=== PATIENT | male | born 1965 | race Caucasian/White ===

== ENCOUNTER → 2017-09-13 16:17 | Outpatient (CLI) | payer OTHER, SELFPAY ==
--- NOTE | 2017-09-13 16:17 | DT_ITS ---
This patient was seen during an EMR downtime September 11, 2017 - September 18, 2017. This patient may have a combination of paper and electronic documentation or all paper documentation. All documentation is viewable within the e-chart portion of [employer] for each patient visit.
[2017-09-22 16:10] LABS: QNTFERON TB Ag Minus Nil Value 0.01 IU/mL (.); QNTFERON TB Ag Value 0.08 IU/mL (.); QNTFERON TB Mitogen Value > 10.00 IU/mL (.); QNTFERON TB Nil Value 0.07 IU/mL (.)
[2017-09-22 18:27] LABS: QNTIFERON TB Gold Negative (Negative)
== END ==
PROVIDERS: Family Provider Internal Medicine; PCP Internal Medicine
DX: L40.0 Psoriasis vulgaris (principal); Z79.899 Other long term (current) drug therapy
CPT/HCPCS: 86480

== ENCOUNTER 2018-03-30 13:15 | Observation (INO) | payer OTHER, SELFPAY ==
[2018-03-30] VITALS (15 sets, daily range): BP systolic 117–145; BP diastolic 78–109; PULSE 86–108; RESP 15–25; TEMP 36.6–36.8; O2SAT 89–98; BMI 34.5; BMI 34.6; BMI 33.5
--- NOTE | 2018-03-30 13:38 | CT_ITS ---
STUDY: CTA CHEST REASON FOR EXAM: Male, 52 years old. 2 day history of shortness of breath. Elevated d-dimer. RADIATION DOSAGE (If Supplied By Facility): CTDIvol = ( 17.17 ) mGy, DLP = ( 648.10 ) mGycm TECHNIQUE: The examination was performed with the intravenous administration of 100 ml of Isovue 370 contrast material. Post-processing of the angiographic images was performed, with multiplanar reformation and 3D reconstruction. Individualized dose optimization techniques were used for this CT. COMPARISON: None. FINDINGS: There is evidence of diffuse bilateral intraluminal filling defects involving the branches of the right and left pulmonary arteries. This is more prominent on the right side where there is proximal extension of the thrombus into the distal portion of the right pulmonary artery. Normal thoracic aorta and visualized great vessels. There is no demonstrated aortic dissection. There are calcifications of the coronary arteries. There are visualized mediastinal lymph nodes, which are within normal size limits, and with normal morphology. Normal hilar regions. Normal visualized trachea and bronchi. The lungs are well expanded. Is evidence of increased linear markings with [place] in both lower lobes with subpleural blebs. Similar appearance is also seen in the anterior aspects of the upper lobes suggestive of chronic interstitial scarring. Normal pleura. Normal chest wall structures. There are degenerative changes of thoracic spine. 1.4 cm rounded hypodensity in the left adrenal gland suggestive of a small adrenal adenoma. CT/CTA Chest W/WO Contrast IMPRESSION: Diffuse bilateral pulmonary emboli worse on the right side. N.B. : The above information has been verbally conveyed by Flynn Mittal MD to Darlene Samuel MD, on 03/30/2018 15:18:35 (ET). Electronically Signed: Flynn Mittal MD at 15:19 EST Tel [phone], Service support ,
--- NOTE | 2018-03-30 13:38 | EKG12_ITS ---
Test Reason : SOB Blood Pressure : / mmHG Vent. Rate : 099 BPM Atrial Rate : 099 BPM P-R Int : 140 ms QRS Dur : 084 ms QT Int : 362 ms P-R-T Axes : 033 -23 -14 degrees QTc Int : 464 ms Normal sinus rhythm Minimal voltage criteria for LVH, may be normal variant Borderline ECG Confirmed by ZOHREH VALLE ([id number]), social media editor SANDI GRAF ([id number]) on 04/02/2018 1:06:44 PM Referred By: KEELY Confirmed By:ZOHREH VALLE
--- NOTE | 2018-03-30 13:40 | ED.DCSUM_ITS ---
- ER Visit Summary Date of Service: 03/30/18 Chief Complaint: Shortness of breath History of Present Illness: The patient is a 52 M presenting with shortness of breath. Patient states this started several days ago but worsened over the past 2 days. He was seen by his primary care physician yesterday. He had outpatient blood work which showed an elevated d-dimer. Today he was advised to come to the ED. He states he has chest pain which is worse with deep breathing. He denies leg pain or leg swelling. He has a remote history of DVT that was not treated with anticoagulants. He is not on home O2. Physical Examination: Heart rate 106, pulse ox 89% on room air. Patient is a febrile. Alert no acute distress. HEENT exam is unremarkable. Neck is supple. Lungs are clear and equal bilaterally. Heart is regular and tachycardic Abdomen is soft nontender nondistended. Extremities are unremarkable. Skin is warm and dry. No focal neurologic deficit. Remainder of exam is unremarkable. Emergency Department Course and Treatment: EKG is sinus rate of 99 with no acute ischemic changes. CBC, chemistries unremarkable other than glucose 136. Troponin is 0.487. BNP 203.7. CTA chest shows diffuse bilateral pulmonary emboli worse on the right side. He was started on a heparin drip. The hospitalist prefers to treat him with Xarelto. Patient will be admitted. Disposition: Admission Impression: Bilateral pulmonary embolism This note was generated with [employer] dictation software. It may contain incorrect words, spelling, and punctuation that were not noted in review of the chart jeet or to signing ED Disposition - Plan for ED Patient: Chief Complaint: Shortness of Breath Referrals: Shirley Hayward MD [Primary Care Provider] -
[2018-03-30 13:56] LABS: Absolute Lymphocyte Count 2.65 X10^3/ul (0.83-4.51); Absolute Neutrophil Count 6.2 X10^3/uL (2.0-7.7); Basophil# 0.02 X10^3/uL; Basophil% 0.2 % (0-1); Eosinophil# 0.03 X10^3/uL; Eosinophils% 0.3 % (0-5); Hematocrit 44.4 % (40-54); Hemoglobin 15.5 g/dl (13.0-16.5); Lymphocyte # 2.65 X10^3/ul (4.0); Lymphocyte % 27.4 % (19-41); Mean Corp Hgb Conc 34.9 g/gl (32-36); Mean Corpuscular Hgb 31.8 pg (27.0-32.0); Mean Platelet Vol. 10.1 fl (6.2-12.0); Monocyte# 0.76 X10^3/uL; Monocyte% 7.9 % (0-10); Neutrophil % 64.1 % (47-70); POSITIVE COUNT NO; POSITIVE DIFFERENTIAL NO; POSITIVE MORPHOLOGY NO; Platelet Count 150 K/mm3 (150-450); RBC Distribution Width CV 12.2 % (11.6-14.6); RBC Distribution Width SD 40.4 fl (35.1-43.9); Red Blood Count 4.88 M/mm3 (4.6-6.2); White Blood Count 9.7 K/mm3 (4.4-11.0)
[2018-03-30 14:16] LABS: Anion Gap 10 (5-15); BUN 13 mg/dL (7-18); BUN/Creat Ratio 11.8 RATIO (10-20); Calcium,Total 8.7 mg/dL (8.5-10.1); Chloride 107 mmol/L (98-107); EST Glomerular Filtration Rate 75 mL/min (>60); Est Glom Filt Rate - Afr Amer 90 mL/min (>60); Estimated Creatinine Clearance 86.22 ml/min; Glucose 136 mg/dL (74-106); Potassium 3.7 mmol/L (3.5-5.1); Sodium Level 139 mmol/L (136-145)
[2018-03-30 14:25] LABS: BNP,B-Type NATRIURETIC PEPTIDE 203.7 pg/mL (0-100)
--- NOTE | 2018-03-30 15:22 | NURSING ---
DR DUOBN IN ER
--- NOTE | 2018-03-30 16:05 | NURSING ---
PCU OBS PE [facility]
[2018-03-30] MEDS: Rivaroxaban 15 MG Tablet PO (16:08)
--- NOTE | 2018-03-30 16:47 | PCM.HP.STD ---
Problem List (1) Shortness of breath Status: Acute (2) Elevated d-dimer Status: Acute History of Present Illness Date of Admission: 03/30/18 Chief Complaint: Elevated d-dimer, shortness of breath The patient is a 52 year old M who was seen in the emergency room at [facility] after being sent in by his PCP due to an elevated d-dimer. This was obtained by his PCP due to complaints of shortness of breath times 48 hours. Patient also complained of palpitations over the last 2 days. Patient did not complain of any cough, sputum production, or any actual chest pain. Patient stated that his shortness of breath was worse on exertion. Patient states he had a past history of superficial thrombophlebitis approximately 18 years ago, this was treated with aspirin. He has no history of VTE in his family members. Workup in the emergency room included a CT of the chest which showed bilateral pulmonary emboli, lab was obtained on the patient-his CBC was unremarkable, glucose was slightly elevated at 136, troponin was slightly elevated at 4.87, beta natruretic peptide was elevated at 203. Patient's oxygen saturation on room air at rest was 89%. EKG obtained on the patient showed a normal sinus rhythm without evidence of ischemic changes or LV strain. Patient will be placed in observation status on PCU, he will be monitored, he was given Xarelto in the emergency room, oxygen will be titrated off if possible. Patient will have an echocardiogram performed tomorrow, I do not feel the patient needs repeat troponins-I do not think he has had a cardiac event. Past Medical History Past Medical History (Chronic Problems): Chronic Problems Restless leg syndrome (Chronic) Obstructive sleep apnea (Chronic) Depression (Chronic) Psoriasis (Chronic) Allergies No Known Allergies Allergy (Verified 03/30/18 13:20) Home Medications: Ambulatory Orders Medication Instructions Recorded traZODone [Desyrel] 200 mg PO QHS 05/23/16 Ustekinumab [Stelara] 90 mg SQ .COMPLEX 08/10/16 Fluoxetine HCl 20 mg PO DAILY 03/30/18 Gabapentin [Neurontin] 100 mg PO DAILY 03/30/18 Vitamin E 200 unit PO DAILY 03/30/18 Surgical History: appendectomy, - - Shoulder surgery, vein stripping of the left leg Psychiatric History: Depression Lives: Spouse/ Significant Other Smoking Status: Former smoker Tobacco Use: Cigarettes Alcohol: None Drugs: None - *Family History Maternal History Items: - - Alzheimer's dementia Paternal History Items: No pertinent history Review of Systems Constitutional: Denies: Anorexia, Chills, Fever, Night Sweats, Malaise, Weakness, Weight Change, Fatigue Eyes: Denies: Blurred vision, Cataracts, Conjunctivae Inflammation, Double vision, Drainage HEENT: Denies: Difficulty Swallowing, Dysphasia, Ear Pain, Eye Pain, Hearing Changes, Nasal bleeding, Nasal Congestion, Post Nasal Drip Cardiovascular: Reports: Palpitations. Denies: Chest Pain, Claudication, Chest Pressure, Chest Tightness, Edema, Heaviness, Orthopnea, Paroxysmal Noc. Dyspnea, Syncope Respiratory: Reports: Shortness of Breath, Shortness of breath at rest, Shortness of breath upon exertion. Denies: Cough, Hemoptysis Gastrointestinal: Denies: Abdominal Pain, Constipation, Diarrhea, Hematemesis, Hematochezia, Nausea, Melena, Vomiting Genitourinary: Denies: Dysuria, Frequency, Hematuria, Hesitancy, Nocturia, Retention, Urgency Musculoskeletal: Denies: Joint Pain, Joint stiffness, Joint swelling Skin: Denies: Dryness, Pruritis, Rash Neurological: Denies: Blurred vision, Double vision, Change in Speech, Slurred speech, Difficulty swallowing, Focal weakness, Headaches, Incoordination, Numbness, Tingling Psychiatric: Denies: Anxiety, Depression, Homicidal Ideations, Suicidal Ideations Endocrine: Denies: Change in Body Habitus, Heat/ Cold Intolerance, Polydipsia, Polyuria Hematologic/ Lymphatic: Reports: Hx of blood clot - History of superficial phlebitis of the calf in remote past. Denies: Adenopathy, Anemia, Easy Bruising, Easy Bleeding, Petechiae, Purpura VTE Information - Inpt Only VTE Present on Admission: Yes VTE Mechan Device Prophylaxis: None VTE Pharm Prophylaxis ordered?: No Reason prophylaxis not ordered:: Treatment Not Indicated - will have full anticoagulation Patient Problems: Active and Suspected Problems Shortness of breath (Acute) Elevated d-dimer (Acute) - Physical Exam General: Alert, Oriented x3, Cooperative, No apparent distress, Well developed, Well nourished HEENT: Atraumatic, PERRLA, EOMI, Normocephalic Oral: Moist Mucosa Neck: Supple, No JVD, Negative Carotid Bruits, No Nuchal Rigidity, Trachea Midline, Thyroid Normal Size and Texture Lungs: Clear to auscultation, Normal air movement, No rhonchi, No wheeze, No rales Cardiovascular: Regular rate, Regular Rhythm, Normal S1, Normal S2, No murmurs, No Ectopic Activity, PMI Normal, No rub noted, No Gallop Abdomen: Bowel Sounds Present, Soft, Non Tender, Non-Distended, No hernias noted Extremities: No clubbing, No cyanosis, No edema, Capillary Refill Less than 3 Seconds Skin: No rashes, No breakdown Musculoskeletal: No Tenderness to Palpation of Joints or Extremities Neurological: Cranial nerves II-XII grossly intact, Neuro grossly intact, Sensory exam intact to light touch and pain, Coordination normal Psych/Mental Status: Normal Affect, Appropriate, Alert and oriented to time, place, person, mood and affect Vital Signs Temp Pulse Resp BP Pulse Ox 98.3 F 94 18 144/109 H 96 03/30/18 13:16 03/30/18 16:08 03/30/18 16:08 03/30/18 16:08 03/30/18 16:08 Oxygen Flow Rate (L/min) 2 Oxygen Delivery Method Nasal Cannula Weight: 115.6 kg Body Mass Index (BMI) 34.5 Laboratory Tests Past 24 Hrs 03/30/18 03/30/18 03/30/18 13:30 13:30 13:30 WBC 9.7 RBC 4.88 Hgb 15.5 Hct 44.4 MCV 91.0 MCH 31.8 MCHC 34.9 RDW 12.2 RDW Differential 40.4 Plt Count 150 MPV 10.1 Immature Gran % (Auto) 0.100 Neut % (Auto) 64.1 Lymph % (Auto) 27.4 [place] % (Auto) 7.9 Eos % (Auto) 0.3 Baso % (Auto) 0.2 Absolute Neuts (auto) 6.2 Absolute Lymphs (auto) 2.65 Total Counted Not Reportable Sodium 139 Potassium 3.7 Chloride 107 Carbon Dioxide 22.0 Anion Gap 10 BUN 13 Creatinine 1.10 Estim Creat Clear Calc 86.22 Est GFR (MDRD) Af Amer 90 Est GFR (MDRD) Non-Af 75 BUN/Creatinine Ratio 11.8 Glucose 136 H Calcium 8.7 Troponin I 0.487 H B-Natriuretic Peptide 203.7 H Assessment/Plan All Active Problems Shortness of breath (Acute) Elevated d-dimer (Acute) #1 diffuse bilateral pulmonary emboli more predominant on the right side-patient will be placed in observation status on PCU, he will be maintained on Xarelto, he will be monitored, he will receive an echocardiogram tomorrow, I will order a PSA on the patient as part of a cancer screen, he has had a colonoscopy in the last 1-2 years which she states was negative. I do not feel that troponins need to be cycled. #2 psoriasis #3 obstructive sleep apnea-noncompliant with using CPAP-according to the , he was not able to use CPAP and refused to wear it #4 restless legs #5 depression Code Visit OBSV E&M: 61305 Initial observation care L3
[2018-03-30 17:10] LABS: International Normalized Ratio 1.1; Prothrombin Time (Protime)PT. 13.7 SECONDS (11.7-14.9)
[2018-03-30 17:17] LABS: PSA,Total - Annual Screen 0.34 ng/mL (0.00-4.00)
--- NOTE | 2018-03-30 18:27 | NURSING ---
Reviewed and agreed on all charting with Geronimo Pacheco RN
[2018-03-30] MEDS: traZODone 100 MG Tablet 200 MG PO (21:10)
[2018-03-31] VITALS (15 sets, daily range): BP systolic 104–136; BP diastolic 72–95; PULSE 75–90; RESP 15–18; TEMP 36.1–36.8; O2SAT 86–98
--- NOTE | 2018-03-31 05:55 | ECHOCS_ITS ---
Reason For Study: EMBOLI Procedure This was a 2D Doppler, Color Flow transthoracic echocardiogram. Contrast injection was performed. Exam performed portable in patient room. Left Ventricle Normal size and thickness. The estimated ejection fraction is 55 %. Stage 1 diastolic dysfunction. Mid-anteroseptal : Mildly hypokinetic. Right Ventricle Moderately dilated right ventricle. Normal systolic function. Atria Normal left atrium. Normal right atrium. Normal atrial septum. Mitral Valve The mitral valve is structurally normal. No prolapse or stenosis seen. Tricuspid Valve Normal tricuspid valve. Trivial tricuspid valve insufficiency. Right ventricular systolic pressure estimated to be 38 mmHg. Mild pulmonary hypertension. Aortic Valve Normal aortic valve. Trisinus/trileaflet aortic valve. Pulmonic Valve The pulmonic valve is not well visualized. Great Vessels Normal aortic root. Normal arch. Normal inferior vena cava. Inferior vena cava collapse with sniff. Pericardium/Pleural No pericardial effusion. Medication Diluted definity 3ml given slow IV push to enhance endocardial definition. MMode/2D Measurements & Calculations LVIDd: 4.9 cm IVSd: 1.1 cm Ao root diam: 3.7 cm LVIDs: 3.8 cm LVPWd: 1.1 cm RVDd: 4.4 cm FS: 22.6 % LAV(MOD-bp): 44.1 ml LVAd ap4: 32.6 cm2 SV(MOD-sp4): 48.1 ml LAV(MOD-bp) Indexed: 18.9 ml/m2 EDV(MOD-sp4): 104.3 ml LAV(MOD-sp2): 49.3 ml EDV(sp4-el): 108.4 ml LAV(MOD-sp4): 39.2 ml LVAs ap4: 22.2 cm2 ESV(MOD-sp4): 56.2 ml ESV(sp4-el): 58.7 ml EF(MOD-sp4): 46.1 % EF(sp4-el): 45.8 % SV(sp4-el): 49.6 ml LA A4 area: 15.7 cm2 LA dimension(2D): 3.7 cm RA A4 area: 15.2 cm2 Time Measurements MV dec time: 0.35 sec Doppler Measurements & Calculations MV E max jan: 34.2 cm/sec Lat Peak E' Jan: 7.0 cm/sec Med Peak E' Jan: 7.2 cm/sec MV A max jan: 43.5 cm/sec E/E' lat: 4.9 E/E' med: 4.8 MV E/A: 0.79 Ao V2 max: 90.9 cm/sec LV V1 max: 74.5 cm/sec PA V2 max: 98.0 cm/sec Ao max P.3 mmHg LV V1 max P.2 mmHg TR max jan: 286.4 cm/sec TR max P.8 mmHg Interpretation Summary The estimated ejection fraction is 55 %. Stage 1 diastolic dysfunction. Mid-anteroseptal : Mildly hypokinetic Moderately dilated right ventricle. Trivial tricuspid valve insufficiency. Right ventricular systolic pressure estimated to be 38 mmHg. Mild pulmonary hypertension. The study was technically difficult. There is no comparison study available. Contrast injection was performed. Ordering Physician: Teofilo Crane Referring Physician: GENIE COTO Performed By: Radha Machado, MARK, RVT
[2018-03-31] MEDS: Rivaroxaban 15 MG Tablet PO ×2 (06:09→17:28)
[2018-03-31] MEDS: FLUoxetine 20 MG Capsule PO (09:26)
[2018-03-31] MEDS: Gabapentin 100 MG Capsule PO (09:26)
--- NOTE | 2018-03-31 12:21 | DCINST_ITS ---
- Discharge Diagnoses Current Active Problems: Current Active and Chronic Problems Shortness of breath (Acute) Elevated d-dimer (Acute) Restless leg syndrome (Chronic) Obstructive sleep apnea (Chronic) Depression (Chronic) Psoriasis (Chronic) You will use the following diet at home:: No restrictions Discharge Activity: Return to Normal Activity Call your doctor if you observe: Shortness of breath, Dizziness, Fainting spells, Chest pain Allergies/Adverse Reactions: Allergies No Known Allergies Allergy (Verified 03/30/18 13:20) Medications to take at Discharge traZODone [Desyrel] 200 mg PO QHS 05/23/16 Ustekinumab [Stelara] 90 mg SQ .COMPLEX 08/10/16 Fluoxetine HCl 20 mg PO DAILY 03/30/18 Gabapentin [Neurontin] 100 mg PO DAILY 03/30/18 Vitamin E 200 unit PO DAILY 03/30/18 Rivaroxaban [Xarelto] 15 mg PO Q12H 21 Days #42 tablet 03/31/18 The following prescriptions were given: Rivaroxaban [Xarelto] 15 mg PO Q12H 21 Days #42 tablet Primary Care Physician: Shirley Hayward MD [Primary Care Provider] - Please follow up with your Primary Care Physician in: 1 Week Test Results: Test results from this visit will be discussed in further detail at your follow- up appointment, if applicable. Proposed Discharge Date: 03/31/18
--- NOTE | 2018-03-31 12:22 | PCM.DC.SUM ---
<Amie Lamb - Last Filed: 04/01/18 12:40> Discharge Date and Diagnosis Date of Admission: 03/30/18 Date of Discharge: 03/31/18 - Primary Discharge Diagnosis Active and Suspected Problems 1. Acute hypoxia secondary to acute diffuse bilateral pulmonary emboli 2. Psoriasis 3. Obstructive sleep apnea 4. Restless leg syndrome 5. Depression - Secondary Discharge Diagnosis Chronic Problems Restless leg syndrome (Chronic) Obstructive sleep apnea (Chronic) Depression (Chronic) Psoriasis (Chronic) Hospital Course and Treatment Imaging Results: Diagnostic Data Chest CTA 03/30/18 13:38 IMPRESSION: Diffuse bilateral pulmonary emboli worse on the right side. N.B. : The above information has been verbally conveyed by Flynn Mittal MD to Darlene Samuel MD, on 03/30/2018 15:18:35 (ET). Electronically Signed: Flynn Mittal MD at 15:19 EST Tel [phone], Service support , Operations: None Procedures: 2-D Echocardiogram Summary of Care Provided: The patient is a 52 year old M admitted 03/30/2018 due to shortness of breath, elevated d-dimer. 1. Acute hypoxia secondary to acute diffuse bilateral pulmonary emboli-patient reports a remote history of superficial thrombophlebitis 18 years ago which was treated with aspirin. He denies history of blood clots in his family. 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 He is not a smoker. EKG on admission sinus rhythm without evidence of ischemia or LV strain. CT with diffuse bilateral pulmonary emboli, more predominant on the right side. Initiated on Xarelto. Patient will continue Xarelto 15 mg twice daily for 21 days followed by Xarelto 20 mg daily which will be further ordered by primary care physician. Patient reports he has had a colonoscopy in the last 1-2 years which was reported to be normal. PSA normal. Patient will follow up with primary care physician in 1 week. Troponin completed in ER which was elevated. Suspect demand ischemia as result of acute hypoxia and bilateral pulmonary emboli. EKG without acute changes as noted prior. Enzymes were not cycled. Patient's oxygen 88% on room air, he will require supplemental oxygen at discharge. He is ambulatory in the home. Continue supplement oxygen to maintain O2 at or above 90%. Echocardiogram pending and will be reviewed prior to discharge. 2. Psoriasis 3. Obstructive sleep apnea 4. Restless leg syndrome 5. Depression General: Alert, Oriented x3, Cooperative, No apparent distress HEENT: Atraumatic, PERRLA, EOMI, Normocephalic Oral: Moist Mucosa Neck: Supple, No JVD, Negative Carotid Bruits, No Nuchal Rigidity, Trachea Midline Lungs: Clear to auscultation, Normal air movement Cardiovascular: Regular rate, Regular Rhythm, Normal S1, Normal S2, No murmurs Abdomen: Bowel Sounds Present, Soft, Non Tender, Non-Distended, No hernias noted Extremities: No clubbing, No cyanosis, No edema, Capillary Refill Less than 3 Seconds Skin: No rashes, No breakdown Musculoskeletal: No Tenderness to Palpation of Joints or Extremities Neurological: Cranial nerves II-XII grossly intact, Neuro grossly intact Psych/Mental Status: Normal Affect, Appropriate Patient seen and examined prior to discharge. Physical assessment as noted above. Patient is stable for discharge with follow up recommendations as noted above. This patient was seen by EDMUND Lester under the supervision of Dr. Branham. - Physical Exam Vital Signs Temp Pulse Resp BP Pulse Ox 98.2 F 78 18 104/72 98 03/31/18 09:24 03/31/18 10:42 03/31/18 09:24 03/31/18 09:24 03/31/18 09:24 Oxygen Flow Rate (L/min) 2 Oxygen Delivery Method Nasal Cannula Weight: 247 lb 2.211 oz Body Mass Index (BMI) 33.5 Intake and Output for Last 24 Hours 03/29/18 03/30/18 03/31/18 23:59 23:59 23:59 Intake Total 120 / 120 450 / 450 Balance 120 / 120 450 / 450 Laboratory Tests Past 24 Hrs 03/30/18 03/30/18 03/30/18 13:30 13:30 13:30 WBC 9.7 RBC 4.88 Hgb 15.5 Hct 44.4 MCV 91.0 MCH 31.8 MCHC 34.9 RDW 12.2 RDW Differential 40.4 Plt Count 150 MPV 10.1 Immature Gran % (Auto) 0.100 Neut % (Auto) 64.1 Lymph % (Auto) 27.4 [facility] % (Auto) 7.9 Eos % (Auto) 0.3 Baso % (Auto) 0.2 Absolute Neuts (auto) 6.2 Absolute Lymphs (auto) 2.65 Total Counted Not Reportable PT INR Sodium 139 Potassium 3.7 Chloride 107 Carbon Dioxide 22.0 Anion Gap 10 BUN 13 Creatinine 1.10 Estim Creat Clear Calc 86.22 Est GFR (MDRD) Af Amer 90 Est GFR (MDRD) Non-Af 75 BUN/Creatinine Ratio 11.8 Glucose 136 H Calcium 8.7 Troponin I 0.487 H B-Natriuretic Peptide 203.7 H PSA Screen 03/30/18 03/30/18 13:30 13:30 WBC RBC Hgb Hct MCV MCH MCHC RDW RDW Differential Plt Count MPV Immature Gran % (Auto) Neut % (Auto) Lymph % (Auto) [facility] % (Auto) Eos % (Auto) Baso % (Auto) Absolute Neuts (auto) Absolute Lymphs (auto) Total Counted PT 13.7 INR 1.1 Sodium Potassium Chloride Carbon Dioxide Anion Gap BUN Creatinine Estim Creat Clear Calc Est GFR (MDRD) Af Amer Est GFR (MDRD) Non-Af BUN/Creatinine Ratio Glucose Calcium Troponin I B-Natriuretic Peptide PSA Screen 0.34 Discharge Diet: No Restrictions Discharge Activity: Return to Normal Activity Call your doctor if you observe: Shortness of breath, Dizziness, Fainting spells, Chest pain Home Medications: Medications to take at Discharge traZODone [Desyrel] 200 mg PO QHS 05/23/16 Ustekinumab [Stelara] 90 mg SQ .COMPLEX 08/10/16 Fluoxetine HCl 20 mg PO DAILY 03/30/18 Gabapentin [Neurontin] 100 mg PO DAILY 03/30/18 Vitamin E 200 unit PO DAILY 03/30/18 Rivaroxaban [Xarelto] 15 mg PO Q12H 21 Days #42 tablet 03/31/18 Following Prescrptions Were Given to Patient: Rivaroxaban [Xarelto] 15 mg PO Q12H 21 Days #42 tablet Primary Care Physician: Shirley Hayward MD [Primary Care Provider] - Please follow up with your Primary Care Physician in: 1 Week Disposition: Home Minutes spent on discharge:: 35 Patient Condition:: Stable Medical Necessity - Tobacco Use Smoking Status: Former smoker Tobacco Use: Cigarettes Meaningful Use Info Meaningful Use Diagnoses (Choose all that apply): VTE - VTE Anticoag overlap given w/in hospital stay or rx'd at dc?: Yes Pt receive overlap for 5 days?: Yes <Jv Branham - Last Filed: 04/01/18 17:19> Discharge Date and Diagnosis Date of Discharge: 04/01/18 - Secondary Discharge Diagnosis Chronic Problems Restless leg syndrome (Chronic) Obstructive sleep apnea (Chronic) Depression (Chronic) Psoriasis (Chronic) Hospital Course and Treatment Summary of Care Provided: This patient was seen in conjunction with Amie TAFOYA. I have independently interviewed and examined the patient and reviewed pertinent history, examination findings, laboratory and plan of management. I have reviewed the note and agree with the documented findings with the few additional points. In brief, patient is admitted for acute hypoxic respiratory failure secondary to acute bilateral diffuse pulmonary emboli, worse on the right side. BNP 203, troponin 0 0.487. 2D echo shows moderately dilated right ventricle with RVSP 38 mmHg history of mild pulmonary hypertension. EF 55% with stage I diastolic dysfunction. Cardiac enzymes and echo finding of moderate RV dilatation is suggestive of acute cor pulmonale secondary to acute diffuse bilateral PE. The clinical diagnosis, labs finding, echo report discussed with the patient and his . Patient was advised to continue Xarelto for about 6 months. Follow with PCP in 1-2 weeks. Patient will also need repeat echo in 3 months to see resolution of right ventricular dilatation suggestive of acute cor pulmonale. Advised follow-up pulmonary clinic in 2-4 weeks. Discharge on oxygen 2 L/min Patient requires home oxygen with portability and is ambulatory in home in the community. Discharge medication reconciliation done. Discharge follow-up instructions completed. Discharge process discussed with the patient. Total time spent, exact 35 minutes on discharge meds reconciliation, examination, review of imaging and blood test and discussion with the patient on follow-up instructions. I have discussed my assessment with Amie TAFOYA and orders have been reviewed. [] Subjective: Seen and examined. Patient is still short of breath on walking and requires 2 L of oxygen. Hemodynamically stable. - Physical Exam General: Alert, Oriented x3, Cooperative HEENT: Atraumatic, PERRLA, EOMI, Normocephalic Neck: Supple, No JVD, Negative Carotid Bruits Lungs: Clear to auscultation, Normal air movement, No rhonchi, No wheeze, No rales Cardiovascular: Regular rate, Regular Rhythm, Normal S1, Normal S2, No murmurs Abdomen: Bowel Sounds Present, Soft, Non Tender, Non-Distended Extremities: No edema, Capillary Refill Less than 3 Seconds Skin: No rashes, No breakdown Musculoskeletal: No Tenderness to Palpation of Joints or Extremities Neurological: Cranial nerves II-XII grossly intact Psych/Mental Status: Normal Affect, Appropriate Vital Signs Temp Pulse Resp BP Pulse Ox 97.4 F L 95 16 109/77 97 04/01/18 14:17 04/01/18 14:17 04/01/18 14:17 04/01/18 14:17 04/01/18 14:17 Oxygen Flow Rate (L/min) [ 3 AMBULATION with Oxygen] Oxygen Flow Rate (L/min) 2 Oxygen Delivery Method Nasal Cannula Weight: 247 lb 2.211 oz Body Mass Index (BMI) 33.5 Intake and Output for Last 24 Hours 03/30/18 03/31/18 04/01/18 23:59 23:59 23:59 Intake Total 120 / 120 2009 480 / 480 Balance 120 / 120 2009 480 / 480 Code Visit Inpatient E&M: 17480 Disch Hosp
--- NOTE | 2018-03-31 12:29 | DS.PCM_ITS ---
Addendum entered and electronically signed by EDMUND Lester 04/01/18 12:40: Code Visit Additional follow up: Recommend repeat echo in 3 months by PCP. Referral to pulmonary medicine by PCP if repeat echo remains abnormal. Addendum entered and electronically signed by EDMUND Lester 04/01/18 10:49: Code Visit Discharge held due to intermittent shortness of breath yesterday afternoon. Patient reports shortness of breath is improved. Echocardiogram showed an EF of 55%, stage I diastolic dysfunction, moderately dilated right ventricle, RVSP estimated to be 38 mmHg. Patient stable for discharge home with home oxygen and Xarelto. Follow-up with primary care physician in 1 week. Discharge summary below unchanged. Discharge date 04/01/2018. General: Alert, Oriented x3, Cooperative, No apparent distress HEENT: Atraumatic, PERRLA, EOMI, Normocephalic Oral: Moist Mucosa Neck: Supple, No JVD, Negative Carotid Bruits, No Nuchal Rigidity, Trachea Midline Lungs: Clear to auscultation, Normal air movement Cardiovascular: Regular rate, Regular Rhythm, Normal S1, Normal S2, No murmurs Abdomen: Bowel Sounds Present, Soft, Non Tender, Non-Distended, No hernias noted Extremities: No clubbing, No cyanosis, No edema, Capillary Refill Less than 3 Seconds Skin: No rashes, No breakdown Musculoskeletal: No Tenderness to Palpation of Joints or Extremities Neurological: Cranial nerves II-XII grossly intact, Neuro grossly intact Psych/Mental Status: Normal Affect, Appropriate Patient seen and examined prior to discharge. Physical assessment as noted above. This patient was seen by EDMUND Lester under the supervision of Dr. Branham. Original Note: <Amie Lamb - Last Filed: 04/01/18 12:40> Discharge Date and Diagnosis Date of Admission: 03/30/18 Date of Discharge: 03/31/18 - Primary Discharge Diagnosis Active and Suspected Problems 1. Acute hypoxia secondary to acute diffuse bilateral pulmonary emboli 2. Psoriasis 3. Obstructive sleep apnea 4. Restless leg syndrome 5. Depression - Secondary Discharge Diagnosis Chronic Problems Restless leg syndrome (Chronic) Obstructive sleep apnea (Chronic) Depression (Chronic) Psoriasis (Chronic) Hospital Course and Treatment Imaging Results: Diagnostic Data Chest CTA 03/30/18 13:38 IMPRESSION: Diffuse bilateral pulmonary emboli worse on the right side. N.B. : The above information has been verbally conveyed by Flynn Mittal MD to Darlene Samuel MD, on 03/30/2018 15:18:35 (ET). Electronically Signed: Flynn Mittal MD at 15:19 EST Tel [phone], Service support , Operations: None Procedures: 2-D Echocardiogram Summary of Care Provided: The patient is a 52 year old M admitted 03/30/2018 due to shortness of breath, elevated d-dimer. 1. Acute hypoxia secondary to acute diffuse bilateral pulmonary emboli-patient reports a remote history of superficial thrombophlebitis 18 years ago which was treated with aspirin. He denies history of blood clots in his family. 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 EKG on admission sinus rhythm without evidence of ischemia or LV strain. CT with diff use bilateral pulmonary emboli, more predominant on the right side. Initiated on Xarelto. Patient will continue Xarelto 15 mg twice daily for 21 days followed by Xarelto 20 mg daily which will be further ordered by primary care physician. Patient reports he has had a colonoscopy in the last 1-2 years which was reported to be normal. PSA normal. Patient will follow up with primary care physician in 1 week. Troponin completed in ER which was elevated. Suspect demand ischemia as result of acute hypoxia and bilateral pulmonary emboli. EKG without acute changes as noted prior. Enzymes were not cycled. Patient's oxygen 88% on room air, he will require supplemental oxygen at discharge. He is ambulatory in the home. Continue supplement oxygen to maintain O2 at or above 90%. Echocardiogram pending and will be reviewed prior to discharge. 2. Psoriasis 3. Obstructive sleep apnea 4. Restless leg syndrome 5. Depression General: Alert, Oriented x3, Cooperative, No apparent distress HEENT: Atraumatic, PERRLA, EOMI, Normocephalic Oral: Moist Mucosa Neck: Supple, No JVD, Negative Carotid Bruits, No Nuchal Rigidity, Trachea Midline Lungs: Clear to auscultation, Normal air movement Cardiovascular: Regular rate, Regular Rhythm, Normal S1, Normal S2, No murmurs Abdomen: Bowel Sounds Present, Soft, Non Tender, Non-Distended, No hernias noted Extremities: No clubbing, No cyanosis, No edema, Capillary Refill Less than 3 Seconds Skin: No rashes, No breakdown Musculoskeletal: No Tenderness to Palpation of Joints or Extremities Neurological: Cranial nerves II-XII grossly intact, Neuro grossly intact Psych/Mental Status: Normal Affect, Appropriate Patient seen and examined prior to discharge. Physical assessment as noted above. Patient is stable for discharge with follow up recommendations as noted above. This patient was seen by EDMUND Lester under the supervision of Dr. Branham. - Physical Exam Vital Signs Temp Pulse Resp BP Pulse Ox 98.2 F 78 18 104/72 98 03/31/18 09:24 03/31/18 10:42 03/31/18 09:24 03/31/18 09:24 03/31/18 09:24 Oxygen Flow Rate (L/min) 2 Oxygen Delivery Method Nasal Cannula Weight: 247 lb 2.211 oz Body Mass Index (BMI) 33.5 Intake and Output for Last 24 Hours 03/29/18 03/30/18 03/31/18 23:59 23:59 23:59 Intake Total 120 / 120 450 / 450 Balance 120 / 120 450 / 450 Laboratory Tests Past 24 Hrs 03/30/18 03/30/18 03/30/18 13:30 13:30 13:30 WBC 9.7 RBC 4.88 Hgb 15.5 Hct 44.4 MCV 91.0 MCH 31.8 MCHC 34.9 RDW 12.2 RDW Differential 40.4 Plt Count 150 MPV 10.1 Immature Gran % (Auto) 0.100 Neut % (Auto) 64.1 Lymph % (Auto) 27.4 [facility] % (Auto) 7.9 Eos % (Auto) 0.3 Baso % (Auto) 0.2 Absolute Neuts (auto) 6.2 Absolute Lymphs (auto) 2.65 Total Counted Not Reportable PT INR Sodium 139 Potassium 3.7 Chloride 107 Carbon Dioxide 22.0 Anion Gap 10 BUN 13 Creatinine 1.10 Estim Creat Clear Calc 86.22 Est GFR (MDRD) Af Amer 90 Est GFR (MDRD) Non-Af 75 BUN/Creatinine Ratio 11.8 Glucose 136 H Calcium 8.7 Troponin I 0.487 H B-Natriuretic Peptide 203.7 H PSA Screen 03/30/18 03/30/18 13:30 13:30 WBC RBC Hgb Hct MCV MCH MCHC RDW RDW Differential Plt Count MPV Immature Gran % (Auto) Neut % (Auto) Lymph % (Auto) [place] % (Auto) Eos % (Auto) Baso % (Auto) Absolute Neuts (auto) Absolute Lymphs (auto) Total Counted PT 13.7 INR 1.1 Sodium Potassium Chloride Carbon Dioxide Anion Gap BUN Creatinine Estim Creat Clear Calc Est GFR (MDRD) Af Amer Est GFR (MDRD) Non-Af BUN/Creatinine Ratio Glucose Calcium Troponin I B-Natriuretic Peptide PSA Screen 0.34 Discharge Diet: No Restrictions Discharge Activity: Return to Normal Activity Call your doctor if you observe: Shortness of breath, Dizziness, Fainting spells, Chest pain Home Medications: Medications to take at Discharge traZODone [Desyrel] 200 mg PO QHS 05/23/16 Ustekinumab [Stelara] 90 mg SQ .COMPLEX 08/10/16 Fluoxetine HCl 20 mg PO DAILY 03/30/18 Gabapentin [Neurontin] 100 mg PO DAILY 03/30/18 Vitamin E 200 unit PO DAILY 03/30/18 Rivaroxaban [Xarelto] 15 mg PO Q12H 21 Days #42 tablet 03/31/18 Following Prescrptions Were Given to Patient: Rivaroxaban [Xarelto] 15 mg PO Q12H 21 Days #42 tablet Primary Care Physician: Shirley Hayward MD [Primary Care Provider] - Please follow up with your Primary Care Physician in: 1 Week Disposition: Home Minutes spent on discharge:: 35 Patient Condition:: Stable Medical Necessity - Tobacco Use Smoking Status: Former smoker Tobacco Use: Cigarettes Meaningful Use Info Meaningful Use Diagnoses (Choose all that apply): VTE - VTE Anticoag overlap given w/in hospital stay or rx'd at dc?: Yes Pt receive overlap for 5 days?: Yes <Jv Branham - Last Filed: 04/01/18 17:19> Discharge Date and Diagnosis Date of Discharge: 04/01/18 - Secondary Discharge Diagnosis Chronic Problems Restless leg syndrome (Chronic) Obstructive sleep apnea (Chronic) Depression (Chronic) Psoriasis (Chronic) Hospital Course and Treatment Summary of Care Provided: This patient was seen in conjunction with Amie TAFOYA. I have independently interviewed and examined the patient and reviewed pertinent history, examination findings, laboratory and plan of management. I have reviewed the note and agree with the documented findings with the few additional points. In brief, patient is admitted for acute hypoxic respiratory failure secondary to acute bilateral diffuse pulmonary emboli, worse on the right side. BNP 203, troponin 0 0.487. 2D echo shows moderately dilated right ventricle with RVSP 38 mmHg history of mild pulmonary hypertension. EF 55% with stage I diastolic dysfunction. Cardiac enzymes and echo finding of moderate RV dilatation is suggestive of acute cor pulmonale secondary to acute diffuse bilateral PE. The clinical diagnosis, labs finding, echo report discussed with the patient and his . Patient was advised to continue Xarelto for about 6 months. Follow with PCP in 1-2 weeks. Patient will also need repeat echo in 3 months to see resolution of right ventricular dilatation suggestive of acute cor pulmonale. Advised follow-up pulmonary clinic in 2-4 weeks. Discharge on oxygen 2 L/min Patient requires home oxygen with portability and is ambulatory in home in the community. Discharge medication reconciliation done. Discharge follow-up instructions completed. Discharge process discussed with the patient. Total time spent, exact 35 minutes on discharge meds reconciliation, examination, review of imaging and blood test and discussion with the patient on follow-up instructions. I have discussed my assessment with LOCKSTITCH BINDERAmie and orders have been reviewed. [] Subjective: Seen and examined. Patient is still short of breath on walking and requires 2 L of oxygen. Hemodynamically stable. - Physical Exam General: Alert, Oriented x3, Cooperative HEENT: Atraumatic, PERRLA, EOMI, Normocephalic Neck: Supple, No JVD, Negative Carotid Bruits Lungs: Clear to auscultation, Normal air movement, No rhonchi, No wheeze, No rales Cardiovascular: Regular rate, Regular Rhythm, Normal S1, Normal S2, No murmurs Abdomen: Bowel Sounds Present, Soft, Non Tender, Non-Distended Extremities: No edema, Capillary Refill Less than 3 Seconds Skin: No rashes, No breakdown Musculoskeletal: No Tenderness to Palpation of Joints or Extremities Neurological: Cranial nerves II-XII grossly intact Psych/Mental Status: Normal Affect, Appropriate Vital Signs Temp Pulse Resp BP Pulse Ox 97.4 F L 95 16 109/77 97 04/01/18 14:17 04/01/18 14:17 04/01/18 14:17 04/01/18 14:17 04/01/18 14:17 Oxygen Flow Rate (L/min) [ 3 AMBULATION with Oxygen] Oxygen Flow Rate (L/min) 2 Oxygen Delivery Method Nasal Cannula Weight: 247 lb 2.211 oz Body Mass Index (BMI) 33.5 Intake and Output for Last 24 Hours 03/30/18 03/31/18 04/01/18 23:59 23:59 23:59 Intake Total 120 / 120 2009 480 / 480 Balance 120 / 120 2009 480 / 480 Code Visit Inpatient E&M: 16064 Disch Hosp
--- NOTE | 2018-03-31 14:46 | PCM.PROGNOTE ---
<Amie Lamb - Last Filed: 03/31/18 14:49> Subjective: Patient seen and examined. Plan on discharge home however patient with intermittent shortness of breath. We will continue to monitor overnight. Requiring supplemental oxygen, patient was set up with home oxygen for discharge. No other complaints. - Physical Exam General: Alert, Oriented x3, Cooperative HEENT: Atraumatic, PERRLA, EOMI, Normocephalic Neck: Supple, No JVD, Negative Carotid Bruits Lungs: Clear to auscultation, Diminished Cardiovascular: Regular rate, Regular Rhythm, Normal S1, Normal S2, No murmurs Abdomen: Bowel Sounds Present, Soft, Non Tender, Non-Distended Extremities: No clubbing, No cyanosis, No edema, Capillary Refill Less than 3 Seconds Skin: No rashes, No breakdown Musculoskeletal: No Tenderness to Palpation of Joints or Extremities Neurological: Cranial nerves II-XII grossly intact, Neuro grossly intact Psych/Mental Status: Normal Affect, Appropriate Vital Signs Temp Pulse Resp BP Pulse Ox 98.2 F 78 18 104/72 88 03/31/18 09:24 03/31/18 10:42 03/31/18 09:24 03/31/18 09:24 03/31/18 13:08 Oxygen Flow Rate (L/min) [ 3 AMBULATION with Oxygen] Oxygen Flow Rate (L/min) 2 Oxygen Delivery Method Nasal Cannula Weight: 247 lb 2.211 oz Body Mass Index (BMI) 33.5 Intake and Output for Last 24 Hours 03/29/18 03/30/18 03/31/18 23:59 23:59 23:59 Intake Total 120 / 120 930 / 930 Balance 120 / 120 930 / 930 Laboratory Tests Past 24 Hrs 03/30/18 03/30/18 13:30 13:30 PT 13.7 INR 1.1 PSA Screen 0.34 Medical Necessity - Tobacco Use Smoking Status: Former smoker Tobacco Use: Cigarettes Assessment/Plan All Active Problems Shortness of breath (Acute) Elevated d-dimer (Acute) 1. Acute hypoxia secondary to acute diffuse bilateral pulmonary emboli-patient reports a remote history of superficial thrombophlebitis 18 years ago which was treated with aspirin. He denies history of blood clots in his family. 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 He is not a smoker. EKG on admission sinus rhythm without evidence of ischemia or LV strain. CT with diffuse bilateral pulmonary emboli, more predominant on the right side. Initiated on Xarelto. Patient will continue Xarelto 15 mg twice daily for 21 days followed by Xarelto 20 mg daily which will be further ordered by primary care physician. Patient reports he has had a colonoscopy in the last 1-2 years which was reported to be normal. PSA normal. Troponin completed in ER which was elevated. Suspect demand ischemia as result of acute hypoxia and bilateral pulmonary emboli. EKG without acute changes as noted prior. Enzymes were not cycled. Patient's oxygen 88% on room air, he will require supplemental oxygen at discharge. Continue supplement oxygen to maintain O2 at or above 90%. Echocardiogram showed an EF of 55%, stage I diastolic dysfunction, moderately dilated right ventricle, RVSP estimated to be 38 mmHg, mild pulmonary hypertension. 2. Psoriasis 3. Obstructive sleep apnea 4. Restless leg syndrome 5. Depression DVT prophylaxis-Xarelto This patient was seen by EDMUND Lester under the supervision of Dr. Branham. <Jv Branham - Last Filed: 03/31/18 17:33> Subjective: Patient gets short of breath on exertion although at rest he feels good. Has history of vein stripping and superficial vein thrombosis but denies previous DVT or PE. On 2 L of oxygen. Positive troponin and BNP shows right ventricular strain. 2D echo shows moderate RV dilatation - Physical Exam General: Alert, Oriented x3, Cooperative HEENT: Atraumatic, PERRLA, EOMI, Normocephalic Neck: Supple, No JVD, Negative Carotid Bruits Lungs: Clear to auscultation, No rhonchi, No wheeze, No rales, Diminished, Short of Breath, Tachypneic Cardiovascular: Regular rate, Regular Rhythm, Normal S1, Normal S2, No murmurs Abdomen: Bowel Sounds Present, Soft, Non Tender, Non-Distended Extremities: No edema, Capillary Refill Less than 3 Seconds Skin: No rashes, No breakdown Musculoskeletal: No Tenderness to Palpation of Joints or Extremities Neurological: Cranial nerves II-XII grossly intact Psych/Mental Status: Normal Affect, Appropriate Vital Signs Temp Pulse Resp BP Pulse Ox 97.7 F L 75 16 136/95 H 95 03/31/18 15:23 03/31/18 15:23 03/31/18 15:23 03/31/18 15:23 03/31/18 15:23 Oxygen Flow Rate (L/min) [ 3 AMBULATION with Oxygen] Oxygen Flow Rate (L/min) 2 Oxygen Delivery Method Nasal Cannula Weight: 247 lb 2.211 oz Body Mass Index (BMI) 33.5 Intake and Output for Last 24 Hours 03/29/18 03/30/18 03/31/18 23:59 23:59 23:59 Intake Total 120 / 120 930 / 930 Balance 120 / 120 930 / 930 Assessment/Plan This patient was seen in conjunction with Amie TAFOYA. I have independently interviewed and examined the patient and reviewed pertinent history, examination findings, laboratory and plan of management. I have reviewed the note and agree with the documented findings with the few additional points. In brief, patient is admitted for acute hypoxic respiratory failure secondary to acute bilateral diffuse pulmonary emboli, worse on the right side. BNP 203, troponin 0 0.487. 2D echo shows moderately dilated right ventricle with RVSP 38 mmHg history of mild pulmonary hypertension. EF 55% with stage I diastolic dysfunction. Cardiac enzymes and echo finding of moderate RV dilatation is suggestive of acute cor pulmonale secondary to acute diffuse bilateral PE. The clinical diagnosis, labs finding, echo report discussed with the patient and his . On Xarelto. Try to wean off oxygen I have discussed my assessment with Amie TAFOYA and orders have been reviewed. Clinical Impression(s) from Imaging Studies Chest CTA 03/30/18 13:38 IMPRESSION: Diffuse bilateral pulmonary emboli worse on the right side. Code Visit Inpatient E&M: 32850 Subs Hosp L3
--- NOTE | 2018-03-31 15:04 | CM.UR ---
Met face to face with patient and his . Introduced myself and explained my role. Agreed to assessment. Going home on Xarelto. Dr. Crane already gave free month supply coupon for Xarelto. I gave [employer] the coupon for $10 monthly copay for them. She did o2 home qualification as well after I met with patient. Patient would dip to 88% RA at rest and when walking dropped to 86%. Oxygen set up w/[employer]. Patient also interested in Advance directives. If remains here til Monday will alert SW To assist with them. Plan is to discharge home. Mile Brown RN, CCM.
[2018-03-31] MEDS: traZODone 100 MG Tablet 200 MG PO (21:31)
[2018-04-01] VITALS (8 sets, daily range): BP systolic 109–122; BP diastolic 73–77; PULSE 73–96; RESP 16; TEMP 36.3–37; O2SAT 94–97
[2018-04-01] MEDS: Rivaroxaban 15 MG Tablet PO ×2 (06:30→15:07)
[2018-04-01] MEDS: Gabapentin 100 MG Capsule PO (08:27)
[2018-04-01] MEDS: FLUoxetine 20 MG Capsule PO (08:27)
== END 2018-04-01 10:44 | disposition home or self-care (01) ==
LOC: ED 14:24 → PCU 16:17
PROVIDERS: Admitting Provider Internal Medicine; Emergency Provider Emergency Medicine; Family Provider Internal Medicine; PCP Internal Medicine; Visit Provider Internal Medicine
DX: I26.99 Other pulmonary embolism without acute cor pulmonale (principal); G25.81 Restless legs syndrome; G47.33 Obstructive sleep apnea (adult) (pediatric); F32.9 Major depressive disorder, single episode, unspecified; L40.9 Psoriasis, unspecified; Z86.718 Personal history of other venous thrombosis and embolism; Z87.891 Personal history of nicotine dependence; Z79.899 Other long term (current) drug therapy; Z91.19 Patient's noncompliance with other medical treatment and regimen; J96.01 Acute respiratory failure with hypoxia; I27.20 Pulmonary hypertension, unspecified; I07.1 Rheumatic tricuspid insufficiency
CPT/HCPCS: 71275; 80048; 83880; 84153; 84484; 85025; 85610; 93005; 93306; 99218; 99285; J7030; Q9957; Q9967; C8929; G0103; G0378

== ENCOUNTER 2018-06-20 19:48 | Observation (INO) | payer OTHER, SELFPAY ==
[2018-03-30 16:56] VITALS: BMI 33.5
[2018-06-20 19:49] VITALS: BP 116/69; PULSE 98; RESP 16; TEMP 36.6; O2SAT 96; BMI 35.6
--- NOTE | 2018-06-20 19:52 | EKG12_ITS ---
Test Reason : CP Blood Pressure : / mmHG Vent. Rate : 089 BPM Atrial Rate : 089 BPM P-R Int : 144 ms QRS Dur : 090 ms QT Int : 374 ms P-R-T Axes : 027 -11 025 degrees QTc Int : 455 ms Normal sinus rhythm Minimal voltage criteria for LVH, may be normal variant Borderline ECG Confirmed by STEPHEN DC, LORRAINE ([id number]), legal editor SANDI GRAF ([id number]) on 06/22/2018 8:22:34 AM Referred By: Shelly Rosa Confirmed By:LORRAINE MITCHELL MD
[2018-06-20 20:16] LABS: Absolute Lymphocyte Count 2.65 X10^3/ul (0.83-4.51); Absolute Neutrophil Count 3.4 X10^3/uL (2.0-7.7); Basophil# 0.03 X10^3/uL; Basophil% 0.5 % (0-1); Eosinophil# 0.07 X10^3/uL; Eosinophils% 1.1 % (0-5); Hematocrit 44.7 % (40-54); Lymphocyte # 2.65 X10^3/ul (4.0); Lymphocyte % 40.5 % (19-41); Mean Corp Hgb Conc 33.6 g/gl (32-36); Mean Corpuscular Hgb 31.1 pg (27.0-32.0); Mean Corpuscular Volume 92.7 fL (80-94); Mean Platelet Vol. 10.3 fl (6.2-12.0); Monocyte# 0.34 X10^3/uL; Monocyte% 5.2 % (0-10); Neutrophil # 3.44 X10^3/uL (2.7-7.7); Neutrophil % 52.5 % (47-70); Platelet Count 184 K/mm3 (150-450); RBC Distribution Width CV 12.6 % (11.6-14.6); RBC Distribution Width SD 42.3 fl (35.1-43.9); Red Blood Count 4.82 M/mm3 (4.6-6.2); White Blood Count 6.5 K/mm3 (4.4-11.0)
[2018-06-20 20:18] LABS: POSITIVE COUNT NO; POSITIVE DIFFERENTIAL NO; POSITIVE MORPHOLOGY NO
--- NOTE | 2018-06-20 20:32 | RAD_ITS ---
STUDY: X-RAY CHEST REASON FOR EXAM: Male, 52 years old. Chest pain TECHNIQUE: Single frontal view COMPARISON: None. FINDINGS: The lungs are not fully expanded. There is no demonstrated pleural abnormality. Cardiomegaly. Normal mediastinum and toña. Normal visualized pulmonary arteries. Normal visualized aortic arch and descending thoracic aorta. Mild degenerative changes of the visualized thoracic spine. Normal visualized ribs, clavicles, and shoulders. There is no demonstrated abnormality of the visualized soft tissue structures of the upper abdomen. RAD/Chest 1 View (Portable) IMPRESSION: Cardiomegaly. Electronically Signed: Ramirez Espinoza DO at 21:07 EDT Tel [phone], Service support ,
[2018-06-20 20:36] LABS: Anion Gap 8 (5-15); BUN 13 mg/dL (7-18); BUN/Creat Ratio 11.2 RATIO (10-20); Chloride 105 mmol/L (98-107); Creatinine, Serum 1.16 mg/dL (0.70-1.30); EST Glomerular Filtration Rate 70 mL/min (>60); Est Glom Filt Rate - Afr Amer 85 mL/min (>60); Estimated Creatinine Clearance 81.76 ml/min; Glucose 168 mg/dL (74-106); Potassium 3.4 mmol/L (3.5-5.1); Sodium Level 140 mmol/L (136-145)
[2018-06-20 20:41] VITALS: O2SAT 94
--- NOTE | 2018-06-20 21:10 | CT_ITS ---
STUDY: CTA CHEST REASON FOR EXAM: Male, 52 years old. Shortness of breath, chest pain RADIATION DOSAGE (If Supplied By Facility): CTDIvol = ( 11.48 ) mGy, DLP = ( 537.77 ) mGycm TECHNIQUE: The examination was performed with the intravenous administration of Isovue 370 100ML IV. Post-processing of the angiographic images was performed, with multiplanar reformation and 3D reconstruction. Individualized dose optimization techniques were used for this CT. COMPARISON: March 30, 2018 FINDINGS: Normal enhancement of the main pulmonary artery and right and left pulmonary arteries. Normal enhancement of the bilateral peripheral pulmonary arteries. There is no demonstrated pulmonary embolism. Normal thoracic aorta and visualized great vessels. There is no demonstrated aortic dissection. Normal heart and pericardium. Normal mediastinum. Normal hilar regions. Normal visualized trachea and bronchi. The lungs are well expanded. Bilateral pulmonary interstitial prominence. Normal pleura. Normal chest wall structures. Degenerative vertebral changes. Small atrophic right kidney. Fatty liver. 1.4 cm left adrenal nodule. CT/CTA Chest W/WO Contrast IMPRESSION: Interstitial prominence. No demonstrated pulmonary embolism or arterial dissection. Electronically Signed: Ramirez Espinoza DO at 23:05 EDT Tel [phone], Service support ,
[2018-06-20 21:12] VITALS: BP 130/76; PULSE 90; RESP 20; O2SAT 92
--- NOTE | 2018-06-20 21:12 | ED.DCSUM_ITS ---
- ER Visit Summary Date of Service: 06/20/18 Chief Complaint: Chest pain, shortness of breath History of Present Illness: The patient is a 52 M presenting with chest pain, shortness of breath. He states this has been ongoing for the past several days. Pain has been intermittent. It is worsened with exertion. He feels that he may have a blood clot in his lungs. He has a history of this PE. He is on Xarelto. He denies other complaints. Physical Examination: Vitals are stable. Patient is afebrile. Alert no acute distress. HEENT exam is unremarkable. Neck is supple. Lungs are clear and equal bilaterally. Heart is regular rate and rhythm. Abdomen is soft nontender nondistended. Extremities are unremarkable. Skin is warm and dry. No focal neurologic deficit. Remainder of exam is unremarkable. Emergency Department Course and Treatment: EKG normal sinus rhythm rate of 89. Chest x-ray shows cardiomegaly. CBC, chemistries unremarkable other than potassium 3.4, glucose 168. Troponin negative. CTA chest shows no demonstrated PE or dissection. Patient was given aspirin. Due to his exertional chest pain, I feel he should be admitted for further testing. Discussed with the hospitalist for observation. Disposition: Observation Impression: Chest pain This note was generated with [employer] dictation software. It may contain incorrect words, spelling, and punctuation that were not noted in review of the chart prior to signing ED Disposition - Plan for ED Patient: Referrals: Shirley Hayward MD [Primary Care Provider] -
[2018-06-20 22:26] VITALS: BP 127/90; RESP 18; O2SAT 92
--- NOTE | 2018-06-20 23:19 | PCM.HP.STD ---
Problem List (1) Chest pain Status: Acute Qualifiers: Chest pain type: unspecified Qualified Code(s): R07.9 - Chest pain, unspecified (2) Pulmonary embolism Status: Chronic Qualifiers: Pulmonary embolism type: unspecified Chronicity: chronic (3) Anxiety and depression Status: Chronic (4) Obesity (BMI 30-39.9) Status: Chronic (5) Restless leg syndrome Status: Chronic (6) Psoriasis Status: Chronic History of Present Illness Date of Admission: 06/20/18 Chief Complaint: Chest pain The patient is a 52 y/o M w/ PMHx: Obesity, Former Tobacco use, EtOH Abuse (4 whiskey drinks q HS), Psoriasis, History of PE (03/2018) on xarelto regimen, RLS who presents to the [facility] ED on 06/20/18 with history of ongoing, exertional, midsternal chest pressure described as a 5 out of 10 with associated dyspnea, occurring only with activity, ongoing since discharge this past March with history of pulmonary embolism at that time. Patient states that there is been no specific change in the quality or quantity of his symptoms. He denies any associated nausea, emesis or diaphoresis with these events. Workup in the ED included T 98, heart rate 98, BP 116/69, respiratory rate 16, 96% on room air, CBC unremarkable, BMP with potassium 3.4, glucose 168, troponin less than 0.015, EKG with no acute evidence of ischemia, chest x-ray with cardiomegaly, CTPA with interstitial prominence with no demonstrated pulmonary embolism or arterial dissection. 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 Upon evaluation of the patient in the ED he was chest pain-free at rest. Past Medical History Past Medical History (Chronic Problems): Chronic Problems Pulmonary embolism (Chronic) Anxiety and depression (Chronic) Obesity (BMI 30-39.9) (Chronic) Restless leg syndrome (Chronic) Obstructive sleep apnea (Chronic) Depression (Chronic) Psoriasis (Chronic) Allergies No Known Allergies Allergy (Verified 06/20/18 19:48) Home Medications: Ambulatory Orders Medication Instructions Recorded traZODone [Desyrel] 200 mg PO QHS 05/23/16 Ustekinumab [Stelara] 90 mg SQ .COMPLEX 08/10/16 Fluoxetine HCl 20 mg PO DAILY 03/30/18 Gabapentin [Neurontin] 100 mg PO DAILY 03/30/18 Vitamin E 200 unit PO DAILY 03/30/18 Rivaroxaban [Xarelto] 20 mg PO DAILY 06/20/18 Surgical History: appendectomy, - - Right total surgery, deviated septum repair, appendectomy, vein stripping. Psychiatric History: Depression Lives: Spouse/ Significant Other Smoking Status: Former smoker - Patient quit cigarette tobacco usage in August 2017 and prior to this had smoked 1 pack/day cigarette tobacco usage. Tobacco Use: Non-smoker Alcohol: Heavy - Patient notes approximately 4 whiskey alcoholic beverages nightly. Drugs: None - *Family History Maternal History Items: - - Patient notes a maternal family history of Alzheimer's dementia Paternal History Items: - - Patient notes a paternal family history of heart disease and diabetes. Review of Systems Constitutional: Reports: Malaise, Weakness, Fatigue. Denies: Chills, Fever, Weight Change HEENT: Denies: Head Aches, Sinus Congestion, Sinus Drainage Cardiovascular: Reports: Chest Pain, Chest Pressure. Denies: Edema, Heaviness, Light Headedness, Orthopnea, Palpitations, Syncope Respiratory: Reports: Shortness of Breath, Shortness of breath upon exertion. Denies: Cough, Shortness of breath at rest, Sputum production Gastrointestinal: Denies: Abdominal Pain, Nausea, Vomiting Genitourinary: Denies: Dysuria Musculoskeletal: Denies: Joint Pain, Joint Tenderness Skin: Denies: Rash, Wounds Neurological: Denies: Numbness, Tingling, Focal weakness Psychiatric: Reports: Anxiety, Depression. Denies: Homicidal Ideations, Suicidal Ideations Hematologic/ Lymphatic: Reports: Easy Bruising, Easy Bleeding VTE Information - Inpt Only VTE Present on Admission: No VTE Mechan Device Prophylaxis: None VTE Pharm Prophylaxis ordered?: Yes Patient Problems: Active and Suspected Problems Chest pain (Acute) Subjective: Seated upright in the ED, no current chest discomfort at this time or pressure. Objective: Physical Examination: General: awake, alert, oriented x 3 and cooperative, seated upright in the ED bed in no apparent distress denies any chest pressure at this time. Skin: normal color, turgor, no icterus, cyanosis. HEENT: AT/NC, EOMI, PERRLA, bilateral mild scleral injection, mildly dry MM, no carotid bruits or JVD noted. Lungs: CTA bilaterally, moderate effort, mild decrease BL bases, no rales, ronchi or wheezing. Heart: regular rate and rhythm; no gallop, rub audible. Abdomen: soft, obese, NTTP, ND, normal BS, no HSM. Extremities: no cyanosis, clubbing, or edema. Neurological: patient awake, alert, oriented x 3; cognitive function intact; pupils equally reactive to light and accomodation; cranial nerves II-XII grossly normal, moving all 4 extremities, no focal deficits, strength preserved. Psychiatric: affect appears normal, no acute evidence of depressive or anxiety feelings. - Physical Exam Vital Signs Temp Pulse Resp BP Pulse Ox 98 F 90 18 127/90 H 92 06/20/18 19:49 06/20/18 21:12 06/20/18 22:26 06/20/18 22:26 06/20/18 22:26 Oxygen Delivery Method Room Air Weight: 262 lb 9.129 oz Body Mass Index (BMI) 35.6 Laboratory Tests Past 24 Hrs 06/20/18 06/20/18 20:07 20:07 WBC 6.5 RBC 4.82 Hgb 15.0 Hct 44.7 MCV 92.7 MCH 31.1 MCHC 33.6 RDW 12.6 RDW Differential 42.3 Plt Count 184 MPV 10.3 Immature Gran % (Auto) 0.200 Neut % (Auto) 52.5 Lymph % (Auto) 40.5 Dundy % (Auto) 5.2 Eos % (Auto) 1.1 Baso % (Auto) 0.5 Absolute Neuts (auto) 3.4 Absolute Lymphs (auto) 2.65 Total Counted Not Reportable Sodium 140 Potassium 3.4 L Chloride 105 Carbon Dioxide 27.0 Anion Gap 8 BUN 13 Creatinine 1.16 Estim Creat Clear Calc 81.76 Est GFR (MDRD) Af Amer 85 Est GFR (MDRD) Non-Af 70 BUN/Creatinine Ratio 11.2 Glucose 168 H Calcium 9.0 Troponin I < 0.015 Assessment/Plan All Active Problems Chest pain (Acute) Shortness of breath (Acute) Elevated d-dimer (Acute) The patient is a 52 y/o M w/ PMHx: Obesity, Former Tobacco use, EtOH Abuse, Psoriasis, History of PE (03/2018) on xarelto regimen, RLS who presents to the [facility] ED on 06/20/18 with history of ongoing, exertional, midsternal chest pressure described as a 5 out of 10 with associated dyspnea, occurring only with activity, ongoing since discharge this past March with history of pulmonary embolism at that time. (1) Chest Pain, exertional: Workup in the ED included T 98, heart rate 98, BP 116/69, respiratory rate 16, 96% on room air, CBC unremarkable, BMP with potassium 3.4, glucose 168, troponin less than 0.015, EKG with no acute evidence of ischemia, chest x-ray with cardiomegaly, CTPA with interstitial prominence with no demonstrated pulmonary embolism or arterial dissection. 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 Will admit to PCU, place on a monitored bed to assure no acute myocardial infarction with serial cardiac enzymes and EKGs. Given patient inability to perform exercise will proceed with a.m. nuclear stress testing. ASA, NG, morphine. Mag pending. FLP in AM. (2) History of Pulmonary Embolism: She with pulmonary embolism in March 2018, discharged following initiation on Xarelto, oxygen supplementation transiently, echocardiogram at that time with EF 55%, stage I diastolic dysfunction, moderately dilated RV, RVSP 38 mmHg, no clear provoking factor with history of lower extremity superficial thrombophlebitis approximately 18 years prior treated with aspirin therapy at that time. (3) EtOH Abuse: Patient notes routine consumption of 4 whiskey drinks per day. Will maintain on CIWA protocol although patient states that he has gone days without drinking alcohol with no market side effects or withdrawal symptoms, MVI, thiamine and folic acid. Encourage patient decreased consumption to maximum 2 drinks daily. Mag and phos pending. (4) Psoriasis: Patient maintained outpatient on Stelara. (5) RLS: Continue home gabapentin regimen (6) Obesity: Weight loss and lifestyle changes encouraged. (7) History of tobacco use: Encouraged continued tobacco cessation. (8) Anxiety and depression: Continue home Prozac, trazodone regimen. (9) MELODY: Patient noncompliant with CPAP. (10) DVT prophylaxis: Continue patient home Xarelto regimen. Code Visit OBSV E&M: 75327 Initial observation care L3
[2018-06-20 23:32] VITALS: BP 135/83; PULSE 73; RESP 22; O2SAT 95
[2018-06-20 23:33] VITALS: BP 135/83; PULSE 84; RESP 16; TEMP 36.8; O2SAT 96
[2018-06-20] MEDS: Aspirin 325 MG Tablet PO (23:53)
[2018-06-21] VITALS (7 sets, daily range): BP systolic 125–136; BP diastolic 78–87; PULSE 70–78; RESP 16–18; TEMP 36.4–36.9; O2SAT 96–97; BMI 33.9
--- NOTE | 2018-06-21 00:41 | EKG12_ITS ---
Test Reason : CP ADMIT Blood Pressure : / mmHG Vent. Rate : 075 BPM Atrial Rate : 075 BPM P-R Int : 150 ms QRS Dur : 090 ms QT Int : 398 ms P-R-T Axes : 021 -17 014 degrees QTc Int : 444 ms Normal sinus rhythm Minimal voltage criteria for LVH, may be normal variant Borderline ECG When compared with ECG of 20-JUN-2018 19:54, MANUAL COMPARISON REQUIRED, DATA IS UNCONFIRMED Confirmed by ZOHREH VALLE ([id number]), news assignment editor ALEXANDRA DUNN ([id number]) on 06/25/2018 5:14:20 PM Referred By: Shelly Rosa Confirmed By:ZOHREH VALLE
[2018-06-21 00:59] LABS: Magnesium 2.1 mg/dL (1.6-2.6); Phosphorus 3.8 mg/dL (2.5-4.9)
[2018-06-21] MEDS: 0.9% Normal Saline 1,000 ML 100 ML IV (01:49)
[2018-06-21 04:41] LABS: Hematocrit 40.8 % (40-54); Hemoglobin 13.9 g/dl (13.0-16.5); International Normalized Ratio 1.1; Mean Corp Hgb Conc 34.1 g/gl (32-36); Mean Corpuscular Hgb 31.8 pg (27.0-32.0); Mean Corpuscular Volume 93.4 fL (80-94); Mean Platelet Vol. 10.9 fl (6.2-12.0); Partial Thromboplast Time 29.7 Seconds (24.1-36.2); Platelet Count 169 K/mm3 (150-450); Prothrombin Time (Protime)PT. 14.2 SECONDS (11.7-14.9); RBC Distribution Width CV 12.2 % (11.6-14.6); RBC Distribution Width SD 40.9 fl (35.1-43.9); Red Blood Count 4.37 M/mm3 (4.6-6.2); White Blood Count 5.9 K/mm3 (4.4-11.0)
[2018-06-21 04:55] LABS: Scan Indicated on CBC? Y/N NO
[2018-06-21 05:08] LABS: AST(SGOT) 90 U/L (15-37); Alanine Aminotransfer ALT/SGPT 143 U/L (16-61); Albumin, Serum 3.2 g/dL (3.2-5.0); Alkaline Phosphatase 73 U/L (45-117); Anion Gap 9 (5-15); BUN 14 mg/dL (7-18); BUN/Creat Ratio 13.2 RATIO (10-20); Calcium,Total 8.4 mg/dL (8.5-10.1); Chloride 108 mmol/L (98-107); Cholesterol 155 mg/dL (200); Creatinine, Serum 1.06 mg/dL (0.70-1.30); EST Glomerular Filtration Rate 78 mL/min (>60); Est Glom Filt Rate - Afr Amer 94 mL/min (>60); Estimated Creatinine Clearance 92.13 ml/min; Globulin 3.2 g/dL (2.2-4.2); Glucose 108 mg/dL (74-106); High Density Lipoprotein 32 mg/dL; Protein, Total 6.4 g/dL (6.4-8.2); Sodium Level 141 mmol/L (136-145); Triglycerides 184 mg/dL; Very Low Density Lipoprotein 37 mg/dL (5-40)
[2018-06-21] MEDS: Aspirin E.C. 81 MG Tablet PO (05:45)
[2018-06-21] MEDS: Folic Acid 1 MG Tablet PO (05:45)
[2018-06-21] MEDS: Thiamine Hydrochloride 100 MG Tablet PO (05:45)
--- NOTE | 2018-06-21 09:04 | STRESSREP ---
Stress Test Report Exercise myocardial perfusion stress test. 52-year-old man with a history of chest pain. Medications aspirin, Xarelto, Multivite. Resting EKG demonstrates normal sinus rhythm with a rate of 63 bpm normal intervals are noted resting blood pressure 140/92 mmHg. The patient exercised according to regular Jose Luis protocol for total duration of 5 minutes and 30 seconds the maximum heart rate attained was 148 bpm which was 88% of maximum predicted heart rate the maximum workload was 7 metabolic equivalents. The patient remained in sinus rhythm throughout the recording at rest and during peak exercise there were no EKG changes noted suggest ischemia upsloping EKG changes only were noted. The resting blood pressure 140/92 with a peak blood pressure 182/82 mmHg rate pressure product was 25,100. Myocardial perfusion protocol. 11.6 mCi of technetium 99m sestamibi was injected at rest. Patient exercised according to regular Jose Luis protocol for 5-1/2 minutes. At peak exercise 33 5.5 mCi of technetium 99m sestamibi was injected stress images were obtained stress and rest images were reconstructed and compared in the short axis vertical and horizontal long axis. Gated images were also obtained next Perfusion SPECT analysis: Review of the stress images demonstrate normal uptake of tracer noted in all areas of myocardium the resting images similarly demonstrate normal uptake of tracer noted in all areas of myocardium. No areas of reversibility are noted suggest ischemia BX Gated SPECT analysis: The gated ejection fraction is noted to be 64%. Conclusion: Normal exercise myocardial perfusion stress test at a moderate workload. Preserved ejection fraction.
[2018-06-21] MEDS: Multivitamins,Ther W-Minerals Tablet 1 TABLET PO (10:04)
[2018-06-21] MEDS: Rivaroxaban 20 MG Tablet PO (10:04)
[2018-06-21] MEDS: FLUoxetine 20 MG Capsule PO (10:04)
--- NOTE | 2018-06-21 10:23 | DCINST_ITS ---
- Discharge Diagnoses Current Active Problems: Current Active and Chronic Problems Chest pain (Acute) Pulmonary embolism (Chronic) Anxiety and depression (Chronic) Obesity (BMI 30-39.9) (Chronic) You will use the following diet at home:: No restrictions Your food should be the consistency of: Regular Your liquids should be the consistency of: Regular/Thin Discharge Activity: Return to Normal Activity Weight Bearing Status: Full weight bearing Allergies/Adverse Reactions: Allergies No Known Allergies Allergy (Verified 06/20/18 19:48) Medications to take at Discharge traZODone [Desyrel] 200 mg PO QHS 05/23/16 Ustekinumab [Stelara] 90 mg SQ .COMPLEX 08/10/16 Fluoxetine HCl 20 mg PO DAILY 03/30/18 Gabapentin [Neurontin] 100 mg PO DAILY 03/30/18 Vitamin E 200 unit PO DAILY 03/30/18 Rivaroxaban [Xarelto] 20 mg PO DAILY 06/20/18 Primary Care Physician: Shirley Hayward MD [Primary Care Provider] - Please follow up with your Primary Care Physician in: in 7-10 days Test Results: Test results from this visit will be discussed in further detail at your follow- up appointment, if applicable.
--- NOTE | 2018-06-21 10:50 | PHA.DC.MR ---
Pharmacy Service has performed discharge medication reconciliation for this patient. No new medication prescribed on discharge. MedRec list from previous home medications. The patient's discharge medication list was reviewed for discrepancies and discrepancies were resolved. Home Medications traZODone [Desyrel] 200 mg PO QHS 05/23/16 Ustekinumab [Stelara] 90 mg SQ .COMPLEX 08/10/16 Fluoxetine HCl 20 mg PO DAILY 03/30/18 Gabapentin [Neurontin] 100 mg PO DAILY 03/30/18 Vitamin E 200 unit PO DAILY 03/30/18 Rivaroxaban [Xarelto] 20 mg PO DAILY 06/20/18
--- NOTE | 2018-06-24 17:17 | PCM.DC.SUM ---
Discharge Date and Diagnosis Date of Admission: 06/20/18 Date of Discharge: 06/21/18 - Primary Discharge Diagnosis #1 noncardiac chest pain - Secondary Discharge Diagnosis Chronic Problems Pulmonary embolism (Chronic) Anxiety and depression (Chronic) Obesity (BMI 30-39.9) (Chronic) Restless leg syndrome (Chronic) Obstructive sleep apnea (Chronic) Depression (Chronic) Psoriasis (Chronic) Hospital Course and Treatment Operations: None Procedures: Nuclear stress test Summary of Care Provided: The patient is a 53 year old M who was seen in the emergency room at [facility] with chief complaint of shortness of breath and some chest discomfort. Workup included an EKG which showed a normal sinus rhythm and no evidence of ischemic changes, chest x-ray shows cardiomegaly but no acute pulmonary process. Potassium was slightly low at 3.4, troponin was unremarkable. CT of the chest showed no PE or dissection. Patient was placed in observation status on PCU, cardiac enzymes were cycled and these remained normal. Patient underwent a nuclear stress test on 06/21/18 which showed no evidence of reversible ischemic changes. On 06/21/18, patient was seen and examined and felt to be in stable condition for discharge home: On examination he appeared in good health and spirits. Vital signs as documented. Skin warm and dry and without overt rashes. Neck without JVD. Lungs clear. Heart exam notable for regular rhythm, normal sounds and absence of murmurs, rubs or gallops. Abdomen unremarkable and without evidence of organomegaly, masses, or abdominal aortic enlargement. Extremities nonedematous. Neuro: Cranial nerves II through XII are grossly intact, no focal motor deficits were noted, sensation to light touch and pinprick intact. Psych: Patient is alert and oriented x3, he does not appear anxious or depressed - Physical Exam Vital Signs Temp Pulse Resp BP Pulse Ox 98.4 F 75 16 136/82 H 97 06/21/18 11:00 06/21/18 11:00 06/21/18 11:00 06/21/18 11:00 06/21/18 11:00 Oxygen Delivery Method Room Air Weight: 116.6 kg Body Mass Index (BMI) 33.9 Discharge Activity: Return to Normal Activity Weight Bearing Status: Full weight bearing Home Medications: Medications to take at Discharge traZODone [Desyrel] 200 mg PO QHS 02/13/17 Ustekinumab [Stelara] 90 mg SQ .COMPLEX 08/10/16 Fluoxetine HCl 20 mg PO DAILY 03/30/18 Gabapentin [Neurontin] 100 mg PO DAILY 03/30/18 Vitamin E 200 unit PO DAILY 03/30/18 Rivaroxaban [Xarelto] 20 mg PO DAILY 06/20/18 Primary Care Physician: Shirley Hayward MD [Primary Care Provider] - Please follow up with your Primary Care Physician in: in 7-10 days Disposition: Home Minutes spent on discharge:: 25 Patient Condition:: Stable Medical Necessity - Tobacco Use Smoking Status: Former smoker Tobacco Use: Non-smoker Meaningful Use Info Meaningful Use Diagnoses (Choose all that apply): None applicable Code Visit OBSV E&M: 05283 Observation care discharge
== END 2018-06-21 10:22 | disposition home or self-care (01) ==
LOC: ED 20:53 → PCU 23:40
PROVIDERS: Admitting Provider Family Medicine; Emergency Provider Emergency Medicine; Family Provider Internal Medicine; PCP Internal Medicine; Referring Provider Family Medicine; Visit Provider Internal Medicine
DX: R07.89 Other chest pain (principal); R06.02 Shortness of breath; Z86.711 Personal history of pulmonary embolism; Z79.01 Long term (current) use of anticoagulants; Z79.899 Other long term (current) drug therapy; G47.33 Obstructive sleep apnea (adult) (pediatric); E66.9 Obesity, unspecified; Z68.33 Body mass index [BMI] 33.0-33.9, adult; Z71.3 Dietary counseling and surveillance; G25.81 Restless legs syndrome; L40.9 Psoriasis, unspecified; F41.9 Anxiety disorder, unspecified; F32.9 Major depressive disorder, single episode, unspecified; Z87.891 Personal history of nicotine dependence; Z91.19 Patient's noncompliance with other medical treatment and regimen
CPT/HCPCS: 36415; 71045; 71275; 78452; 80048; 80053; 80061; 83735; 84100; 84484; 85025; 85027; 85610; 85730; 93005; 93017; 96360; 96361; 99218; 99283; A9500; J7030; Q9967; A4216; G0378; J2785

== ENCOUNTER → 2019-01-17 | Outpatient (CLI) | payer OTHER, SELFPAY ==
[2018-06-21 00:16] VITALS: BMI 33.9
[2019-01-17 17:39] LABS: Absolute Lymphocyte Count 3.29 X10^3/uL (0.83-4.51); Absolute Neutrophil Count 3.4 X10^3/uL (2.0-7.7); Basophil# 0.04 X10^3/uL; Basophil% 0.5 % (0-1); Eosinophil# 0.08 X10^3/uL; Eosinophils% 1.1 % (0-5); Hematocrit 42.4 % (40-54); Hemoglobin 14.5 g/dL (13.0-16.5); Lymphocyte # 3.29 X10^3/ul (4.0); Lymphocyte % 44.2 % (19-41); Mean Corp Hgb Conc 34.2 g/dL (32-36); Mean Corpuscular Hgb 31.2 pg (27.0-32.0); Mean Corpuscular Volume 91.2 fL (80-94); Mean Platelet Vol. 10.9 fl (6.2-12.0); Monocyte# 0.59 X10^3/uL; Monocyte% 7.9 % (0-10); NRBC Flagged by Analyzer 0 % (0-5); Neutrophil # 3.44 X10^3/uL (2.7-7.7); Neutrophil % 46.2 % (47-70); Platelet Count 179 K/mm3 (150-450); RBC Distribution Width CV 11.7 % (11.6-14.6); RBC Distribution Width SD 38.5 fl (35.1-43.9); Red Blood Count 4.65 M/mm3 (4.6-6.2); White Blood Count 7.5 K/mm3 (4.4-11.0)
[2019-01-17 18:07] LABS: Anion Gap 9 (5-15); BUN 15 mg/dL (7-18); BUN/Creat Ratio 14.7 RATIO (10-20); Calcium,Total 8.9 mg/dL (8.5-10.1); Chloride 106 mmol/L (98-107); Creatinine, Serum 1.02 mg/dL (0.70-1.30); EST Glomerular Filtration Rate 81 mL/min (>60); Est Glom Filt Rate - Afr Amer 98 mL/min (>60); Glucose 70 mg/dL (74-106); Potassium 3.7 mmol/L (3.5-5.1); Sodium Level 143 mmol/L (136-145)
== END | disposition home or self-care (01) ==
LOC: MTLAB 16:35
PROVIDERS: Family Provider Internal Medicine; PCP Internal Medicine; Referring Provider Dermatology; Visit Provider Dermatology
DX: L40.0 Psoriasis vulgaris (principal); Z79.899 Other long term (current) drug therapy
CPT/HCPCS: 36415; 80048; 85025

== ENCOUNTER → 2020-03-31 11:20 | Outpatient (CLI) | payer OTHER, SELFPAY ==
[2018-06-21 00:16] VITALS: BMI 33.9
[2020-03-31 15:31] LABS: Absolute Lymphocyte Count 2.65 X10^3/uL (0.83-4.51); Absolute Neutrophil Count 4.1 X10^3/uL (2.0-7.7); Basophil# 0.04 X10^3/uL; Basophil% 0.5 % (0-1); Eosinophil# 0.08 X10^3/uL; Eosinophils% 1.1 % (0-5); Hematocrit 45.4 % (40-54); Hemoglobin 15.5 g/dL (13.0-16.5); Lymphocyte # 2.65 X10^3/ul (4.0); Mean Corp Hgb Conc 34.1 g/dL (32-36); Mean Corpuscular Hgb 31.6 pg (27.0-32.0); Mean Corpuscular Volume 92.5 fL (80-94); Mean Platelet Vol. 11.1 fl (6.2-12.0); Monocyte% 6.8 % (0-10); NRBC Flagged by Analyzer 0 % (0-5); Neutrophil # 4.09 X10^3/uL (2.7-7.7); Neutrophil % 55.5 % (47-70); Platelet Count 180 K/mm3 (150-450); RBC Distribution Width CV 11.9 % (11.6-14.6); RBC Distribution Width SD 40.5 fl (35.1-43.9); Red Blood Count 4.91 M/mm3 (4.6-6.2); White Blood Count 7.4 K/mm3 (4.4-11.0)
[2020-03-31 15:43] LABS: Anion Gap 7 (5-15); BUN 12 mg/dL (7-18); BUN/Creat Ratio 11.2 RATIO (10-20); Calcium,Total 9.2 mg/dL (8.5-10.1); Chloride 103 mmol/L (98-107); Creatinine, Serum 1.07 mg/dL (0.70-1.30); EST Glomerular Filtration Rate 76 mL/min (>60); Est Glom Filt Rate - Afr Amer 92 mL/min (>60); Glucose 92 mg/dL (74-106); Potassium 4.1 mmol/L (3.5-5.1); Sodium Level 136 mmol/L (136-145)
[2020-04-02 14:09] LABS: QNTFERON TB Mitogen Value > 10.00 IU/mL (.); QNTFERON TB Nil Value 0.03 IU/mL (.); QNTFERON TB1+ Ag Value 0.03 IU/mL (.); QNTFERON TB2+ Ag Value 0.03 IU/mL (.)
[2020-04-02 14:56] LABS: QNTIFERON TB Positive Criteria Negative (Negative)
== END ==
PROVIDERS: PCP Internal Medicine; Referring Provider Dermatology; Visit Provider Dermatology
DX: L40.0 Psoriasis vulgaris (principal); Z79.899 Other long term (current) drug therapy
CPT/HCPCS: 36415; 80048; 85025; 86480

== ENCOUNTER → 2021-03-24 15:15 | Outpatient (CLI) | payer OTHER, SELFPAY ==
[2021-03-24 17:55] LABS: Absolute Lymphocyte Count 2.67 X10^3/uL (0.83-4.51); Basophil# 0.04 X10^3/uL; Basophil% 0.5 % (0-1); Eosinophil# 0.07 X10^3/uL; Eosinophils% 0.9 % (0-5); Hematocrit 43.4 % (40-54); Hemoglobin 15.1 g/dL (13.0-16.5); Lymphocyte # 2.67 X10^3/ul (0.83-4.51); Lymphocyte % 36.2 % (19-41); Mean Corp Hgb Conc 34.8 g/dL (32-36); Mean Corpuscular Hgb 31.7 pg (27.0-32.0); Mean Platelet Vol. 11.4 fl (6.2-12.0); Monocyte# 0.63 X10^3/uL; Monocyte% 8.5 % (0-10); NRBC Flagged by Analyzer 0 % (0-5); Neutrophil # 3.96 X10^3/uL (2.7-7.7); Neutrophil % 53.8 % (47-70); Platelet Count 174 K/mm3 (150-450); RBC Distribution Width CV 11.5 % (11.6-14.6); RBC Distribution Width SD 38.6 fl (35.1-43.9); Red Blood Count 4.77 M/mm3 (4.6-6.2); White Blood Count 7.4 K/mm3 (4.4-11.0)
[2021-03-24 18:13] LABS: Anion Gap 8 (5-15); BUN 15 mg/dL (7-18); BUN/Creat Ratio 13.9 RATIO (10-20); Chloride 105 mmol/L (98-107); Creatinine, Serum 1.08 mg/dL (0.70-1.30); EST Glomerular Filtration Rate 75 mL/min (>60); Est Glom Filt Rate - Afr Amer 91 mL/min (>60); Glucose 83 mg/dL (74-106); Potassium 3.8 mmol/L (3.5-5.1); Sodium Level 138 mmol/L (136-145)
[2021-03-27 03:07] LABS: QNTFERON TB Mitogen Value > 10.00 IU/mL (.); QNTFERON TB Nil Value 0.02 IU/mL (.); QNTFERON TB1+ Ag Value 0.01 IU/mL (.); QNTFERON TB2+ Ag Value 0.01 IU/mL (.)
[2021-03-27 07:45] LABS: QNTIFERON TB Positive Criteria Negative (Negative)
== END ==
PROVIDERS: PCP Internal Medicine; Referring Provider Dermatology Pediatric Dermatology; Visit Provider Dermatology Pediatric Dermatology
DX: L40.0 Psoriasis vulgaris (principal); Z79.899 Other long term (current) drug therapy
CPT/HCPCS: 36415; 80048; 85025; 86480

== ENCOUNTER 2025-03-31 07:02 | Day surgery (SDC) | payer OTHER, SELFPAY ==
--- NOTE | 2025-03-28 15:35 | PAT.ANESEVAL ---
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 When Was Last Pacemaker Check QUESTION #4 FULL TEXT: You/Your Family Experience fever (hyperthermia) with Anesthesia Last Oral Intake Last Oral intake: Last Oral Intake NPO since Meds taken in AM with sips of water? 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 machine operator Female No 03/28/25 08:09 HX of Motion Sickness No 03/28/25 08:09 HX of N/V After Surgery No 03/28/25 08:09 Non-Smoker Yes 03/28/25 08:09 Duration of Surgery greater No 03/28/25 08:09 than 60 minutes Number of Risk Factors 1 03/28/25 08:09 PONV Score Low Risk 03/28/25 08:09 Height & Weight Height & Weight: Anesthesia: Height & Weight Height 6 in 03/24/21 15:15 Respiratory Assessment Respiratory Assessment - dry ice machine operator: Respiratory Tract Infection Hx - dry ice machine operator Hx Respiratory Tract Infection No 03/28/25 08:09 STOP Sleep Apnea STOP Sleep Apnea - dry ice machine operator: STOP Sleep Apnea - dry ice machine operator Hx Hypertension Yes 03/28/25 08:09 Hx Sleep Apnea Yes: NONE SINCE WT LOSS OF 03/28/25 08:09 60LBS CPAP No 03/28/25 08:09 BIPAP No 03/28/25 08:09 Do you snore loudly (louder than talking or can be heard Do you often feel tired/ fatigued/ sleepy during daytime? Has anyone observed you stop breathing during sleep? STOP Results Positive 03/28/25 08:09 QUESTION #5 FULL TEXT : Do you snore loudly (louder than talking or can be heard through closed doors)? 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 Specify any problems Hx of Preganancy in last 3 N/A 03/28/25 08:09 Months Nurse Filling Out Transfusion MGRIFELIPE 03/28/25 08:09 & Questions: Date: 03/28/25 03/28/25 08:09 Time: 08:12 03/28/25 08:09 Patient unable to answer at this time (ie. confused, unrespo /Reproduction History /Reproductive History - dry ice machine operator: /Reproductive Hx- dry ice machine operator Hx Now No 03/28/25 08:09 Gestational Age (in weeks): EDC: Hx Hx Para Hx Section SAB No 03/28/25 08:09 Does the father of the baby or his family experience fever w Father of the baby Malignant Hypertension history comment [facility] Medical History (Updated 03/28/25 @ 08:32 by Paola Guzman) Wears hearing aid Wears glasses Cancer Anxiety Bladder disease History of sleep apnea Former smoker Shortness of breath on exertion History of echocardiogram History of stress test History of pulmonary embolism Diarrhea Coronary artery calcification Arthritis Pulmonary nodules Dysphagia Home Medications ?Medication ?Instructions ?Recorded ?Last Taken ?Type trazodone 100 mg tablet 200 mg PO QHS sleep 05/23/16 06/20/18 21:00 History albuterol sulfate 90 mcg/actuation 2 puff inhalation Q6H PRN 01/10/25 Unknown History aerosol inhaler (Ventolin HFA) bronchospasm duloxetine 60 mg capsule,delayed 60 mg PO QDAY 01/10/25 Unknown History release pramipexole 1.5 mg tablet 1.5 mg PO QHS RLS 01/10/25 Unknown History propranolol 10 mg tablet 10 mg PO BID BP 01/10/25 Unknown History buspirone 10 mg tablet 10 mg PO BID 03/03/25 Unknown History trospium 20 mg tablet 20 mg PO BID OAB 03/03/25 Unknown History aspirin 81 mg chewable tablet 1 tab PO DAILY 03/28/25 Unknown History vitamin E 670 mg (1,000 unit) 1,340 mg PO DAILY 03/28/25 Unknown History capsule Allergy/AdvReac Type Severity Reaction Status Date / Time lisinopril AdvReac Mild Other Verified 03/28/25 08:03 Family History (Updated 03/03/25 @ 15:48 by Michaelle Leonard) Mother Alzheimers disease Father Diabetes Hypertension Cancer thyroid Surgical History (Updated 03/28/25 @ 08:23 by Paola Guzman) History of vein stripping History of colonoscopy History of right shoulder surgery History of appendectomy Social History Smoking Status: Former smoker Audit: Pertinent Findings Pertinent Findings EKG Perinent findings: January 02, 2023. Sinus bradycardia at 48 bpm. Minimal LVH. Stress test pertinent findings: 01/23/2023. EF of 61%. Patient achieved 8.1 METS. Negative for ischemia at 97% of MPHR. Echo (EF%) pertinent findings: September 13, 2021. EF of 55%. No aortic stenosis noted. No significant valvular abnormalities. Recommendation Anesthesia Recommendation Anesthesia recommendation: OPTIMIZED for anesthesia
[2025-03-31] VITALS (8 sets, daily range): BP systolic 88–124; BP diastolic 68–88; PULSE 60–74; RESP 16; TEMP 36.1–36.6; O2SAT 95–100; BMI 28.4
--- OUTSIDE RECORDS SUMMARY | 2025-03-31 07:07 | XMS RPT_ITS | CCD ---
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.OCTAVIA, Mayuri Unavailable Sangita Green PA-C Unavailable GANTA, GENIE Primary Care Unavailable MOOMAW, IGLESIA Referring Unavailable GANTA, GENIE Primary Care Unavailable GANTA, GENIE Referring Unavailable GANTA, GENIE Primary Care Unavailable HARPSTER, FIFI Attending Unavailable HARPSTER, FIFI Referring Unavailable GANTA, GENIE Primary Care Unavailable HARPSTER, FIFI Referring Unavailable GANTA, GENIE Primary Care Unavailable GANTA, GENIE Attending Unavailable GANTA, GENIE Referring Unavailable GANTA, GENIE Primary Care Unavailable GANTA, GENIE Primary Care Unavailable SHEREE MAGALLON Attending Unavailable GANTA, GENIE Primary Care Unavailable GANTA, GENIE Referring Unavailable GANTA, GENIE Primary Care Unavailable GANTA, GENIE Primary Care Unavailable GANTA, GENIE Attending Unavailable Allergies Allergy Classification Reported Allergen(s) Allergy Type Date of Onset Reaction(s) Facility (20 sources) Lisinopril; Translations: [LISINOPRIL] Drug Allergy 08-20-2018 Cough [facility] Medications Current Medications Medication Drug Class(es) Dates Sig (Normalized) Sig (Original) [id number] 200 actuat albuterol 0.09 mg/actuat metered dose inhaler (7 sources) beta2-Adrenergic Agonist Start: 12-11-2024 take 2 puff(s) by inhalation every four hours as needed for wheezing albuterol HFA (PROVENTIL HFA) 90 mcg/actuation inhaler Inhale 2 puffs as instructed every 4 hours as needed for wheezing/shortnes s of breath. 18 g 2 12/11/2024 Active Start: 08-30-2024 End: 12-05-2024 take 2 puff(s) by inhalation every four hours as needed for wheezing albuterol HFA (PROVENTIL HFA) 90 mcg/actuation inhaler Inhale 2 puffs as instructed every 4 hours as needed for wheezing/shortness of breath. 18 g 08/30/2024 12/05/2024 Discontinued aspirin 81 mg delayed release oral tablet (20 sources) Platelet Aggregation Inhibitor, Nonsteroidal Anti-inflammatory Drug Start: 03-30-2023 take 1 tablet by mouth once daily aspirin, enteric coated (ECOTRIN LOW STRENGTH) 81 mg EC tablet Take 1 tablet by mouth once daily. 03/30/2023 Active Comment on above: Take 1 tablet by mouth once daily. atorvastatin 10 mg oral tablet (20 sources) HMG-CoA Reductase Inhibitor Start: 06-12-2023 End: 03-24-2024 take 1 tablet by mouth once daily at bedtime for hyperlipidemia atorvastatin (LIPITOR) 10 mg tablet Take 1 tablet by mouth daily at bedtime. For cholesterol. 30 tablet 5 03/25/2024 Active Start: 01-04-2023 End: 06-09-2023 take 1 tablet by mouth once daily at bedtime for hyperlipidemia atorvastatin (LIPITOR) 10 mg tablet Take 1 tablet by mouth daily at bedtime. For cholesterol. 30 tablet 5 01/04/2023 06/09/2023 Discontinued Start: 01-13-2022 End: 07-20-2022 take 1 tablet by mouth once daily at bedtime for hyperlipidemia atorvastatin (LIPITOR) 10 mg tablet TAKE 1 TABLET BY MOUTH DAILY AT BEDTIME. FOR CHOLESTEROL 30 tablet 5 07/20/2022 Active Start: 07-14-2021 take 1 tablet by ruddy th once daily at bedtime for hyperlipidemia atorvastatin (LIPITOR) 10 mg tablet Take 1 tablet by mouth daily at bedtime. For cholesterol. 30 tablet 5 07/14/2021 Active Comment on above: Take 1 tablet by ruddy th daily at bedtime. For cholesterol. TAKE 1 TABLET BY RUDDY TH DAILY AT BEDTIME. FOR CHOLESTEROL busPIRone hydrochloride 10 mg oral tablet (20 sources) Start: End: take 1 tablet by mouth three times daily busPIRone (BUSPAR) 10 mg tablet TAKE 1 TABLET BY MOUTH THREE TIMES A DAY 270 tablet 1 11/27/2023 05/25/2024 Active Start: 08-23-2023 End: 11-02-2023 take 1 tablet by mouth three times daily busPIRone (BUSPAR) 5 mg tablet TAKE 1 TABLET BY MOUTH THREE TIMES A DAY 270 tablet 1 09/20/2023 11/02/2023 Discontinued Start: 11-16-2022 End: 02-06-2023 take 1 tablet by mouth twice daily busPIRone (BUSPAR) 5 mg tablet TAKE 1 TABLET BY MOUTH TWICE A DAY 60 tablet 1 12/13/2022 02/06/2023 Discontinued Comment on above: Take 1 tablet by ruddy twice daily. TAKE 1 TABLET BY RUDDY TH TWICE A DAY DULoxetine 60 mg delayed release oral capsule (20 sources) Serotonin and Norepinephrine Reuptake Inhibitor Start: 01-11-20 End: 01-31-20 take 1 capsule by mouth once daily for anxiety and depression DULoxetine (CYMBALTA) 60 mg capsule Indications: Need for influenza vaccination , Anxiety and depression Take 1 capsule by mouth once daily. 30 capsule 01/31/2024 Active Start: 12-19-2022 take 1 capsule by mo [facility] once daily for anxiety and depression DULoxetine (CYMBALTA) 60 mg capsule Indications: Need for influenza vaccination , Anxiety and depression Take 1 capsule by mouth once daily. 30 capsule 11 12/19/2022 Active Comment on above: Take 1 capsule by mo uth once daily. take 1 capsule by mo uth every day multivit with minerals/lutein (MULTIVITAMIN 50 PLUS ORAL) (20 sources) multivit with minerals/lutein (MULTIVITAMIN 50 PLUS ORAL) Take by mouth once daily. Active multivit with mi nerals/lutein (MULTIVITAMIN 50 PLUS ORAL) Take by mouth. Active multivit with mi nerals/lutein (MULTIVITAMIN 50 PLUS ORAL) Take by mouth. 0 Active Comment on above: Take by mouth. perflutren lipid microspheres 1.3 mL in NaCl (PF) 0.9% 10 mL injection (DEFINITY) (20 sources) Start: 2 End: 3 perflutren lipid microspheres 1.3 mL in NaCl (PF) 0.9% 10 mL injection (DEFINITY) 24 hr pramipexole dihydrochloride 1.5 mg extended release oral tablet (20 sources) Nonergot Dopamine Agonist Start: 4 End: 5 take 1 tablet by mouth once daily at dinner Pramipexole 1.5 mg Tb24 Take 1 tablet by mouth daily with dinner. 90 tablet 1 08/09/2024 Active Start: 08-23-2023 End: 11-02-2023 take 1 tablet by mouth once daily at bedtime pramipexole (MIRAPEX) 0.5 mg tablet Take 1 tablet by mouth daily at bedtime. 90 tablet 1 08/23/2023 11/02/2023 Discontinued Start: 05-24-2023 End: 08-23-2023 take 1 tablet by mouth once daily at bedtime pramipexole (MIRAPEX) 0.25 mg tablet TAKE 1 TABLET BY MOUTH EVERYDAY AT BEDTIME 90 tablet 1 06/19/2023 08/23/2023 Discontinued Start: 04-12-2023 End: 05-24-2023 take 1 tablet by mouth once daily at bedtime pramipexole (MIRAPEX) 0.125 mg tablet Take 1 tablet by mouth daily at bedtime. 30 tablet 1 04/12/2023 05/24/2023 Discontinued Comment on above: Take 1 tablet by ruddy th daily at bedtime. TAKE 1 TABLET BY RUDDY TH EVERYDAY AT BEDTIME propranolol hydrochloride 10 mg oral tablet (20 sources) beta-Adrenergic Nellie Start: 3 End: 5 take 1 tablet by mouth twice daily propranolol (INDERAL) 10 mg tablet Take 1 tablet by mouth two times a day. 180 tablet 3 08/30/2024 Active Start: 05-03-2022 take 1 capsule by mo ut once daily propranolol ER (INDERAL LA) 80 mg 24 hr capsule Take 1 capsule by mouth once daily. 30 capsule 2 05/03/2022 Active Comment on above: Take 1 capsule by mo uth once daily. Take 1 tablet by ruddy twice daily. Take 1 tablet by ruddy two times a day. 125 ml sodium chloride 9 mg/ml prefilled syringe (20 sources) Start: 2 End: 3 sodium chloride 0.9 % (flush) 10 mL (BD POSIFLUSH) traZODone hydrochloride 100 mg oral tablet (20 sources) Serotonin Reuptake Inhibitor Start: 3 End: 5 take 2 tablets by mouth once daily at bedtime traZODone (DESYREL) 100 mg tablet Take 2 tablets by mouth daily at bedtime. 180 tablet 3 08/30/2024 Active Start: 09-04-2020 End: 09-05-2022 traZODone (DESYREL) 100 mg t ablet CURRENTLY TAKING 2 TABLETS AT BEDTIME DAILY BUT MAY INCREASE UP TO 3 TABLETS AT BEDTIME FOR INSOMNIA 180 tablet 3 05/03/2021 09/05/2022 Discontinued Comment on above: CURRENTLY TAKING 2 T ABLETS AT BEDTIME DAILY BUT MAY INCREASE UP TO 3 TABLETS AT BEDTIME FOR INSOMNIA Take 2 tablets by [facility] daily at bedtime. trospium chloride 20 mg oral tablet (20 sources) Cholinergic Muscarinic Antagonist Start: 4 End: 5 take 1 tablet by mouth twice daily trospium (SANCTURA) 20 mg tablet Indications: OAB (overactive bladder) Take 1 tablet by mouth two times a day. 180 tablet 3 08/30/2024 Active 0.5 ml ustekinumab 90 mg/ml prefilled syringe (20 sources) Interleukin-12 Antagonist, Interleukin-23 Antagonist Start: 4 ustekinumab (STELARA) 45 mg/0.5 mL sub-Q syringe Inject subcutaneously. Every 3 months. (Dr. Sanchez) 0 05/06/2013 Active Comment on above: Inject subcutaneousl y. Every 3 months. (Dr. Sanchez) vitamin e 450 mg oral capsule (20 sources) vitamin E mixed 1,000 unit cap Take 2,000 Units by mouth. Active Comment on above: Take 2,000 Units by mouth. Completed/Discontinued Medications Medication Drug Class(es) Dates Sig (Normalized) Sig (Original) >Compression Knee Highs 30-40 mm (17 sources) Start: 04-12-2018 End: 04-27-2022 >Compression Knee Highs 30-40 mm Indications: Acute pulmonary embolism with acute cor pulmonale, unspecified pulmonary embolism type (HCC) KNEE HIGH COMPRESSION STOCKINGS, 30-40 MM 1 Each 1 04/12/2018 04/27/2022 Discontinued Start: 04-12-2018 >Compression K nee Highs 30-40 mm Indications: Acute pulmonary embolism with acute cor pulmonale, unspecified pulmonary embolism type (HCC) KNEE HIGH COMPRESSION STOCKINGS, 30-40 MM 1 Each 1 04/12/2018 Active Comment on above: KNEE HIGH COMPRESSIO N STOCKINGS, 30-40 MM Blood Pressure Monitor (BLOOD PRESSURE KIT) (17 sources) Start: 07-23-2019 End: 04-27-2022 Blood Pressure Monitor (BLOOD PRESSURE KIT) Indications: Hypertension, unspecified type 1 Each as directed. 1 Each 07/23/2019 04/27/2022 Discontinued Start: 07-23-2019 End: 04-27-2022 Blood Pressure Monitor (BLOO D PRESSURE KIT) Indications: Hypertension, unspecified type 1 Each as directed. 1 Each 0 07/23/2019 04/27/2022 Discontinued Start: 07-23-2019 Blood Pressure Monitor (BLOOD PRESSURE KIT) Indications: Hypertension, unspecified type 1 Each as directed. 1 Each 0 07/23/2019 Active Comment on above: 1 Each as directed. COMPOUNDED PRESCRIPTION (17 sources) Start: 08-21-2018 End: 04-27-2022 COMPOUNDED PRESCRIPTION Dc oxygen. 1 Each 2 08/21/2018 04/27/2022 Discontinued Start: 08-21-2018 COMPOUNDED PRE SCRIPTION Dc oxygen. 1 Each 2 08/21/2018 Active Comment on above: Dc oxygen. CPAP (17 sources) Start: 09-05-2018 End: 04-28-2022 CPAP Autobipap EPAP min 9, P S 4-8, IPAP max 20 cm H2O, Heat Humidity, suitable mask, [employer] supplies, opt [place], G47.33. 1 Device 09/05/2018 04/28/2022 Discontinued Start: 09-05-2018 End: 04-28-2022 CPAP Autobipap EPAP min 9, P S 4-8, IPAP max 20 cm H2O, Heat Humidity, suitable mask, [employer] supplies, opt [place], G47.33. 1 Device 0 09/05/2018 04/28/2022 Discontinued Start: 09-05-2018 CPAP Autobipap EPAP min 9, PS 4-8, IPAP max 20 cm H2O, Heat Humidity, suitable mask, [employer] supplies, opt [place], G47.33. 1 Device 0 09/05/2018 Active Comment on above: Autobipap EPAP min 9 , PS 4-8, IPAP max 20 cm H2O, Heat Humidity, suitable mask, [employer] supplies, opt [place]inst[place], G47.33. escitalopram 20 mg oral tablet (12 sources) Serotonin Reuptake Inhibitor Start: 3 End: take 1 tablet by mouth once daily escitalopram oxalate (LEXAPRO) 20 mg tablet Indications: Depression, unspecified depression type Take 1 tablet by mouth once daily. 30 tablet 5 11/14/2022 12/19/2022 Discontinued Start: 08-10-2022 End: 10-13-2022 take 1 tablet by mouth once daily escitalopram oxalate (LEXAPRO) 10 mg tablet Take 1 tablet by mouth once daily. 30 tablet 3 08/10/2022 10/13/2022 Discontinued (Dosage adjustment) Comment on above: Take 1 tablet by ruddy th once daily. eszopiclone 2 mg oral tablet (20 sources) Start: 06-05-2024 End: 09-03-2024 take 1 tablet by mouth at bedtime as needed eszopiclone (LUNESTA) 2 mg Indications: Insomnia, unspecified type Take 1 tablet by mouth at bedtime as needed (insomnia) for up to 90 days. 14 tablet 1 06/05/2024 09/03/2024 Start: 12-06-2023 End: 03-05-2024 take 1 tablet by mouth at bedtime as needed eszopiclone (LUNESTA) 2 mg Indications: Insomnia, unspecified type Take 1 tablet by mouth at bedtime as needed (insomnia) for up to 90 days. 14 tablet 1 12/06/2023 03/05/2024 Active Start: 07-03-2023 End: 08-02-2023 take 1 tablet by mouth every 30 days at bedtime as needed eszopiclone (LUNESTA) 2 mg Indications: Insomnia, unspecified type Take 1 tablet by mouth at bedtime as needed (insomnia) for up to 30 days. 7 tablet 0 07/03/2023 08/02/2023 Active Start: 12-30-2022 End: 01-29-2023 take 1 tablet by mouth every 30 days at bedtime as needed eszopiclone (LUNESTA) 2 mg Indications: Insomnia, unspecified type Take 1 tablet by mouth at bedtime as needed (insomnia) for up to 30 days. 7 tablet 0 12/30/2022 01/29/2023 Start: 10-14-2022 End: 01-12-2023 take 1 tablet by mouth at bedtime as needed eszopiclone (LUNESTA) 2 mg Indications: Insomnia, unspecified type TAKE 1 TABLET BY MOUTH AT BEDTIME NEEDED (INSOMNIA) FOR UP TO 90 DAYS. 7 tablet 0 10/14/2022 12/29/2022 Discontinued Start: 02-14-2022 End: 05-15-2022 take 1 tablet by mouth at bedtime as needed eszopiclone (LUNESTA) 2 mg Indications: Insomnia, unspecified type Take 1 tablet by mouth at bedtime as needed (insomnia) for up to 90 days. 20 tablet 1 02/14/2022 05/15/2022 Active Start: 07-13-2021 End: 10-11-2021 take 1 tablet by mouth at bedtime as needed eszopiclone (LUNESTA) 2 mg Indications: Insomnia, unspecified type Take 1 tablet by mouth at bedtime as needed (insomnia) for up to 90 days. 20 tablet 1 07/13/2021 10/11/2021 Active Comment on above: Take 1 tablet by ruddy th at bedtime as needed (insomnia) for up to 90 days. Take 1 tablet by ruddy th at bedtime as needed (insomnia) for up to 30 days. flunisolide 0.025 mg/actuat metered dose nasal spray (20 sources) Corticosteroid Start: 08-16-19 20 End: 11-17-19 23 flunisolide (NASALIDE, NASAREL) 25 mcg (0.025 %) spry Use 2 Sprays in the nose twice daily. 1 Bottle 5 08/16/2019 11/16/2022 Discontinued Comment on above: Use 2 Sprays in the nose twice daily. FLUoxetine 10 mg oral capsule (20 sources) Serotonin Reuptake Inhibitor Start: 01-16-20 End: 03-02-20 take 1 capsule by mouth once daily FLUoxetine (PROZAC) 10 mg capsule Take 1 capsule by mouth once daily. 30 capsule 5 01/15/2021 08/30/2021 Discontinued Comment on above: Take 1 capsule by mo uth once daily. TAKE 1 CAPSULE BY MO UTH ONCE DAILY gabapentin 100 mg oral capsule (20 sources) Anti-epileptic Agent Start: 02-07-20 End: 08-05-19 take 1 capsule by mouth once daily at bedtime gabapentin (NEURONTIN) 300 mg capsule Indications: RLS (restless legs syndrome) Take 1 capsule by mouth daily at bedtime for 180 days. 30 capsule 1 02/06/2023 04/12/2023 Discontinued Start: 03-30-2018 End: 12-16-2024 gabapentin (NEURONTIN) 100 m g capsule Take 100 mg by mouth as needed. 03/30/2018 12/16/2024 Discontinued Comment on above: Take 1 capsule by mo uth daily at bedtime for 180 days. losartan potassium 50 mg oral tablet (19 sources) Angiotensin 2 Receptor Nellie Start: End: 3 take 1 tablet by mouth once daily losartan (COZAAR) 50 mg tablet TAKE 1 TABLET BY MOUTH EVERY DAY 30 tablet 5 01/13/2022 05/03/2022 Discontinued Start: 01-08-2021 End: 07-14-2021 take 1 tablet by mouth once daily losartan (COZAAR) 50 mg tablet Take 1 tablet by mouth once daily. 30 tablet 5 01/08/2021 07/14/2021 Discontinued Comment on above: TAKE 1 TABLET BY RUDDY TH EVERY DAY Take 1 tablet by ruddy th once daily. 24 hr mirabegron 25 mg extended release oral tablet (20 sources) beta3-Adrenergic Agonist Start: 11-21-2022 End: 12-09-2023 take 1 tablet by mouth once daily mirabegron (MYRBETRIQ) 25 mg Tb24 Take 1 tablet by mouth once daily. 30 tablet 5 06/12/2023 11/02/2023 Discontinued Start: 05-02-2022 End: 10-29-2022 take 1 tablet by mouth once daily mirabegron (MYRBETRIQ) 25 mg Tb24 Take 1 tablet by mouth once daily. 30 tablet 5 05/02/2022 10/29/2022 Active Comment on above: Take 1 tablet by ruddy once daily. polyethylene glycol 3350 [id number] mg / potassium chloride 2980 mg / sodium bicarbonate 6720 mg / sodium chloride 5840 mg / sodium sulfate 42278 mg powder for oral solution (1 source) Osmotic Laxative Start: 3 End: 3 peg 3350-electrolytes (COLYTE) 240-22.72-6.72 -5.84 gram solution Indications: Special screening for malignant neoplasms, colon Take 4,000 mL by mouth one time only for 1 dose. 4000 mL 0 11/16/2022 11/16/2022 Comment on above: Take 4,000 mL by ruddy one time only for 1 dose. predniSONE 10 mg oral tablet (1 source) Start: 2 End: 2 predniSONE (DELTASONE) 10 mg tablet Take 4 tabs daily x 3 days, then 3 tabs x 3 days, 2 tabs x 3 days, then 1 tab x3 days with food. 30 tablet 06/14/2021 06/26/2021 rivaroxaban 20 mg oral tablet (20 sources) Factor Xa Inhibitor Start: 9 End: 5 take 1 tablet by mouth once daily rivaroxaban (XARELTO) 20 mg tablet Take 20 mg by mouth once daily. 06/20/2018 08/30/2024 Discontinued Start: 03-31-2018 End: 08-30-2024 take 1 tablet by mouth once daily rivaroxaban (XARELTO) 15 mg tablet Take 15 mg by mouth once daily. 03/31/2018 08/30/2024 Discontinued 24 hr tolterodine tartrate 4 mg extended release oral capsule (20 sources) Cholinergic Muscarinic Antagonist Start: 05-25-2021 End: 11-16-2022 take 1 capsule by mouth once daily tolterodine ER (DETROL LA) 4 mg 24 hr capsule Take 1 capsule by mouth once daily. 30 capsule 5 05/25/2021 09/28/2021 Discontinued Comment on above: Take 1 capsule by mo [facility] once daily. Problems Active Problems Problem Classification Problem Date Documented Da te Episodic/Chronic Anxiety disorders (7 sources) Mixed anxiety and depressive disorder; Translations: [Anxiety disorder, unspecified] 11-16-2022 Chronic Congestive heart failure; nonhypertensive (1 source) Left heart failure; Translations: [Left ventricular failure, unspecified] Chronic Coronary atherosclerosis and other heart disease (20 sources) Coronary arteriosclerosis; Translations: [Atherosclerotic heart disease of [place] coronary artery without angina pectoris] Onset: 3 01-02-2023 Chronic Diabetes mellitus without complication (1 source) Prediabetes; Translations: [Prediabetes] 08-23-2023 Episodic Disorders of lipid metabolism (20 sources) Mixed hyperlipidemia; Translations: [Mixed hyperlipidemia] Onset: 3 Chronic Essential hypertension (20 sources) Essential hypertension; Translations: [Essential (primary) hypertension] Onset: 3 11-16-2022 Chronic Gastrointestinal hemorrhage (2 sources) Rectal hemorrhage; Translations: [Hemorrhage of anus and rectum] 12-01-2022 Episodic Genitourinary symptoms and ill-defined conditions (1 source) Urge incontinence of urine; Translations: [Urge incontinence] 01-02-2023 Chronic Hyperplasia of prostate (20 sources) Benign prostatic hyperplasia; Translations: [Benign prostatic hyperplasia without lower urinary tract symptoms] Onset: 5 08-26-2014 Chronic Immunizations and screening for infectious disease (19 sources) Patient encounter status; Translations: [Encounter for screening for human immunodeficiency virus [HIV]] Episodic Malaise and fatigue (1 source) Fatigue; Translations: [Other fatigue] 05-24-2023 Episodic Miscellaneous mental health disorders (2 sources) Primary insomnia; Translations: [Primary insomnia] Onset: 1 08-30-2024 Chronic Mood disorders (20 sources) Depressive disorder; Translations: [Depression] Onset: 5 Resolved: 3 04-02-2015 Chronic Nonspecific chest pain (2 sources) Chest discomfort; Translations: [Other chest pain] Onset: 3 01-02-2023 Episodic Other diseases of bladder and urethra (3 sources) Overactive bladder; Translations: [Overactive bladder] 10-18-2023 Chronic Other diseases of bladder and urethra (1 source) Overactive bladder; Translations: [OAB (overactive bladder)] Onset: 5 Chronic Other gastrointestinal disorders (2 sources) Dysphagia; Translations: [Dysphagia, unspecified] 12-19-2024 Episodic Other hereditary and degenerative nervous system conditions (20 sources) Restless legs; Translations: [Restless legs syndrome] Onset: 8 10-25-2017 Chronic Other hereditary and degenerative nervous system conditions (1 source) Mild cognitive impairment, so stated; Translations: [Mild cognitive impairment, so stated] Chronic Other inflammatory condition of skin (20 sources) Psoriasis; Translations: [Psoriasis, unspecified] Onset: 0 04-05-2021 Chronic Other inflammatory condition of skin (1 source) Psoriasis vulgaris; Translations: [Psoriasis vulgaris] Onset: 5 Chronic Other liver diseases (20 sources) Steatosis of liver; Translations: [Fatty (change of) liver, not elsewhere classified] Onset: 0 01-17-2020 Chronic Other lower respiratory disease (20 sources) Fibrosis of lung; Translations: [Pulmonary fibrosis, unspecified] Onset: 4 Chronic Other lower respiratory disease (5 sources) Interstitial lung disease; Translations: [Interstitial pulmonary disease, unspecified] Chronic Other lower respiratory disease (1 source) Interstitial pulmonary disease, unspecified; Translations: [ILD (interstitial lung disease) (HCC)] Onset: 5 Chronic Other lower respiratory disease (1 source) Dyspnea; Translations: [Shortness of breath] Episodic Other lower respiratory disease (1 source) Dyspnea on exertion; Translations: [Other forms of dyspnea] 01-02-2023 Episodic Other lower respiratory disease (1 source) Other forms of dyspnea; Translations: [Dyspnea on exertion] Onset: 3 Episodic Other male genital disorders (20 sources) Male erectile dysfunction, unspecified; Translations: [Impotence of organic origin] Onset: 5 05-14-2014 Chronic Other nervous system disorders (2 sources) Tremor; Translations: [Tremor, unspecified] Episodic Other non-traumatic joint disorders (1 source) Hip pain; Translations: [Pain in left hip] 06-14-2021 Episodic Other non-traumatic joint disorders (2 sources) Pain of left wrist; Translations: [Pain in left wrist] 02-19-2024 Episodic Other nutritional; endocrine; and metabolic disorders (1 source) Obesity; Translations: [Obesity, unspecified] Chronic Other screening for suspected conditions (not mental disorders or infectious disease) (2 sources) Abnormal results of pulmonary function studies; Translations: [Encounter for screening for malignant neoplasm of respiratory organs] Onset: 3 Episodic Other upper respiratory disease (20 sources) Chronic rhinitis; Translations: [Chronic rhinitis] Onset: 5 07-03-2014 Chronic Other upper respiratory infections (20 sources) Sinusitis; Translations: [Chronic sinusitis, unspecified] Onset: 2 06-08-2011 Chronic Pulmonary heart disease (20 sources) Saddle embolus of pulmonary artery; Translations: [Saddle embolus of pulmonary artery without acute cor pulmonale] Onset: 9 07-05-2018 Chronic Residual codes; unclassified (20 sources) Obstructive sleep apnea syndrome; Translations: [Obstructive sleep apnea (adult) (pediatric)] Onset: 2 04-05-2021 Chronic Residual codes; unclassified (2 sources) Obstructive sleep apnea (adult) (pediatric); Translations: [MELODY (obstructive sleep apnea)] Onset: 1 Chronic Residual codes; unclassified (1 source) Current drinker; Translations: [Other specified health status] Episodic Screening and history of mental health and substance abuse codes (14 sources) Ex-tobacco user; Translations: [Personal history of nicotine dependence] Onset: 5 11-22-2022 Episodic Spondylosis; intervertebral disc disorders; other back problems (1 source) Acute low back pain; Translations: [Acute bilateral low back pain, unspecified whether sciatica present] 06-14-2021 Episodic Past or Other Problems Problem Classification Problem Date Documented Da te Episodic/Chronic Appendicitis and other appendiceal conditions (20 sources) Acute appendicitis; Translations: [Unspecified acute appendicitis] Onset: 09-10-2008 Resolved: 01-01-2009 01-01-2009 Episodic Diseases of mouth; excluding dental (3 sources) Lesion of tongue; Translations: [Other diseases of tongue] Onset: 08-30-2024 05-14-2024 Episodic Genitourinary symptoms and ill-defined conditions (20 sources) Lower urinary tract symptoms; Translations: [Unspecified symptoms and signs involving the genitourinary system] Onset: 05-14-2014 05-14-2014 Episodic Nutritional deficiencies (20 sources) Thiamine deficiency; Translations: [Thiamine deficiency, unspecified] Onset: 10-25-2017 Resolved: 01-23-2018 Episodic Other aftercare (1 source) Other mcfp (current) drug therapy; Translations: [Medication management] Onset: 06-29-2024 Episodic Other and unspecified benign neoplasm (20 sources) Benign neoplasm of rectum and anal canal; Translations: [Benign neoplasm of rectum] Onset: 01-20-2012 01-20-2012 Episodic Other and unspecified benign neoplasm (20 sources) Benign neoplasm of colon; Translations: [Benign neoplasm of colon, unspecified] Onset: 01-20-2012 01-20-2012 Episodic Other connective tissue disease (20 sources) Unspecified rotator cuff tear or rupture of unspecified shoulder, not specified as traumatic; Translations: [Rotator cuff (capsule) sprain] Onset: 09-21-2010 09-21-2010 Episodic Other diseases of bladder and urethra (20 sources) Urethral stricture; Translations: [Unspecified urethral stricture, male, unspecified site] Onset: 05-14-2014 09-26-2016 Episodic Other gastrointestinal disorders (20 sources) Diarrhea; Translations: [Diarrhea, unspecified] Onset: 01-20-2012 Resolved: 10-13-2022 01-20-2012 Episodic Other lower respiratory disease (2 sources) Other nonspecific abnormal finding of lung field; Translations: [Abnormal CT lung screening] Onset: 03-30-2023 Episodic Other lower respiratory disease (20 sources) Multiple nodules of lung; Translations: [Other nonspecific abnormal finding of lung field] Onset: 02-05-2024 02-05-2024 Episodic Other non-traumatic joint disorders (1 source) Pain in left wrist; Translations: [Left wrist pain] Onset: 02-19-2024 Episodic Residual codes; unclassified (20 sources) Insomnia; Translations: [Insomnia, unspecified] Onset: 08-30-2010 08-30-2010 Episodic Substance-related disorders (20 sources) Tobacco user; Translations: [Nicotine dependence, unspecified, uncomplicated] Resolved: 05-01-2018 04-05-2021 Chronic Unclassified (2 sources) Patient encounter status 12-16-2024 Viral infection (20 sources) Verruca vulgaris; Translations: [Viral wart, unspecified] Onset: 08-27-2007 08-27-2007 Episodic Results Test Name Value Interpretation Reference Range Facility Lipid 1996 panelon 5 Cholesterol [Mass/Vol] 113 mg/dL Normal <200 [facility] Comment on above: Order Comment: Speci men Type: BLOOD SPECIMENOrdering Facility: [facility] Address: [address] [place] [address] Result Comment: <200 mg/dL, Desirable 200-239 mg/dL, Borderline high >239 mg/dL, High Performed By: #### 2 4331-1 ####[facility]CLIA [id number] [place] [address] [place] Cholesterol in HDL [Mass/Vol] 43 mg/dL Normal >39 [facility] Comment on above: Order Comment: Speci men Type: BLOOD SPECIMENOrdering Facility: [facility] Address: [address] [place] [address] Result Comment: 40-5 9 mg/dL, Acceptable >59 mg/dL, High: Negative risk factor for coronary heart disease <40 mg/dL, Low: Positive risk factor for coronary heart disease Performed By: #### 2 4331-1 ####[facility] [id number] [address] [place] Cholesterol in LDL [Mass/Vol] 58 mg/dL Normal <100 [facility] Comment on above: Order Comment: Speci men Type: BLOOD SPECIMENOrdering Facility: [facility] Address: [address] [place] [address] Result Comment: <100 mg/dL, Optimal 100-129 mg/dL, Near optimal/above optimal 130-159 mg/dL, Borderline high 160-189 mg/dL, High >189 mg/dL, Very high Secondary prevention optimal LDL Cholesterol levels are recommended to be <70 mg/dL LDL cholesterol is calculated using the Lewis-NIH equation. Performed By: #### 2 4331-1 ####[facility] [id number] [place] [address] [place] Cholesterol in LDL/Cholesterol in HDL [Mass ratio] 1.35 {ratio} Normal <2.54 [facility] Comment on above: Order Comment: Speedy crystal Type: BLOOD SPECIMENOrdering Facility: [facility] Address: [address] [place] [address] Result Comment: Eva cohen: 1. National Cholesterol Education Program ATP III Guideline At-A-Glance Quick Desk Reference: National Heart, Lung, and Blood [place]. National Institutes of Health. 2001: NIH Publication No. 01-3305. 2. An International Atherosclerosis Society position paper: global recommendations for the management of dyslipidemia: executive summary, Atherosclerosis. 2014: 232(2):410-413. Performed By: #### 2 4331-1 ####[facility] [id number] [place] [address] [place] Cholesterol in VLDL [Mass/Vol] 7 mg/dL Normal <30 [facility] Comment on above: Order Comment: Speedy crystal Type: BLOOD SPECIMENOrdering Facility: [facility] Address: [address] [place] [address] Performed By: #### 2 4331-1 ####[facility] [id number] [place] [address] [place] Cholesterol non HDL [Mass/Vol] 70 mg/dL Normal <130 [facility] Comment on above: Order Comment: Speedy crystal Type: BLOOD SPECIMENOrdering Facility: [facility] Address: [address] [place] [address] Result Comment: <130 mg/dL, Optimal 130-159 mg/dL, Near optimal/above optimal 160-189 mg/dL, Borderline high 190-219 mg/dL, High >219 mg/dL, Very high Secondary prevention optimal non HDL Cholesterol levels are recommended to be <100 mg/dL Performed By: #### 2 4331-1 ####[facility] [id number] [place] [address] [place] Cholesterol.total/Ch olesterol in HDL [Mass ratio] 2.63 {ratio} Normal <5.10 [facility] Comment on above: Order Comment: Speedy crystal Type: BLOOD SPECIMENOrdering Facility: [facility] Address: [address] [place] [address] Performed By: #### 2 4331-1 ####[facility] [id number] [address] [place] FASTING TIME 13 hrs Normal [facility] Comment on above: Order Comment: Speci men Type: BLOOD SPECIMENOrdering Facility: [facility] Address: [address] [place] [address] Performed By: #### 2 4331-1 ####[facility] [id number] [address] [place] Triglyceride [Mass/Vol] 51 mg/dL Normal <150 [facility] Comment on above: Order Comment: Speci men Type: BLOOD SPECIMENOrdering Facility: [facility] Address: [address] [place] [address] Result Comment: <150 mg/dL, Normal 150-199 mg/dL, Borderline high 200-499 mg/dL, High >499 mg/dL, Very high Performed By: #### 2 4331-1 ####[facility] [id number] [address] [place] CNPDee [facility]-20[facility] ([id number]) 1965 M Date Time Provider Department 01/17/25 GENIE COTO INTJANINE During your visit today, we recorded the following information about you: Tiesha Miller 01/17/2025 11:04 AM Signed Tiny is a patient of Genie Coto MD today to request medication, not on current list is sent to [facility]. Patient is out of medication, please send today: Disp Refills Start End busPIRone (BUSPAR) 10 mg tablet 270 tablet 1 11/27/2023 05/25/2024 Sig: TAKE 1 TABLET BY MOUTH THREE TIMES A DAY Sent to pharmacy as: busPIRone (BUSPAR) 10 mg tablet Class: Normal Route: ORAL Order: [id number] E-Prescribing Status: Receipt confirmed by pharmacy (11/27/2023 12:47 PM EDT) Patient has been identified by name and birthdate. Duration of symptoms: N/A Person calling: self Call patient at: on cell Was an appointment scheduled: No Closing statement: Results or non-symptom based questions: Thank you for calling [facility], your call will be returned within the next business day. Tiesha Goldman Pss Genie Coto MD 01/17/2025 1:07 PM Signed Refilled medication Regards, Genie Coto MD Allergies As of Date: 01/17/2025 Noted Allergy Reaction LISINOPRIL 08/20/2018 3 - Cough Date Reviewed: 12/16/2024 Reviewed by: Saray Huang LPN - Fully Assessed Reason for Visit: Refill Request [94] Order(s):busPIRone (BUSPAR) 5 mg tabletTake 1 tablet by mouth three times a day.Disp: 270 tabletRfl: 1 Prescriptions as of 01/17/2025 - busPIRone (BUSPAR) 5 mg tablet Take 1 tablet by mouth three times a day. - albuterol HFA (PROVENTIL HFA) 90 mcg/actuation inhaler Inhale 2 puffs as instructed every 4 hours as needed for wheezing/shortness of breath. - propranolol (INDERAL) 10 mg tablet Take 1 tablet by mouth two times a day. - traZODone (DESYREL) 100 mg tablet Take 2 tablets by mouth daily at bedtime. - trospium (SANCTURA) 20 mg tablet Take 1 tablet by mouth two times a day. - Pramipexole 1.5 mg Tb24 Take 1 tablet by mouth daily with dinner. - atorvastatin (LIPITOR) 10 mg tablet Take 1 tablet by mouth daily at bedtime. For cholesterol. - DULoxetine (CYMBALTA) 60 mg capsule Take 1 capsule by mouth once daily. - aspirin, enteric coated (ECOTRIN LOW STRENGTH) 81 mg EC tablet Take 1 tablet by mouth once daily. - multivit with minerals/lutein (MULTIVITAMIN 50 PLUS ORAL) Take by mouth once daily. - vitamin E mixed 1,000 unit cap Take 2,000 Units by mouth. - ustekinumab (STELARA) 45 mg/0.5 mL sub-Q syringe Inject subcutaneously. Every 3 months. (Dr. Sanchez) Problem List As Of Date 01/17/2025 Noted Resolved Tobacco use disorder [F17.200] 05/01/2018 VIRAL WARTS NOS [B07.9] 08/27/2007 Acute Appendicitis without Mention of Peritonit*09/10/2008 01/01/2009 Psoriasis [L40.9] 04/14/2009 Insomnia [G47.00] 08/30/2010 Rotator cuff tear [M75.100] 09/21/2010 MELODY (obstructive sleep apnea) [G47.33] 06/08/2011 Sinusitis [J32.9] 06/08/2011 Diarrhea [R19.7] 01/20/2012 10/13/2022 Benign neoplasm of rectum and anal canal [D12.8*01/20/2012 Benign neoplasm of colon [D12.6] 01/20/2012 Impotence [N52.9] 05/14/2014 Urethral stricture [N35.919] 05/14/2014 Lower urinary tract symptoms (LUTS) [R39.9] 05/14/2014 Chronic rhinitis [J31.0] 07/03/2014 BPH (benign prostatic hyperplasia) [N40.0] 08/26/2014 Depression [F32.A] 04/02/2015 Depression, major, single episode, mild (HCC) [*01/13/2016 10/13/2022 RLS (restless legs syndrome), provisional [G25.*10/25/2017 Iron deficiency concern [E61.1] 10/25/2017 01/23/2018 Acute saddle pulmonary embolism without acute c*07/05/2018 Fatty liver [K76.0] 01/17/2020 Coronary artery calcification seen on CT scan [*03/30/2023 Primary hypertension [I10] 03/30/2023 Mixed hyperlipidemia [E78.2] 03/30/2023 Pulmonary fibrosis (HCC) [J84.10] 02/05/2024 Multiple lung nodules [R91.8] 02/05/2024 Prescriptions ordered this encounter Disp Refills Start End BUSPIRONE 5 MG TABLET 270 * 1 01/17/2025 Route: PO Sig: Take 1 tablet by mouth three times a day. Encounter Status:Closed by SENAIT MIN on 01/17/25 [facility] ROY[facility] ([id number]) 1965 M Date Time Provider Department 12/19/24 GENIE COTO INTMWS During your visit today, we recorded the following information about you: Ellie Coreas RN 12/19/2024 3:05 PM Signed Spouse (Bell) calls to request a referral be sent to Dr. August. Patient called to schedule an appointment for swallowing difficulties and was told he needed a referral. Recommendation was from Fifi Paul to follow up with PCP or Gastroenterology and patient would like to see gastro. Pended. Please fax to [phone]. HONEY Mortensen Melinda, APRN.OCTAVIA 12/19/2024 4:04 PM Signed Okay, Consult ordered. Fifi Paul APRN.Saray Urbano LPN 12/20/2024 8:16 AM Signed Faxed to Dr. August's office. aSray Huang LPN Allergies As of Date: 12/19/2024 Noted Allergy Reaction LISINOPRIL 08/20/2018 3 - Cough Date Reviewed: 12/16/2024 Reviewed by: Saray Huang LPN - Fully Assessed Reason for Visit: Consult [502] Primary Visit Diagnosis:Dysphagia, unspecified type [R13.10] Order(s):CONSULT TO GASTROENTEROLOGY [9010] Order #: [id number]: 1 FUTURE Prescriptions as of 12/20/2024 - albuterol HFA (PROVENTIL HFA) 90 mcg/actuation inhaler Inhale 2 puffs as instructed every 4 hours as needed for wheezing/shortness of breath. - propranolol (INDERAL) 10 mg tablet Take 1 tablet by mouth two times a day. - traZODone (DESYREL) 100 mg tablet Take 2 tablets by mouth daily at bedtime. - trospium (SANCTURA) 20 mg tablet Take 1 tablet by mouth two times a day. - Pramipexole 1.5 mg Tb24 Take 1 tablet by mouth daily with dinner. - atorvastatin (LIPITOR) 10 mg tablet Take 1 tablet by mouth daily at bedtime. For cholesterol. - DULoxetine (CYMBALTA) 60 mg capsule Take 1 capsule by mouth once daily. - aspirin, enteric coated (ECOTRIN LOW STRENGTH) 81 mg EC tablet Take 1 tablet by mouth once daily. - multivit with minerals/lutein (MULTIVITAMIN 50 PLUS ORAL) Take by mouth once daily. - vitamin E mixed 1,000 unit cap Take 2,000 Units by mouth. - ustekinumab (STELARA) 45 mg/0.5 mL sub-Q syringe Inject subcutaneously. Every 3 months. (Dr. Sanchez) Problem List As Of Date 12/19/2024 Noted Resolved Tobacco use disorder [F17.200] 05/01/2018 VIRAL WARTS NOS [B07.9] 08/27/2007 Acute Appendicitis without Mention of Peritonit*09/10/2008 01/01/2009 Psoriasis [L40.9] 04/14/2009 Insomnia [G47.00] 08/30/2010 Rotator cuff tear [M75.100] 09/21/2010 MELODY (obstructive sleep apnea) [G47.33] 06/08/2011 Sinusitis [J32.9] 06/08/2011 Diarrhea [R19.7] 01/20/2012 10/13/2022 Benign neoplasm of rectum and anal canal [D12.8*01/20/2012 Benign neoplasm of colon [D12.6] 01/20/2012 Impotence [N52.9] 05/14/2014 Urethral stricture [N35.919] 05/14/2014 Lower urinary tract symptoms (LUTS) [R39.9] 05/14/2014 Chronic rhinitis [J31.0] 07/03/2014 BPH (benign prostatic hyperplasia) [N40.0] 08/26/2014 Depression [F32.A] 04/02/2015 Depression, major, single episode, mild (HCC) [*01/13/2016 10/13/2022 RLS (restless legs syndrome), provisional [G25.*10/25/2017 Iron deficiency concern [E61.1] 10/25/2017 01/23/2018 Acute saddle pulmonary embolism without acute c*07/05/2018 Fatty liver [K76.0] 01/17/2020 Coronary artery calcification seen on CT scan [*03/30/2023 Primary hypertension [I10] 03/30/2023 Mixed hyperlipidemia [E78.2] 03/30/2023 Pulmonary fibrosis (HCC) [J84.10] 02/05/2024 Multiple lung nodules [R91.8] 02/05/2024 Encounter Status:Closed by FIFI PAUL on 12/19/24 [facility] CNOVon 12-16-2024 CNOV Office Visit (PULMWS ) ROYAL GARCIA ([id number]) 1965 M Date Time Provider Department 12/16/24 9:00 AM FIFI PAUL PULMWS During your visit today, we recorded the following information about you: Blood pressure Weight 140/82 98 kg Fifi Paul APRN.[employer]ITION [employer]GANISER 12/16/2024 10:24 AM Signed [facility] Lung Cancer Screening Annual Visit Current or Ex-smoker? [Current] Exam Type: annual LDCT Number of Pack Years: 66 Current smoker (=0) or Number of Years since Quit: 7 The patient's smoking history is similar to prior year lung cancer screening visit. Chief Complaint: Established patient in lung cancer screening program here for annual follow-up and preliminary evaluation of today's LDCT exam for lung nodule surveillance/managemen t. Impression / Recommendations Assessment: Royal Garcia is at an increased risk for developing lung cancer based on their past tobacco use and continues to qualify for annual low dose CT screening. Plan: Indeterminate pulmonary nodules: Previously identified lung nodules appear stable and no new nodules of concern were noted during preliminary review of today's exam. Anticipated result: LUNG RADS Category 2 - Low dose CT Scan to be repeated in one year. Plan subject to change pending final radiology report and recommendations. Nature of the lung nodule(s) and the recommendations for further evaluation discussed in detail with patient. Royal Garcia expressed understanding and is in agreement with plan. 2. Encounter for screening for malignant neoplasm of respiratory organs I have determined that the patient is eligible for continued low dose CT screening based on age, absence of signs or symptoms of lung cancer, smoking history and total pack years. The patient was counseled on the importance of adherence to annual LDCT lung cancer screening, impact of comorbidities and ability or willingness to undergo diagnosis and treatment. The patient understands and would like to continue with annual lung screening: Yes. 3. Personal history of nicotine dependence reports that he quit smoking about 7 years ago. His smoking use included cigarettes. He started smoking about 40 years ago. He has a 66.4 pack-year smoking history. He has never used smokeless tobacco. The patient was counseled on the importance of maintaining cigarette smoking abstinence - The patient is committed to remaining abstinent from tobacco. Fifi Paul APRN.[facility] History of Present Illness: Tiny Garcia is a 59-year-old male with a history of smoking, presenting for an annual lung cancer screening follow-up. Accompanied by his . Tiny has a 16-cltc-diwb smoking history and quit smoking in 2018. He follows with Dr. Magallon for interstitial lung disease and pulmonary fibrosis. Recent CT scan was compared to previous imaging and showed no significant changes. Tiny reports dyspnea, which he feels has worsened over time. He also experiences chronic nasal congestion and uses a Vicks inhaler and albuterol spray for relief. He is unsure if he has allergies. He reports frequent mucus production, which is green in color, but denies wheezing, fevers, or unexplained weight loss. Tiny also reports episodes of dysphagia, particularly with food, but denies heartburn. He has undergone barium swallow tests in the past, which were unremarkable, and has not had an upper endoscopy. Last 12 Encounter Wt Readings: Date: Wt: 12/16/2024 98 kg (216 lb) 08/30/2024 96.4 kg (212 lb 9.6 oz) 08/19/2024 96.6 kg (213 lb) 05/14/2024 98.7 kg (217 lb 9.6 oz) 02/19/2024 98 kg (216 lb 0.8 oz) 02/07/2024 97.1 kg (214 lb) 02/07/2024 97.1 kg (214 lb) 02/05/2024 98.1 kg (216 lb 3.2 oz) 12/06/2023 97.3 kg (214 lb 9.6 oz) 11/02/2023 99.1 kg (218 lb 6.4 oz) 10/18/2023 99.3 kg (219 lb) 08/23/2023 96.6 kg (213 lb) Modified Medical Research [place] Dyspnea Scale (MMRC) I get short of breath when hurrying on level ground or walking up a slight hill 1 Social History Social History Tobacco Use Smoking status: Former Packs/day: 0.00 Years: 2.0 packs/day for 33.2 years (66.4 ttl pk-yrs) Types: Cigarettes Start date: 1984 Quit date: 08/29/2017 Years since quittin.3 Smokeless tobacco: Never Past Medical History: PAST MEDICAL HISTORY Diagnosis Date Arthritis Benign neoplasm of colon Benign neoplasm of rectum and anal canal Coronary artery calcification seen on CT scan 03/30/2023 Depression 04/02/2015 Diarrhea Insomnia Obstructive sleep apnea DME [employer] Other psoriasis Primary hypertension 03/30/2023 Pulmonary embolism (HCC) Family Hx: FAMILY HISTORY Problem Relation Age of Onset Alzheimer's Disease Mother Diabetes Father (more content not included)... Normal [facility] CT Chest for screening WO co ntraston 12-16-2024 IMPRESSION: LungRADS category: 1 LungRADS modifier: None LungRADS 0 reason: n/a Recommendations: Continue annual screening with LDCT in 12 months. ========= Reference: [employer]. Lung CT Screening Reporting and Data System (Lung-RADS). Available at: http://www.acr.org/Tenzin lity-Safety/Resources/ LungRADS Foot Press Operator: DONALD Transcribe Date/Time: Dec 16 2024 11:15A Dictated by : LAMBERT QUINTANA MD This examination was interpreted and the report reviewed and electronically signed by: LAMBERT QUINTANA MD on Dec 16 2024 11:31AM [facility] DIVISION OF RADIOLOGY * * *Final Report* * * DATE OF EXAM: Dec 16 2024 9:05AM [facility] 0562 - CT LUNG SCREEN [facility] / PROCEDURE REASON: multiple diagnoses * * * * Physician Interpretation * * * * EXAMINATION: CHEST CT WITHOUT CONTRAST (LOW-DOSE CT LUNG CANCER SCREENING PROTOCOL) CLINICAL HISTORY: Lung cancer LDCT screening ? absence of signs or symptoms of lung cancer. Personal history of nicotine dependence. Subsequent (annual) Technique: Spiral CT acquisition of the chest from the thoracic inlet to the upper abdomen without contrast. MQ: CTLCS_6 Patient characteristics: * Uevf-ux-Owmcu: 1965; Age at exam: 59 years * Gender: Male * Lung Disease: Asymptomatic (no signs or symptoms of lung disease) * Number of Pack Years: 66 * Current smoker (=0) or Number of Years since Quit: 7 * Ordering provider and NPI: FIFI PAUL [id number] * Interpreting radiologist and NPI: Eric [id number] Exam acquisition parameters: * Exam Date: 12/16/2024 9:05 AM * Site: [facility] * * CT System Exchange Administrator: CanoP * CT System Model: Sensation * Tube Current-Time (mA-sec): 30 * Peak Voltage (kV): 120V * Scan Time (sec): 11.67 * Scan Volume (z-length, cm): -31.20 * Pitch: 0.75 * Slice Thickness (mm): 1.5 * CT Dose-Length Product: 101 mGy*cm * CT Dose Index: 2.35mGy * CT Dose Reduction Method: Automated exposure control(AEC) and iterative recon COMPARISON: Prior lung screen dated 12/15/2023 RESULT: Are nodules present? No Other findings: 1.3 cm low-density left adrenal nodule probably an adenoma, unchanged. Mild coronary calcifications. Degenerative changes of the thoracic spine. Minimal left endotracheal opacity probably retained mucus secretions (58). Otherwise, patent central airways with diffuse bronchial thickening, mild upper lobe emphysema, lower lobe predominant fibrotic interstitial lung disease. Incidental coronary calcium as automatically processed and calculated using AI: Total Coronary Calcium Score = [100+] Agatston Units Percentile Rank (age and gender matched relative to reference population): [75th-100th] percentile* [* [email or web address]-nhlbi [email or web address]/calcium/input.asp x] DIVISION OF RADIOLOGY Provider, [facility] - 12/16/2024 * * *Final Report* * * DATE OF EXAM: Dec 16 2024 9:05AM [facility] 0562 - CT LUNG SCREEN WO IVCON / PROCEDURE REASON: multiple diagnoses * * * * Physician Interpretation * * * * EXAMINATION: CHEST CT WITHOUT CONTRAST (LOW-DOSE CT LUNG CANCER SCREENING PROTOCOL) CLINICAL HISTORY: Lung cancer LDCT screening ? absence of signs or symptoms of lung cancer. Personal history of nicotine dependence. Subsequent (annual) Technique: Spiral CT acquisition of the chest from the thoracic inlet to the upper abdomen without contrast. MQ: CTLCS_6 Patient characteristics: * Lqpy-sl-Tiisg: 1965; Age at exam: 59 years * Gender: Male * Lung Disease: Asymptomatic (no signs or symptoms of lung disease) * Number of Pack Years: 66 * Current smoker (=0) or Number of Years since Quit: 7 * Ordering provider and NPI: FIFI PAUL [id number] * Interpreting radiologist and NPI: Eric [id number] Exam acquisition parameters: * Exam Date: 12/16/2024 9:05 AM * Site: [facility] * * CT System Exchange Administrator: Siemens * CT System Model: Sensation * Tube Current-Time (mA-sec): 30 * Peak Voltage (kV): 120V * Scan Time (sec): 11.67 * Scan Volume (z-length, cm): -31.20 * Pitch: 0.75 * Slice Thickness (mm): 1.5 * CT Dose-Length Product: 101 mGy*cm * CT Dose Index: 2.35mGy * CT Dose Reduction Method: Automated exposure control(AEC) and iterative recon COMPARISON: Prior lung screen dated 12/15/2023 RESULT: Are nodules present? No Other findings: 1.3 cm low-density left adrenal nodule probably an adenoma, unchanged. Mild coronary calcifications. Degenerative changes of the thoracic spine. Minimal left endotracheal opacity probably retained mucus secretions (58). Otherwise, patent central airways with diffuse bronchial thickening, mild upper lobe emphysema, lower lobe predominant fibrotic interstitial lung disease. Incidental coronary calcium as automatically processed and calculated using AI: Total Coronary Calcium Score = [100+] Agatston Units Percentile Rank (age and gender matched relative to reference population): [75th-100th] percentile* [* https://www.brower-nhlbi .org/calcium/input.asp x] IMPRESSION IMPRESSION: LungRADS category: 1 LungRADS modifier: None LungRADS 0 reason: n/a Recommendations: Continue annual screening with LDCT in 12 months. ========= Reference: [employer]. Lung CT Screening Reporting and Data System (Lung-RADS). Available at: http://www.acr.org/Tenzin lity-Safety/Resources/ LungRADS Foot Press Operator: DONALD Transcribe Date/Time: Dec 16 2024 11:15A Dictated by : LAMBERT QUINTANA MD This examination was interpreted and the report reviewed and electronically signed by: LAMBERT QUINTANA MD on Dec 16 2024 11:31AM EST [facility] Radiology Study observation (narrative) [facility] CT Chest for screening WO co ntrastOrdered By: Ccf Provider on 12-16-2024 [facility] CT LUNG SCREEN WO IVCONon CT LUNG SCREEN WO IVCON * * *Final Report* * * DATE OF EXAM: Dec 16 2024 9:05AM [facility] 0562 - CT LUNG SCREEN WO IVCON / PROCEDURE REASON: multiple diagnoses * * * * Physician Interpretation * * * * EXAMINATION: CHEST CT WITHOUT CONTRAST (LOW-DOSE CT LUNG CANCER SCREENING PROTOCOL) CLINICAL HISTORY: Lung cancer LDCT screening ? absence of signs or symptoms of lung cancer. Personal history of nicotine dependence. Subsequent (annual) Technique: Spiral CT acquisition of the chest from the thoracic inlet to the upper abdomen without contrast. MQ: CTLCS_6 Patient characteristics: * Rdgw-ee-Gicwr: 1965; Age at exam: 59 years * Gender: Male * Lung Disease: Asymptomatic (no signs or symptoms of lung disease) * Number of Pack Years: 66 * Current smoker (=0) or Number of Years since Quit: 7 * Ordering provider and NPI: FIFI PAUL [id number] * Interpreting radiologist and NPI: Eric [id number] Exam acquisition parameters: * Exam Date: 12/16/2024 9:05 AM * Site: [facility] * * CT System Exchange Administrator: Siemens * CT System Model: Sensation * Tube Current-Time (mA-sec): 30 * Peak Voltage (kV): 120V * Scan Time (sec): 11.67 * Scan Volume (z-length, cm): -31.20 * Pitch: 0.75 * Slice Thickness (mm): 1.5 * CT Dose-Length Product: 101 mGy*cm * CT Dose Index: 2.35mGy * CT Dose Reduction Method: Automated exposure control(AEC) and iterative recon COMPARISON: Prior lung screen dated 12/15/2023 RESULT: Are nodules present? No Other findings: 1.3 cm low-density left adrenal nodule probably an adenoma, unchanged. Mild coronary calcifications. Degenerative changes of the thoracic spine. Minimal left endotracheal opacity probably retained mucus secretions (58). Otherwise, patent central airways with diffuse bronchial thickening, mild upper lobe emphysema, lower lobe predominant fibrotic interstitial lung disease. Incidental coronary calcium as automatically processed and calculated using AI: Total Coronary Calcium Score = [100+] Agatston Units Percentile Rank (age and gender matched relative to reference population): [75th-100th] percentile* [* https://www.brower-nhlbi .org/calcium/input.asp x] IMPRESSION: LungRADS category: 1 LungRADS modifier: None LungRADS 0 reason: n/a Recommendations: Continue annual screening with LDCT in 12 months. ========= Reference: [employer]. Lung CT Screening Reporting and Data System (Lung-RADS). Available at: http://www.acr.org/Tenzin lity-Safety/Resources/ LungRADS Foot Press Operator: DONALD Transcribe Date/Time: Dec 16 2024 11:15A Dictated by : LAMBERT QUINTANA MD This examination was interpreted and the report reviewed and electronically signed by: LAMBERT QUINTANA MD on Dec 16 2024 11:31AM EST [id number] Normal [facility] CNOVon 08-30-2024 CNOV Office Visit (INTMWS ) ROYAL GARCIA ([id number]) 1965 M Date Time Provider Department 08/30/24 4:00 PM GENIE COTO INTMWS During your visit today, we recorded the following information about you: Pulse Respiration Blood pressure Weight 96/minute 16/minute 128/82 96.4 kg Genie Coto MD 09/06/2024 3:13 PM Signed Reason for Visit Follow up HPI Tiny is a 59-year-old male with a history of pulmonary fibrosis, presenting for follow-up. Tiny reports a persistent cough and is currently recovering from a recent cold, noting improvement in symptoms. He was evaluated by a machine operator packaging, who mentioned the possibility of pulmonary fibrosis or interstitial changes due to smoking. He continues to work and is managing well. He uses a Vicks inhaler occasionally for nasal congestion but does not have a prescription inhaler. He also reports a recent tongue lesion that has resolved on its own without intervention. He denies seeking dental evaluation for the lesion. Tiny expresses concern about a recent blood glucose result that was a little high. He has a history of prediabetes but was informed that his A1c was 5.6% last year, indicating a non-diabetic range. He has lost weight, currently weighing 213 lbs, down from 240 lbs. He eats oatmeal every morning and inquires if this could have affected his glucose levels. He is currently taking propranolol for blood pressure management, trazodone for sleep, and trospium for urinary frequency, all of which he reports are effective. He does not use his CPAP machine but reports sleeping well at night, though he does not wake up feeling fresh. He occasionally feels tired in the afternoon but does not consistently need to sleep. He has a history of blood clots but is not currently on Xarelto. He denies knowing the cause of the blood clots. He is not on Remound or Stelara. Social History Tobacco Use Smoking status: Former Current packs/day: 0.00 Average packs/day: 2.0 packs/day for 33.2 years (66.4 ttl pk-yrs) Types: Cigarettes Start date: 1984 Quit date: 08/29/2017 Years since quittin.0 Smokeless tobacco: Never Vaping Use Vaping status: Never Used Substance Use Topics Alcohol use: Not Currently Alcohol/week: 2.6 standard drinks of alcohol Types: 2 Mixed Drinks per week Comment: 2 a week Drug use: No Past medical history, appointments, medications, allergies reviewed. Pertinent Lab/Diagnostic Studies are reviewed and discussed today Current Outpatient Medications: Pramipexole 1.5 mg Tb24 eszopiclone (LUNESTA) 2 mg atorvastatin (LIPITOR) 10 mg tablet DULoxetine (CYMBALTA) 60 mg capsule aspirin, enteric coated (ECOTRIN LOW STRENGTH) 81 mg EC tablet multivit with minerals/lutein (MULTIVITAMIN 50 PLUS ORAL) vitamin E mixed 1,000 unit cap ustekinumab (STELARA) 45 mg/0.5 mL sub-Q syringe propranolol (INDERAL) 10 mg tablet traZODone (DESYREL) 100 mg tablet trospium (SANCTURA) 20 mg tablet albuterol HFA (PROVENTIL HFA) 90 mcg/actuation inhaler gabapentin (NEURONTIN) 100 mg capsule Health Maintenance Anxiety Screening DTaP,Tdap,Td Vaccine(2 - Td or Tdap) Covid-19 Vaccine( season)@ Review Of Systems Constitutional: (+) intermittent daytime fatigue Head: (-) headache Respiratory: (+) cough Physical Exam BP 128/82 Pulse 96 Resp 16 Wt 96.4 kg (212 lb 9.6 oz) BMI 28.83 kg/m? GENERAL: NAD, alert and oriented. SKIN: Unremarkable, no rash or skin lesions. HEAD: Normocephalic. EYES: PERRLA, EOMI, conjunctiva clear. NECK: Supple, no lymphadenopathy, normal thyroid, no carotid bruits. LUNGS: Initial wheezing noted, resolved during exam. Clear to auscultation bilaterally, no wheezes/rhonchi/rales. HEART: Regular rate and rhythm, no murmurs. No ectopy. EXTREMITIES: Normal, no deformities, no skin discoloration, no edema. NEURO: Awake, alert and oriented x3, cranial nerves II-XII grossly intact, normal gait, no involuntary motions. Labs: (No date) - Glucose: mildly elevated - RICHI: positive at titer 1:180 (No date) - A1c: 5.6 (non-diabetic range) Assessment and Plan 1. MELODY (obstructive sleep apnea) (G47.33) Patient is not using CPAP machine. Reports weight loss from 240 lbs to 213 lbs. - Discussed importance of CPAP use for MELODY management. 2. Primary insomnia (F51.01) Managed with trazodone. Patient reports sleeping well at night but occasionally feels tired in the afternoon. - Continue trazodone as prescribed. 3. OAB (overactive bladder) (N32.81) Lower urinary tract symptoms (LUTS) (R39.9) Symptoms well-controlled with trospium. - Continue trospium as prescribed. 4. Tongue lesion (K14.8) Lesion has resolved spontaneously. Suspected hematoma. 5. Encounter for screening examination for other mental health and behavioral disorders (Z13.39) 6. Primary hypertension (I10) Well-contr (more content not included)... Normal [facility] BLOOD TB SCREENon 08-19-2024 M. tuberculosis tuberculin stim IFN-g Ql (Bld) Negative Normal [facility] Comment on above: Order Comment: Speci men Type: BLOOD SPECIMENOrdering Facility: [facility] Address: [address] [place] [address] Performed By: #### I NFTBP ####[facility] [id number] [address] MITOGEN MINUS NIL >9.99 Normal >=0.50 [facility] Comment on above: Order Comment: Speci men Type: BLOOD SPECIMENOrdering Facility: [facility] Address: [address] [place] [address] Performed By: #### I NFTBP ####[facility] [id number] [address] TB GAMMA INTERPRETATION Infection with M. tuberculosis complex is unlikely. If latent tuberculosis infection is highly suspected, a negative result does not rule out the infection. Specimens from immunocompromised patients and those <5 years of age may show false negative results. In case of a contact investigation, please repeat 8-12 weeks after a known exposure. Normal [facility] Comment on above: Order Comment: Speci men Type: BLOOD SPECIMENOrdering Facility: [facility] Address: [address] [place] [address] Performed By: #### I NFTBP ####[facility] [id number] [address] TB NIL 0.01 IU/mL Normal <=8.00 [facility] Comment on above: Order Comment: Speci men Type: BLOOD SPECIMENOrdering Facility: [facility] Address: [address] [place] [address] [place] [address] Performed By: #### I NFTBP ####[facility] [id number] [address] TB1 AG MINUS NIL 0.02 IU/mL Normal <0.35 [facility] Comment on above: Order Comment: Speci men Type: BLOOD SPECIMENOrdering Facility: [facility] Address: [address] [place] [address] Performed By: #### I NFTBP ####[facility] [id number] [address] TB2 AG MINUS NIL 0.02 IU/mL Normal <0.35 [facility] Comment on above: Order Comment: Speci men Type: BLOOD SPECIMENOrdering Facility: [facility] Address: [address] [place] [address] [place] [address] Performed By: #### I NFTBP ####[facility] [id number] [address] CNOVon 08-19-2024 CNOV Office Visit (PULMWS ) ROYAL GARCIA ([id number]) 1965 M Date Time Provider Department 08/19/24 2:45 PM SHEREE MAGALLON During your visit today, we recorded the following information about you: Pulse Respiration Blood pressure Weight 86/minute 15/minute 112/78 96.6 kg Sheree Magallon MD 08/19/2024 5:12 PM Signed . Respiratory [place] Note Patient name: Royal Garcia PCP: Genie Coto MD CC: Follow-up pulmonary fibrosis HPI: Royal Garcia 59 year old male former 66 pack year smoker, quitting 2018 with PMH significant for HTN, psoriasis, h/o PE, MELODY not using CPAP, ILD (occupational versus IPF versus RB ILD), lung nodules. Autoimmune serologies negative. At [facility] with PA-C, PFTs actually improved. Participating in lung cancer screening so ILD changes can be monitored. No obvious progression of disease. He is scheduled for his yearly low-dose CT in December. From a respiratory standpoint, he remains about the same. He notes dyspnea with exertion, especially climbing stairs. Rare cough. No wheezing or chest tightness. He has not been ill with any upper respiratory infections nor required hospitalization. He has not required inhaler therapy as he mainly has restriction and no obstruction. DATA: PFT 01/2024: Pulmonary function test show mild restriction with reduction in diffusing capacity that corrects for alveolar volume Imaging / Diagnostic Studies DATE OF EXAM: Dec 15 2023 8:51AM [facility] 0562 - CT LUNG SCREEN WO IVCON / COMPARISON: Prior lung screen dated 12/02/2022 RESULT: Are nodules present? Yes, 1-5 nodules Lung nodule comments: 5 mm (upper lobe nodule (70) unchanged. 4 mm right fissural nodule (161) unchanged. Other findings: Moderate coronary calcifications. Several borderline mediastinal lymph nodes unchanged. Degenerative changes of the thoracic spine. Minimal endotracheal mucus secretions with otherwise patent central airways, bronchial thickening, lower lobe predominant bronchiectasis and subpleural reticulation presumably smoking-related interstitial lung disease. Minimal upper lobe emphysema. Review of CT shows peripheral reticulations without overt honeycombing PAST MEDICAL HISTORY Diagnosis Date Arthritis Benign neoplasm of colon Benign neoplasm of rectum and anal canal Coronary artery calcification seen on CT scan 03/30/2023 Depression 04/02/2015 Diarrhea Insomnia Obstructive sleep apnea DME [facility] [place] Other psoriasis Primary hypertension 03/30/2023 Pulmonary embolism (HCC) ALLERGIES Allergen Reactions Lisinopril Cough Pramipexole 1.5 mg Tb24 Take 1 tablet by mouth daily with dinner. eszopiclone (LUNESTA) 2 mg Take 1 tablet by mouth at bedtime as needed (insomnia) for up to 90 days. atorvastatin (LIPITOR) 10 mg tablet Take 1 tablet by mouth daily at bedtime. For cholesterol. trospium (SANCTURA) 20 mg tablet TAKE 1 TABLET BY MOUTH TWICE A DAY propranolol (INDERAL) 10 mg tablet Take 1 tablet by mouth two times a day. traZODone (DESYREL) 100 mg tablet Take 2 tablets by mouth daily at bedtime. aspirin, enteric coated (ECOTRIN LOW STRENGTH) 81 mg EC tablet Take 1 tablet by mouth once daily. vitamin E mixed 1,000 unit cap Take 2,000 Units by mouth. ustekinumab (STELARA) 45 mg/0.5 mL sub-Q syringe Inject subcutaneously. Every 3 months. (Dr. Sanchez) DULoxetine (CYMBALTA) 60 mg capsule Take 1 capsule by mouth once daily. gabapentin (NEURONTIN) 100 mg capsule Take 100 mg by mouth as needed. (Patient not taking: Reported on 05/14/2024) rivaroxaban (XARELTO) 20 mg tablet Take 20 mg by mouth once daily. (Patient not taking: Reported on 05/14/2024) rivaroxaban (XARELTO) 15 mg tablet Take 15 mg by mouth once daily. (Patient not taking: Reported on 05/14/2024) multivit with minerals/lutein (MULTIVITAMIN 50 PLUS ORAL) Take by mouth once daily. Social History Tobacco Use Smoking status: Former Current packs/day: 0.00 Average packs/day: 2.0 packs/day for 33.2 years (66.4 ttl pk-yrs) Types: Cigarettes Start date: 1984 Quit date: 08/29/2017 Years since quittin.9 Smokeless tobacco: Never Vaping Use Vaping status: Never Used Substance Use Topics Alcohol use: Not Currently Alcohol/week: 2.6 standard drinks of alcohol Types: 2 Mixed Drinks per week Comment: 2 a week Drug use: No FAMILY HISTORY Problem Relation Age of Onset Alzheimer's Disease Mother Diabetes Father Hypertension Father Cancer Father ? primary site. Blood Clots No Family History No DVT or PE. PAST SURGICAL HISTORY Procedure Laterality Date COLONOSCOPY 01/24/2023 repeat 5 years COLONOSCOPY FLX DX W/COLLJ SPEC WHEN PFRMD 01/20/2012 ` COLONOSCOPY FLX DX W/COLLJ SPEC WHEN PFRMD 03/27/2017 5 yrs repeat CYSTOURETHROSCOPY 05/21/2014 LAPAROSCOPIC APPENDECTOMY 09/06/2008 GWEN WEBB (more content not included)... Normal [facility] Basic metabolic 2000 panelon 06-29-2024 Anion gap [Moles/Vol] 9 mmol/L Normal 8-15 [facility] Comment on above: Order Comment: Speci men Type: BLOOD SPECIMENOrdering Facility: [facility] Address: [address] [place] [address] Performed By: #### 2 4321-2 ####[facility] [id number] [place] [id number] [place] Calcium [Mass/Vol] 9.4 mg/dL Normal 8.5-10.2 [facility] Comment on above: Order Comment: Speci men Type: BLOOD SPECIMENOrdering Facility: [facility] Address: [address] [place] [address] Performed By: #### 2 4321-2 ####[facility] [id number] [place] [address] [place] Chloride [Moles/Vol] 104 mmol/L Normal 98-107 [facility] Comment on above: Order Comment: Speci men Type: BLOOD SPECIMENOrdering Facility: [facility] Address: [address] [place] [address] Performed By: #### 2 4321-2 ####[facility] [id number] [place] [id number] [place] CO2 [Moles/Vol] 26 mmol/L Normal 22-30 [facility] Comment on above: Order Comment: Speci men Type: BLOOD SPECIMENOrdering Facility: [facility] Address: [address] [place] [address] Performed By: #### 2 4321-2 ####[facility] [id number] [address] [address] [place] Creatinine [Mass/Vol] 1.13 mg/dL Normal 0.73-1.22 [facility] Comment on above: Order Comment: Speedy crystal Type: BLOOD SPECIMENOrdering Facility: [facility] Address: [address] [place] [address] Performed By: #### 2 4321-2 ####[facility] [id number] [place] [address] [place] Creatinine and Glomerular filtration rate.predicted panel (S/P/Bld) 75 mL/min/1.73m??? Normal >=60 [facility] Comment on above: Order Comment: Speedy crystal Type: BLOOD SPECIMENOrdering Facility: [facility] Address: [address] [place] [address] Result Comment: Analisa mated Glomerular Filtration Rate (eGFR) is calculated using the 2020 CKD-EPI creatinine equation. This equation utilizes serum creatinine, sex, and age as parameters. The creatinine assay has traceable calibration to isotope dilution-mass spectrometry. Refer to KDIGO guidelines for clinical interpretation. In patients with unstable renal function, e.g. those with acute kidney injury, the eGFR may not accurately reflect actual GFR. Performed By: #### 2 4321-2 ####[facility] [id number] [place] [id number] [place] Glucose [Mass/Vol] 125 mg/dL High 74-99 [facility] Comment on above: Order Comment: Speedy crystal Type: BLOOD SPECIMENOrdering Facility: [facility] Address: [address] [place] [address] Result Comment: The [place] Diabetes [employer] (ADA) provides guidance for cutoff values for fasting glucose and random glucose. The ADA defines fasting as no caloric intake for at least 8 hours. Fasting plasma glucose results between 100 to 125 mg/dL indicate increased risk for diabetes (prediabetes). Fasting plasma glucose results greater than or equal to 126 mg/dL meet the criteria for diagnosis of diabetes. In the absence of unequivocal hyperglycemia, results should be confirmed by repeat testing. In a patient with classic symptoms of hyperglycemia or hyperglycemic crisis, random plasma glucose results greater than or equal to 200 mg/dL meet the criteria for diagnosis of diabetes. Reference: Standards of Medical Care in Diabetes 2016, [place] [employer]. Diabetes Care. 2016.39(Suppl 1). Performed By: #### 2 4321-2 ####[facility] [id number] [address] [place] [address] [place] Potassium [Moles/Vol] 4.9 mmol/L Normal 3.7-5.1 [facility] Comment on above: Order Comment: Speci men Type: BLOOD SPECIMENOrdering Facility: [facility] Address: [address] [place] [address] Performed By: #### 2 4321-2 ####[facility] [id number] [address], [facility] [place] Sodium [Moles/Vol] 139 mmol/L Normal 136-144 [facility] Comment on above: Order Comment: Speci men Type: BLOOD SPECIMENOrdering Facility: [facility] Address: [address] [place] [address] Performed By: #### 2 4321-2 ####[facility] [id number] [address], [facility] [place] Urea nitrogen [Mass/Vol] 13 mg/dL Normal 9-24 [facility] Comment on above: Order Comment: Speci men Type: BLOOD SPECIMENOrdering Facility: [facility] Address: [address] [place] [address] Performed By: #### 2 4321-2 ####[facility] [id number] [address], [facility] [place] CBC panel Auto (Bld)on 06-29 Erythrocyte distribution width (RBC) [Ratio] 11.8 % Normal 11.5-15.0 [facility] Comment on above: Order Comment: Speci men Type: BLOOD SPECIMENOrdering Facility: [facility] Address: [address] [place] [address] Performed By: #### 5 8410-2 ####[facility] [id number] [place] [id number] [place] Hematocrit (Bld) [Volume fraction] 42.0 % Normal 39.0-51.0 [facility] Comment on above: Order Comment: Speci men Type: BLOOD SPECIMENOrdering Facility: [facility] Address: [address] [place] [address] Performed By: #### 5 8410-2 ####[facility] [id number] [place] [address] [place] Hemoglobin (Bld) [Mass/Vol] 14.2 g/dL Normal 13.0-17.0 [facility] Comment on above: Order Comment: Speci men Type: BLOOD SPECIMENOrdering Facility: [facility] Address: [address] [place] [address] Performed By: #### 5 8410-2 ####[facility] [id number] [place] [address] [place] MCH (RBC) [Entitic mass] 31.8 pg Normal 26.0-34.0 [facility] Comment on above: Order Comment: Speci men Type: BLOOD SPECIMENOrdering Facility: [facility] Address: [address] [place] [address] Performed By: #### 5 8410-2 ####[facility] [id number] [place] [address] [place] MCHC (RBC) [Mass/Vol] 33.8 g/dL Normal 30.5-36.0 [facility] Comment on above: Order Comment: Speci men Type: BLOOD SPECIMENOrdering Facility: [facility] Address: [address] [place] [address] Performed By: #### 5 8410-2 ####[facility] [id number] [place] [address] [place] MCV (RBC) [Entitic vol] 94.2 fL Normal 80.0-100.0 [facility] Comment on above: Order Comment: Speci men Type: BLOOD SPECIMENOrdering Facility: [facility] Address: [address] [place] [address] Performed By: #### 5 8410-2 ####[facility] [id number] [place] [address] [place] Nucleated RBC (Bld) [#/Vol] 10*3/uL Normal <0.01 [facility] Comment on above: Order Comment: Speci men Type: BLOOD SPECIMENOrdering Facility: [facility] Address: [address] [place] [address] Performed By: #### 5 8410-2 ####[facility] [id number] [place] [address] [place] Platelet mean volume (Bld) [Entitic vol] 11.0 fL Normal 9.0-12.7 [facility] Comment on above: Order Comment: Speci men Type: BLOOD SPECIMENOrdering Facility: [facility] Address: [address] [place] [address] Performed By: #### 5 8410-2 ####[facility] [id number] [place] [address] [place] Platelets (Bld) [#/Vol] 201 10*3/uL Normal 150-400 [facility] Comment on above: Order Comment: Speci men Type: BLOOD SPECIMENOrdering Facility: [facility] Address: [address] [place] [address] Performed By: #### 5 8410-2 ####[facility] [id number] [place] [address] [place] RBC (Bld) [#/Vol] 4.46 10*6/uL Normal 4.20-6.00 [facility] Comment on above: Order Comment: Speci men Type: BLOOD SPECIMENOrdering Facility: [facility] Address: [address] [place] [address] Performed By: #### 5 8410-2 ####[facility] [id number] [place] [id number] [place] WBC (Bld) [#/Vol] 6.67 10*3/uL Normal 3.70-11.00 [facility] Comment on above: Order Comment: Speci men Type: BLOOD SPECIMENOrdering Facility: [facility] Address: [address] [place] [address] Performed By: #### 5 8410-2 ####[facility] [id number] [place] [id number] [facility]05-[facility] ROYAL [facility] ([id number]) 1965 M Date Time Provider Department 06/05/24 [facility] During your visit today, we recorded the following information about you: Tracy Francisco 06/05/2024 4:16 PM Signed Left and MCM to schedule with oral surgery. Allergies As of Date: 06/05/2024 Noted Allergy Reaction LISINOPRIL 08/20/2018 3 - Cough Date Reviewed: 05/14/2024 Reviewed by: Margoth Can LPN - Fully Assessed Reason for Visit: Appointment [186] Prescriptions as of 06/05/2024 - eszopiclone (LUNESTA) 2 mg Take 1 tablet by mouth at bedtime as needed (insomnia) for up to 90 days. - atorvastatin (LIPITOR) 10 mg tablet Take 1 tablet by mouth daily at bedtime. For cholesterol. - DULoxetine (CYMBALTA) 60 mg capsule Take 1 capsule by mouth once daily. - Pramipexole 1.5 mg Tb24 TAKE 1 TABLET BY MOUTH EVERY DAY WITH DINNER - trospium (SANCTURA) 20 mg tablet TAKE 1 TABLET BY MOUTH TWICE A DAY - propranolol (INDERAL) 10 mg tablet Take 1 tablet by mouth two times a day. - traZODone (DESYREL) 100 mg tablet Take 2 tablets by mouth daily at bedtime. - gabapentin (NEURONTIN) 100 mg capsule Take 100 mg by mouth as needed. - rivaroxaban (XARELTO) 20 mg tablet Take 20 mg by mouth once daily. - rivaroxaban (XARELTO) 15 mg tablet Take 15 mg by mouth once daily. - aspirin, enteric coated (ECOTRIN LOW STRENGTH) 81 mg EC tablet Take 1 tablet by mouth once daily. - multivit with minerals/lutein (MULTIVITAMIN 50 PLUS ORAL) Take by mouth once daily. - vitamin E mixed 1,000 unit cap Take 2,000 Units by mouth. - ustekinumab (STELARA) 45 mg/0.5 mL sub-Q syringe Inject subcutaneously. Every 3 months. (Dr. Sanchez) Problem List As Of Date 06/05/2024 Noted Resolved Tobacco use disorder [F17.200] 05/01/2018 VIRAL WARTS NOS [B07.9] 08/27/2007 Acute Appendicitis without Mention of Peritonit*09/10/2008 01/01/2009 Psoriasis [L40.9] 04/14/2009 Insomnia [G47.00] 08/30/2010 Rotator cuff tear [M75.100] 09/21/2010 MELODY (obstructive sleep apnea) [G47.33] 06/08/2011 Sinusitis [J32.9] 06/08/2011 Diarrhea [R19.7] 01/20/2012 10/13/2022 Benign neoplasm of rectum and anal canal [D12.8*01/20/2012 Benign neoplasm of colon [D12.6] 01/20/2012 Impotence [N52.9] 05/14/2014 Urethral stricture [N35.919] 05/14/2014 Lower urinary tract symptoms (LUTS) [R39.9] 05/14/2014 Chronic rhinitis [J31.0] 07/03/2014 BPH (benign prostatic hyperplasia) [N40.0] 08/26/2014 Depression [F32.A] 04/02/2015 Depression, major, single episode, mild (HCC) [*01/13/2016 10/13/2022 RLS (restless legs syndrome), provisional [G25.*10/25/2017 Iron deficiency concern [E61.1] 10/25/2017 01/23/2018 Acute saddle pulmonary embolism without acute c*07/05/2018 Fatty liver [K76.0] 01/17/2020 Coronary artery calcification seen on CT scan [*03/30/2023 Primary hypertension [I10] 03/30/2023 Mixed hyperlipidemia [E78.2] 03/30/2023 Pulmonary fibrosis (HCC) [J84.10] 02/05/2024 Multiple lung nodules [R91.8] 02/05/2024 Encounter Status:Closed by TRACY FRANCISCO on 06/05/24 [facility] CNOVon 05-14-2024 CNOV Office Visit (INTMWS ) ROYAL GARCIA ([id number]) 1965 M Date Time Provider Department 05/14/24 4:00 PM GENIE COTO INTSunnyWS During your visit today, we recorded the following information about you: Pulse Blood pressure Weight Height 68/minute 135/82 98.7 kg 1.829 m Genie Coto MD 05/14/2024 6:48 PM Signed Reason for Visit Patient presents with: Recheck: Lump on tongue for about a couple weeks Royal Garcia is a 58 year old male who presents here today for CPE. Health Maintenance Anxiety Screening Covid-19 Vaccine( season) JESUS Duarte is a very pleasant 58-year-old gentleman with a history of pulmonary embolism, CAD, primary hypertension, mixed hyperlipidemia, MELODY, LUTS, depression, BPH impotence, restless leg syndrome, neurogenic bladder insomnia. For the last month the patient noticed a mass in his tongue. He did not reported or seen thing about it. It started bleeding a week ago his noticed it and they have come here to make the appointment. He is not ex-smoker. Does not and never chewed tobacco. Does not have fever chills weight loss or change in appetite. All his habits at the same. No change in bowel movements. No problem-specific Assessment AND Plan notes found for this encounter. PAST MEDICAL HISTORY Diagnosis Date Arthritis Benign neoplasm of colon Benign neoplasm of rectum and anal canal Coronary artery calcification seen on CT scan 03/30/2023 Depression 04/02/2015 Diarrhea Insomnia Obstructive sleep apnea DME [facility] [place] Other psoriasis Primary hypertension 03/30/2023 Pulmonary embolism (HCC) PAST SURGICAL HISTORY Procedure Laterality Date COLONOSCOPY 01/24/2023 repeat 5 years COLONOSCOPY FLX DX W/COLLJ SPEC WHEN PFRMD 01/20/2012 ` COLONOSCOPY FLX DX W/COLLJ SPEC WHEN PFRMD 03/27/2017 5 yrs repeat CYSTOURETHROSCOPY 05/21/2014 LAPAROSCOPIC APPENDECTOMY 09/06/2008 LIGJ DIVJ AND/EXCJ VARICOSE VEIN CLUSTER 1 LEG 2001 Varicose Vein Surgery left leg NOSE SURGERY HX Bilateral done by PAST SURGICAL HISTORY OF 11/01/2010 Bone spur rotator cuff right shoulder. PAST SURGICAL HISTORY OF 2006 bone spur removed from right nares FAMILY HISTORY Problem Relation Age of Onset Alzheimer's Disease Mother Diabetes Father Hypertension Father Cancer Father ? primary site. Blood Clots No Family History No DVT or PE. Social History Tobacco Use Smoking status: Former Current packs/day: 0.00 Average packs/day: 2.0 packs/day for 33.2 years (66.4 ttl pk-yrs) Types: Cigarettes Start date: 1984 Quit date: 08/29/2017 Years since quittin.7 Smokeless tobacco: Never Vaping Use Vaping status: Never Used Substance Use Topics Alcohol use: Not Currently Alcohol/week: 2.6 standard drinks of alcohol Types: 2 Mixed Drinks per week Comment: 2 a week Drug use: No Past medical history, appointments, medications, allergies reviewed. Pertinent Lab/Diagnostic Studies are reviewed and discussed today Current Outpatient Medications: atorvastatin (LIPITOR) 10 mg tablet DULoxetine (CYMBALTA) 60 mg capsule Pramipexole 1.5 mg Tb24 busPIRone (BUSPAR) 10 mg tablet trospium (SANCTURA) 20 mg tablet propranolol (INDERAL) 10 mg tablet traZODone (DESYREL) 100 mg tablet aspirin, enteric coated (ECOTRIN LOW STRENGTH) 81 mg EC tablet multivit with minerals/lutein (MULTIVITAMIN 50 PLUS ORAL) vitamin E mixed 1,000 unit cap ustekinumab (STELARA) 45 mg/0.5 mL sub-Q syringe gabapentin (NEURONTIN) 100 mg capsule rivaroxaban (XARELTO) 20 mg tablet rivaroxaban (XARELTO) 15 mg tablet Review of Systems CONSTITUTIONAL: No fevers, chills, nightsweats, unintended weight loss HEENT: Denies frequent or severe heaches, nasal congestion/sinus symptoms, problematic allergy problems. EYES: No diplopia or blurry vision. CARDIOVASCULAR: No chest pain, dyspnea, palpitations, orthopnea, PND, ankle edema. PULM: No dyspnea, unexplained cough. GI: No dysphagia/odynophagia, problematic reflux, constipation, diarrhea, changes in stool habits, hematochezia, melena. : No new urinary complaints, including dysuria, gross hematuria or pyuria. NEURO: No new balance problems, peripheral weakness/paresthesias or numbness of concern. MUSC-SKEL: No new joint pain, swelling, or erythema. PSY: No concerns regarding depression, anxiety or panic. INTEGUMENTARY: No new skin changes (rash, new or changing mole, new growth) Physical Exam BP 142/90 (BP Site: Left Arm) Pulse 68 Ht 182.9 cm (6') Wt 98.7 kg (217 lb 9.6 oz) SpO2 97% BMI 29.51 kg/m? General appearance: Well appearing, alert, in no acute distress, well-hydrated, well nourished. Skin: Skin color, texture, turgor normal, no suspicious rashes or lesions Head: Normocephalic, no masses, lesions, tenderness or abnormalities Eyes: Anicteric sclera. Pupils are equally (more content not included)... Normal [facility] Mila 05-11-2024 [facility] Telephone (INTMWS) ROYAL GARCIA ([id number]) 1965 M Date Time Provider Department 05/11/24 GENIE COTO During your visit today, we recorded the following information about you: Sunny Al, RN 05/11/2024 10:15 AM Signed reports patient showed her last night, he has a lump on his tongue, approx size of marble. Reports it bleeds a lot but he is able to stop the bleed. Reports patient is at work today. Reports patient has an appt with ENT on Monday @ 3;45. Scheduled appt with pcp on . Allergies As of Date: 05/11/2024 Noted Allergy Reaction LISINOPRIL 08/20/2018 3 - Cough Date Reviewed: 02/19/2024 Reviewed by: Iglesia Lindsey APRN.EXHIBITION ORGANISER - Fully Assessed Reason for Visit: Lump on tongue [Other] Prescriptions as of 05/11/2024 - atorvastatin (LIPITOR) 10 mg tablet Take 1 tablet by mouth daily at bedtime. For cholesterol. - DULoxetine (CYMBALTA) 60 mg capsule Take 1 capsule by mouth once daily. - Pramipexole 1.5 mg Tb24 TAKE 1 TABLET BY MOUTH EVERY DAY WITH DINNER - busPIRone (BUSPAR) 10 mg tablet TAKE 1 TABLET BY MOUTH THREE TIMES A DAY - trospium (SANCTURA) 20 mg tablet TAKE 1 TABLET BY MOUTH TWICE A DAY - propranolol (INDERAL) 10 mg tablet Take 1 tablet by mouth two times a day. - traZODone (DESYREL) 100 mg tablet Take 2 tablets by mouth daily at bedtime. - gabapentin (NEURONTIN) 100 mg capsule Take 100 mg by mouth as needed. - rivaroxaban (XARELTO) 20 mg tablet Take 20 mg by mouth once daily. - rivaroxaban (XARELTO) 15 mg tablet Take 15 mg by mouth once daily. - aspirin, enteric coated (ECOTRIN LOW STRENGTH) 81 mg EC tablet Take 1 tablet by mouth once daily. - multivit with minerals/lutein (MULTIVITAMIN 50 PLUS ORAL) Take by mouth. - vitamin E mixed 1,000 unit cap Take 2,000 Units by mouth. - ustekinumab (STELARA) 45 mg/0.5 mL sub-Q syringe Inject subcutaneously. Every 3 months. (Dr. Sanchez) Problem List As Of Date 05/11/2024 Noted Resolved Tobacco use disorder [F17.200] 05/01/2018 VIRAL WARTS NOS [B07.9] 08/27/2007 Acute Appendicitis without Mention of Peritonit*09/10/2008 01/01/2009 Psoriasis [L40.9] 04/14/2009 Insomnia [G47.00] 08/30/2010 Rotator cuff tear [M75.100] 09/21/2010 MELODY (obstructive sleep apnea) [G47.33] 06/08/2011 Sinusitis [J32.9] 06/08/2011 Diarrhea [R19.7] 01/20/2012 10/13/2022 Benign neoplasm of rectum and anal canal [D12.8*01/20/2012 Benign neoplasm of colon [D12.6] 01/20/2012 Impotence [N52.9] 05/14/2014 Urethral stricture [N35.919] 05/14/2014 Lower urinary tract symptoms (LUTS) [R39.9] 05/14/2014 Chronic rhinitis [J31.0] 07/03/2014 BPH (benign prostatic hyperplasia) [N40.0] 08/26/2014 Depression [F32.A] 04/02/2015 Depression, major, single episode, mild (HCC) [*01/13/2016 10/13/2022 RLS (restless legs syndrome), provisional [G25.*10/25/2017 Iron deficiency concern [E61.1] 10/25/2017 01/23/2018 Acute saddle pulmonary embolism without acute c*07/05/2018 Fatty liver [K76.0] 01/17/2020 Coronary artery calcification seen on CT scan [*03/30/2023 Primary hypertension [I10] 03/30/2023 Mixed hyperlipidemia [E78.2] 03/30/2023 Pulmonary fibrosis (HCC) [J84.10] 02/05/2024 Multiple lung nodules [R91.8] 02/05/2024 Encounter Status:Closed by Sunny AL on 05/11/24 [facility] CNOVon 02-19-2024 CNOV Office Visit (UCWSTR ) ROYAL GARCIA ([id number]) 1965 M Date Time Provider Department 02/19/24 4:30 PM IGLESIA LINSDEY UCWSTR During your visit today, we recorded the following information about you: Temperature Pulse Respiration Blood pressure 98.6 degrees 78/minute 16/minute 132/80 Weight 98 kg Iglesia Lindsey, CAR SEAT COVERER.EXHIBITION ORGANISER 02/19/2024 4:35 PM Addendum This note was created using [employer]. Subjective Royal Garcia is a 58 year old male. HPI This morning pt fell down about 13 steps. Denies any LOC. He notes increasing pain in the left wrist. Review of Systems Musculoskeletal: Positive for arthralgias. Neurological: Negative for dizziness, syncope, weakness, numbness and headaches. Objective BP 132/80 Pulse 78 Temp 37 ?C (98.6 ?F) Resp 16 Wt 98 kg (216 lb 0.8 oz) SpO2 99% BMI 29.30 kg/m? Physical Exam Vitals and nursing note reviewed. Constitutional: General: He is not in acute distress. Appearance: Normal appearance. He is not ill-appearing. HENT: Head: Normocephalic. Mouth/Throat: Mouth: Mucous membranes are moist. Eyes: Conjunctiva/sclera: Conjunctivae normal. Neck: Comments: No tenderness over the cervical spine. No pain with full range of motion of neck. Cardiovascular: Rate and Rhythm: Normal rate and regular rhythm. Pulmonary: Effort: Pulmonary effort is normal. Breath sounds: Normal breath sounds. Musculoskeletal: Cervical back: Normal range of motion. Comments: Diffuse tenderness across the left wrist with no obvious swelling or deformities noted. No tenderness throughout the rest of the left arm. Full range of motion of right arm. No clavicular tenderness bilaterally. Skin: General: Skin is warm and dry. Neurological: General: No focal deficit present. Mental Status: He is alert. Psychiatric: Mood and Affect: Mood normal. Behavior: Behavior normal. Assessment and Plan ASSESSMENT/PLAN: 1. Left wrist pain - ICD9: 719.43, ICD10: M25.532 X-ray of left wrist was ordered and pending read at the end of my shift. Patient will be treated according to x-ray results. -X-ray of the left wrist was nonspecific with findings as noted below. Patient was offered a brace here but patient will use an [id number] wrist brace for support and if symptoms are not improving in the next 5 to 7 days will follow-up with PCP. Small calcific density along the dorsal aspect of the distal radius which may reflect the sequela of age indeterminant trauma. Correlate with physical examination for possible point tenderness in this region. - XR WRIST INJURY 4V PA/LAT/OBL/SCAPH LEFT Iglesia Lindsey APRN.CNP Allergies As of Date: 02/19/2024 Noted Allergy Reaction LISINOPRIL 08/20/2018 3 - Cough Date Reviewed: 02/19/2024 Reviewed by: Iglesia Lindsey APRN.EXHIBITION ORGANISER - Fully Assessed Reason for Visit: Wrist/forearm Injury [9519] Cmt: left wrist pain after falling down steps x this am Primary Visit Diagnosis:Left wrist pain [M25.532] Order(s):XR WRIST INJURY 4V PA/LAT/OBL/SCAPH LEFT [[id number]] Order #: [id number] FUTURE Prescriptions as of 02/19/2024 - DULoxetine (CYMBALTA) 60 mg capsule Take 1 capsule by mouth once daily. - eszopiclone (LUNESTA) 2 mg Take 1 tablet by mouth at bedtime as needed (insomnia) for up to 90 days. - Pramipexole 1.5 mg Tb24 TAKE 1 TABLET BY MOUTH EVERY DAY WITH DINNER - busPIRone (BUSPAR) 10 mg tablet TAKE 1 TABLET BY MOUTH THREE TIMES A DAY - trospium (SANCTURA) 20 mg tablet TAKE 1 TABLET BY MOUTH TWICE A DAY - propranolol (INDERAL) 10 mg tablet Take 1 tablet by mouth two times a day. - traZODone (DESYREL) 100 mg tablet Take 2 tablets by mouth daily at bedtime. - gabapentin (NEURONTIN) 100 mg capsule Take 100 mg by mouth as needed. - rivaroxaban (XARELTO) 20 mg tablet Take 20 mg by mouth once daily. - rivaroxaban (XARELTO) 15 mg tablet Take 15 mg by mouth once daily. - atorvastatin (LIPITOR) 10 mg tablet Take 1 tablet by mouth daily at bedtime. For cholesterol. - aspirin, enteric coated (ECOTRIN LOW STRENGTH) 81 mg EC tablet Take 1 tablet by mouth once daily. - multivit with minerals/lutein (MULTIVITAMIN 50 PLUS ORAL) Take by mouth. - vitamin E mixed 1,000 unit cap Take 2,000 Units by mouth. - ustekinumab (STELARA) 45 mg/0.5 mL sub-Q syringe Inject subcutaneously. Every 3 months. (Dr. Sanchez) Problem List As Of Date 02/19/2024 Noted Resolved Tobacco use disorder [F17.200] 05/01/2018 VIRAL WARTS NOS [B07.9] 08/27/2007 Acute Appendicitis without Mention of Peritonit*09/10/2008 01/01/2009 Psoriasis [L40.9] 04/14/2009 Insomnia [G47.00] 08/30/2010 Rotator cuff tear [M75.100] 09/21/2010 MELODY (obstructive sleep apnea) [G47.33] 06/08/2011 Sinusitis [J32.9] 06/08/2011 Diarrhea [R19.7] 01/20/2012 10/13/2022 Benign neoplasm of rectum and anal canal [D12.8*01/20/2012 Benign neoplasm of colon [D12.6] (more content not included)... Normal [facility] XR WRIST 4V PA/LAT/OBL/SCAPH LTon 02-19-2024 XR WRIST 4V PA/LAT/OBL/SCAPH LT * * *Final Report* * * DATE OF EXAM: Feb 19 2024 4:14PM WOX [id number] - XR WRIST 4V PA/LAT/OBL/SCAPH LT / PROCEDURE REASON: Left wrist pain * * * * Physician Interpretation * * * * TITLE: XR WRIST 4V PA/LAT/OBL/SCAPH LT CLINICAL INDICATION: Status post fall with pain. TECHNIQUE: 4 view radiographic study of the left wrist COMPARISON: None FINDINGS: There is a small calcific density along the dorsal aspect of the distal radius which may reflect the sequela of age indeterminant trauma. Otherwise, no additional acute osseous injury is identified. Mild first carpal metacarpal joint osteoarthritis IMPRESSION: Small calcific density along the dorsal aspect of the distal radius which may reflect the sequela of age indeterminant trauma. Correlate with physical examination for possible point tenderness in this region. Foot Press Operator: PSCB Transcribe Date/Time: Feb 19 2024 4:25P Dictated by : THIAGO DRIVER MD This examination was interpreted and the report reviewed and electronically signed by: THIAGO DRIVER MD on Feb 19 2024 4:27PM EST [id number] Normal [facility] XR Wrist - left 4 Viewson IMPRESSION: Small calcific density along the dorsal aspect of the distal radius which may reflect the sequela of age indeterminant trauma. Correlate with physical examination for possible point tenderness in this region. Foot Press Operator[facility] Transcribe Date/Time: Feb 19 2024 4:25P Dictated by : THIAGO DRIVER MD This examination was interpreted and the report reviewed and electronically signed by: THIAGO DRIVER MD on Feb 19 2024 4:27PM EST DIVISION OF RADIOLOGY * * *Final Report* * * DATE OF EXAM: Feb 19 2024 4:14PM WOX [id number] - XR WRIST 4V PA/LAT/OBL/SCAPH LT / PROCEDURE REASON: Left wrist pain * * * * Physician Interpretation * * * * TITLE: XR WRIST 4V PA/LAT/OBL/SCAPH LT CLINICAL INDICATION: Status post fall with pain. TECHNIQUE: 4 view radiographic study of the left wrist COMPARISON: None FINDINGS: There is a small calcific density along the dorsal aspect of the distal radius which may reflect the sequela of age indeterminant trauma. Otherwise, no additional acute osseous injury is identified. Mild first carpal metacarpal joint osteoarthritis DIVISION OF RADIOLOGY Provider, [facility] - 02/19/2024 * * *Final Report* * * DATE OF EXAM: Feb 19 2024 4:14PM WOX [id number] - XR WRIST 4V PA/LAT/OBL/SCAPH LT / PROCEDURE REASON: Left wrist pain * * * * Physician Interpretation * * * * TITLE: XR WRIST 4V PA/LAT/OBL/SCAPH LT CLINICAL INDICATION: Status post fall with pain. TECHNIQUE: 4 view radiographic study of the left wrist COMPARISON: None FINDINGS: There is a small calcific density along the dorsal aspect of the distal radius which may reflect the sequela of age indeterminant trauma. Otherwise, no additional acute osseous injury is identified. Mild first carpal metacarpal joint osteoarthritis IMPRESSION IMPRESSION: Small calcific density along the dorsal aspect of the distal radius which may reflect the sequela of age indeterminant trauma. Correlate with physical examination for possible point tenderness in this region. Foot Press Operator: DONALD Transcribe Date/Time: Feb 19 2024 4:25P Dictated by : THIAGO DRIVER MD This examination was interpreted and the report reviewed and electronically signed by: THIAGO DRIVER MD on Feb 19 2024 4:27PM EST [facility] Radiology Study observation (narrative) [facility] XR Wrist - left 4 ViewsOrder ed By: Orlin Provider on 02-19-2024 [facility] No Panel Informationon 02-06 Augie Lackey RPF T 02/07/2024 3:04 PM RESPIRATORY THERAPY OXIMETRY WITH AMBULATION Oximetry with Ambulation Test for This Encounter O2 Device O2 Adapter NC O2 Flow SpO2% HR Activity Ft Walked (ft) Time (min) Avg Speed (MPH) R/A 97 69 Resting R/A 93 89 Walking, usual pace 635 3 2.41 R/A 91 96 Walking, fastest pace 795 3 3.01 General Information Pulse Oximetry Site Total Time Spent Walking Assistance/O2 Supply Carrier R Index Finger 30 None NAME: Augie ED Lackey PATIENT NAME: Royal Garcia DATE: February 07, 2024 TIME: 3:04 PM Comment: [facility] CT Chest for screening WO co ntraston 12-15-2023 IMPRESSION: LungRADS category: 2 LungRADS modifier: None LungRADS 0 reason: n/a Recommendations: Continue annual screening with LDCT in 12 months. ========= Reference: [employer]. Lung CT Screening Reporting and Data System (Lung-RADS). Available at: http://www.acr.org/Tenzin lity-Safety/Resources/ LungRADS Foot Press Operator: PSCVictor Manuel Transcribe Date/Time: Dec 15 2023 9:14A Dictated by : LAMBERT QUINTANA MD This examination was interpreted and the report reviewed and electronically signed by: LAMBERT QUINTANA MD on Dec 15 2023 9:20AM [facility] DIVISION OF RADIOLOGY * * *Final Report* * * DATE OF EXAM: Dec 15 2023 8:51AM [facility] 0562 - CT LUNG SCREEN [facility] / PROCEDURE REASON: multiple diagnoses * * * * Physician Interpretation * * * * EXAMINATION: CHEST CT WITHOUT CONTRAST (LOW-DOSE CT LUNG CANCER SCREENING PROTOCOL) CLINICAL HISTORY: Lung cancer LDCT screening ? absence of signs or symptoms of lung cancer. Personal history of nicotine dependence. Subsequent (annual) Technique: Spiral CT acquisition of the chest from the thoracic inlet to the upper abdomen without contrast. MQ: [id number] Patient characteristics: * Oapz-lm-Racci: 1965; Age at exam: 58 years * Gender: Male * Lung Disease: Asymptomatic (no signs or symptoms of lung disease) * Number of Pack Years: 66 * Current smoker (=0) or Number of Years since Quit: 6 * Ordering provider and NPI: FIFI PAUL [id number] * Interpreting radiologist and NPI: Eric [id number] Exam acquisition parameters: * Exam Date: 12/15/2023 8:51 AM * Site: [facility] * * CT System Exchange Administrator: Siemens * CT System Model: Sensation * Tube Current-Time (mA-sec): 30 * Peak Voltage (kV): 120V * Scan Time (sec): 10.3 * Scan Volume (z-length, cm): -27.25 * Pitch: 0.75 * Slice Thickness (mm): 1.5 * CT Dose-Length Product: 90 mGy*cm * CT Dose Index: 2.30mGy * CT Dose Reduction Method: Automated exposure control(AEC) and iterative recon COMPARISON: Prior lung screen dated 12/02/2022 RESULT: Are nodules present? Yes, 1-5 nodules Lung nodule comments: 5 mm (upper lobe nodule (70) unchanged. 4 mm right fissural nodule (161) unchanged. Other findings: Moderate coronary calcifications. Several borderline mediastinal lymph nodes unchanged. Degenerative changes of the thoracic spine. Minimal endotracheal mucus secretions with otherwise patent central airways, bronchial thickening, lower lobe predominant bronchiectasis and subpleural reticulation presumably smoking-related interstitial lung disease. Minimal upper lobe emphysema. DIVISION OF RADIOLOGY Provider, [facility] - 12/15/2023 * * *Final Report* * * DATE OF EXAM: Dec 15 2023 8:51AM [facility] 0562 - CT LUNG SCREEN [facility] / PROCEDURE REASON: multiple diagnoses * * * * Physician Interpretation * * * * EXAMINATION: CHEST CT WITHOUT CONTRAST (LOW-DOSE CT LUNG CANCER SCREENING PROTOCOL) CLINICAL HISTORY: Lung cancer LDCT screening ? absence of signs or symptoms of lung cancer. Personal history of nicotine dependence. Subsequent (annual) Technique: Spiral CT acquisition of the chest from the thoracic inlet to the upper abdomen without contrast. MQ: CTLCS_6 Patient characteristics: * Zezh-rn-Vewuv: 1965; Age at exam: 58 years * Gender: Male * Lung Disease: Asymptomatic (no signs or symptoms of lung disease) * Number of Pack Years: 66 * Current smoker (=0) or Number of Years since Quit: 6 * Ordering provider and NPI: FIFI PAUL [id number] * Interpreting radiologist and NPI: Eric [id number] Exam acquisition parameters: * Exam Date: 12/15/2023 8:51 AM * Site: [facility] * * CT System Exchange Administrator: Siemens * CT System Model: Sensation * Tube Current-Time (mA-sec): 30 * Peak Voltage (kV): 120V * Scan Time (sec): 10.3 * Scan Volume (z-length, cm): -27.25 * Pitch: 0.75 * Slice Thickness (mm): 1.5 * CT Dose-Length Product: 90 mGy*cm * CT Dose Index: 2.30mGy * CT Dose Reduction Method: Automated exposure control(AEC) and iterative recon COMPARISON: Prior lung screen dated 12/02/2022 RESULT: Are nodules present? Yes, 1-5 nodules Lung nodule comments: 5 mm (upper lobe nodule (70) unchanged. 4 mm right fissural nodule (161) unchanged. Other findings: Moderate coronary calcifications. Several borderline mediastinal lymph nodes unchanged. Degenerative changes of the thoracic spine. Minimal endotracheal mucus secretions with otherwise patent central airways, bronchial thickening, lower lobe predominant bronchiectasis and subpleural reticulation presumably smoking-related interstitial lung disease. Minimal upper lobe emphysema. IMPRESSION IMPRESSION: LungRADS category: 2 LungRADS modifier: None LungRADS 0 reason: n/a Recommendations: Continue annual screening with LDCT in 12 months. ========= Reference: [employer]. Lung CT Screening Reporting and Data System (Lung-RADS). Available at: http://www.acr.org/Tenzin lity-Safety/Resources/ LungRADS Foot Press Operator: DONALD Transcribe Date/Time: Dec 15 2023 9:14A Dictated by : LAMBERT QUINTANA MD This examination was interpreted and the report reviewed and electronically signed by: LAMBERT QUINTANA MD on Dec 15 2023 9:20AM EST [facility] Radiology Study observation (narrative) [facility] CT Chest for screening WO co ntrastOrdered By: Ccf Provider on 12-15-2023 [facility] CNOVon 03-30-2023 CNOV Office Visit (MARCUS ) ROYAL GARCIA ([id number]) 1965 M Date Time Provider Department 03/30/23 11:00 AM SOLE AGARWAL During your visit today, we recorded the following information about you: Pulse Blood pressure Weight 61/minute 140/78 99.7 kg Sole Agarwal DO 03/30/2023 12:36 PM Signed [facility] OUTPATIENT VISIT DATE March 30, 2023 PRIMARY CARE PHYSICIAN: Genie Coto [address] [place] [address] HISTORY OF PRESENT ILLNESS: Mr. Garcia is a 57 year old male. The patient presents for evaluation treatment options of chest discomfort more importantly significant dyspnea occurring with exertion abating with rest. He was recently seen to have coronary calcification on a CT scan for lung cancer screening. Patient has had however prior CT scans of the chest showing coronary calcification several years ago. The patient denies orthopnea, paroxysmal nocturnal dyspnea, palpitations, near-syncope or syncope. He underwent stress echocardiography which demonstrated structurally normal heart and no apparent evidence of ischemia or infarction. The patient is lives at home with his . He has grown children and grandchildren. 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 He is a non-smoker having quit several years ago, social drinker. Outside activities including target shooting. Cardiac risk factors: Age, gender, hypertension, hyperlipidemia, previous tobacco abuse, known coronary artery calcification seen on CT scanning suggesting at least mild CAD Impression: 1. Dyspnea exertion 2. Chest discomfort 3. Coronary calcification seen on CT scanning suggest at least mild CAD 4. History hypertension 5. History hyperlipidemia 6. History obstructive sleep apnea 7. Abnormal CT scanning of the lung demonstrating fibrosis 8. Abnormal pulmonary function testing demonstrating restriction PLAN AND RECOMMENDATIONS: The patient does not have ischemia or infarction on recent stress testing. His symptoms have been present actually for years. Should be on a baby aspirin considering his coronary calcification. He is on plaque stabilization with Lipitor with excellent LDL numbers. Heart rate and blood pressure appear reasonably well-controlled. We have therefore made no other additions or changes and recommend no further cardiac testing at this time as we believe there may be a significant lung component. We have therefore taken the liberty of sending him for a pulmonary consult. Dietary and lifestyle modification was otherwise briefly emphasized. Will look forward to reevaluate him in 1 years time regardless. Should he continue to have symptoms and pulmonary workup is inconclusive, then he should schedule sooner follow-up to have further evaluation and consideration for invasive cardiac assessment. Vitals: BP 140/78 Pulse 61 Wt 99.7 kg (219 lb 12.8 oz) SpO2 98% BMI 29.81 kg/m? Physical Exam Vitals reviewed. Constitutional: General: He is not in acute distress. Appearance: Normal appearance. He is well-developed. He is not diaphoretic. HENT: Head: Normocephalic and atraumatic. Right Ear: External ear normal. Left Ear: External ear normal. Nose: Nose normal. Eyes: General: No scleral icterus. Right eye: No discharge. Left eye: No discharge. Pupils: Pupils are equal, round, and reactive to light. Neck: Thyroid: No thyromegaly. Vascular: No carotid bruit or JVD. Cardiovascular: Rate and Rhythm: Normal rate and regular rhythm. Heart sounds: No murmur heard. No friction rub. No gallop. Pulmonary: Effort: Pulmonary effort is normal. No respiratory distress. Breath sounds: Normal breath sounds. No wheezing or rales. Abdominal: General: Bowel sounds are normal. Palpations: Abdomen is soft. Musculoskeletal: General: Normal range of motion. Cervical back: Neck supple. Skin: General: Skin is warm and dry. Capillary Refill: Capillary refill takes less than 2 seconds. Coloration: Skin is not pale. Neurological: Mental Status: He is alert and oriented to person, place, and time. Cranial Nerves: No cranial nerve deficit. Psychiatric: Mood and Affect: Mood normal. Mood is not anxious or depressed. Behavior: Behavior normal. Thought Content: Thought content normal. Judgment: Judgment normal. Review of Systems Constitutional: Negative for activity change, appetite change, fatigue and unexpected weight change. HENT: Negative for ear pain and trouble swallowing. Eyes: Negative for pain and visual disturbance. Respiratory: Positive for shortness of breath. Negative for chest tightness. Cardiovascular: Negative for chest pain, palpitations and leg swelling. Gastrointestinal: Negative for abdominal pain and (more content not included)... Normal [facility] SURGICAL PATHOLOGYon 023 Case Report Surgical Pathology Report Case: [id number] Authorizing Provider: Gigi Becerril MD Collected: 01/24/2023 11:09 AM Ordering Location: Ambulatory Surgery Received: 01/24/2023 02:44 PM Pathologist: Richi Padron MD Specimen: SPLENIC FLEXURE POLYP [facility] FINAL DIAGNOSIS A. Colon, splenic flexure, polypectomy: - Tubular adenoma. AEB/kr 01/25/2023 [facility] Gross Description A. SPLENIC FLEXURE POLYP Received in formalin are multiple pieces of larry, soft tissue aggregating to 0.9 x 0.3 x 0.2 cm. Totally submitted in one cassette. SS January 25, 2023 12:59 AM Gross examination performed at [facility], [address] [place] [address] [facility] Performing Lab Diagnostic interpretation performed at [facility], [address] [facility] [address] CLIA# [id number] Finished Carpet Inspector: Kd Willis M.D. [facility] COLONOSCOPY SCREENINGon - [facility] LUNG VOLUMESon 08-16-2021 ERV BOX (L) 1.43 L [facility] CPS15-66% POST (L/S) 4.63 L/S [facility] eland [facility] MJW62-06% PRE (L/S) 4.23 L/S [facility] land [facility] FEV1 PRE (L) 2.77 L [facility] FEV1/FVC POST (%) 0.82 % [facility] nd [facility] FEV1/FVC PRE (%) 0.79 % [facility] d [facility] FEV1_POST (L) 2.91 L [facility] FRC Box (L) 2.62 L [facility] FVC POST (L) 3.54 L [facility] FVC PRE (L) 3.50 L [facility] IC BOX (L) 1.96 L [facility] PEF POST (L/S) 9.06 L/S [facility] PEF PRE (L/S) 8.74 L/S [facility] RV Box (L) 1.30 L [facility] RV/TLC Box (%) 28 % [facility] TLC Box (L) 4.68 L [facility] VC (L) BOX 3.41 L [facility] No Panel Informationon 06-14 Radiology Study observation (narrative) [facility] XR Lumbar spine 3 Viewson IMPRESSION: Mild degenerative change. No acute process. Foot Press Operator: PSCB Transcribe Date/Time: Jun 14 2021 2:40P Dictated by : NICOLE DARLING MD This examination was interpreted and the report reviewed and electronically signed by: NICOLE DARLING MD on Jun 14 2021 2:42PM [facility] DIVISION OF RADIOLOGY * * *Final Report* * * DATE OF EXAM: Jun 14 2021 2:35PM WOX [id number] - XR LUMBAR 3V AP/LAT/L5-S1 / PROCEDURE REASON: Acute bilateral low back pain, unspecified whether sciatica present * * * * Physician Interpretation * * * * EXAMINATION: XR LUMBAR 3V AP/LAT/L5-S1 HISTORY: Lower back pain x 5 weeks without injury. Pain radiates down the lateral left hip. Acute bilateral low back pain, unspecified whether sciatica present. TECHNIQUE: XR LUMBAR 3V AP/LAT/L5-S1 Laterality: LEFT Number of different views (projections): 3 M: XB_1 COMPARISON: Comparison is made to lumbar spine dated 25 April 2011 RESULT: Counting reference: Lumbosacral junction. For the purposes of this report, L5-S1 is considered the last lumbar-type disc space and L4-5 is considered the level of the iliac crest. AP, lateral and cone-down radiographs of the lumbosacral spine demonstrate mild multilevel degenerative change with vertebral body osteophytosis. The intervertebral disc spaces are well maintained. There are no compression fractures and alignment is well maintained. The soft tissues are unremarkable. DIVISION OF RADIOLOGY Provider, [facility] - 06/14/2021 * * *Final Report* * * DATE OF EXAM: Jun 14 2021 2:35PM WOX 5228 - XR LUMBAR 3V AP/LAT/L5-S1 / PROCEDURE REASON: Acute bilateral low back pain, unspecified whether sciatica present * * * * Physician Interpretation * * * * EXAMINATION: XR LUMBAR 3V AP/LAT/L5-S1 HISTORY: Lower back pain x 5 weeks without injury. Pain radiates down the lateral left hip. Acute bilateral low back pain, unspecified whether sciatica present. TECHNIQUE: XR LUMBAR 3V AP/LAT/L5-S1 Laterality: LEFT Number of different views (projections): 3 M: XB_1 COMPARISON: Comparison is made to lumbar spine dated 25 April 2011 RESULT: Counting reference: Lumbosacral junction. For the purposes of this report, L5-S1 is considered the last lumbar-type disc space and L4-5 is considered the level of the iliac crest. AP, lateral and cone-down radiographs of the lumbosacral spine demonstrate mild multilevel degenerative change with vertebral body osteophytosis. The intervertebral disc spaces are well maintained. There are no compression fractures and alignment is well maintained. The soft tissues are unremarkable. IMPRESSION IMPRESSION: Mild degenerative change. No acute process. Foot Press Operator: PSCB Transcribe Date/Time: Jun 14 2021 2:40P Dictated by : NICOLE DARLING MD This examination was interpreted and the report reviewed and electronically signed by: NICOLE DARLING MD on Jun 14 2021 2:42PM EST [facility] XR Pelvis and Hip - left AP and Lateral frogon 06-14-2021 IMPRESSION: 1. No acute bony process. 2. Minimal degenerative change. Foot Press Operator: PSCB Transcribe Date/Time: Jun 14 2021 2:37P Dictated by : NICOLE DALRING MD This examination was interpreted and the report reviewed and electronically signed by: NICOLE DARLING MD on Jun 14 2021 2:40PM EST DIVISION OF RADIOLOGY * * *Final Report* * * DATE OF EXAM: Jun 14 2021 2:35PM WOX 5351 - XR HIP 3V PELV+ AP/LAT LT / PROCEDURE REASON: Acute hip pain, left * * * * Physician Interpretation * * * * EXAMINATION: XR HIP 3V PELV+ AP/LAT LT HISTORY: Acute hip pain, left. Negative trauma. TECHNIQUE: XR HIP 3V PELV+ AP/LAT LT Laterality: NOT APPLICABLE Number of different views (projections): 3 M: XB_1 COMPARISON: There are no prior relevant examinations available for comparison within the [facility] Imaging Archives. RESULT: Supine radiograph of the pelvis as well as AP and frogleg views of the left hip demonstrate the visualized bony pelvic ring intact. The hips are bilaterally symmetric with mild degenerative change manifest predominantly as eburnation of the acetabular rims. Joint spaces are reasonably maintained. There is no acute bony process. The soft tissues are unremarkable. DIVISION OF RADIOLOGY Provider, Orlin Galvan - 06/14/2021 * * *Final Report* * * DATE OF EXAM: Jun 14 2021 2:35PM WOX 5351 - XR HIP 3V PELV+ AP/LAT LT / PROCEDURE REASON: Acute hip pain, left * * * * Physician Interpretation * * * * EXAMINATION: XR HIP 3V PELV+ AP/LAT LT HISTORY: Acute hip pain, left. Negative trauma. TECHNIQUE: XR HIP 3V PELV+ AP/LAT LT Laterality: NOT APPLICABLE Number of different views (projections): 3 M: XB_1 COMPARISON: There are no prior relevant examinations available for comparison within the [facility] Imaging Archives. RESULT: Supine radiograph of the pelvis as well as AP and frogleg views of the left hip demonstrate the visualized bony pelvic ring intact. The hips are bilaterally symmetric with mild degenerative change manifest predominantly as eburnation of the acetabular rims. Joint spaces are reasonably maintained. There is no acute bony process. The soft tissues are unremarkable. IMPRESSION IMPRESSION: 1. No acute bony process. 2. Minimal degenerative change. Foot Press Operator: PSCB Transcribe Date/Time: Jun 14 2021 2:37P Dictated by : NICOLE DARLING MD This examination was interpreted and the report reviewed and electronically signed by: NICOLE DARLING MD on Jun 14 2021 2:40PM EST [facility] XR Pelvis and Hip - left AP and Lateral frogOrdered By: Ccf Provider on 06-14-2021 [facility] Quantiferon TB-Gold+on 03-27 QFT TB GOLD+ Comment Normal . [facility] Comment on above: Result Comment: The QuantiFERON-TB Gold Plus result is determined by subtracting the Nil value from either TB antigen (Ag) tube. The mitogen tube serves as a control for the test. Performed By: #### L 100.0100, L500.2500, L3400.8000 #### [facility] [place], [address] QFT TB POS CRIT Negative Normal Negative [facility] Comment on above: Result Comment: The specimen received for QuantiFERON testing was incubated by the ordering institution. Specific procedures outlined in our Directory of Services and in the package insert for the QuantiFERON Gold (In Tube) test must be followed to enable for proper stimulation of cells for the production of interferon gamma. Chemiluminescence immunoassay methodology Performed at: [address] [id number] Network Cabler: Luigi Santos PhD, Phone: [phone] Performed By: #### L 100.0100, L500.2500, L3400.8000 #### [facility] [address] [place], [address] QFT MITOGEN AROLDO > 10.00 Normal . [facility] Comment on above: Performed By: #### L 100.0100, L500.2500, L3400.8000 #### [facility] [address] [place], [address] QFT NIL VALUE 0.02 IU/mL Normal . [facility] Comment on above: Performed By: #### L 100.0100, L500.2500, L3400.8000 #### [facility] [address] [place], [address] QFT TB1+ AG AROLDO 0.01 IU/mL Normal . [facility] Comment on above: Performed By: #### L 100.0100, L500.2500, L3400.8000 #### [facility] [address] [place], [address] QFT TB2+ AG AROLDO 0.01 IU/mL Normal . [facility] Comment on above: Performed By: #### L 100.0100, L500.2500, L3400.8000 #### [facility] [address] [place], [address] Basic Metabolic Profile (BMP )on 03-24-2021 BUN/CRE 13.9 RATIO Normal 10-20 [facility] Comment on above: Performed By: #### L 100.0100, L500.2500, L3400.8000 #### [facility] [address] [place], [address] CA,Total 9.0 mg/dL Normal 8.5-10.1 [facility] Comment on above: Performed By: #### L 100.0100, L500.2500, L3400.8000 #### [facility] [address] [place], [address] Chloride [Moles/Vol] 105 mmol/L Normal 98-107 [facility] Comment on above: Performed By: #### L 100.0100, L500.2500, L3400.8000 #### [facility] [address] [place], [address] CO2 [Moles/Vol] 25.0 mmol/L Normal 21.0-32.0 [facility] Comment on above: Performed By: #### L 100.0100, L500.2500, L3400.8000 #### [facility] [address] [place], [address] Creatinine [Mass/Vol] 1.08 mg/dL Normal 0.70-1.30 [facility] Comment on above: Result Comment: The validity of the calculated GFR GFRAA in patients over 70 years has not been determined. Clinical correlation is essential. Performed By: #### L 100.0100, L500.2500, L3400.8000 #### [facility] [address] [place], [address] EST GFR - AA 91 mL/min Normal >60 [facility] Comment on above: Result Comment: Afri can Russian GFR Calc Performed By: #### L 100.0100, L500.2500, L3400.8000 #### [facility] [address] [place], [address] GAP 8 Normal 5-15 [facility] Comment on above: Performed By: #### L 100.0100, L500.2500, L3400.8000 #### [facility] [address] [place], [address] GFR/1.73 sq M.predicted among non-blacks MDRD (S/P/Bld) [Vol rate/Area] 75 mL/min/{1.73_m2} Normal >60 [facility] Comment on above: Result Comment: Non- GFR Calc Performed By: #### L 100.0100, L500.2500, L3400.8000 #### [facility] [address] [place], [address] Glucose [Mass/Vol] 83 mg/dL Normal 74-106 [facility] Comment on above: Result Comment: Vladislavshelly hernández note revised GLUCOSE reference range effective 2017. Performed By: #### L 100.0100, L500.2500, L3400.8000 #### [facility] [address] [place], [address] Potassium [Moles/Vol] 3.8 mmol/L Normal 3.5-5.1 [facility] Comment on above: Performed By: #### L 100.0100, L500.2500, L3400.8000 #### [facility] [address] [place], [address] Sodium [Moles/Vol] 138 mmol/L Normal 136-145 [facility] Comment on above: Performed By: #### L 100.0100, L500.2500, L3400.8000 #### [facility] [address] [place], [address] Urea nitrogen [Mass/Vol] 15 mg/dL Normal 7-18 [facility] Comment on above: Performed By: #### L 100.0100, L500.2500, L3400.8000 #### [facility] [address] [place], [address] CBC W/Diff, Automatedon 12-1 Absolute Lymph 2.67 X10 3/uL Normal 0.83-4.51 [facility] Comment on above: Performed By: #### L 100.0100, L500.2500, L3400.8000 #### [facility] [address] [place], [address] Absolute Neut 4.0 X10 3/uL Normal 2.0-7.7 [facility] Comment on above: Performed By: #### L 100.0100, L500.2500, L3400.8000 #### [facility] [address] [place], [address] Basophils/100 WBC (Bld) 0.5 % Normal 0-1 [facility] Comment on above: Performed By: #### L 100.0100, L500.2500, L3400.8000 #### [facility] [address] [place], [address] Eosinophils/100 WBC (Bld) 0.9 % Normal 0-5 [facility] Comment on above: Performed By: #### L 100.0100, L500.2500, L3400.8000 #### [facility] [address] [place], [address] Erythrocyte distribution width (RBC) [Ratio] 11.5 % Low 11.6-14.6 [facility] Comment on above: Performed By: #### L 100.0100, L500.2500, L3400.8000 #### [facility] [address] [place], [address] Hematocrit (Bld) [Volume fraction] 43.4 % Normal 40-54 [facility] Comment on above: Performed By: #### L 100.0100, L500.2500, L3400.8000 #### [facility] [address] [place], [address] Hemoglobin (Bld) [Mass/Vol] 15.1 g/dL Normal 13.0-16.5 [facility] Comment on above: Performed By: #### L 100.0100, L500.2500, L3400.8000 #### [facility] [address] [place], [address] IG% 0.100 Normal 0.0-0.9 [facility] Comment on above: Result Comment: IG% - Immature Granulocytes (promyelocytes, myelocytes and metamyelocytes) > 1% indicates that a LEFT SHIFT is Present. Performed By: #### L 100.0100, L500.2500, L3400.8000 #### [facility] [address] [place], [address] Lymphocytes/100 WBC (Bld) 36.2 % Normal 19-41 [facility] Comment on above: Performed By: #### L 100.0100, L500.2500, L3400.8000 #### [facility] [address] [place], [address] MCH (RBC) [Entitic mass] 31.7 pg Normal 27.0-32.0 [facility] Comment on above: Performed By: #### L 100.0100, L500.2500, L3400.8000 #### [facility] [address] [place], [address] MCHC (RBC) [Mass/Vol] 34.8 g/dL Normal 32-36 [facility] Comment on above: Performed By: #### L 100.0100, L500.2500, L3400.8000 #### [facility] [address] [place], [address] MCV (RBC) [Entitic vol] 91.0 fL Normal 80-94 [facility] Comment on above: Performed By: #### L 100.0100, L500.2500, L3400.8000 #### [facility] [address] [place], [address] Monocytes/100 WBC (Bld) 8.5 % Normal 0-10 [facility] Comment on above: Performed By: #### L 100.0100, L500.2500, L3400.8000 #### [facility] [address] [place], [address] Neutrophils/100 WBC (Bld) 53.8 % Normal 47-70 [facility] Comment on above: Performed By: #### L 100.0100, L500.2500, L3400.8000 #### [facility] [address] [place], [address] Nucleated RBC (Bld) [#/Vol] 0 10*3/uL Normal 0-5 [facility] Comment on above: Performed By: #### L 100.0100, L500.2500, L3400.8000 #### [facility] [facility] [address] [place], [address] Platelet mean volume (Bld) [Entitic vol] 11.4 fL Normal 6.2-12.0 [facility] Comment on above: Performed By: #### L 100.0100, L500.2500, L3400.8000 #### [facility] [address] [place], [address] Platelets (Bld) [#/Vol] 174 10*3/uL Normal 150-450 [facility] Comment on above: Performed By: #### L 100.0100, L500.2500, [id number] #### [facility] [address] [place], [address] RBC (Bld) [#/Vol] 4.77 10*6/uL Normal 4.6-6.2 [facility] Comment on above: Performed By: #### L 100.0100, L500.2500, [id number] #### [facility] [address] [place], [address] RDW SD 38.6 fl Normal 35.1-43.9 [facility] Comment on above: Performed By: #### L 100.0100, L500.2500, [id number] #### [facility] [address] [place], [address] WBC (Bld) [#/Vol] 7.4 10*3/uL Normal 4.4-11.0 [facility] Comment on above: Performed By: #### L 100.0100, L500.2500, [id number] #### [facility] [address] [place], [address] Vital Signs Date Time Vital Sign Value Performing Clinician Anaaminta aramis 12-16-2024 09:10-0400 Body mass index (BMI) [Ratio] 29.29 kg/m2 Fifi Jaureguiter CAR SEAT COVERER.EXHIBITION ORGANISER Work Phone: [facility] 12-16-2024 09:10-0400 Body weight 97.98 kg Fifi [place] CAR SEAT COVERER.EXHIBITION ORGANISER Work Phone: [facility] 12-16-2024 09:10-0400 Diastolic blood pressure 82 mm[Hg] Fifi [place] CAR SEAT COVERER.EXHIBITION ORGANISER Work Phone: [facility] 12-16-2024 09:10-0400 Systolic blood pressure 140 mm[Hg] Fifi [place] CAR SEAT COVERER.EXHIBITION ORGANISER Work Phone: [facility] 08-30-2024 15:47-0400 Body mass index (BMI) [Ratio] 28.83 kg/m2 Genie Coto MD Work Phone: [facility] 08-30-2024 15:47-0400 Body weight 96.44 kg Genie Coto MD Work Phone: [facility] 08-30-2024 15:47-0400 Diastolic blood pressure 82 mm[Hg] Genie Coto MD Work Phone: [facility] 08-30-2024 15:47-0400 Heart rate 96 /min Genie Coto MD Work Phone: [facility] 08-30-2024 15:47-0400 Respiratory rate 16 /min Genie Coto MD Work Phone: [facility] 08-30-2024 15:47-0400 Systolic blood pressure 128 mm[Hg] Genie Coto MD Work Phone: [facility] 08-19-2024 14:50-0400 Body mass index (BMI) [Ratio] 28.89 kg/m2 Sheree Magallon MD Work Phone: [facility] 08-19-2024 14:50-0400 Body weight 96.62 kg Sheree Magallon MD Work Phone: [facility] 08-19-2024 14:50-0400 Diastolic blood pressure 78 mm[Hg] Sheree Magallon MD Work Phone: [facility] 08-19-2024 14:50-0400 Heart rate 86 /min Sheree Magallon MD Work Phone: [facility] 08-19-2024 14:50-0400 Respiratory rate 15 /min Sheree Magallon MD Work Phone: [facility] 08-19-2024 14:50-0400 SaO2% (BldA) [Mass fraction] 97 % Sheree Magallon MD Work Phone: [facility] 08-19-2024 14:50-0400 Systolic blood pressure 112 mm[Hg] Sheree Magallon MD Work Phone: [facility] 05-14-2024 16:31-0500 Diastolic blood pressure 82 mm[Hg] Genie Coto MD Work Phone: [facility] 05-14-2024 16:31-0500 Systolic blood pressure 135 mm[Hg] Genie Coto MD Work Phone: [facility] 05-14-2024 15:52-0500 Body height 182.9 cm Genie Coto MD Work Phone: [facility] 05-14-2024 15:52-0500 Body mass index (BMI) [Ratio] 29.51 kg/m2 Genie Coto MD Work Phone: [facility] 05-14-2024 15:52-0500 Body weight 98.7 kg Genie Coto MD Work Phone: [facility] 05-14-2024 15:52-0500 Heart rate 68 /min Genie Coto MD Work Phone: [facility] 05-14-2024 15:52-0500 SaO2% (BldA) [Mass fraction] 97 % Genie Coto MD Work Phone: [facility] 02-19-2024 15:46-0500 Body mass index (BMI) [Ratio] 29.3 kg/m2 Iglesia Moomaw CAR SEAT COVERER.EXHIBITION ORGANISER Work Phone: [facility] 02-19-2024 15:46-0500 Body temperature 98.6 [degF] Iglesia Moomaw CAR SEAT COVERER.EXHIBITION ORGANISER Work Phone: [facility] 02-19-2024 15:46-0500 Body weight 98 kg Iglesia Moomaw CAR SEAT COVERER.EXHIBITION ORGANISER Work Phone: [facility] 02-19-2024 15:46-0500 Diastolic blood pressure 80 mm[Hg] Iglesia Moomaw CAR SEAT COVERER.EXHIBITION ORGANISER Work Phone: [facility] 02-19-2024 15:46-0500 Heart rate 78 /min Iglesia Moomaw CAR SEAT COVERER.EXHIBITION ORGANISER Work Phone: [facility] 02-19-2024 15:46-0500 Respiratory rate 16 /min Iglesia Moomaw CAR SEAT COVERER.EXHIBITION ORGANISER Work Phone: [facility] 02-19-2024 15:46-0500 SaO2% (BldA) [Mass fraction] 99 % Iglesia Moomaw CAR SEAT COVERER.EXHIBITION ORGANISER Work Phone: [facility] 02-19-2024 15:46-0500 Systolic blood pressure 132 mm[Hg] Iglesia Moomaw CAR SEAT COVERER.EXHIBITION ORGANISER Work Phone: [facility] 02-07-2024 14:26-0400 Body height 182.9 cm Sophy Sarita PA-C Work Phone: [facility] 02-07-2024 14:26-0400 Body mass index (BMI) [Ratio] 29.02 kg/m2 Sophy Sarita PA-C Work Phone: [facility] 02-07-2024 14:26-0400 Body weight 97.07 kg Sophy Sarita PA-C Work Phone: [facility] 02-07-2024 14:26-0400 Heart rate 69 /min Sophy Sarita PA-C Work Phone: [facility] 02-07-2024 14:26-0400 Respiratory rate 14 /min Sophy Sarita PA-C Work Phone: [facility] 02-07-2024 14:26-0400 SaO2% (BldA) [Mass fraction] 96 % Sophy Stein PA-C Work Phone: [facility] 02-07-2024 14:07-0400 Body height 182.9 cm Pulm Wstr Work Phone: [facility] 02-07-2024 14:07-0400 Body mass index (BMI) [Ratio] 29.02 kg/m2 Pulm Wstr Work Phone: [facility] 02-07-2024 14:07-0400 Body weight 97.07 kg Pulm Wstr Work Phone: [facility] 02-07-2024 14:07-0400 Heart rate 69 /min Pulm Wstr Work Phone: [facility] 02-07-2024 14:07-0400 Respiratory rate 14 /min Pulm Wstr Work Phone: [facility] 02-07-2024 14:07-0400 SaO2% (BldA) [Mass fraction] 96 % Pulm Wstr Work Phone: [facility] 02-05-2024 08:01-0400 Body mass index (BMI) [Ratio] 27.75 kg/m2 Fifi Paul APRN.EXHIBITION ORGANISER Work Phone: [facility] 02-05-2024 08:01-0400 Body weight 98.07 kg Fifi Paul CAR SEAT COVERER.EXHIBITION ORGANISER Work Phone: [facility] 02-05-2024 08:01-0400 Diastolic blood pressure 69 mm[Hg] Fifi Paul APRN.EXHIBITION ORGANISER Work Phone: [facility] 02-05-2024 08:01-0400 Heart rate 64 /min Fifi Paul CAR SEAT COVERER.EXHIBITION ORGANISER Work Phone: [facility] 02-05-2024 08:01-0400 SaO2% (BldA) [Mass fraction] 95 % Fifi Paul CAR SEAT COVERER.EXHIBITION ORGANISER Work Phone: [facility] 02-05-2024 08:01-0400 Systolic blood pressure 108 mm[Hg] Fifi Paul CAR SEAT COVERER.EXHIBITION ORGANISER Work Phone: [facility] 12-06-2023 16:06-0400 Body mass index (BMI) [Ratio] 27.54 kg/m2 Genie Coto MD Work Phone: [facility] 12-06-2023 16:06-0400 Body weight 97.34 kg Genie Coto MD Work Phone: [facility] 12-06-2023 16:06-0400 Diastolic blood pressure 86 mm[Hg] Genie Coto MD Work Phone: [facility] 12-06-2023 16:06-0400 Heart rate 81 /min Genie Coto MD Work Phone: [facility] 12-06-2023 16:06-0400 SaO2% (BldA) [Mass fraction] 96 % Genie Coto MD Work Phone: [facility] 12-06-2023 16:06-0400 Systolic blood pressure 132 mm[Hg] Genie Coto MD Work Phone: [facility] 11-02-2023 16:08-0400 Body height 188 cm Genie Coto MD Work Phone: [facility] 11-02-2023 16:08-0400 Body mass index (BMI) [Ratio] 28.03 kg/m2 Genie Coto MD Work Phone: [facility] 11-02-2023 16:08-0400 Body weight 99.07 kg Genie Coto MD Work Phone: [facility] 11-02-2023 16:08-0400 Diastolic blood pressure 84 mm[Hg] Genie Coto MD Work Phone: [facility] 11-02-2023 16:08-0400 Heart rate 65 /min Genie Coto MD Work Phone: [facility] 11-02-2023 16:08-0400 SaO2% (BldA) [Mass fraction] 99 % Genie Coto MD Work Phone: [facility] 11-02-2023 16:08-0400 Systolic blood pressure 128 mm[Hg] Genie Coto MD Work Phone: [facility] 10-18-2023 16:12-0400 Body mass index (BMI) [Ratio] 29.7 kg/m2 Mayuri Older CAR SEAT COVERER.EXHIBITION ORGANISER Work Phone: [facility] 10-18-2023 16:12-0400 Body weight 99.34 kg Mayuri Older CAR SEAT COVERER.EXHIBITION ORGANISER Work Phone: [facility] 10-18-2023 16:12-0400 Diastolic blood pressure 78 mm[Hg] Mayuri Older CAR SEAT COVERER.EXHIBITION ORGANISER Work Phone: [facility] 10-18-2023 16:12-0400 Heart rate 66 /min Mayuri Older CAR SEAT COVERER.EXHIBITION ORGANISER Work Phone: [facility] 10-18-2023 16:12-0400 Respiratory rate 16 /min Mayuri Older CAR SEAT COVERER.EXHIBITION ORGANISER Work Phone: [facility] 10-18-2023 16:12-0400 SaO2% (BldA) [Mass fraction] 97 % Mayuri Older CAR SEAT COVERER.EXHIBITION ORGANISER Work Phone: [facility] 10-18-2023 16:12-0400 Systolic blood pressure 116 mm[Hg] Mayuri Older CAR SEAT COVERER.EXHIBITION ORGANISER Work Phone: [facility] 08-23-2023 15:53-0400 Body mass index (BMI) [Ratio] 28.89 kg/m2 Mayuri Older CAR SEAT COVERER.EXHIBITION ORGANISER Work Phone: [facility] 08-23-2023 15:53-0400 Body weight 96.62 kg Mayuri Older CAR SEAT COVERER.EXHIBITION ORGANISER Work Phone: [facility] 08-23-2023 15:53-0400 Diastolic blood pressure 82 mm[Hg] Mayuri Older CAR SEAT COVERER.EXHIBITION ORGANISER Work Phone: [facility] 08-23-2023 15:53-0400 Heart rate 78 /min Mayuri Older CAR SEAT COVERER.EXHIBITION ORGANISER Work Phone: [facility] 08-23-2023 15:53-0400 Respiratory rate 16 /min Mayuri Older CAR SEAT COVERER.EXHIBITION ORGANISER Work Phone: [facility] 08-23-2023 15:53-0400 SaO2% (BldA) [Mass fraction] 97 % Mayuri Older CAR SEAT COVERER.EXHIBITION ORGANISER Work Phone: [facility] 08-23-2023 15:53-0400 Systolic blood pressure 130 mm[Hg] Mayuri Older CAR SEAT COVERER.EXHIBITION ORGANISER Work Phone: [facility] 07-31-2023 15:12-0400 Body mass index (BMI) [Ratio] 29.51 kg/m2 Sheree Magallon MD Work Phone: [facility] 07-31-2023 15:12-0400 Body temperature 97.9 [degF] Sheree Magallon MD Work Phone: [facility] 07-31-2023 15:12-0400 Body weight 98.7 kg Sheree Magallon MD Work Phone: [facility] 07-31-2023 15:12-0400 Diastolic blood pressure 84 mm[Hg] Sheree Magallon MD Work Phone: [facility] 07-31-2023 15:12-0400 Heart rate 74 /min Sheree Magallon MD Work Phone: [facility] 07-31-2023 15:12-0400 SaO2% (BldA) [Mass fraction] 96 % Sheree Magallon MD Work Phone: [facility] 07-31-2023 15:12-0400 Systolic blood pressure 142 mm[Hg] Sheree Magallon MD Work Phone: [facility] 05-24-2023 15:14-0500 Body weight 97.07 kg Mayuri Older CAR SEAT COVERER.EXHIBITION ORGANISER Work Phone: [facility] 05-24-2023 15:14-0500 Diastolic blood pressure 84 mm[Hg] Mayuri Older CAR SEAT COVERER.EXHIBITION ORGANISER Work Phone: [facility] 05-24-2023 15:14-0500 Heart rate 56 /min Mayuri Older CAR SEAT COVERER.EXHIBITION ORGANISER Work Phone: [facility] 05-24-2023 15:14-0500 Respiratory rate 16 /min Mayuri Older CAR SEAT COVERER.EXHIBITION ORGANISER Work Phone: [facility] 05-24-2023 15:14-0500 SaO2% (BldA) [Mass fraction] 96 % Mayuri Older CAR SEAT COVERER.EXHIBITION ORGANISER Work Phone: [facility] 05-24-2023 15:14-0500 Systolic blood pressure 132 mm[Hg] Mayuri Older CAR SEAT COVERER.EXHIBITION ORGANISER Work Phone: [facility] 04-12-2023 15:20-0500 Body weight 98.88 kg Mayuri Older CAR SEAT COVERER.EXHIBITION ORGANISER Work Phone: [facility] 04-12-2023 15:20-0500 Diastolic blood pressure 76 mm[Hg] Mayuri Older CAR SEAT COVERER.EXHIBITION ORGANISER Work Phone: [facility] 04-12-2023 15:20-0500 Heart rate 84 /min Mayuri Older CAR SEAT COVERER.EXHIBITION ORGANISER Work Phone: [facility] 04-12-2023 15:20-0500 Respiratory rate 16 /min Mayuri Older CAR SEAT COVERER.EXHIBITION ORGANISER Work Phone: [facility] 04-12-2023 15:20-0500 SaO2% (BldA) [Mass fraction] 96 % Mayuri Older CAR SEAT COVERER.EXHIBITION ORGANISER Work Phone: [facility] 04-12-2023 15:20-0500 Systolic blood pressure 132 mm[Hg] Mayuri Older CAR SEAT COVERER.EXHIBITION ORGANISER Work Phone: [facility] 02-06-2023 15:46-0400 Body height 182.9 cm Maeve Lugo PA-C Work Phone: [facility] 02-06-2023 15:46-0400 Body temperature 97.59 [degF] Maeve Denbow PA-C Work Phone: [facility] 02-06-2023 15:46-0400 Body weight 98.43 kg Maeve Denbow PA-C Work Phone: [facility] 02-06-2023 15:46-0400 Diastolic blood pressure 62 mm[Hg] Maeve Denbow PA-C Work Phone: [facility] 02-06-2023 15:46-0400 Heart rate 75 /min Maeve Denbow PA-C Work Phone: [facility] 02-06-2023 15:46-0400 Respiratory rate 12 /min Maeve Denbow PA-C Work Phone: [facility] 02-06-2023 15:46-0400 SaO2% (BldA) [Mass fraction] 96 % Maeve Denbow PA-C Work Phone: [facility] 02-06-2023 15:46-0400 Systolic blood pressure 132 mm[Hg] Maeve Denbow PA-C Work Phone: [facility] 01-24-2023 11:50-0400 Diastolic blood pressure 91 mm[Hg] Gigi Becerril MD Work Phone: [facility] 01-24-2023 11:50-0400 Heart rate 61 /min Gigi Becerril MD Work Phone: [facility] 01-24-2023 11:50-0400 Respiratory rate 16 /min Gigi Becerril MD Work Phone: [facility] 01-24-2023 11:50-0400 SaO2% (BldA) [Mass fraction] 98 % Gigi Becerril MD Work Phone: [facility] 01-24-2023 11:50-0400 Systolic blood pressure 155 mm[Hg] Gigi Becerril MD Work Phone: [facility] 01-24-2023 10:30-0400 Body temperature 97.9 [degF] Gigi Becerril MD Work Phone: [facility] 01-02-2023 15:21-0400 Body weight 100.25 kg Mayuri Older CAR SEAT COVERER.EXHIBITION ORGANISER Work Phone: [facility] 01-02-2023 15:21-0400 Diastolic blood pressure 76 mm[Hg] Mayuri Older CAR SEAT COVERER.EXHIBITION ORGANISER Work Phone: [facility] 01-02-2023 15:21-0400 Heart rate 60 /min Mayuri Older CAR SEAT COVERER.EXHIBITION ORGANISER Work Phone: [facility] 01-02-2023 15:21-0400 Respiratory rate 16 /min Mayuri Older CAR SEAT COVERER.EXHIBITION ORGANISER Work Phone: [facility] 01-02-2023 15:21-0400 SaO2% (BldA) [Mass fraction] 97 % Mayuri Older CAR SEAT COVERER.EXHIBITION ORGANISER Work Phone: [facility] 01-02-2023 15:21-0400 Systolic blood pressure 122 mm[Hg] Mayuri Older CAR SEAT COVERER.EXHIBITION ORGANISER Work Phone: [facility] 12-19-2022 09:54-0400 Body temperature 97.7 [degF] Maeve Denbow PA-C Work Phone: [facility] 12-19-2022 09:54-0400 Body weight 99.79 kg Maeve Denbow PA-C Work Phone: [facility] 12-19-2022 09:54-0400 Diastolic blood pressure 70 mm[Hg] Maeve Denbow PA-C Work Phone: [facility] 12-19-2022 09:54-0400 Heart rate 60 /min Maeve Denbow PA-C Work Phone: [facility] 12-19-2022 09:54-0400 Respiratory rate 12 /min Maeve Denbow PA-C Work Phone: [facility] 12-19-2022 09:54-0400 Systolic blood pressure 116 mm[Hg] Maeve Denbow PA-C Work Phone: [facility] 12-01-2022 07:45-0400 Body height 182.9 cm Gigi Becerril MD Work Phone: [facility] 12-01-2022 07:45-0400 Body temperature 97.2 [degF] Gigi Becerril MD Work Phone: [facility] 12-01-2022 07:45-0400 Body weight 98.34 kg Gigi Becerril MD Work Phone: [facility] 12-01-2022 07:45-0400 Diastolic blood pressure 84 mm[Hg] Gigi Becerril MD Work Phone: [facility] 12-01-2022 07:45-0400 Heart rate 67 /min Gigi Becerril MD Work Phone: [facility] 12-01-2022 07:45-0400 SaO2% (BldA) [Mass fraction] 96 % Gigi Becerril MD Work Phone: [facility] 12-01-2022 07:45-0400 Systolic blood pressure 126 mm[Hg] Gigi Becerril MD Work Phone: [facility] 11-22-2022 08:00-0400 Body weight 97.07 kg Fifi Paul CAR SEAT COVERER.EXHIBITION ORGANISER Work Phone: [facility] 11-22-2022 08:00-0400 Diastolic blood pressure 72 mm[Hg] Fifi Jaureguiter CAR SEAT COVERER.EXHIBITION ORGANISER Work Phone: [facility] 11-22-2022 08:00-0400 Heart rate 71 /min Fifi [place] CAR SEAT COVERER.EXHIBITION ORGANISER Work Phone: [facility] 11-22-2022 08:00-0400 Respiratory rate 15 /min Fifi [place] CAR SEAT COVERER.EXHIBITION ORGANISER Work Phone: [facility] 11-22-2022 08:00-0400 SaO2% (BldA) [Mass fraction] 96 % Fifi Jaureguiter CAR SEAT COVERER.EXHIBITION ORGANISER Work Phone: [facility] 11-22-2022 08:00-0400 Systolic blood pressure 112 mm[Hg] Fifi Maciaspster CAR SEAT COVERER.EXHIBITION ORGANISER Work Phone: [facility] 11-16-2022 15:18-0400 Body weight 97.07 kg Mayuri Older CAR SEAT COVERER.EXHIBITION ORGANISER Work Phone: [facility] 11-16-2022 15:18-0400 Diastolic blood pressure 74 mm[Hg] Mayuri Older CAR SEAT COVERER.EXHIBITION ORGANISER Work Phone: [facility] 11-16-2022 15:18-0400 Heart rate 60 /min Mayuri Older CAR SEAT COVERER.EXHIBITION ORGANISER Work Phone: [facility] 11-16-2022 15:18-0400 Respiratory rate 16 /min Mayuri Older CAR SEAT COVERER.EXHIBITION ORGANISER Work Phone: [facility] 11-16-2022 15:18-0400 Systolic blood pressure 112 mm[Hg] Mayuri Older CAR SEAT COVERER.EXHIBITION ORGANISER Work Phone: [facility] 04-28-2022 07:49-0500 Body height 182.9 cm Freedom Yi MD Work Phone: [facility] 04-28-2022 07:49-0500 Body weight 103.47 kg Freedom Yi MD Work Phone: [facility] 04-28-2022 07:49-0500 Diastolic blood pressure 81 mm[Hg] Freedom Yi MD Work Phone: [facility] 04-28-2022 07:49-0500 Heart rate 55 /min Freedom Yi MD Work Phone: [facility] 04-28-2022 07:49-0500 SaO2% (BldA) [Mass fraction] 98 % Freedom Yi MD Work Phone: [facility] 04-28-2022 07:49-0500 Systolic blood pressure 129 mm[Hg] Freedom Yi MD Work Phone: [facility] 02-09-2022 15:15-0400 Body height 182.9 cm Genie Coto MD Work Phone: [facility] 02-09-2022 15:15-0400 Body temperature 97.81 [degF] Genie Coto MD Work Phone: [facility] 02-09-2022 15:15-0400 Body weight 103.87 kg Genie Coto MD Work Phone: [facility] 02-09-2022 15:15-0400 Diastolic blood pressure 62 mm[Hg] Genie Coto MD Work Phone: [facility] 02-09-2022 15:15-0400 Heart rate 65 /min Genie Coto MD Work Phone: [facility] 02-09-2022 15:15-0400 Respiratory rate 12 /min Genie Coto MD Work Phone: [facility] 02-09-2022 15:15-0400 SaO2% (BldA) [Mass fraction] 97 % Genie Coto MD Work Phone: [facility] 02-09-2022 15:15-0400 Systolic blood pressure 122 mm[Hg] Genie Coto MD Work Phone: [facility] 09-20-2021 15:28-0400 Body height 182.9 cm Royal Rivera MD Work Phone: [facility] 09-20-2021 15:28-0400 Body weight 109.32 kg Royal Rivera MD Work Phone: [facility] 09-20-2021 15:28-0400 Diastolic blood pressure 76 mm[Hg] Royal Rivera MD Work Phone: [facility] 09-20-2021 15:28-0400 Heart rate 74 /min Royal Rivera MD Work Phone: [facility] 09-20-2021 15:28-0400 Respiratory rate 14 /min Royal Rivera MD Work Phone: [facility] 09-20-2021 15:28-0400 SaO2% (BldA) [Mass fraction] 95 % Royal Rivera MD Work Phone: [facility] 09-20-2021 15:28-0400 Systolic blood pressure 114 mm[Hg] oRyal Rivera MD Work Phone: [facility] 09-17-2021 10:43-0400 Body height 182.9 cm Respiratory Wstr Work Phone: [facility] 09-17-2021 10:43-0400 Body weight 108.86 kg Respiratory Wstr Work Phone: [facility] 09-17-2021 10:43-0400 Diastolic blood pressure 76 mm[Hg] Respiratory Wstr Work Phone: [facility] 09-17-2021 10:43-0400 Heart rate 80 /min Respiratory Wstr Work Phone: [facility] 09-17-2021 10:43-0400 SaO2% (BldA) [Mass fraction] 100 % Respiratory Wstr Work Phone: [facility] 09-17-2021 10:43-0400 Systolic blood pressure 120 mm[Hg] Respiratory Wstr Work Phone: [facility] 09-09-2021 15:43-0400 Body weight 109.32 kg Royal Rivera MD Work Phone: [facility] 09-09-2021 15:43-0400 Diastolic blood pressure 77 mm[Hg] Royal Rivera MD Work Phone: [facility] 09-09-2021 15:43-0400 Heart rate 71 /min Royal Rivera MD Work Phone: [facility] 09-09-2021 15:43-0400 SaO2% (BldA) [Mass fraction] 95 % Royal Rivera MD Work Phone: [facility] 09-09-2021 15:43-0400 Systolic blood pressure 136 mm[Hg] Royal Rivera MD Work Phone: [facility] 08-16-2021 15:03-0400 Body height 182.9 cm Respiratory Wstr Work Phone: [facility] 08-16-2021 15:03-0400 Body weight 109.32 kg Respiratory Wstr Work Phone: [facility] 08-16-2021 15:03-0400 Heart rate 68 /min Respiratory Wstr Work Phone: [facility] 08-16-2021 15:03-0400 Respiratory rate 12 /min Respiratory Wstr Work Phone: [facility] 08-16-2021 15:03-0400 SaO2% (BldA) [Mass fraction] 95 % Respiratory Wstr Work Phone: [facility] Encounters Encounter Date Encounter Type Care Provider Facility Start: 02-13-2025 End: 02-13-2025 ambulatory GENIE GANOSWALDO Facility:[facility] Start: 12-19-2024 End: 12-19-2024 Telephone encounter Genie Coto MD Work Phone: Internal [facility] [place] Comment on above: Consult Start: 12-16-2024 End: 12-16-2024 Follow-up encounter Fifi Paul APRN.EXHIBITION ORGANISER Work Phone: Pulmonary Medicine Start: 12-16-2024 End: 12-16-2024 Patient encounter procedure Fifi Paul APRN.EXHIBITION ORGANISER Work Phone: Pulmonary Medicine Comment on above: Multiple lung nodule s (Primary Dx); Encounter for screening for lung cancer; Former tobacco use Start: 12-16-2024 End: 12-16-2024 ambulatory FIFI PAUL Facility:[facility] Start: 12-16-2024 End: 12-16-2024 Subsequent hospital visit by physician [facility] (I-Stat) Work Phone: Cat Scan Comment on above: Encounter for screen ing for lung cancer [Z12.2] Start: 12-05-2024 End: 12-11-2024 Refill Genie Coto MD Work Phone: Internal [facility] [place] Comment on above: Refill Request Start: 08-30-2024 End: 08-30-2024 Office outpatient visit 25 minutes Genie Coto MD Work Phone: [facility] [place] Comment on above: Tongue lesion (Prima ry Dx); MELODY (obstructive sleep apnea); Primary insomnia; OAB (overactive bladder); Encounter for screening examination for other mental health and behavioral disorders; Primary hypertension; Lower urinary tract symptoms (LUTS); Viral infection; Pulmonary fibrosis (HCC) Start: 08-30-2024 End: 08-30-2024 [facility] Facility:[facility] Start: 08-19-2024 End: 08-19-2024 [facility] Facility:[facility] Start: 08-19-2024 End: 08-19-2024 Patient encounter procedure Sheere Magallon MD Work Phone: Pulmonary Medicine Comment on above: ILD (interstitial princess ng disease) (HCC) (Primary Dx); Former cigarette smoker Start: 08-08-2024 End: 08-09-2024 Refill Genie Coto MD Work Phone: Internal [facility] [place] Comment on above: Refill Request Start: 07-03-2024 End: 09-02-2024 Follow-up encounter Mayuri Dexter APRN.CNP Work Phone: Family Medicine [place] Start: 06-29-2024 End: 06-29-2024 [facility] Facility:[facility] Start: 06-25-2024 End: 06-28-2024 ambulatory Genie Coto MD Work Phone: Internal Medicine [facility] Start: 06-05-2024 End: 06-05-2024 Refill Genie Coto MD Work Phone: [facility] [place] Comment on above: Refill Request Appointment Start: 05-14-2024 End: 05-14-2024 Office outpatient visit 15 minutes Genie Coto MD Work Phone: Internal Medicine [place] Comment on above: Tongue lesion (Prima ry Dx) Start: 05-14-2024 End: 05-14-2024 ambulatory [facility] Facility:[facility] Start: 05-11-2024 End: 05-11-2024 Telephone encounter Genie Coto MD Work Phone: Internal [facility] [place] Comment on above: Lump on tongue Start: 03-24-2024 End: 03-25-2024 Refill Mayuri Dexter CAR SEAT COVERER.EXHIBITION ORGANISER Work Phone: Internal Medicine [place] Comment on above: Refill Request Start: 02-19-2024 End: 02-19-2024 Patient encounter procedure Iglesia Lindsey CAR SEAT COVERER.EXHIBITION ORGANISER Work Phone: [place] [facility] Comment on above: Left wrist pain (Kay margoth Dx) Start: 02-19-2024 End: 02-19-2024 ambulatory GENIE COTO Facility:[facility] Start: 02-19-2024 End: 02-19-2024 Subsequent hospital visit by physician Xr [facility] [place] Work Phone: Radiology Comment on above: Left wrist pain [M25 .532] Start: 02-07-2024 End: 02-07-2024 ambulatory Pulm Lab [facility] Work Phone: [facility] Comment on above: Spirometry Start: 02-07-2024 End: 02-07-2024 Patient encounter procedure Pulm Lab [facility] Work Phone: [facility] Comment on above: Pulmonary fibrosis ( HCC) (Primary Dx); Former tobacco use Start: 02-05-2024 End: 02-05-2024 Patient encounter procedure Fifi Maciasstephanie PEREYRA.EXHIBITION ORGANISER Work Phone: Pulmonary Medicine Comment on above: Multiple lung nodule s (Primary Dx); Encounter for screening for lung cancer; Former cigarette smoker; Pulmonary fibrosis (HCC) Start: 01-31-2024 End: 01-31-2024 Refill Genie Coto MD Work Phone: [facility] [place] Comment on above: Refill Request Start: 12-15-2023 End: 12-15-2023 Subsequent hospital visit by physician Ct [facility] (I-Stat) Work Phone: Cat Scan Comment on above: Encounter for screen ing for lung cancer [Z12.2] Start: 12-07-2023 End: 12-07-2023 Refill Genie Coto MD Work Phone: Internal [facility] [place] Comment on above: Refill Request Start: 12-06-2023 End: 12-06-2023 Office outpatient visit 25 minutes Genie Coto MD Work Phone: Internal Medicine [place] Comment on above: Restless legs (Prima ry Dx); Insomnia, unspecified type; Encounter for immunization; Encounter for screening for lung cancer Start: 11-26-2023 End: 11-27-2023 Refill Genie Coto MD Work Phone: [facility] [place] Comment on above: Med Change Request Start: 11-14-2023 Refill Mayuri Older CAR SEAT COVERER .EXHIBITION ORGANISER Work Phone: Internal Medicine [place] Comment on above: Med Change Request Start: 11-02-2023 End: 11-02-2023 Office outpatient visit 25 minutes Genie Coto MD Work Phone: Internal Medicine [place] Comment on above: Annual physical exam (Primary Dx); Acute saddle pulmonary embolism without acute cor pulmonale (HCC); Depression, unspecified depression type; Lower urinary tract symptoms (LUTS); Mixed hyperlipidemia; MELODY (obstructive sleep apnea); Primary hypertension; Coronary artery calcification seen on CT scan; RLS (restless legs syndrome), provisional Start: 11-02-2023 End: 11-02-2023 Patient encounter procedure Genie Coto MD Work Phone: [facility] Work Phone: Start: 10-18-2023 End: 10-18-2023 Patient encounter procedure Mayuri Older CAR SEAT COVERER.EXHIBITION ORGANISER Work Phone: Internal Medicine [place] Comment on above: Anxiety and depressi on (Primary Dx); RLS (restless legs syndrome), provisional; OAB (overactive bladder) Start: 09-17-2023 Refill Mayuri Older CAR SEAT COVERER .EXHIBITION ORGANISER Work Phone: Internal Medicine [place] Comment on above: Med Change Request Start: 08-23-2023 End: 08-23-2023 Patient encounter procedure Mayuri Older CAR SEAT COVERER.EXHIBITION ORGANISER Work Phone: Internal Medicine [place] Comment on above: RLS (restless legs s yndrome), provisional (Primary Dx); Primary hypertension; Mixed hyperlipidemia; Prediabetes; Anxiety and depression Start: 08-08-2023 ambulatory Genie Kulkarni Work Phone: [facility] [place] Start: 07-31-2023 End: 07-31-2023 Patient encounter procedure Sheree Magallon MD Work Phone: Pulmonary Medicine Comment on above: Pulmonary fibrosis ( HCC) (Primary Dx); Former cigarette smoker Start: 06-26-2023 Refill Genie Kulkarni Work Phone: Internal Medicine [place] Comment on above: Refill Request Start: 06-17-2023 Refill Mayuri Older CAR SEAT COVERER .EXHIBITION ORGANISER Work Phone: Internal Medicine [place] Comment on above: Med Change Request Start: 06-10-2023 Refill Mayuri Older CAR SEAT COVERER .EXHIBITION ORGANISER Work Phone: Internal Medicine [place] Comment on above: Refill Request Start: 06-09-2023 Refill Mayuri Older CAR SEAT COVERER .EXHIBITION ORGANISER Work Phone: Internal [facility] [place] Comment on above: Refill Request Start: 05-24-2023 End: 05-24-2023 Patient encounter procedure Mayuri Older CAR SEAT COVERER.EXHIBITION ORGANISER Work Phone: Internal Medicine [place] Comment on above: RLS (restless legs s yndrome), provisional (Primary Dx); MELODY (obstructive sleep apnea); Other fatigue Start: 04-12-2023 End: 04-12-2023 Patient encounter procedure Mayuri Older CAR SEAT COVERER.EXHIBITION ORGANISER Work Phone: Internal Medicine [place] Comment on above: RLS (restless legs s yndrome) (Primary Dx) Start: 03-30-2023 End: 03-30-2023 ambulatory GENIE NNAMDI Facility:[facility] Start: 02-06-2023 End: 02-06-2023 Patient encounter procedure Maeve Lugo PA-C Work Phone: Internal Medicine [place] Comment on above: Anxiety and depressi on (Primary Dx); RLS (restless legs syndrome), provisional Start: 01-29-2023 Telephone encounter Gigi Becerril MD Work Phone: General Surgery Comment on above: Results Start: 01-24-2023 End: 01-24-2023 Subsequent hospital visit by physician Gigi Becerril MD Work Phone: Ambulatory Surgery Comment on above: Special screening fo r malignant neoplasms, colon [Z12.11] Start: 01-17-2023 ambulatory Nurse Card Adm in [facility] Work Phone: Cardiology Comment on above: Stress Test Instruct ions for 01/23/23 Start: 01-17-2023 E-mail encounter andrew flannery caregiver Nurse Card Admin [facility] Work Phone: [place] [facility] Start: 01-02-2023 End: 01-02-2023 Patient encounter procedure Mayuri Dexter APRN.CNP Work Phone: Internal Medicine [place] Comment on above: Dyspnea on exertion (Primary Dx); Chest pressure; RLS (restless legs syndrome), provisional; Atherosclerosis of coronary artery of [place] heart, unspecified vessel or lesion type, unspecified whether angina present; Primary hypertension; Dyslipidemia; Anxiety and depression; Urge incontinence Start: 12-29-2022 Refill Mayuri Dexter APRN, .CNP Work Phone: [facility] [place] Comment on above: Refill Request Start: 12-20-2022 ambulatory Genie Kulkarni Work Phone: [facility] [place] Start: 12-19-2022 End: 12-19-2022 Patient encounter procedure Maeve Lugo PA-C Work Phone: Internal Medicine [place] Comment on above: Anxiety and depressi on (Primary Dx); Need for influenza vaccination Start: 12-13-2022 Refill Mayuri Dexter APRN, .CNP Work Phone: Internal [facility] [place] Comment on above: Refill Request Start: 12-06-2022 Orders Only Fifi farfan APRN.CNP Work Phone: Pulmonary Medicine Comment on above: Encounter for screen ing for lung cancer (Primary Dx); Former tobacco use Start: 12-01-2022 End: 12-01-2022 Patient encounter procedure Gigi Becerril MD Work Phone: General Surgery Comment on above: Rectal bleeding (Kay margoth Dx); Special screening for malignant neoplasms, colon Start: 11-22-2022 End: 11-22-2022 Patient encounter procedure Fifi Paul CAR SEAT COVERER.EXHIBITION ORGANISER Work Phone: Pulmonary Medicine Comment on above: Encounter for screen ing for lung cancer (Primary Dx); Former tobacco use Start: 11-21-2022 Refill Mayuri Older CAR SEAT COVERER .EXHIBITION ORGANISER Work Phone: Family Medicine [place] Comment on above: Refill Request Start: 11-16-2022 End: 11-16-2022 Patient encounter procedure Mayuri Older CAR SEAT COVERER.EXHIBITION ORGANISER Work Phone: Internal Medicine [place] Comment on above: Primary hypertension (Primary Dx); Dyslipidemia; Anxiety and depression; Encounter for screening for lung cancer; Special screening for malignant neoplasms, colon Start: 11-13-2022 Refill Oscar muñiz MD Work Phone: Family Medicine [place] Comment on above: Refill Request Start: 10-13-2022 Refill Mayuri Older CAR SEAT COVERER .EXHIBITION ORGANISER Work Phone: Internal Medicine [place] Comment on above: Refill Request Start: 10-13-2022 Telephone encounter Oscar tillman MD Work Phone: [facility] [place] Comment on above: medication not effec tive Start: 09-05-2022 Refill Nicolas Carreon PRN.EXHIBITION ORGANISER Work Phone: Internal Medicine [place] Comment on above: Refill Request Start: 07-31-2022 Refill Mayuri Older CAR SEAT COVERER .EXHIBITION ORGANISER Work Phone: Internal Medicine [place] Comment on above: Refill Request Start: 07-31-2022 Refill Mayuri Older CAR SEAT COVERER .EXHIBITION ORGANISER Work Phone: Internal Medicine [place] Comment on above: Refill Request Start: 07-20-2022 Refill Mayuri Older CAR SEAT COVERER .EXHIBITION ORGANISER Work Phone: Internal Medicine [place] Comment on above: Refill Request Start: 05-30-2022 Refill Genie Kulkarni Work Phone: Internal Medicine [place] Comment on above: Refill Request Start: 04-29-2022 Telephone encounter Genie colbert MD Work Phone: Internal Medicine [place] Comment on above: Medication Problem Start: 04-28-2022 End: 04-28-2022 Patient encounter procedure Freedom Yi MD Work Phone: Neurology Comment on above: 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); Tremors of nervous system Start: 02-26-2022 Refill Mayuri Older CAR SEAT COVERER .EXHIBITION ORGANISER Work Phone: Internal Medicine [place] Comment on above: Refill Request Start: 02-11-2022 Refill Genie Kulkarni Work Phone: Internal Medicine [place] Comment on above: Refill Request Start: 02-09-2022 End: 02-09-2022 Patient encounter procedure Genie Coto MD Work Phone: Internal Medicine [place] Comment on above: Dyslipidemia (Primar y Dx); Fatty liver; Screening for HIV (human immunodeficiency virus); Prostate cancer screening; Thiamine deficiency; Vitamin B1 deficiency; Regular alcohol consumption; Tremors of nervous system Start: 01-28-2022 Refill Mayuri Older CAR SEAT COVERER .EXHIBITION ORGANISER Work Phone: Internal Medicine [place] Comment on above: Refill Request Start: 09-28-2021 Refill Genie Kulkarni Work Phone: Internal Medicine [place] Comment on above: Refill Request Start: 09-20-2021 End: 09-20-2021 Patient encounter procedure Royal Rivera MD Work Phone: Pulmonary Medicine Comment on above: Pulmonary fibrosis ( HCC) (Primary Dx); SOB (shortness of breath); Mild obesity Start: 09-17-2021 End: 09-17-2021 ambulatory Respiratory Therapist [facility] Work Phone: Pulmonary Medicine Comment on above: Spirometry Start: 09-17-2021 End: 09-17-2021 Patient encounter procedure [facility] Start: 09-13-2021 End: 09-13-2021 Patient encounter procedure Echocardiogram Wstr Work Phone: Cardiology Comment on above: Left ventricular stephenie lure (HCC) Start: 09-09-2021 End: 09-09-2021 Patient encounter procedure Royal Rivera MD Work Phone: Pulmonary Medicine Comment on above: Pulmonary fibrosis ( HCC) (Primary Dx); Interstitial pulmonary disease (HCC) Start: 08-30-2021 Refill Genie Kulkarni Work Phone: Internal [facility] [place] Comment on above: Refill Request Start: 08-17-2021 Telephone encounter Genie colbert MD Work Phone: Internal Medicine [place] Comment on above: Patient Question Start: 08-16-2021 End: 08-16-2021 ambulatory [facility] Work Phone: Pulmonary Medicine Comment on above: Spirometry Start: 08-16-2021 End: 08-16-2021 Patient encounter procedure [facility] Start: 07-14-2021 Telephone encounter Mayuri Dexter APRN.EXHIBITION ORGANISER Work Phone: Family Medicine [place] Comment on above: Results Start: 07-13-2021 Refill Kami Cortez APRN.EXHIBITION ORGANISER Work Phone: Internal Medicine [place] Comment on above: Refill Request Start: 06-14-2021 End: 06-14-2021 Subsequent hospital visit by physician Xr [facility] [place] Work Phone: Radiology Comment on above: Acute hip pain, left [M25.552] Procedures Date Procedure Procedure Detail Performing Clinician Start: 12-16-2024 CT LUNG SCREEN ROBIN Paul CAR SEAT COVERER.EXHIBITION ORGANISER Work Phone: Start: 02-19-2024 Radex wrist complete minimum 3 views Iglesia Lindsey CAR SEAT COVERER.EXHIBITION ORGANISER Work Phone: Start: 02-10-2024 Lipid 1996 panel - S blkae or Plasma Iglesia Moomaw CAR SEAT COVERER.EXHIBITION ORGANISER Work Phone: Start: 02-07-2024 Noninvasive ear/puls e oximetry multiple deter Sophy Stein PALuisaC Work Phone: Start: 02-07-2024 Brncdilat rspse spmt ry pre&post-brncdilat admn Sheree Magallon MD Work Phone: Start: 12-15-2023 CT LUNG SCREEN WO IVCON Fifishelly Paul CAR SEAT COVERER.EXHIBITION ORGANISER Work Phone: Start: 01-24-2023 Level iv surg pathol ogy gross&microscopic exam Gigi Becerril MD Work Phone: Start: 01-24-2023 Colonoscopy flx dx w /collj spec when pfrmd Gigi Becerril MD Work Phone: Start: 01-24-2023 Colonoscopy Gigi sutherland MD Work Phone: Start: 01-02-2023 Lipid 1996 panel - S blake or Plasma Mayuri Dexter CAR SEAT COVERER.EXHIBITION ORGANISER Work Phone: Start: 12-19-2022 INFLUENZA VACCINE, A GE 6 MO - 64 YR, QUADRIVALENT (AFLURIA, FLULAVAL, FLUZONE) Maeve Lugo PALuisaC Work Phone: Start: 02-19-2022 Lipid 1996 panel - S blake or Plasma Genie Coto MD Work Phone: Start: 09-17-2021 Pulmonary stress testing Royal Rivera MD Work Phone: Start: 08-16-2021 Plethysmography lung volumes w/wo airway resist Genie oCto MD Work Phone: Start: 06-14-2021 Radex hip unilateral with pelvis 2-3 views Cass Herrera CAR SEAT COVERER.EXHIBITION ORGANISER Work Phone: Start: 03-27-2017 Colonoscopy Kami Larry nhof CAR SEAT COVERER.EXHIBITION ORGANISER Work Phone: Plan of Treatment Date Care Activity Detail Author Start: 02-09-2029 Lipid panel Lipid Screening [facility] Start: 01-25-2028 Colonoscopy Colonoscopy [facility] Start: 01-25-2028 Colorectal Cancer Screening Colorectal Cancer Screening [facility] Start: 01-25-2028 Screening for malign ant neoplasm of colon [facility] Start: 01-03-2028 Lipid 1996 panel - S blake or Plasma Lipid Screening [facility] Start: 01-03-2028 Lipid panel Lipid Screening [facility] Start: 06-30-2027 Diabetes Screening Diabetes Screenin g [facility] Start: 02-19-2027 Lipid 1996 panel - S blake or Plasma Lipid Screening [facility] Start: 02-19-2027 LIPID SCREEN LIPID SCREEN [facility] Start: 02-19-2027 PROSTATE CANCER SCREENING DISCUSSION PROSTATE CANCER SCREENING DISCUSSION [facility] Start: 02-19-2027 Prostate specific antigen measurement Prostate Cancer Screening Discussion [facility] Start: 10-09-2026 LIPID SCREEN LIPID SCREEN [facility] Start: 08-25-2026 Diabetes Screening Diabetes Screenin g [facility] Start: 07-12-2026 LIPID SCREEN LIPID SCREEN [facility] Start: 12-18-2025 End: 12-18-2025 Patient encounter procedure Cat Scan Comment on above: yearly LDCT yearly LCS Start: 12-16-2025 Screening for malign ant neoplasm of lung Lung Cancer Screening [facility] Start: 08-30-2025 Annual PCP Team Pay Station Collector aime Disease Visit Annual PCP Team Chronic Disease Visit [facility] Start: 08-30-2025 Anxiety Screening Anxiety Screening [facility] Start: 08-19-2025 BP Controlled (<130/80) BP Controlle d (<130/80) [facility] Start: 08-13-2025 DIABETES SCREEN DIABETES SCREEN [facility] Start: 08-13-2025 Diabetes Screening Diabetes Screenin g [facility] Start: 05-14-2025 Annual PCP Team Pay Station Collector aime Disease Visit Annual PCP Team Chronic Disease Visit [facility] Start: 02-28-2025 End: 02-28-2025 Patient encounter procedure 02/28/2025 4:00 PM EST Office Visit [facility] [place] [address] [place] [address] Genie Coto MD [address] [facility] [place] [id number] 6 month f/u [facility] [place] Comment on above: 6 month f/u Start: 02-20-2025 End: 02-20-2025 ambulatory 02/20/2025 9:15 AM EST Procedure PULM LAB [facility] [address] [place] [address] Wstr, Pulm [facility] [address] [place] [address] ILD (interstitial lung disease) (HCC) [J84.9] [facility] Comment on above: ILD (interstitial princess ng disease) (HCC) [J84.9] Start: 02-20-2025 End: 02-20-2025 Patient encounter procedure [facility] Comment on above: ILD (interstitial princess ng disease) (HCC) [J84.9] Start: 02-19-2025 DIABETES SCREEN DIABETES SCREEN [facility] Start: 02-09-2025 Hepatitis B surface antibody level LDL Cholesterol [facility] Start: 02-06-2025 BP Controlled (<130/80) BP Controlle d (<130/80) [facility] Start: 02-04-2025 BP Controlled (<130/80) BP Controlle d (<130/80) [facility] Start: 01-13-2025 End: 01-13-2025 Patient encounter procedure 01/13/2025 4:00 PM EDT Office Visit Cardiology [address] [place] [address] Giovanni Stone MD [address] [place], [place] [id number] yearly Cardiology Comment on above: yearly Start: 12-16-2024 End: 12-16-2024 Patient encounter procedure Cat Scan Comment on above: yearly LDCT yearly LCS Start: 12-14-2024 Screening for malign ant neoplasm of lung Lung Cancer Screening [facility] Start: 12-09-2024 End: 03-06-2025 CT Chest for screening WO contrast CT LUNG SCREEN WO IVCON Radiology Routine Encounter for screening for lung cancer Former cigarette smoker Expected: 12/09/2024 (Approximate), Expires: 03/06/2025 [facility] Work Phone: Comment on above: Expected: 12/09/2024 (Approximate), Expires: 03/06/2025 Start: 12-09-2024 Influenza vaccination C [facility] Start: 12-05-2024 Annual PCP Team Pay Station Collector aime Disease Visit Annual PCP Team Chronic Disease Visit [facility] Start: 11-01-2024 Annual PCP Team Pay Station Collector aime Disease Visit Annual PCP Team Chronic Disease Visit [facility] Start: 10-17-2024 Annual PCP Team Pay Station Collector aime Disease Visit Annual PCP Team Chronic Disease Visit [facility] Start: 10-17-2024 BP Controlled (<130/80) BP Controlle d (<130/80) [facility] Start: 10-09-2024 DIABETES SCREEN DIABETES SCREEN [facility] Start: 08-30-2024 End: 08-30-2024 Patient encounter procedure 08/30/2024 4:00 PM EDT Office Visit [facility] [place] [address] [place] [address] Genie Coto MD [address] [place] [address] >6 mo followup Internal [facility] [place] Comment on above: >6 mo followup Start: 08-22-2024 Annual PCP Team Pay Station Collector aime Disease Visit Annual PCP Team Chronic Disease Visit [facility] Start: 08-19-2024 End: 08-19-2024 Patient encounter procedure 08/19/2024 2:45 PM EDT Office Visit Pulmonary Medicine [address] [place] [address] Sheree Magallon MD [address] [place] [address] 6 MTH F/U Pulmonary Medicine Comment on above: 6 MTH F/U Start: 07-12-2024 DIABETES SCREEN DIABETES SCREEN [facility] Start: 07-10-2024 End: 07-10-2024 Patient encounter procedure 07/10/2024 3:40 PM EDT Office Visit Internal Medicine [place] [address] [place] [address] Mayuri Dexter APRN.EXHIBITION ORGANISER [address] [place] [address] 6 mo followup Internal Medicine [facility] Comment on above: 6 mo followup Start: 06-29-2024 End: 06-29-2024 ambulatory 06/29/2024 9:00 AM EDT Results Only [place] [facility] Draw Station [address] [place] [address] [facility] Draw Station Start: 06-25-2024 End: 09-24-2024 Basic metabolic 2000 panel - Serum or Plasma BASIC METABOLIC PANEL Lab Routine Primary hypertension Expected: 06/25/2024, Expires: 09/24/2024 [facility] Work Phone: Comment on above: Expected: 06/25/2024 , Expires: 09/24/2024 Start: 06-25-2024 End: 09-24-2024 CBC panel - Blood by Automated count COMPLETE BLOOD COUNT Lab Routine Medication management Expected: 06/25/2024, Expires: 09/24/2024 [facility] Comment on above: Expected: 06/25/2024 , Expires: 09/24/2024 Start: 06-07-2024 End: 06-07-2024 Patient encounter procedure 06/07/2024 4:00 PM EST Office Visit Internal Medicine [place] [address] [place] [address] Genie Coto MD [address] [place] [address] 6 month follow up Internal Medicine [facility] Comment on above: 6 month follow up Start: 05-24-2024 Annual PCP Team Pay Station Collector aime Disease Visit Annual PCP Team Chronic Disease Visit [facility] Start: 05-23-2024 End: 05-23-2024 Patient encounter procedure 05/23/2024 3:00 PM EST Office Visit Cardiology [address] [address] Sejal Vaz APRN.EXHIBITION ORGANISER [address] [place] [address] follow up Cardiology Comment on above: follow up Start: 05-22-2024 End: 05-22-2024 Patient encounter procedure 05/22/2024 3:30 PM EST Office Visit Cardiology [address] [id number] Sejal Vaz, CAR SEAT COVERER.EXHIBITION ORGANISER [address] [place] [address] follow up Cardiology Comment on above: follow up Start: 05-14-2024 End: 05-14-2024 Patient encounter procedure 05/14/2024 3:20 PM EST Office Visit Internal Medicine [place] [address] [place], [place] [phone] Genie Coto MD [address] [place], [place] [id number] Lump on tongue size of marble for 1 mth. See phone note. Internal Medicine [facility] Comment on above: Lump on tongue size of marble for 1 mth. See phone note. Start: 04-12-2024 Annual PCP Team Pay Station Collector aime Disease Visit Annual PCP Team Chronic Disease Visit [facility] Start: 03-29-2024 End: 03-29-2024 Patient encounter procedure Cardiology Comment on above: yearly Start: 02-17-2024 End: 02-17-2024 ambulatory 02/17/2024 8:00 AM EST Results Only [facility] Draw Station [address] [place] [address] [facility] Draw Station Start: 02-14-2024 End: 05-15-2024 Lipid 1996 panel - Serum or Plasma LIPID PANEL BASIC Lab Routine Mixed hyperlipidemia Expected: 02/14/2024 (Approximate), Expires: 05/15/2024 [facility] Comment on above: Expected: 02/14/2024 (Approximate), Expires: 05/15/2024 Start: 02-12-2024 End: 02-12-2024 Patient encounter procedure 02/12/2024 2:30 PM EST Office Visit Pulmonary Medicine [address] [place], [place] [phone] Fifi Paul APRN.EXHIBITION ORGANISER [address] [place] [address] Encounter for screening for lung cancer [Z12.2] Pulmonary Medicine Comment on above: Encounter for screen ing for lung cancer [Z12.2] Start: 02-07-2024 End: 02-07-2024 Patient encounter procedure 02/07/2024 3:00 PM EDT Office Visit Pulmonary Medicine [address] [place] [address] Sophy Stein PAMichael [address] [place], [place] [phone] 6 MTH F/U Pulmonary Medicine Comment on above: 6 MTH F/U Start: 02-07-2024 End: 02-07-2024 ambulatory PULM LAB [facility] Comment on above: 6 MTH F/U Start: 02-07-2024 Annual PCP Team Pay Station Collector aime Disease Visit Annual PCP Team Chronic Disease Visit [facility] Start: 02-05-2024 End: 02-05-2024 Patient encounter procedure 02/05/2024 8:00 AM EDT Office Visit Pulmonary Medicine [address] [place] [address] Fifi Paul APRN.EXHIBITION ORGANISER [address] [place] [address] Encounter for screening for lung cancer [Z12.2] Pulmonary Medicine Comment on above: Encounter for screen ing for lung cancer [Z12.2] Start: 01-17-2024 End: 01-17-2024 Patient encounter procedure 01/17/2024 3:40 PM EDT Office Visit Internal Medicine [place] [address] [place] [address] Mayuri Dexter APRN.EXHIBITION ORGANISER [address] [place] [address] 3 month follow up Internal Medicine [facility] Comment on above: 3 month follow up Start: 01-03-2024 Annual PCP Team Pay Station Collector aime Disease Visit Annual PCP Team Chronic Disease Visit [facility] Start: 01-03-2024 BP Controlled (<130/80) BP Controlle d (<130/80) [facility] Start: 01-03-2024 Hepatitis B surface antibody level LDL Cholesterol [facility] Start: 12-20-2023 ANNUAL PCP TEAM BOILER PLANT WORKER AIME DISEASE VISIT ANNUAL PCP TEAM CHRONIC DISEASE VISIT [facility] Start: 12-20-2023 BP CONTROLLED (<130/80) BP CONTROLLE D (<130/80) [facility] Start: 12-10-2023 Covid-19 Vaccine () Covid-19 Vaccine () [facility] Start: 12-10-2023 Covid-19 Vaccine () Covid-19 Vaccine () [facility] Start: 12-10-2023 Influenza vaccination Influenza Vacc ine (#1) [facility] Start: 12-06-2023 End: 12-06-2023 Patient encounter procedure 12/06/2023 4:00 PM EDT Office Visit Internal Medicine [place] [address] [place], [place] [address] Genie Coto MD [address] [place], [place] [address] 4 week follow up Internal Medicine [facility] Comment on above: 4 week follow up Start: 12-03-2023 Influenza vaccination LUNG CANCER SC REENING [facility] Start: 12-03-2023 Screening for malign ant neoplasm of lung Lung Cancer Screening [facility] Start: 11-23-2023 BP CONTROLLED (<130/80) BP CONTROLLE D (<130/80) [facility] Start: 11-17-2023 ANNUAL PCP TEAM BOILER PLANT WORKER AIME DISEASE VISIT ANNUAL PCP TEAM CHRONIC DISEASE VISIT [facility] Start: 11-17-2023 BP CONTROLLED (<130/80) BP CONTROLLE D (<130/80) [facility] Start: 11-17-2023 COVID-19 VACCINE (4 - Booster) COVID-19 VACCINE (4 - Booster) [facility] Comment on above: Postponed from 05/24 (Declined at this time) Start: 11-17-2023 COVID-19 VACCINE (4 - Mixed Product risk series) COVID-19 VACCINE (4 - Mixed Product risk series) [facility] Comment on above: Postponed from 05/24 (Declined at this time) Start: 11-17-2023 HEPATITIS B (1 of 3 - 3-dose series) HEPATITIS B (1 of 3 - 3-dose series) [facility] Comment on above: Postponed from 06/22 (Declined at this time) Start: 11-17-2023 Hepatitis B Vaccine (1 of 3 - 19+ 3-dose series) Hepatitis B Vaccine (1 of 3 - 19+ 3-dose series) [facility] Comment on above: Postponed from 06/22 (Declined at this time) Start: 11-17-2023 Hepatitis B Vaccine (1 of 3 - 3-dose series) Hepatitis B Vaccine (1 of 3 - 3-dose series) [facility] Comment on above: Postponed from 06/22 (Declined at this time) Start: 11-17-2023 PNEUMOCOCCAL (3 - PCV) PNEUMOCOCCAL (3 - PCV) [facility] Comment on above: Postponed from 02/12 (Declined at this time) Start: 11-17-2023 Pneumococcal vaccination [facility] Comment on above: Postponed from 02/12 (Declined at this time) Start: 11-17-2023 Urine microalbumin profile [facility] Comment on above: Postponed from 01/01 (Declined at this time) Start: 10-18-2023 End: 10-18-2023 Patient encounter procedure 10/18/2023 4:20 PM EDT Office Visit Internal Medicine [place] [address] [place] [address] Mayuri Dexter APRN.EXHIBITION ORGANISER [address] [place], [place] [phone] Medication follow up Internal Medicine [facility] Comment on above: Medication follow up Start: 08-23-2023 End: 08-23-2023 Patient encounter procedure 08/23/2023 4:00 PM EDT Office Visit Internal Medicine [place] [address] [place], [place] [phone] Mayuri Dexter APRN.EXHIBITION ORGANISER [address] [place] [address] 3 Month follow up Internal Medicine [facility] Comment on above: 3 Month follow up Start: 08-23-2023 End: 11-22-2023 CBC panel - Blood by Automated count COMPLETE BLOOD COUNT Lab Routine Primary hypertension Expected: 08/23/2023, Expires: 11/22/2023 [facility] Comment on above: Expected: 08/23/2023 , Expires: 11/22/2023 Start: 08-23-2023 End: 11-22-2023 Comprehensive metabolic 2000 panel - Serum or Plasma COMPREHENSIVE METABOLIC PANEL Lab Routine Primary hypertension Mixed hyperlipidemia Expected: 08/23/2023, Expires: 11/22/2023 [facility] Work Phone: Comment on above: Expected: 08/23/2023 , Expires: 11/22/2023 Start: 08-23-2023 End: 11-22-2023 Hemoglobin A1c in Blood HEMOGLOBIN A1C Lab Routine Prediabetes Expected: 08/23/2023, Expires: 11/22/2023 [facility] Comment on above: Expected: 08/23/2023 , Expires: 11/22/2023 Start: 08-08-2023 End: 11-07-2023 Basic metabolic 2000 panel - Serum or Plasma BASIC METABOLIC PANEL Lab Routine Primary hypertension Expected: 08/08/2023, Expires: 11/07/2023 [facility] Work Phone: Comment on above: Expected: 08/08/2023 , Expires: 11/07/2023 Start: 08-08-2023 End: 11-07-2023 CBC panel - Blood by Automated count COMPLETE BLOOD COUNT Lab Routine Medication management Expected: 08/08/2023, Expires: 11/07/2023 [facility] Comment on above: Expected: 08/08/2023 , Expires: 11/07/2023 Start: 07-31-2023 End: 10-30-2023 RICHI BY IFA SCREEN RICHI BY IFA SCREEN Lab Routine Pulmonary fibrosis (HCC) Expected: 07/31/2023, Expires: 10/30/2023 [facility] Work Phone: Comment on above: Expected: 07/31/2023 , Expires: 10/30/2023 Start: 07-31-2023 End: 10-30-2023 Cyclic citrullinated peptide IgG Ab [Units/volume] in Serum or Plasma CCP ANTIBODY IGG Lab Routine Pulmonary fibrosis ([facility]) Expected: 07/31/2023, Expires: 10/30/2023 [facility] Comment on above: Expected: 07/31/2023 , Expires: 10/30/2023 Start: 07-31-2023 End: 10-30-2023 DNA ANTIBODY DS BLD DNA ANTIBODY DS BLD Lab Routine Pulmonary fibrosis ([facility]) Expected: 07/31/2023, Expires: 10/30/2023 [facility] Comment on above: Expected: 07/31/2023 , Expires: 10/30/2023 Start: 07-31-2023 End: 10-30-2023 Extractable nuclear Ab panel - Serum ANTI ZUNILDA ID Lab Routine Pulmonary fibrosis ([facility]) Expected: 07/31/2023, Expires: 10/30/2023 [facility] Comment on above: Expected: 07/31/2023 , Expires: 10/30/2023 Start: 07-31-2023 End: 10-30-2023 POLYMYOSITIS AND DERMATOMYOSITIS PANEL POLYMYOSITIS AND DERMATOMYOSITIS PANEL Lab Routine Pulmonary fibrosis ([facility]) Expected: 07/31/2023, Expires: 10/30/2023 [facility] Comment on above: Expected: 07/31/2023 , Expires: 10/30/2023 Start: 07-31-2023 End: 10-30-2023 Rheumatoid factor [Units/volume] in Serum or Plasma RHEUMATOID FACTOR Lab Routine Pulmonary fibrosis ([facility]) Expected: 07/31/2023, Expires: 10/30/2023 [facility] Comment on above: Expected: 07/31/2023 , Expires: 10/30/2023 Start: 07-31-2023 End: 10-30-2023 RNA POLYMERASE III AB RNA POLYMERASE III AB Lab Routine Pulmonary fibrosis ([facility]) Expected: 07/31/2023, Expires: 10/30/2023 [facility] Comment on above: Expected: 07/31/2023 , Expires: 10/30/2023 Start: 04-12-2023 End: 07-12-2023 Ferritin [Mass/volume] in Serum or Plasma FERRITIN BLD Lab Routine RLS (restless legs syndrome) Expected: 04/12/2023, Expires: 07/12/2023 [facility] Work Phone: Comment on above: Expected: 04/12/2023 , Expires: 07/12/2023 Start: 04-12-2023 End: 07-12-2023 Iron and Iron binding capacity panel - Serum or Plasma IRON + TIBC Lab Routine RLS (restless legs syndrome) Expected: 04/12/2023, Expires: 07/12/2023 [facility] Work Phone: Comment on above: Expected: 04/12/2023 , Expires: 07/12/2023 Start: 12-20-2022 End: 02-19-2023 Lipid 1996 panel - Serum or Plasma LIPID PANEL BASIC Lab Routine Primary hypertension Expected: 12/20/2022, Expires: 02/19/2023 [facility] Work Phone: Comment on above: Expected: 12/20/2022 , Expires: 02/19/2023 Start: 12-09-2022 Covid-19 Vaccine () Covid-19 Vaccine () [facility] Start: 12-09-2022 Influenza vaccination INFLUENZA (#1) [facility] Start: 09-20-2022 BP CONTROLLED (<130/80) BP CONTROLLE D (<130/80) [facility] Start: 09-20-2022 End: 10-20-2022 LUNG DIFFUSION CAPACITY (DLCO) LUNG DIFFUSION CAPACITY (DLCO) PFT Routine Pulmonary fibrosis (HCC) Expected: 09/20/2022 (Approximate), Expires: 10/20/2022 [facility] Work Phone: Comment on above: Expected: 09/20/2022 (Approximate), Expires: 10/20/2022 Start: 09-20-2022 End: 10-20-2022 SIX MINUTE WALK SIX MINUTE WALK PFT Routine Pulmonary fibrosis (HCC) Expected: 09/20/2022 (Approximate), Expires: 10/20/2022 [facility] Work Phone: Comment on above: Expected: 09/20/2022 (Approximate), Expires: 10/20/2022 Start: 09-20-2022 End: 10-20-2022 SPIROMETRY BASELINE ONLY SPIROMETRY BASELINE ONLY PFT Routine Pulmonary fibrosis (HCC) Expected: 09/20/2022 (Approximate), Expires: 10/20/2022 [facility] Work Phone: Comment on above: Expected: 09/20/2022 (Approximate), Expires: 10/20/2022 Start: 09-14-2022 Influenza vaccination LUNG CANCER SC REENING [facility] Start: 07-13-2022 ANNUAL PCP TEAM BOILER PLANT WORKER AIME DISEASE VISIT ANNUAL PCP TEAM CHRONIC DISEASE VISIT [facility] Start: 03-27-2022 Colonoscopy COLONOSCOPY [facility] Start: 03-27-2022 COLORECTAL CANCER SCREENING COLORECTAL CANCER SCREENING [facility] Start: 02-09-2022 End: 04-11-2022 Cobalamin (Vitamin B12) [Mass/volume] in Serum or Plasma VITAMIN B12 BLOOD Lab Routine Thiamine deficiency Expected: 02/09/2022, Expires: 04/11/2022 [facility] Work Phone: Comment on above: Expected: 02/09/2022 , Expires: 04/11/2022 Start: 02-09-2022 End: 04-11-2022 Fasting glucose [Mass/volume] in Serum or Plasma GLUCOSE FASTING BLD Lab Routine Dyslipidemia Expected: 02/09/2022, Expires: 04/11/2022 [facility] Work Phone: Comment on above: Expected: 02/09/2022 , Expires: 04/11/2022 Start: 02-09-2022 End: 04-11-2022 HIV 1+2 Ab [Presence] in Serum or Plasma by Immunoassay HIV 1 2 COMBO(AG/AB),WITH REFLEX TO DIFFERENTIATION Lab Routine Screening for HIV (human immunodeficiency virus) Expected: 02/09/2022, Expires: 04/11/2022 [facility] Work Phone: Comment on above: Expected: 02/09/2022 , Expires: 04/11/2022 Start: 02-09-2022 End: 04-11-2022 Lipid 1996 panel - Serum or Plasma LIPID PANEL BASIC Lab Routine Dyslipidemia Expected: 02/09/2022, Expires: 04/11/2022 [facility] Work Phone: Comment on above: Expected: 02/09/2022 , Expires: 04/11/2022 Start: 02-09-2022 End: 04-11-2022 PSA/PROSTSPECAG SCRN PSA/PROSTSPECAG SCRN Lab Routine Prostate cancer screening Expected: 02/09/2022, Expires: 04/11/2022 [facility] Work Phone: Comment on above: Expected: 02/09/2022 , Expires: 04/11/2022 Start: 02-09-2022 End: 04-11-2022 VITAMIN B1 (THIAMINE), WHOLE BLOOD VITAMIN B1 (THIAMINE), WHOLE BLOOD Lab Routine Vitamin B1 deficiency Expected: 02/09/2022, Expires: 04/11/2022 [facility] Work Phone: Comment on above: Expected: 02/09/2022 , Expires: 04/11/2022 Start: 01-01-2022 Urine microalbumin profile [facility] Start: 12-09-2021 Influenza vaccination INFLUENZA (#1) [facility] Start: 10-13-2021 End: 12-13-2021 Comprehensive metabolic 2000 panel - Serum or Plasma COMP METABOLIC PANEL Lab Routine Hyperlipidemia, mixed Expected: 10/13/2021 (Approximate), Expires: 12/13/2021 [facility] Work Phone: Comment on above: Expected: 10/13/2021 (Approximate), Expires: 12/13/2021 Start: 10-13-2021 End: 12-13-2021 LIPID PANEL BASIC LIPID PANEL BASIC Lab Routine Hyperlipidemia, mixed Expected: 10/13/2021 (Approximate), Expires: 12/13/2021 [facility] Work Phone: Comment on above: Expected: 10/13/2021 (Approximate), Expires: 12/13/2021 Start: 06-27-2021 COVID-19 VACCINE (4 - Booster) COVID-19 VACCINE (4 - Booster) [facility] Start: 05-24-2021 COVID-19 VACCINE (4 - Booster) COVID-19 VACCINE (4 - Booster) [facility] Start: 01-13-2021 PROSTATE CANCER SCREENING DISCUSSION PROSTATE CANCER SCREENING DISCUSSION [facility] Start: 03-18-2020 SHINGRIX VACCINE (2 of 2) SHINGRIX VACCINE (2 of 2) [facility] Start: 02-13-2020 PNEUMOCOCCAL (3 - PCV) PNEUMOCOCCAL (3 - PCV) [facility] Start: 02-13-2020 Pneumococcal vaccination Pneum ococcal Vaccine (3 of 3 - PCV) [facility] Start: 10-11-2019 Influenza vaccination LUNG CANCER SC REENING [facility] Start: 2010 COLOGUARD (FIT-DNA) COLOGUARD (FIT-D NA) [facility] Start: [address] COLONOGRAPHY [facility] Start: 2010 FECAL OCCULT BLOOD FECAL OCCULT BLOO D [facility] Start: 2010 Screening for malign ant neoplasm of colon [facility] Start: 2010 SIGMOIDOSCOPY SIGMOIDOSCOPY [facility] Start: 1984 ADULT PREVNAR ADULT PREVNAR [facility] Start: 1984 ADULT PREVNAR-13 ADULT PREVNAR-13 Cl [facility] Start: 1984 Hepatitis B Vaccine (1 of 3 - 19+ 3-dose series) Hepatitis B Vaccine (1 of 3 - 19+ 3-dose series) [facility] Start: 06-23-1983 Anxiety Screening Anxiety Screening [facility] Start: 06-23-1983 BP CONTROLLED (<130/80) BP CONTROLLE D (<130/80) [facility] Start: 06-23-1983 HIV SCREENING HIV SCREENING [facility] Start: 1965 HEPATITIS B (1 of 3 - 3-dose series) HEPATITIS B (1 of 3 - 3-dose series) [facility] End: 01-15-2026 CT Chest for screening WO contrast CT LUNG SCREEN WO IVCON Radiology Routine Encounter for screening for lung cancer Former tobacco use 1 Occurrences starting 12/16/2024 until 01/15/2026 [facility] Work Phone: Comment on above: 1 Occurrences starti ng 12/16/2024 until 01/15/2026 End: 12-22-2023 CT LUNG SCREEN WO IVCON CT LUNG SCREEN WO IVCON Radiology Routine Encounter for screening for lung cancer Former tobacco use 1 Occurrences starting 11/22/2022 until 12/22/2023 [facility] Work Phone: Comment on above: 1 Occurrences starti ng 11/22/2022 until 12/22/2023 End: 01-05-2024 CT LUNG SCREEN WO IVCON CT LUNG SCREEN WO IVCON Radiology Routine Encounter for screening for lung cancer Former tobacco use 1 Occurrences starting 12/06/2022 until 01/05/2024 [facility] Work Phone: Comment on above: 1 Occurrences starti ng 12/06/2022 until 01/05/2024 End: 10-09-2022 Ct thorax w/o contrast material CT CHEST WO IVCON Radiology Routine Interstitial pulmonary disease (HCC) 1 Occurrences starting 09/09/2021 until 10/09/2022 [facility] Work Phone: Comment on above: 1 Occurrences starti ng 09/09/2021 until 10/09/2022 End: 01-03-2024 ECG COMPLETE ECG COMPLETE ECG Routine Dyspnea on exertion Chest pressure 1 Occurrences starting 01/02/2023 until 01/03/2024 [facility] Work Phone: Comment on above: 1 Occurrences starti ng 01/02/2023 until 01/03/2024 End: 08-29-2024 LUNG DIFFUSION CAPACITY (DLCO) LUNG DIFFUSION CAPACITY (DLCO) PFT Routine Pulmonary fibrosis (HCC) 1 Occurrences starting 07/31/2023 until 08/29/2024 [facility] Comment on above: 1 Occurrences starti ng 07/31/2023 until 08/29/2024 LUNG DIFFUSION CAPAC ITY (DLCO) LUNG DIFFUSION CAPACITY (DLCO) PFT Routine Pulmonary fibrosis (HCC) 02/07/2024 2:11 PM EDT [facility] Work Phone: End: 09-18-2025 LUNG DIFFUSION CAPACITY (DLCO) LUNG DIFFUSION CAPACITY (DLCO) PFT Routine ILD (interstitial lung disease) (HCC) 1 Occurrences starting 08/19/2024 until 09/18/2025 [facility] Comment on above: 1 Occurrences starti ng 08/19/2024 until 09/18/2025 End: 08-29-2024 LUNG VOLUMES LUNG VOLUMES PFT Routine Pulmonary fibrosis (HCC) 1 Occurrences starting 07/31/2023 until 08/29/2024 [facility] Comment on above: 1 Occurrences starti ng 07/31/2023 until 08/29/2024 LUNG VOLUMES LUNG VOLUMES PFT Routine Pulmonary fibrosis (HCC) 02/07/2024 2:11 PM EDT [facility] Work Phone: End: 09-18-2025 LUNG VOLUMES LUNG VOLUMES PFT Routine ILD (interstitial lung disease) ([facility]) 1 Occurrences starting 08/19/2024 until 09/18/2025 [facility] Comment on above: 1 Occurrences starti ng 08/19/2024 until 09/18/2025 End: 08-29-2024 OXIMETRY WITH AMBULATION OXIMETRY WITH AMBULATION PFT Routine Pulmonary fibrosis (HCC) 1 Occurrences starting 07/31/2023 until 08/29/2024 [facility] Comment on above: 1 Occurrences starti ng 07/31/2023 until 08/29/2024 End: 05-23-2024 Polysomnogram POLYSOMNOGRAM (PSG) Procedures Routine RLS (restless legs syndrome), provisional MELODY (obstructive sleep apnea) Other fatigue 1 Occurrences starting 05/24/2023 until 05/23/2024 [facility] Work Phone: Comment on above: 1 Occurrences starti ng 05/24/2023 until 05/23/2024 End: 11-17-2023 Screening colonoscopy COLONOSCOPY SCREENING Endoscopy Routine Special screening for malignant neoplasms, colon 1 Occurrences starting 11/16/2022 until 11/17/2023 [facility] Work Phone: Comment on above: 1 Occurrences starti ng 11/16/2022 until 11/17/2023 End: 12-02-2023 Screening colonoscopy COLONOSCOPY SCREENING Endoscopy Routine Special screening for malignant neoplasms, colon Rectal bleeding 1 Occurrences starting 12/01/2022 until 12/02/2023 [facility] Work Phone: Comment on above: 1 Occurrences starti ng 12/01/2022 until 12/02/2023 SIX MINUTE WALK SIX MINUTE WALK PFT Routine Pulmonary fibrosis ([facility]) 09/17/2021 10:45 AM EDT [facility] Work Phone: End: 09-18-2025 SPIROMETRY BASELINE ONLY SPIROMETRY BASELINE ONLY PFT Routine ILD (interstitial lung disease) ([facility]) 1 Occurrences starting 08/19/2024 until 09/18/2025 [facility] Work Phone: Comment on above: 1 Occurrences starti ng 08/19/2024 until 09/18/2025 End: 08-29-2024 SPIROMETRY WITH DILATOR IF OBSTRUCTED SPIROMETRY WITH DILATOR IF OBSTRUCTED PFT Routine Pulmonary fibrosis ([facility]) 1 Occurrences starting 07/31/2023 until 08/29/2024 [facility] Comment on above: 1 Occurrences starti ng 07/31/2023 until 08/29/2024 SPIROMETRY WITH DILA TOR IF OBSTRUCTED SPIROMETRY WITH DILATOR IF OBSTRUCTED PFT Routine Pulmonary fibrosis ([facility]) 02/07/2024 2:11 PM EDT [facility] Work Phone: End: 01-03-2024 STRESS ECHO TREADMILL STRESS ECHO TREADMILL Cardiology Routine Dyspnea on exertion Chest pressure Atherosclerosis of coronary artery of [place] heart, unspecified vessel or lesion type, unspecified whether angina present 1 Occurrences starting 01/02/2023 until 01/03/2024 [facility] Work Phone: Comment on above: 1 Occurrences starti ng 01/02/2023 until 01/03/2024 [facility] Immunizations Immunization Date Immunization Notes Care Provider Fa cility 12-06-2023 pneumococcal Conjuga te, unspecified formulation Genie Coto MD Work Phone: [facility] Work Phone: 12-06-2023 pneumococcal conjuga te (PCV20) vaccine, 20 valent (PREVNAR 20) Genie Coto MD Work Phone: [facility] 12-19-2022 influenza, injectabl e, quadrivalent, contains preservative Maeve Lugo PA-C Work Phone: [facility] Work Phone: 12-19-2022 influenza virus vacc ine, unspecified formulation Mayuri Dexter CAR SEAT COVERER.EXHIBITION ORGANISER Work Phone: [facility] 12-20-2021 influenza, injectabl e, quadrivalent, contains preservative Genie Coto MD Work Phone: [facility] Work Phone: 03-29-2021 COVID-19 vaccine, ag e 12+ yr ([employer] - PURPLE TOP) Kami Cortez CAR SEAT COVERER.EXHIBITION ORGANISER Work Phone: [facility] 01-14-2021 influenza, injectabl e, quadrivalent, contains preservative Kami Cortez CAR SEAT COVERER.EXHIBITION ORGANISER Work Phone: [facility] Work Phone: 06-25-2020 COVID-19 vaccine, fu ll dose (MODERNA) Kami Cortez CAR SEAT COVERER.EXHIBITION ORGANISER Work Phone: [facility] Work Phone: 01-22-2020 zoster vaccine recombinant Mayuri Dexter CAR SEAT COVERER.EXHIBITION ORGANISER Work Phone: [facility] Work Phone: 12-02-2019 influenza, seasonal, injectable Kami Cortez CAR SEAT COVERER.EXHIBITION ORGANISER Work Phone: [facility] 11-01-2019 zoster vaccine recombinant Mayuri Dexter CAR SEAT COVERER.EXHIBITION ORGANISER Work Phone: [facility] Work Phone: 02-12-2019 pneumococcal polysaccharide vaccine, 23 valent Kami Cortez CAR SEAT COVERER.EXHIBITION ORGANISER Work Phone: [facility] 01-22-2018 influenza, injectabl e, quadrivalent, contains preservative Kami Cortez CAR SEAT COVERER.EXHIBITION ORGANISER Work Phone: [facility] Work Phone: 03-30-2015 influenza, injectabl e, quadrivalent, contains preservative Kami Fuchsf CAR SEAT COVERER.[facility] Work Phone: [facility] Work Phone: 02-05-2014 influenza, seasonal, injectable Kami Fuchsf CAR SEAT COVERER.[facility] Work Phone: [facility] 02-05-2014 pneumococcal polysaccharide vaccine, 23 valent Kami Fuchsf CAR SEAT COVERER.EXHIBITION ORGANISER Work Phone: [facility] 01-12-2013 influenza virus vacc ine, unspecified formulation Kami Reedhof CAR SEAT COVERER.[facility] Work Phone: [facility] 01-02-2012 influenza virus vacc ine, unspecified formulation Kami Reedhof CAR SEAT COVERER.[facility] Work Phone: [facility] 01-02-2012 tetanus toxoid, redu magaly diphtheria toxoid, and acellular pertussis vaccine, adsorbed Kami Fuchsf CAR SEAT COVERER.[facility] Work Phone: [facility] 09-08-2010 tuberculin skin test ; purified protein derivative solution, intradermal Genie Coto MD Work Phone: [facility] 02-19-2010 influenza virus vacc ine, unspecified formulation Kami Fuchsf CAR SEAT COVERER.[facility] Work Phone: [facility] 09-28-2009 tuberculin skin test ; purified protein derivative solution, intradermal Genie Coto MD Work Phone: [facility] Work Phone: Payers Date Payer Category Payer Private Health Insurance MMO SUP ERMED PPO [id number] 2016 Unknown MMO MMO [employer]US [id number] 2016-Present [phone] [address] [place] [address] PPO [id number] 2016 Unknown [id number] 2016 Unknown [id number] Social History Date Type Detail Facility Start: 09-28-2017 End: 12-06-2023 Tobacco smoking status NHIS Ex-smoker [facility] Work Phone: Start: 1984 End: 08-29-2017 History of tobacco use Current smoker [facility] Work Phone: Start: 1984 End: 08-29-2017 History of tobacco use Cigarette Smoker [facility] Work Phone: Start: 09-28-2017 End: 08-10-2022 Cigarettes smoked current (pack per day) - Reported 0.8 [facility] Start: 09-28-2017 End: 12-06-2023 Tobacco use and exposure Smokeless tobacco non-user [facility] Work Phone: Start: 06-14-2021 End: 07-13-2021 Alcohol intake Current drinker of alcohol (finding) [facility] Start: 04-02-2015 History SDOH Alcohol Comment 3-4 beers/night 12 oz [facility] Start: 1965 Sex Assigned At Not on file [facility] Start: 05-15-2021 End: 02-09-2022 Exposure to SARS-CoV-2 (event) Not sure [facility] Work Phone: Start: 1965 Sex Assigned At Male [facility] Start: 08-10-2022 End: 11-14-2022 Tobacco use panel [facility] Start: 03-11-2012 Adult Depression Screening Assessment 3 [facility] Start: 08-15-2021 Gender identity Identifies as male gender (finding) [facility] Start: 02-06-2022 Sexual orientation Heterosexual (finding) [facility] Do you belong to any clubs or organizations such as worship groups, unions, fraternal or athletic groups, or school groups? Yes [facility] Are you now , , , , never or living with a partner? [facility] How often to you hav e a drink containing alcohol? 2-4 times a month [facility] How many standard dr inks containing alcohol do you have on a typical day? 3 or 4 [facility] How often do you hav e 6 or more drinks on 1 occasion? Never [facility] Do you feel stress - tense, restless, nervous, or anxious, or unable to sleep at night because your mind is troubled all the time - these days [OSQ] Not at all [facility] (I/We) worried jose er (my/our) food would run out before (I/we) got money to buy more. Never true [facility] In the past 12 month s, was there a time when you were not able to pay the mortgage or rent on time? No [facility] Start: 01-24-2023 End: 12-16-2024 Alcohol intake Ex-drinker (finding) [facility] Start: 01-24-2023 Alcohol Comment 2 a week [facility] How hard is it for y ou to pay for the very basics like food, housing, medical care, and heating Not very hard [facility] Functional Status Date Assessment Result Facility 05-04-2016 Are you deaf, or do you have serious difficulty hearing No 05/04/2016 4:34 PM EST Terrence Smith No [facility] 05-04-2016 Are you blind, or do you have serious difficulty seeing, even when wearing glasses No 05/04/2016 4:34 PM EST Terrence Smith E No [facility] 05-04-2016 Do you have serious difficulty walking or climbing stairs No 05/04/2016 4:34 PM Terrence Cordon E No [facility] 05-04-2016 Do you have difficul ty dressing or bathing No 05/04/2016 4:34 PM Terrence Cordon No [facility] 05-04-2016 Because of a physica l, mental, or emotional condition, do you have difficulty doing errands alone such as visiting a physician's office or shopping No 05/04/2016 4:34 PM Terrence Cordon No [facility] Mental Status Date Assessment Result Facility 05-04-2016 Because of a physica l, mental, or emotional condition, do you have serious difficulty concentrating, remembering, or making decisions Yes 05/04/2016 4:34 PM Terrence Cordon Yes [facility] Clinical Notes 10-25-2017 to 02-11-2025 Telephone Encounter - Fifi Paul APRN.[facility] - 12/19/2024 4:04 PM EDTTelephone Encounter - Fifi Paul APRN.[facility] - 12/19/2024 4:04 PM EDTPatient InstructionsPatient Instructions Note Date & Type Note Facility 02-11-2025 Note Patient Outreach (IN [facility]) ROYAL GARCIA ([id number]) 1965 M Date Time Provider Department 02/11/25 GENIE COTO During your visit today, we recorded the following information about you: Allergies As of Date: 02/11/2025 Noted Allergy Reaction LISINOPRIL 08/20/2018 3 - Cough Date Reviewed: 12/16/2024 Reviewed by: Saray Huang LPN - Fully Assessed Visit Diagnosis:Mixed hyperlipidemia [E78.2] Order(s):LIPID PANEL, FASTING [SQLIPB] Order #: [id number] FUTURE Prescriptions as of 02/14/2025 - busPIRone (BUSPAR) 5 mg tablet Take 1 tablet by mouth three times a day. - albuterol HFA (PROVENTIL HFA) 90 mcg/actuation inhaler Inhale 2 puffs as instructed every 4 hours as needed for wheezing/shortness of breath. - propranolol (INDERAL) 10 mg tablet Take 1 tablet by mouth two times a day. - traZODone (DESYREL) 100 mg tablet Take 2 tablets by mouth daily at bedtime. - trospium (SANCTURA) 20 mg tablet Take 1 tablet by mouth two times a day. - Pramipexole 1.5 mg Tb24 Take 1 tablet by mouth daily with dinner. - atorvastatin (LIPITOR) 10 mg tablet Take 1 tablet by mouth daily at bedtime. For cholesterol. - DULoxetine (CYMBALTA) 60 mg capsule Take 1 capsule by mouth once daily. - aspirin, enteric coated (ECOTRIN LOW STRENGTH) 81 mg EC tablet Take 1 tablet by mouth once daily. - multivit with minerals/lutein (MULTIVITAMIN 50 PLUS ORAL) Take by mouth once daily. - vitamin E mixed 1,000 unit cap Take 2,000 Units by mouth. - ustekinumab (STELARA) 45 mg/0.5 mL sub-Q syringe Inject subcutaneously. Every 3 months. (Dr. 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.919] 05/14/2014 Lower urinary tract symptoms (LUTS) [R39.9] 05/14/2014 Chronic rhinitis [J31.0] 07/03/2014 BPH (benign prostatic hyperplasia) [N40.0] 08/26/2014 Depression [F32.A] 04/02/2015 Depression, major, single episode, mild (HCC) [*01/13/2016 10/13/2022 RLS (restless legs syndrome), provisional [G25.*10/25/2017 Iron deficiency concern [E61.1] 10/25/2017 01/23/2018 Acute saddle pulmonary embolism without acute c*07/05/2018 Fatty liver [K76.0] 01/17/2020 Coronary artery calcification seen on CT scan [*03/30/2023 Primary hypertension [I10] 03/30/2023 Mixed hyperlipidemia [E78.2] 03/30/2023 Pulmonary fibrosis (HCC) [J84.10] 02/05/2024 Multiple lung nodules [R91.8] 02/05/2024 Encounter Status:Closed by ABDI HEBERTUSEParish on 02/14/25 [facility] 12-19-2024 Telephone encounter Note Antoinette, Consult ordered. Fifi Paul APRN.CNP [facility] 12-19-2024 Miscellaneous Notes Antoinette, Consult ordered. Fifi Paul APRN.CNP Spouse (Bell) calls to request a referral be sent to Dr. August. Patient called to schedule an appointment for swallowing difficulties and was told he needed a referral. Recommendation was from Fifi Paul to follow up with PCP or Gastroenterology and patient would like to see gastro. Pended. Please fax to [phone]. Ellie Coreas RN documented in this encounter [facility] 12-19-2024 Telephone encounter Note Spouse (Bell) calls to request a referral be sent to Dr. August. Patient called to schedule an appointment for swallowing difficulties and was told he needed a referral. Recommendation was from Fifi Paul to follow up with PCP or Gastroenterology and patient would like to see gastro. Pended. Please fax to [phone]. Ellie Coreas RN [facility] 12-16-2024 Instructions Fifi Paul APRN.[facility] - 12/16/2024 10:24 AM EDT We discussed your lung cancer screening and interstitial lung disease: - Your CT scan today was reviewed and compared to your previous scan. There are no significant changes, and your pulmonary fibrosis and interstitial lung disease remain stable. - You reported feeling more short of breath and experiencing ongoing nasal congestion. You are currently using a Vicks inhaler and albuterol as needed. - I recommended trying an eumk-zxm-mqulfpl nasal steroid spray, such as Flonase or Nasonex, to help with your congestion. Please avoid these if you have a personal or family history of glaucoma. Alternatively, you can try an xykb-eap-kkiuwuc antihistamine nasal spray or oral antihistamines like Claritin or Melissa. - Your mucus production was noted to be green, which you stated is normal for you. You are not experiencing fevers or other concerning symptoms at this time. - You will follow up with Dr. Magallon, your machine operator packaging, in February for breathing tests. Please discuss with her whether a daily inhaler or other treatment options might be appropriate for your breathing concerns. We discussed your swallowing difficulties: - You reported occasional trouble swallowing food, with no history of heartburn or prior upper endoscopy. - I explained that this could be related to conditions such as esophageal narrowing, silent reflux, or eosinophilic esophagitis (an allergy-related condition). These conditions are best evaluated with an upper endoscopy, which allows for tissue sampling and further evaluation. - I recommend discussing this with your primary care provider or a roadmaster. A roadmaster can perform the necessary testing, including an upper endoscopy, and determine if treatment or esophageal dilation is needed. - If you prefer to stay local, [facility] may have gastroenterologists available. Please let us know if you need assistance with a referral. We discussed your emphysema: - Your CT scan shows areas of emphysema, which is consistent with prior imaging. This involves damage to lung tissue, creating small holes. The distribution of emphysema appears stable compared to your previous scans. - The most important step you ve taken is quitting smoking in 2018, which significantly reduces further damage to your lungs. Follow-up plan: - I recommend a follow-up CT scan in one year to monitor your lung health. This has been entered into the system, and you can schedule it before you leave today. - If the final radiology report differs from what we discussed today, I will contact you. Otherwise, the results will be available on [employer]. Please continue to monitor your symptoms. If you experience worsening shortness of breath, persistent swallowing difficulties, or any new concerning symptoms, contact our office. documented in this encounter [facility] 12-16-2024 Note HNO ID: [id number] Author: FIFI PAUL APRN.CNP Service: ? Author Type: Nurse Practitioner Type: Progress Notes Filed: 12/16/2024 10:24 Note Text: [facility] Lung Cancer Screening Annual Visit Current or Ex-smoker? [Current] Exam Type: annual LDCT Number of Pack Years: 66 Current smoker (=0) or Number of Years since Quit: 7 The patient's smoking history is similar to prior year lung cancer screening visit. Chief Complaint: Established patient in lung cancer screening program here for annual follow-up and preliminary evaluation of today's LDCT exam for lung nodule surveillance/management. Impression / Recommendations Assessment: Royal Garcia is at an increased risk for developing lung cancer based on their past tobacco use and continues to qualify for annual low dose CT screening. Plan: Indeterminate pulmonary nodules: Previously identified lung nodules appear stable and no new nodules of concern were noted during preliminary review of today's exam. Anticipated result: LUNG RADS Category 2 - Low dose CT Scan to be repeated in one year. Plan subject to change pending final radiology report and recommendations. Nature of the lung nodule(s) and the recommendations for further evaluation discussed in detail with patient. Royal Garcia expressed understanding and is in agreement with plan. 2. Encounter for screening for malignant neoplasm of respiratory organs I have determined that the patient is eligible for continued low dose CT screening based on age, absence of signs or symptoms of lung cancer, smoking history and total pack years. The patient was counseled on the importance of adherence to annual LDCT lung cancer screening, impact of comorbidities and ability or willingness to undergo diagnosis and treatment. The patient understands and would like to continue with annual lung screening: Yes. 3. Personal history of nicotine dependence reports that he quit smoking about 7 years ago. His smoking use included cigarettes. He started smoking about 40 years ago. He has a 66.4 pack-year smoking history. He has never used smokeless tobacco. The patient was counseled on the importance of maintaining cigarette smoking abstinence - The patient is committed to remaining abstinent from tobacco. Fifi Paul APRN.[facility] History of Present Illness: Tiny Garcia is a 59-year-old male with a history of smoking, presenting for an annual lung cancer screening follow-up. Accompanied by his . Tiny has a 60-xbzv-udhw smoking history and quit smoking in 2018. He follows with Dr. Magallon for interstitial lung disease and pulmonary fibrosis. Recent CT scan was compared to previous imaging and showed no significant changes. Tiny reports dyspnea, which he feels has worsened over time. He also experiences chronic nasal congestion and uses a Vicks inhaler and albuterol spray for relief. He is unsure if he has allergies. He reports frequent mucus production, which is green in color, but denies wheezing, fevers, or unexplained weight loss. Tiny also reports episodes of dysphagia, particularly with food, but denies heartburn. He has undergone barium swallow tests in the past, which were unremarkable, and has not had an upper endoscopy. Last 12 Encounter Wt Readings: Date: Wt: 12/16/2024 98 kg (216 lb) 08/30/2024 96.4 kg (212 lb 9.6 oz) 08/19/2024 96.6 kg (213 lb) 05/14/2024 98.7 kg (217 lb 9.6 oz) 02/19/2024 98 kg (216 lb 0.8 oz) 02/07/2024 97.1 kg (214 lb) 02/07/2024 97.1 kg (214 lb) 02/05/2024 98.1 kg (216 lb 3.2 oz) 12/06/2023 97.3 kg (214 lb 9.6 oz) 11/02/2023 99.1 kg (218 lb 6.4 oz) 10/18/2023 99.3 kg (219 lb) 08/23/2023 96.6 kg (213 lb) Modified Medical Research [place] Dyspnea Scale (MMRC) I get short of breath when hurrying on level ground or walking up a slight hill 1 Social History Social History Tobacco Use Smoking status: Former Packs/day: 0.00 Years: 2.0 packs/day for 33.2 years (66.4 ttl pk-yrs) Types: Cigarettes Start date: 1984 Quit date: 08/29/2017 Years since quittin.3 Smokeless tobacco: Never Past Medical History: PAST MEDICAL HISTORY Diagnosis Date Arthritis Benign neoplasm of colon Benign neoplasm of rectum and anal canal Coronary artery calcification seen on CT scan 03/30/2023 Depression 04/02/2015 Diarrhea Insomnia Obstructive sleep apnea DME [employer] Other psoriasis Primary hypertension 03/30/2023 Pulmonary embolism (HCC) Family Hx: FAMILY HISTORY Problem Relation Age of Onset Alzheimer's Disease Mother Diabetes Father Hypertension Father Cancer Father ? primary site. Blood Clots No Family History No DVT or PE. Surgical Hx: PAST SURGICAL HISTORY Procedure Laterality Date COLONOSCOPY 01/24/2023 repeat 5 years COLONOSCOPY (more content not included)... [facility] 12-16-2024 History of Present illness Narrative [facility] Lung Cancer Screening Annual Visit Current or Ex-smoker? [Current] Exam Type: annual LDCT Number of Pack Years: 66 Current smoker (=0) or Number of Years since Quit: 7 The patient's smoking history is similar to prior year lung cancer screening visit. Chief Complaint: Established patient in lung cancer screening program here for annual follow-up and preliminary evaluation of today's LDCT exam for lung nodule surveillance/management. Impression / Recommendations Assessment: Royal Garcia is at an increased risk for developing lung cancer based on their past tobacco use and continues to qualify for annual low dose CT screening. Plan: Indeterminate pulmonary nodules: Previously identified lung nodules appear stable and no new nodules of concern were noted during preliminary review of today's exam. Anticipated result: LUNG RADS Category 2 - Low dose CT Scan to be repeated in one year. Plan subject to change pending final radiology report and recommendations. Nature of the lung nodule(s) and the recommendations for further evaluation discussed in detail with patient. Royal Garcia expressed understanding and is in agreement with plan. 2. Encounter for screening for malignant neoplasm of respiratory organs I have determined that the patient is eligible for continued low dose CT screening based on age, absence of signs or symptoms of lung cancer, smoking history and total pack years. The patient was counseled on the importance of adherence to annual LDCT lung cancer screening, impact of comorbidities and ability or willingness to undergo diagnosis and treatment. The patient understands and would like to continue with annual lung screening: Yes. 3. Personal history of nicotine dependence reports that he quit smoking about 7 years ago. His smoking use included cigarettes. He started smoking about 40 years ago. He has a 66.4 pack-year smoking history. He has never used smokeless tobacco. The patient was counseled on the importance of maintaining cigarette smoking abstinence - The patient is committed to remaining abstinent from tobacco. Fifi Paul APRN.[facility] History of Present Illness: Tiny Garcia is a 59-year-old male with a history of smoking, presenting for an annual lung cancer screening follow-up. Accompanied by his . Tiny has a 44-svjq-kuni smoking history and quit smoking in 2018. He follows with Dr. Magallon for interstitial lung disease and pulmonary fibrosis. Recent CT scan was compared to previous imaging and showed no significant changes. Tiny reports dyspnea, which he feels has worsened over time. He also experiences chronic nasal congestion and uses a Vicks inhaler and albuterol spray for relief. He is unsure if he has allergies. He reports frequent mucus production, which is green in color, but denies wheezing, fevers, or unexplained weight loss. Tiny also reports episodes of dysphagia, particularly with food, but denies heartburn. He has undergone barium swallow tests in the past, which were unremarkable, and has not had an upper endoscopy. Last 12 Encounter Wt Readings: Date: Wt: 12/16/2024 98 kg (216 lb) 08/30/2024 96.4 kg (212 lb 9.6 oz) 08/19/2024 96.6 kg (213 lb) 05/14/2024 98.7 kg (217 lb 9.6 oz) 02/19/2024 98 kg (216 lb 0.8 oz) 02/07/2024 97.1 kg (214 lb) 02/07/2024 97.1 kg (214 lb) 02/05/2024 98.1 kg (216 lb 3.2 oz) 12/06/2023 97.3 kg (214 lb 9.6 oz) 11/02/2023 99.1 kg (218 lb 6.4 oz) 10/18/2023 99.3 kg (219 lb) 08/23/2023 96.6 kg (213 lb) Modified Medical Research [place] Dyspnea Scale (MMRC) I get short of breath when hurrying on level ground or walking up a slight hill 1 Social History Social History Tobacco Use Smoking status: Former Packs/day: 0.00 Years: 2.0 packs/day for 33.2 years (66.4 ttl pk-yrs) Types: Cigarettes Start date: 1984 Quit date: 08/29/2017 Years since quittin.3 Smokeless tobacco: Never Past Medical History: PAST MEDICAL HISTORY Diagnosis Date Arthritis Benign neoplasm of colon Benign neoplasm of rectum and anal canal Coronary artery calcification seen on CT scan 03/30/2023 Depression 04/02/2015 Diarrhea Insomnia Obstructive sleep apnea DME [employer] [place] Other psoriasis Primary hypertension 03/30/2023 Pulmonary embolism (HCC) Family Hx: FAMILY HISTORY Problem Relation Age of Onset Alzheimer's Disease Mother Diabetes Father Hypertension Father Cancer Father ? primary site. Blood Clots No Family History No DVT or PE. Surgical Hx: PAST SURGICAL HISTORY Procedure Laterality Date COLONOSCOPY 01/24/2023 repeat 5 years COLONOSCOPY FLX DX W/COLLJ SPEC WHEN PFRMD 01/20/2012 ` COLONOSCOPY FLX DX W/COLLJ SPEC WHEN PFRMD 03/27/2017 5 yrs repeat CYSTOURETHROSCOPY 05/21/2014 LAPAROSCOPIC APPENDECTOMY 09/06/2008 LIGJ DIVJ &/EXCJ VARICOSE VEIN CLUSTER 1 LEG 2002 Varicose Vein Surgery left leg NOSE SURGERY HX Bilateral done by PAST SURGICAL HISTORY OF 11/01/2010 Bone spur rotator cuff right shoulder. PAST SURGICAL HISTORY OF 2006 bone spur removed from right nares Allergies: ALLERGIES Allergen Reactions Lisinopril Cough Review Of Systems: See HPI for ROS All of the remainder systems were reviewed and negative. PHYSICAL EXAMINATION: General: Alert, oriented, no acute distress Cardiovascular - Rate/Rhythm: Regular rate and rhythm - Heart Sounds: Normal S1 and S2, no murmurs or added sounds Pulmonary - Lung Sounds: Mild wheezing noted on auscultation Musculoskeletal - Extremities: No clubbing, cyanosis, or edema Lymphatic - Cervical: No lymphadenopathy Data Review I have visually reviewed imaging and testing below CT imaging done today was reviewed independently and compared to prior CT chest imaging by practitioner and awaiting radiology review. Labs: - Blood counts: Normal eosinophil levels Imaging: - (Today) CT Chest: Stable interstitial fibrotic changes with honeycombing, emphysema, and no suspicious findings - (2021) CT Chest: Stable interstitial fibrotic changes with honeycombing, emphysema, and no suspicious findings Imaging Last CT/CTA Chest/Lungs CT LUNG SCREEN WO IVCON Exam End: 12/16/2024 9:05 AM (In process) CT LUNG SCREEN WO IVCON 12/15/2023 Narrative * * *Final Report* * * DATE OF EXAM: Dec 15 2023 8:51AM [facility] 0562 - CT LUNG SCREEN WO IVCON / PROCEDURE REASON: multiple diagnoses * * * * Physician Interpretation * * * * EXAMINATION: CHEST CT WITHOUT CONTRAST (LOW-DOSE CT LUNG CANCER SCREENING PROTOCOL) CLINICAL HISTORY: Lung cancer LDCT screening ? absence of signs or symptoms of lung cancer. Personal history of nicotine dependence. Subsequent (annual) Technique: Spiral CT acquisition of the chest from the thoracic inlet to the upper abdomen without contrast. MQ: [id number]_6 Patient characteristics: * Abfn-vb-Bqfcf: 1965; Age at exam: 58 years * Gender: Male * Lung Disease: Asymptomatic (no signs or symptoms of lung disease) * Number of Pack Years: 66 * Current smoker (=0) or Number of Years since Quit: 6 * Ordering provider and NPI: FIFI PAUL [id number] * Interpreting radiologist and NPI: Eric [id number] Exam acquisition parameters: * Exam Date: 12/15/2023 8:51 AM * Site: [facility] * * CT System Exchange Administrator: Siemens * CT System Model: Sensation * Tube Current-Time (mA-sec): 30 * Peak Voltage (kV): 120V * Scan Time (sec): 10.3 * Scan Volume (z-length, cm): -27.25 * Pitch: 0.75 * Slice Thickness (mm): 1.5 * CT Dose-Length Product: 90 mGy*cm * CT Dose Index: 2.30mGy * CT Dose Reduction Method: Automated exposure control(AEC) and iterative recon COMPARISON: Prior lung screen dated 12/02/2022 RESULT: Are nodules present? Yes, 1-5 nodules Lung nodule comments: 5 mm (upper lobe nodule (70) unchanged. 4 mm right fissural nodule (161) unchanged. Other findings: Moderate coronary calcifications. Several borderline mediastinal lymph nodes unchanged. Degenerative changes of the thoracic spine. Minimal endotracheal mucus secretions with otherwise patent central airways, bronchial thickening, lower lobe predominant bronchiectasis and subpleural reticulation presumably smoking-related interstitial lung disease. Minimal upper lobe emphysema. Impression IMPRESSION: LungRADS category: 2 LungRADS modifier: None LungRADS 0 reason: n/a Recommendations: Continue annual screening with LDCT in 12 months. ======= Reference: [employer]. Lung CT Screening Reporting and Data System (Lung-RADS). Available at: http://www.acr.org/Quality-Safety/ Resources/LungRADS Foot Press Operator: DONALD Transcribe Date/Time: Dec 15 2023 9:14A Dictated by : LAMBERT QUINTANA MD This examination was interpreted and the report reviewed and electronically signed by: LAMBERT QUINTANA MD on Dec 15 2023 9:20AM EST Pulmonary Function Testing: SPIROMETRY WITH DILATOR IF OBSTRUCTED ([id number]) - ordered on 02/07/24 No textual results for order. Recording using ambient [employer] software for draft documentation of the visit was discussed with the patient/authorized sales representative livestock; all questions welcomed and answered. Patient/authorized sales representative livestock agreed to proceed Some of this note was generated using AI assistance and dictation software, which may result in errors in word translation, typographical mistakes, or grammatical inconsistencies that may not have been identified before finalization. Please consider this when reviewing the note. documented in this encounter [facility] 12-16-2024 History of Present illness Narrative Radiology Service Progress Note PATIENT NAME: Royal Garcia DATE OF SERVICE: December 16, 2024 TIME: 1:28 PM PATIENT IDENTITY VERIFICATION COMPLETED USING TWO (2) IDENTIFIERS: Name and Date of confirmed by patient verbally. FALL SCREENING: Has the patient had 2 falls in the last year or 1 fall with injury or currently using an Ambulatory Assistive Device (Walker, Cane, Wheelchair, Crutches, etc.)? No PATIENT GENDER DATA: Assigned male at PATIENT RELEVANT IMPLANT DATA REVIEWED: Yes PATIENT PRESENTS WITH AN IMPLANTABLE OR ATTACHED CORRECTIONS COUNSELOR: No RADIOLOGY DEPARTMENT: CT; Exam(s) Completed: Lung Screening. Anesthesia: No PERIPHERAL IV DATA: Not applicable SIGNED BY: RT Liseth(Parish) December 16, 2024 1:28 PM documented in this encounter [facility] 12-16-2024 Note HNO ID: [id number] Author: DEANA PRITCHARD RT(Parish) Service: ? Author Type: Crime Lab Technician Type: Progress Notes Filed: 12/16/2024 13:28 Note Text: Radiology Service Progress Note PATIENT NAME: Royal Garcia DATE OF SERVICE: December 16, 2024 TIME: 1:28 PM PATIENT IDENTITY VERIFICATION COMPLETED USING TWO (2) IDENTIFIERS: Name and Date of confirmed by patient verbally. FALL SCREENING: Has the patient had 2 falls in the last year or 1 fall with injury or currently using an Ambulatory Assistive Device (Walker, Cane, Wheelchair, Crutches, etc.)? No PATIENT GENDER DATA: Assigned male at PATIENT RELEVANT IMPLANT DATA REVIEWED: Yes PATIENT PRESENTS WITH AN IMPLANTABLE OR ATTACHED CORRECTIONS COUNSELOR: No RADIOLOGY DEPARTMENT: CT; Exam(s) Completed: Lung Screening. Anesthesia: No PERIPHERAL IV DATA: Not applicable SIGNED BY: RT Liseth(R) December 16, 2024 1:28 PM [facility] 12-10-2024 Telephone encounter Note Patient has been identified by name and date of : Yes Patient phones for refill(s): Requested Prescriptions Pending Prescriptions Disp Refills albuterol HFA (PROVENTIL HFA) 90 mcg/actuation inhaler 18 g 0 Sig: Inhale 2 puffs as instructed every 4 hours as needed for wheezing/shortness of breath. Date of last office visit in primary care: 08/30/2024 Date of next office visit in primary care: 02/28/2025 Please advise. Thank you. Tawana Diaz LPN. [facility] 12-10-2024 Miscellaneous Notes Patient has been identified by name and date of : Yes Patient phones for refill(s): Requested Prescriptions Pending Prescriptions Disp Refills albuterol HFA (PROVENTIL HFA) 90 mcg/actuation inhaler 18 g 0 Sig: Inhale 2 puffs as instructed every 4 hours as needed for wheezing/shortness of breath. Date of last office visit in primary care: 08/30/2024 Date of next office visit in primary care: 02/28/2025 Please advise. Thank you. Tawana Diaz LPN. documented in this encounter [facility] 08-30-2024 Instructions Genie Coto MD - 08/30/2024 4:12 PM EDT We discussed your recent health concerns and ongoing care: - Tongue Lesion: You mentioned a tongue lesion that resolved on its own without treatment. No further action is needed at this time. - Pulmonary Health: You saw a lung specialist who noted possible interstitial changes, potentially related to smoking, but no pulmonary fibrosis was confirmed. No treatment is required at this time. I provided you with an albuterol inhaler to use as needed if you experience wheezing or shortness of breath, especially during illness. Please keep it with you for occasional use. - Cough and Cold Symptoms: You are recovering from a recent cold with symptoms of nasal congestion and cough. You are no longer taking cold medicine, and your symptoms are improving. - Blood Pressure: Your blood pressure is well-controlled. I have sent a prescription for a one-year supply of propranolol to your pharmacy. - Blood Sugar and Glucose Levels: Your recent glucose level was slightly elevated, but this was a non-fasting test and within an acceptable range. Your A1c from last year was 5.6, which is in the non-diabetic range. With your weight loss (from 240 lbs to 213 lbs), I do not anticipate any significant changes. We do not treat pre-diabetes, and no further action is needed at this time. - Medications: - Continue taking propranolol for blood pressure. - Continue trazodone for sleep as needed. - Continue trospium for urinary frequency as it is helping you. - Use the albuterol inhaler as needed for wheezing or shortness of breath. - Weight Loss and Sleep: You have lost weight and are now 213 lbs. You report sleeping well at night but occasionally feel tired in the afternoon. No further action is needed unless symptoms worsen. Please let me know if you have any new or worsening symptoms. All your prescriptions have been sent to your pharmacy. documented in this encounter [facility] 08-30-2024 Note HNO ID: [id number] Author: GENIE COTO MD Service: ? Author Type: Physician Type: Progress Notes Filed: 09/06/2024 15:13 Note Text: Reason for Visit Follow up HPI Tiny is a 59-year-old male with a history of pulmonary fibrosis, presenting for follow-up. Tiny reports a persistent cough and is currently recovering from a recent cold, noting improvement in symptoms. He was evaluated by a machine operator packaging, who mentioned the possibility of pulmonary fibrosis or interstitial changes due to smoking. He continues to work and is managing well. He uses a Vicks inhaler occasionally for nasal congestion but does not have a prescription inhaler. He also reports a recent tongue lesion that has resolved on its own without intervention. He denies seeking dental evaluation for the lesion. Tiny expresses concern about a recent blood glucose result that was a little high. He has a history of prediabetes but was informed that his A1c was 5.6% last year, indicating a non-diabetic range. He has lost weight, currently weighing 213 lbs, down from 240 lbs. He eats oatmeal every morning and inquires if this could have affected his glucose levels. He is currently taking propranolol for blood pressure management, trazodone for sleep, and trospium for urinary frequency, all of which he reports are effective. He does not use his CPAP machine but reports sleeping well at night, though he does not wake up feeling fresh. He occasionally feels tired in the afternoon but does not consistently need to sleep. He has a history of blood clots but is not currently on Xarelto. He denies knowing the cause of the blood clots. He is not on Remound or Stelara. Social History Tobacco Use Smoking status: Former Current packs/day: 0.00 Average packs/day: 2.0 packs/day for 33.2 years (66.4 ttl pk-yrs) Types: Cigarettes Start date: 1984 Quit date: 08/29/2017 Years since quittin.0 Smokeless tobacco: Never Vaping Use Vaping status: Never Used Substance Use Topics Alcohol use: Not Currently Alcohol/week: 2.6 standard drinks of alcohol Types: 2 Mixed Drinks per week Comment: 2 a week Drug use: No Past medical history, appointments, medications, allergies reviewed. Pertinent Lab/Diagnostic Studies are reviewed and discussed today Current Outpatient Medications: Pramipexole 1.5 mg Tb24 eszopiclone (LUNESTA) 2 mg atorvastatin (LIPITOR) 10 mg tablet DULoxetine (CYMBALTA) 60 mg capsule aspirin, enteric coated (ECOTRIN LOW STRENGTH) 81 mg EC tablet multivit with minerals/lutein (MULTIVITAMIN 50 PLUS ORAL) vitamin E mixed 1,000 unit cap ustekinumab (STELARA) 45 mg/0.5 mL sub-Q syringe propranolol (INDERAL) 10 mg tablet traZODone (DESYREL) 100 mg tablet trospium (SANCTURA) 20 mg tablet albuterol HFA (PROVENTIL HFA) 90 mcg/actuation inhaler gabapentin (NEURONTIN) 100 mg capsule Health Maintenance Anxiety Screening DTaP,Tdap,Td Vaccine(2 - Td or Tdap) Covid-19 Vaccine( season)@ Review Of Systems Constitutional: (+) intermittent daytime fatigue Head: (-) headache Respiratory: (+) cough Physical Exam BP 128/82 Pulse 96 Resp 16 Wt 96.4 kg (212 lb 9.6 oz) BMI 28.83 kg/m? GENERAL: NAD, alert and oriented. SKIN: Unremarkable, no rash or skin lesions. HEAD: Normocephalic. EYES: PERRLA, EOMI, conjunctiva clear. NECK: Supple, no lymphadenopathy, normal thyroid, no carotid bruits. LUNGS: Initial wheezing noted, resolved during exam. Clear to auscultation bilaterally, no wheezes/rhonchi/rales. HEART: Regular rate and rhythm, no murmurs. No ectopy. EXTREMITIES: Normal, no deformities, no skin discoloration, no edema. NEURO: Awake, alert and oriented x3, cranial nerves II-XII grossly intact, normal gait, no involuntary motions. Labs: (No date) - Glucose: mildly elevated - RICHI: positive at titer 1:180 (No date) - A1c: 5.6 (non-diabetic range) Assessment and Plan 1. MELODY (obstructive sleep apnea) (G47.33) Patient is not using CPAP machine. Reports weight loss from 240 lbs to 213 lbs. - Discussed importance of CPAP use for MELODY management. 2. Primary insomnia (F51.01) Managed with trazodone. Patient reports sleeping well at night but occasionally feels tired in the afternoon. - Continue trazodone as prescribed. 3. OAB (overactive bladder) (N32.81) Lower urinary tract symptoms (LUTS) (R39.9) Symptoms well-controlled with trospium. - Continue trospium as prescribed. 4. Tongue lesion (K14.8) Lesion has resolved spontaneously. Suspected hematoma. 5. Encounter for screening examination for other mental health and behavioral disorders (Z13.39) 6. Primary hypertension (I10) Well-controlled on propranolol. - Prescribed propranolol for one year. 7. Viral infection (B34.9) Recent cold with rhinorrhea and cough; symptoms improving. 8. Pulmonary fibrosis (HCC) (J84.10) Under evaluation by machine operator packaging; differential includes pulmonary fibrosis a (more content not included)... [facility] 08-30-2024 History of Present illness Narrative Reason for Visit Follow up HPI Tiny is a 59-year-old male with a history of pulmonary fibrosis, presenting for follow-up. Tiny reports a persistent cough and is currently recovering from a recent cold, noting improvement in symptoms. He was evaluated by a machine operator packaging, who mentioned the possibility of pulmonary fibrosis or interstitial changes due to smoking. He continues to work and is managing well. He uses a Vicks inhaler occasionally for nasal congestion but does not have a prescription inhaler. He also reports a recent tongue lesion that has resolved on its own without intervention. He denies seeking dental evaluation for the lesion. Tiny expresses concern about a recent blood glucose result that was a little high. He has a history of prediabetes but was informed that his A1c was 5.6% last year, indicating a non-diabetic range. He has lost weight, currently weighing 213 lbs, down from 240 lbs. He eats oatmeal every morning and inquires if this could have affected his glucose levels. He is currently taking propranolol for blood pressure management, trazodone for sleep, and trospium for urinary frequency, all of which he reports are effective. He does not use his CPAP machine but reports sleeping well at night, though he does not wake up feeling fresh. He occasionally feels tired in the afternoon but does not consistently need to sleep. He has a history of blood clots but is not currently on Xarelto. He denies knowing the cause of the blood clots. He is not on Remound or Stelara. Social History Tobacco Use Smoking status: Former Current packs/day: 0.00 Average packs/day: 2.0 packs/day for 33.2 years (66.4 ttl pk-yrs) Types: Cigarettes Start date: 1984 Quit date: 08/29/2017 Years since quittin.0 Smokeless tobacco: Never Vaping Use Vaping status: Never Used Substance Use Topics Alcohol use: Not Currently Alcohol/week: 2.6 standard drinks of alcohol Types: 2 Mixed Drinks per week Comment: 2 a week Drug use: No Past medical history, appointments, medications, allergies reviewed. Pertinent Lab/Diagnostic Studies are reviewed and discussed today Current Outpatient Medications: Pramipexole 1.5 mg Tb24 eszopiclone (LUNESTA) 2 mg atorvastatin (LIPITOR) 10 mg tablet DULoxetine (CYMBALTA) 60 mg capsule aspirin, enteric coated (ECOTRIN LOW STRENGTH) 81 mg EC tablet multivit with minerals/lutein (MULTIVITAMIN 50 PLUS ORAL) vitamin E mixed 1,000 unit cap ustekinumab (STELARA) 45 mg/0.5 mL sub-Q syringe propranolol (INDERAL) 10 mg tablet traZODone (DESYREL) 100 mg tablet trospium (SANCTURA) 20 mg tablet albuterol HFA (PROVENTIL HFA) 90 mcg/actuation inhaler gabapentin (NEURONTIN) 100 mg capsule Health Maintenance Anxiety Screening DTaP,Tdap,Td Vaccine(2 - Td or Tdap) Covid-19 Vaccine( season)@ Review Of Systems Constitutional: (+) intermittent daytime fatigue Head: (-) headache Respiratory: (+) cough Physical Exam BP 128/82 Pulse 96 Resp 16 Wt 96.4 kg (212 lb 9.6 oz) BMI 28.83 kg/m GENERAL: NAD, alert and oriented. SKIN: Unremarkable, no rash or skin lesions. HEAD: Normocephalic. EYES: PERRLA, EOMI, conjunctiva clear. NECK: Supple, no lymphadenopathy, normal thyroid, no carotid bruits. LUNGS: Initial wheezing noted, resolved during exam. Clear to auscultation bilaterally, no wheezes/rhonchi/rales. HEART: Regular rate and rhythm, no murmurs. No ectopy. EXTREMITIES: Normal, no deformities, no skin discoloration, no edema. NEURO: Awake, alert and oriented x3, cranial nerves II-XII grossly intact, normal gait, no involuntary motions. Labs: (No date) - Glucose: mildly elevated - RICHI: positive at titer 1:180 (No date) - A1c: 5.6 (non-diabetic range) Assessment and Plan 1. MELODY (obstructive sleep apnea) (G47.33) Patient is not using CPAP machine. Reports weight loss from 240 lbs to 213 lbs. - Discussed importance of CPAP use for MELODY management. 2. Primary insomnia (F51.01) Managed with trazodone. Patient reports sleeping well at night but occasionally feels tired in the afternoon. - Continue trazodone as prescribed. 3. OAB (overactive bladder) (N32.81) Lower urinary tract symptoms (LUTS) (R39.9) Symptoms well-controlled with trospium. - Continue trospium as prescribed. 4. Tongue lesion (K14.8) Lesion has resolved spontaneously. Suspected hematoma. 5. Encounter for screening examination for other mental health and behavioral disorders (Z13.39) 6. Primary hypertension (I10) Well-controlled on propranolol. - Prescribed propranolol for one year. 7. Viral infection (B34.9) Recent cold with rhinorrhea and cough; symptoms improving. 8. Pulmonary fibrosis (HCC) (J84.10) Under evaluation by machine operator packaging; differential includes pulmonary fibrosis and interstitial changes due to smoking. Patient reports ongoing cough. - Prescribed albuterol inhaler for prn use during episodes of wheezing or dyspnea. Voice recognition software was used to compose this office note. Please excuse any unintended typographical errors. Recording using [employer] software for draft documentation of the visit was discussed with the patient/authorized sales representative livestock; all questions welcomed and answered. Patient/authorized sales representative livestock agreed to proceed Genie Coto MD documented in this encounter [facility] 05-12-2025 History of Present illness Narrative Images from the original note were not included. . Respiratory [place] Note Patient name: Royal Garcia PCP: Genie Coto MD CC: Follow-up pulmonary fibrosis HPI: Royal Garcia 59 year old male former 66 pack year smoker, quitting 2018 with PMH significant for HTN, psoriasis, h/o PE, MELODY not using CPAP, ILD (occupational versus IPF versus RB ILD), lung nodules. Autoimmune serologies negative. At [facility] with PA-C, PFTs actually improved. Participating in lung cancer screening so ILD changes can be monitored. No obvious progression of disease. He is scheduled for his yearly low-dose CT in December. From a respiratory standpoint, he remains about the same. He notes dyspnea with exertion, especially climbing stairs. Rare cough. No wheezing or chest tightness. He has not been ill with any upper respiratory infections nor required hospitalization. He has not required inhaler therapy as he mainly has restriction and no obstruction. DATA: PFT 01/2024: Pulmonary function test show mild restriction with reduction in diffusing capacity that corrects for alveolar volume Imaging / Diagnostic Studies DATE OF EXAM: Dec 15 2023 8:51AM [facility] 0562 - CT LUNG SCREEN WO IVCON / COMPARISON: Prior lung screen dated 12/02/2022 RESULT: Are nodules present? Yes, 1-5 nodules Lung nodule comments: 5 mm (upper lobe nodule (70) unchanged. 4 mm right fissural nodule (161) unchanged. Other findings: Moderate coronary calcifications. Several borderline mediastinal lymph nodes unchanged. Degenerative changes of the thoracic spine. Minimal endotracheal mucus secretions with otherwise patent central airways, bronchial thickening, lower lobe predominant bronchiectasis and subpleural reticulation presumably smoking-related interstitial lung disease. Minimal upper lobe emphysema. Review of CT shows peripheral reticulations without overt honeycombing PAST MEDICAL HISTORY Diagnosis Date Arthritis Benign neoplasm of colon Benign neoplasm of rectum and anal canal Coronary artery calcification seen on CT scan 03/30/2023 Depression 04/02/2015 Diarrhea Insomnia Obstructive sleep apnea DME [facility] [place] Other psoriasis Primary hypertension 03/30/2023 Pulmonary embolism (HCC) ALLERGIES Allergen Reactions Lisinopril Cough Pramipexole 1.5 mg Tb24 Take 1 tablet by mouth daily with dinner. eszopiclone (LUNESTA) 2 mg Take 1 tablet by mouth at bedtime as needed (insomnia) for up to 90 days. atorvastatin (LIPITOR) 10 mg tablet Take 1 tablet by mouth daily at bedtime. For cholesterol. trospium (SANCTURA) 20 mg tablet TAKE 1 TABLET BY MOUTH TWICE A DAY propranolol (INDERAL) 10 mg tablet Take 1 tablet by mouth two times a day. traZODone (DESYREL) 100 mg tablet Take 2 tablets by mouth daily at bedtime. aspirin, enteric coated (ECOTRIN LOW STRENGTH) 81 mg EC tablet Take 1 tablet by mouth once daily. vitamin E mixed 1,000 unit cap Take 2,000 Units by mouth. ustekinumab (STELARA) 45 mg/0.5 mL sub-Q syringe Inject subcutaneously. Every 3 months. (Dr. Sanchez) DULoxetine (CYMBALTA) 60 mg capsule Take 1 capsule by mouth once daily. gabapentin (NEURONTIN) 100 mg capsule Take 100 mg by mouth as needed. (Patient not taking: Reported on 05/14/2024) rivaroxaban (XARELTO) 20 mg tablet Take 20 mg by mouth once daily. (Patient not taking: Reported on 05/14/2024) rivaroxaban (XARELTO) 15 mg tablet Take 15 mg by mouth once daily. (Patient not taking: Reported on 05/14/2024) multivit with minerals/lutein (MULTIVITAMIN 50 PLUS ORAL) Take by mouth once daily. Social History Tobacco Use Smoking status: Former Current packs/day: 0.00 Average packs/day: 2.0 packs/day for 33.2 years (66.4 ttl pk-yrs) Types: Cigarettes Start date: 1984 Quit date: 08/29/2017 Years since quittin.9 Smokeless tobacco: Never Vaping Use Vaping status: Never Used Substance Use Topics Alcohol use: Not Currently Alcohol/week: 2.6 standard drinks of alcohol Types: 2 Mixed Drinks per week Comment: 2 a week Drug use: No FAMILY HISTORY Problem Relation Age of Onset Alzheimer's Disease Mother Diabetes Father Hypertension Father Cancer Father ? primary site. Blood Clots No Family History No DVT or PE. PAST SURGICAL HISTORY Procedure Laterality Date COLONOSCOPY 01/24/2023 repeat 5 years COLONOSCOPY FLX DX W/COLLJ SPEC WHEN PFRMD 01/20/2012 ` COLONOSCOPY FLX DX W/COLLJ SPEC WHEN PFRMD 03/27/2017 5 yrs repeat CYSTOURETHROSCOPY 05/21/2014 LAPAROSCOPIC APPENDECTOMY 09/06/2008 LIGJ DIVJ &/EXCJ VARICOSE VEIN CLUSTER 1 LEG 2002 Varicose Vein Surgery left leg NOSE SURGERY HX Bilateral done by PAST SURGICAL HISTORY OF 11/01/2010 Bone spur rotator cuff right shoulder. PAST SURGICAL HISTORY OF 2006 bone spur removed from right nares PMH, Social history, family history and surgical history reviewed and updated in EMR REVIEW OF SYSTEMS: CONSTITUTIONAL: No fevers, chills, nightsweats, unintended weight loss HEENT: Denies nasal congestion/sinus symptoms CARDIOVASCULAR: No chest pain, palpitations, orthopnea, PND, edema. PULM: See HPI GI: No GERD. NEURO: No balance problems, peripheral weakness/paresthesias or numbness of concern. MUSC-SKEL: No new joint pain, swelling, or erythema. INTEGUMENTARY: No new skin changes PHYSICAL EXAMINATION: BP 112/78 Pulse 86 Resp 15 Wt 213 lb (96.6kg) SpO2 97% General Appearance: Age-appropriate male, NAD. Skin: Skin color, texture, turgor normal, no suspicious rashes or lesions. Few patches of psoriasis Head: Normocephalic, no masses, lesions, tenderness or abnormalities. Eyes: Sclera, conjunctiva normal. Oropharynx: No oral lesions Neck: No masses or adenopathy. Lungs: Not labored, normal to percussion, faint basilar crackles. Heart: Regular rate and rhythm, no murmurs. Extremities: No edema or clubbing. Musculoskeletal: No joint deformities. Assessment/Plan: 1. ILD -IPF versus RB ILD from smoking versus occupational induced fibrosis -Tend to favor early IPF. Continue to monitor fibrotic changes via lung cancer screening CT chest -Pulmonary function test at next visit - May need antifibrotic therapy 2. Former cigarette smoker - Former smoker without sequelae of significant COPD - Continue abstinence Sheree Magallon MD [facility] [place] documented in this encounter [facility] 08-19-2024 Note HNO ID: [id number] Author: SHEREE MAGALLON MD Service: ? Author Type: Physician Type: Progress Notes Filed: 08/19/2024 17:12 Note Text: . [facility] [place] Note Patient name: Royal Garcia PCP: Genie Coto MD CC: Follow-up pulmonary fibrosis HPI: Royal Garcia 59 year old male former 66 pack year smoker, quitting 2018 with PMH significant for HTN, psoriasis, h/o PE, MELODY not using CPAP, ILD (occupational versus IPF versus RB ILD), lung nodules. Autoimmune serologies negative. At [facility] with PA-C, PFTs actually improved. Participating in lung cancer screening so ILD changes can be monitored. No obvious progression of disease. He is scheduled for his yearly low-dose CT in December. From a respiratory standpoint, he remains about the same. He notes dyspnea with exertion, especially climbing stairs. Rare cough. No wheezing or chest tightness. He has not been ill with any upper respiratory infections nor required hospitalization. He has not required inhaler therapy as he mainly has restriction and no obstruction. DATA: PFT 01/2024: Pulmonary function test show mild restriction with reduction in diffusing capacity that corrects for alveolar volume Imaging / Diagnostic Studies DATE OF EXAM: Dec 15 2023 8:51AM [facility] 0562 - CT LUNG SCREEN WO IVCON / COMPARISON: Prior lung screen dated 12/02/2022 RESULT: Are nodules present? Yes, 1-5 nodules Lung nodule comments: 5 mm (upper lobe nodule (70) unchanged. 4 mm right fissural nodule (161) unchanged. Other findings: Moderate coronary calcifications. Several borderline mediastinal lymph nodes unchanged. Degenerative changes of the thoracic spine. Minimal endotracheal mucus secretions with otherwise patent central airways, bronchial thickening, lower lobe predominant bronchiectasis and subpleural reticulation presumably smoking-related interstitial lung disease. Minimal upper lobe emphysema. Review of CT shows peripheral reticulations without overt honeycombing PAST MEDICAL HISTORY Diagnosis Date Arthritis Benign neoplasm of colon Benign neoplasm of rectum and anal canal Coronary artery calcification seen on CT scan 03/30/2023 Depression 04/02/2015 Diarrhea Insomnia Obstructive sleep apnea DME [facility] [place] Other psoriasis Primary hypertension 03/30/2023 Pulmonary embolism (HCC) ALLERGIES Allergen Reactions Lisinopril Cough Pramipexole 1.5 mg Tb24 Take 1 tablet by mouth daily with dinner. eszopiclone (LUNESTA) 2 mg Take 1 tablet by mouth at bedtime as needed (insomnia) for up to 90 days. atorvastatin (LIPITOR) 10 mg tablet Take 1 tablet by mouth daily at bedtime. For cholesterol. trospium (SANCTURA) 20 mg tablet TAKE 1 TABLET BY MOUTH TWICE A DAY propranolol (INDERAL) 10 mg tablet Take 1 tablet by mouth two times a day. traZODone (DESYREL) 100 mg tablet Take 2 tablets by mouth daily at bedtime. aspirin, enteric coated (ECOTRIN LOW STRENGTH) 81 mg EC tablet Take 1 tablet by mouth once daily. vitamin E mixed 1,000 unit cap Take 2,000 Units by mouth. ustekinumab (STELARA) 45 mg/0.5 mL sub-Q syringe Inject subcutaneously. Every 3 months. (Dr. Sanchez) DULoxetine (CYMBALTA) 60 mg capsule Take 1 capsule by mouth once daily. gabapentin (NEURONTIN) 100 mg capsule Take 100 mg by mouth as needed. (Patient not taking: Reported on 05/14/2024) rivaroxaban (XARELTO) 20 mg tablet Take 20 mg by mouth once daily. (Patient not taking: Reported on 05/14/2024) rivaroxaban (XARELTO) 15 mg tablet Take 15 mg by mouth once daily. (Patient not taking: Reported on 05/14/2024) multivit with minerals/lutein (MULTIVITAMIN 50 PLUS ORAL) Take by mouth once daily. Social History Tobacco Use Smoking status: Former Current packs/day: 0.00 Average packs/day: 2.0 packs/day for 33.2 years (66.4 ttl pk-yrs) Types: Cigarettes Start date: 1984 Quit date: 08/29/2017 Years since quittin.9 Smokeless tobacco: Never Vaping Use Vaping status: Never Used Substance Use Topics Alcohol use: Not Currently Alcohol/week: 2.6 standard drinks of alcohol Types: 2 Mixed Drinks per week Comment: 2 a week Drug use: No FAMILY HISTORY Problem Relation Age of Onset Alzheimer's Disease Mother Diabetes Father Hypertension Father Cancer Father ? primary site. Blood Clots No Family History No DVT or PE. PAST SURGICAL HISTORY Procedure Laterality Date COLONOSCOPY 01/24/2023 repeat 5 years COLONOSCOPY FLX DX W/COLLJ SPEC WHEN PFRMD 01/20/2012 ` COLONOSCOPY FLX DX W/COLLJ SPEC WHEN PFRMD 03/27/2017 5 yrs repeat CYSTOURETHROSCOPY 05/21/2014 LAPAROSCOPIC APPENDECTOMY 09/06/2008 LIGJ DIVJ AND/EXCJ VARICOSE VEIN CLUSTER 1 LEG 2002 Varicose Vein Surgery left leg NOSE SURGERY HX Bilateral done by PAST SURGICAL HISTORY OF 11/01/2010 Bone spur rotator cuff right shoulder. PAST SURGICAL HISTORY OF 2006 bone spur removed from right nares PMH, (more content not included)... [facility] 08-09-2024 Telephone encounter Note Prescription Refill Information The patient has been identified by name and date of : Yes Caregiver verified no other encounters exist for this prescription request: Yes Caregiver confirmed with patient/requestor that no other refills are due, in the near future, with this provider at this time: Yes The last office visit in the department: 05/14/24 Does the patient have a future office visit with this provider/department: Yes 08/30/24 Requested Prescriptions Pending Prescriptions Disp Refills Pramipexole 1.5 mg Tb24 90 tablet 1 Sig: Take 1 tablet by mouth daily with dinner. Amirah Gamez LPN August 09, 2024 8:45 AM [facility] 08-09-2024 Miscellaneous Notes Prescription Refill Information The patient has been identified by name and date of : Yes Caregiver verified no other encounters exist for this prescription request: Yes Caregiver confirmed with patient/requestor that no other refills are due, in the near future, with this provider at this time: Yes The last office visit in the department: 05/14/24 Does the patient have a future office visit with this provider/department: Yes 08/30/24 Requested Prescriptions Pending Prescriptions Disp Refills Pramipexole 1.5 mg Tb24 90 tablet 1 Sig: Take 1 tablet by mouth daily with dinner. Amirah Gamez LPN August 09, 2024 8:45 AM documented in this encounter [facility] 06-25-2024 Note Patient Outreach (IN [facility]) ROYAL GARCIA ([id number]) 1965 M Date Time Provider Department 06/25/24 GENIE COTO During your visit today, we recorded the following information about you: Allergies As of Date: 06/25/2024 Noted Allergy Reaction LISINOPRIL 08/20/2018 3 - Cough Date Reviewed: 05/14/2024 Reviewed by: Margoth Can LPN - Fully Assessed Visit Diagnoses:Primary hypertension [I10] Medication management [Z79.899] Order(s):BASIC METABOLIC PANEL [SQBMP] Order #: [id number] FUTURE COMPLETE BLOOD COUNT [SQCBC] Order #: [id number] FUTURE Prescriptions as of 06/28/2024 - eszopiclone (LUNESTA) 2 mg Take 1 tablet by mouth at bedtime as needed (insomnia) for up to 90 days. - atorvastatin (LIPITOR) 10 mg tablet Take 1 tablet by mouth daily at bedtime. For cholesterol. - DULoxetine (CYMBALTA) 60 mg capsule Take 1 capsule by mouth once daily. - Pramipexole 1.5 mg Tb24 TAKE 1 TABLET BY MOUTH EVERY DAY WITH DINNER - trospium (SANCTURA) 20 mg tablet TAKE 1 TABLET BY MOUTH TWICE A DAY - propranolol (INDERAL) 10 mg tablet Take 1 tablet by mouth two times a day. - traZODone (DESYREL) 100 mg tablet Take 2 tablets by mouth daily at bedtime. - gabapentin (NEURONTIN) 100 mg capsule Take 100 mg by mouth as needed. - rivaroxaban (XARELTO) 20 mg tablet Take 20 mg by mouth once daily. - rivaroxaban (XARELTO) 15 mg tablet Take 15 mg by mouth once daily. - aspirin, enteric coated (ECOTRIN LOW STRENGTH) 81 mg EC tablet Take 1 tablet by mouth once daily. - multivit with minerals/lutein (MULTIVITAMIN 50 PLUS ORAL) Take by mouth once daily. - vitamin E mixed 1,000 unit cap Take 2,000 Units by mouth. - ustekinumab (STELARA) 45 mg/0.5 mL sub-Q syringe Inject subcutaneously. Every 3 months. (Dr. Sanchez) Problem List As Of Date 06/25/2024 Noted Resolved Tobacco use disorder [F17.200] 05/01/2018 VIRAL WARTS NOS [B07.9] 08/27/2007 Acute Appendicitis without Mention of Peritonit*09/10/2008 01/01/2009 Psoriasis [L40.9] 04/14/2009 Insomnia [G47.00] 08/30/2010 Rotator cuff tear [M75.100] 09/21/2010 MELODY (obstructive sleep apnea) [G47.33] 06/08/2011 Sinusitis [J32.9] 06/08/2011 Diarrhea [R19.7] 01/20/2012 10/13/2022 Benign neoplasm of rectum and anal canal [D12.8*01/20/2012 Benign neoplasm of colon [D12.6] 01/20/2012 Impotence [N52.9] 05/14/2014 Urethral stricture [N35.919] 05/14/2014 Lower urinary tract symptoms (LUTS) [R39.9] 05/14/2014 Chronic rhinitis [J31.0] 07/03/2014 BPH (benign prostatic hyperplasia) [N40.0] 08/26/2014 Depression [F32.A] 04/02/2015 Depression, major, single episode, mild (HCC) [*01/13/2016 10/13/2022 RLS (restless legs syndrome), provisional [G25.*10/25/2017 Iron deficiency concern [E61.1] 10/25/2017 01/23/2018 Acute saddle pulmonary embolism without acute c*07/05/2018 Fatty liver [K76.0] 01/17/2020 Coronary artery calcification seen on CT scan [*03/30/2023 Primary hypertension [I10] 03/30/2023 Mixed hyperlipidemia [E78.2] 03/30/2023 Pulmonary fibrosis (HCC) [J84.10] 02/05/2024 Multiple lung nodules [R91.8] 02/05/2024 Encounter Status:Closed by [employer], PRODUSER on 06/28/24 [facility] 06-05-2024 Telephone encounter Note Left VM and MCM to schedule with oral surgery. [facility] 06-05-2024 Miscellaneous Notes Left VM and MCM to schedule with oral surgery. documented in this encounter [facility] 06-05-2024 Telephone encounter Note PDMP website checked and validated. All prescriptions have been APPROPRIATELY filled. No suspicious activity was identified. 06/05/2024 by Mayuri Dexter APRN.CNP [facility] 06-05-2024 Miscellaneous Notes PDMP website checked and validated. All prescriptions have been APPROPRIATELY filled. No suspicious activity was identified. 06/05/2024 by Mayuri Dexter APRN.EXHIBITION ORGANISER ESTELA: 05/14/24 with PCP NOV: 06/07/24 with PCP Last refill: 12/06/23 With 14 and 1 refills Latoya Tovar MA documented in this encounter [facility] 06-05-2024 Telephone encounter Note ESTELA: 05/14/24 with PCP NOV: 06/07/24 with PCP Last refill: 12/06/23 With 14 and 1 refills Latoya Tovar MA [facility] 05-14-2024 Note HNO ID: [id number] Author: GENIE COTO MD Service: ? Author Type: Physician Type: Progress Notes Filed: 05/14/2024 18:48 Note Text: Reason for Visit Patient presents with: Recheck: Lump on tongue for about a couple weeks Royal Garcia is a 58 year old male who presents here today for CPE. Health Maintenance Anxiety Screening Covid-19 Vaccine( season) JESUS Duarte is a very pleasant 58-year-old gentleman with a history of pulmonary embolism, CAD, primary hypertension, mixed hyperlipidemia, MELODY, LUTS, depression, BPH impotence, restless leg syndrome, neurogenic bladder insomnia. For the last month the patient noticed a mass in his tongue. He did not reported or seen thing about it. It started bleeding a week ago his noticed it and they have come here to make the appointment. He is not ex-smoker. Does not and never chewed tobacco. Does not have fever chills weight loss or change in appetite. All his habits at the same. No change in bowel movements. No problem-specific Assessment AND Plan notes found for this encounter. PAST MEDICAL HISTORY Diagnosis Date Arthritis Benign neoplasm of colon Benign neoplasm of rectum and anal canal Coronary artery calcification seen on CT scan 03/30/2023 Depression 04/02/2015 Diarrhea Insomnia Obstructive sleep apnea DME [facility] [place] Other psoriasis Primary hypertension 03/30/2023 Pulmonary embolism (HCC) PAST SURGICAL HISTORY Procedure Laterality Date COLONOSCOPY 01/24/2023 repeat 5 years COLONOSCOPY FLX DX W/COLLJ SPEC WHEN PFRMD 01/20/2012 ` COLONOSCOPY FLX DX W/COLLJ SPEC WHEN PFRMD 03/27/2017 5 yrs repeat CYSTOURETHROSCOPY 05/21/2014 LAPAROSCOPIC APPENDECTOMY 09/06/2008 LIGJ DIVJ AND/EXCJ VARICOSE VEIN CLUSTER 1 LEG 2002 Varicose Vein Surgery left leg NOSE SURGERY HX Bilateral done by PAST SURGICAL HISTORY OF 11/01/2010 Bone spur rotator cuff right shoulder. PAST SURGICAL HISTORY OF 2006 bone spur removed from right nares FAMILY HISTORY Problem Relation Age of Onset Alzheimer's Disease Mother Diabetes Father Hypertension Father Cancer Father ? primary site. Blood Clots No Family History No DVT or PE. Social History Tobacco Use Smoking status: Former Current packs/day: 0.00 Average packs/day: 2.0 packs/day for 33.2 years (66.4 ttl pk-yrs) Types: Cigarettes Start date: 1984 Quit date: 08/29/2017 Years since quittin.7 Smokeless tobacco: Never Vaping Use Vaping status: Never Used Substance Use Topics Alcohol use: Not Currently Alcohol/week: 2.6 standard drinks of alcohol Types: 2 Mixed Drinks per week Comment: 2 a week Drug use: No Past medical history, appointments, medications, allergies reviewed. Pertinent Lab/Diagnostic Studies are reviewed and discussed today Current Outpatient Medications: atorvastatin (LIPITOR) 10 mg tablet DULoxetine (CYMBALTA) 60 mg capsule Pramipexole 1.5 mg Tb24 busPIRone (BUSPAR) 10 mg tablet trospium (SANCTURA) 20 mg tablet propranolol (INDERAL) 10 mg tablet traZODone (DESYREL) 100 mg tablet aspirin, enteric coated (ECOTRIN LOW STRENGTH) 81 mg EC tablet multivit with minerals/lutein (MULTIVITAMIN 50 PLUS ORAL) vitamin E mixed 1,000 unit cap ustekinumab (STELARA) 45 mg/0.5 mL sub-Q syringe gabapentin (NEURONTIN) 100 mg capsule rivaroxaban (XARELTO) 20 mg tablet rivaroxaban (XARELTO) 15 mg tablet Review of Systems CONSTITUTIONAL: No fevers, chills, nightsweats, unintended weight loss HEENT: Denies frequent or severe heaches, nasal congestion/sinus symptoms, problematic allergy problems. EYES: No diplopia or blurry vision. CARDIOVASCULAR: No chest pain, dyspnea, palpitations, orthopnea, PND, ankle edema. PULM: No dyspnea, unexplained cough. GI: No dysphagia/odynophagia, problematic reflux, constipation, diarrhea, changes in stool habits, hematochezia, melena. : No new urinary complaints, including dysuria, gross hematuria or pyuria. NEURO: No new balance problems, peripheral weakness/paresthesias or numbness of concern. MUSC-SKEL: No new joint pain, swelling, or erythema. PSY: No concerns regarding depression, anxiety or panic. INTEGUMENTARY: No new skin changes (rash, new or changing mole, new growth) Physical Exam BP 142/90 (BP Site: Left Arm) Pulse 68 Ht 182.9 cm (6') Wt 98.7 kg (217 lb 9.6 oz) SpO2 97% BMI 29.51 kg/m? General appearance: Well appearing, alert, in no acute distress, well-hydrated, well nourished. Skin: Skin color, texture, turgor normal, no suspicious rashes or lesions Head: Normocephalic, no masses, lesions, tenderness or abnormalities Eyes: Anicteric sclera. Pupils are equally round and reactive to light. Extraocular movements are intact. Ears: External ears normal, canals clear Oropharynx: The patient has a mass in the center of his tongue which is protruding. It is around 1 cm in longitudinal diameter and seems overall. Th (more content not included)... [facility] 05-14-2024 History of Present illness Narrative Reason for Visit Patient presents with: Recheck: Lump on tongue for about a couple weeks Royal Garcia is a 58 year old male who presents here today for CPE. Health Maintenance Anxiety Screening Covid-19 Vaccine( season) JESUS Duarte is a very pleasant 58-year-old gentleman with a history of pulmonary embolism, CAD, primary hypertension, mixed hyperlipidemia, MELODY, LUTS, depression, BPH impotence, restless leg syndrome, neurogenic bladder insomnia. For the last month the patient noticed a mass in his tongue. He did not reported or seen thing about it. It started bleeding a week ago his noticed it and they have come here to make the appointment. He is not ex-smoker. Does not and never chewed tobacco. Does not have fever chills weight loss or change in appetite. All his habits at the same. No change in bowel movements. No problem-specific Assessment & Plan notes found for this encounter. PAST MEDICAL HISTORY Diagnosis Date Arthritis Benign neoplasm of colon Benign neoplasm of rectum and anal canal Coronary artery calcification seen on CT scan 03/30/2023 Depression 04/02/2015 Diarrhea Insomnia Obstructive sleep apnea DME [facility] [place] Other psoriasis Primary hypertension 03/30/2023 Pulmonary embolism (HCC) PAST SURGICAL HISTORY Procedure Laterality Date COLONOSCOPY 01/24/2023 repeat 5 years COLONOSCOPY FLX DX W/COLLJ SPEC WHEN PFRMD 01/20/2012 ` COLONOSCOPY FLX DX W/COLLJ SPEC WHEN PFRMD 03/27/2017 5 yrs repeat CYSTOURETHROSCOPY 05/21/2014 LAPAROSCOPIC APPENDECTOMY 09/06/2008 LIGJ DIVJ &/EXCJ VARICOSE VEIN CLUSTER 1 LEG 2002 Varicose Vein Surgery left leg NOSE SURGERY HX Bilateral done by PAST SURGICAL HISTORY OF 11/01/2010 Bone spur rotator cuff right shoulder. PAST SURGICAL HISTORY OF 2006 bone spur removed from right nares FAMILY HISTORY Problem Relation Age of Onset Alzheimer's Disease Mother Diabetes Father Hypertension Father Cancer Father ? primary site. Blood Clots No Family History No DVT or PE. Social History Tobacco Use Smoking status: Former Current packs/day: 0.00 Average packs/day: 2.0 packs/day for 33.2 years (66.4 ttl pk-yrs) Types: Cigarettes Start date: 1984 Quit date: 08/29/2017 Years since quittin.7 Smokeless tobacco: Never Vaping Use Vaping status: Never Used Substance Use Topics Alcohol use: Not Currently Alcohol/week: 2.6 standard drinks of alcohol Types: 2 Mixed Drinks per week Comment: 2 a week Drug use: No Past medical history, appointments, medications, allergies reviewed. Pertinent Lab/Diagnostic Studies are reviewed and discussed today Current Outpatient Medications: atorvastatin (LIPITOR) 10 mg tablet DULoxetine (CYMBALTA) 60 mg capsule Pramipexole 1.5 mg Tb24 busPIRone (BUSPAR) 10 mg tablet trospium (SANCTURA) 20 mg tablet propranolol (INDERAL) 10 mg tablet traZODone (DESYREL) 100 mg tablet aspirin, enteric coated (ECOTRIN LOW STRENGTH) 81 mg EC tablet multivit with minerals/lutein (MULTIVITAMIN 50 PLUS ORAL) vitamin E mixed 1,000 unit cap ustekinumab (STELARA) 45 mg/0.5 mL sub-Q syringe gabapentin (NEURONTIN) 100 mg capsule rivaroxaban (XARELTO) 20 mg tablet rivaroxaban (XARELTO) 15 mg tablet Review of Systems CONSTITUTIONAL: No fevers, chills, nightsweats, unintended weight loss HEENT: Denies frequent or severe heaches, nasal congestion/sinus symptoms, problematic allergy problems. EYES: No diplopia or blurry vision. CARDIOVASCULAR: No chest pain, dyspnea, palpitations, orthopnea, PND, ankle edema. PULM: No dyspnea, unexplained cough. GI: No dysphagia/odynophagia, problematic reflux, constipation, diarrhea, changes in stool habits, hematochezia, melena. : No new urinary complaints, including dysuria, gross hematuria or pyuria. NEURO: No new balance problems, peripheral weakness/paresthesias or numbness of concern. MUSC-SKEL: No new joint pain, swelling, or erythema. PSY: No concerns regarding depression, anxiety or panic. INTEGUMENTARY: No new skin changes (rash, new or changing mole, new growth) Physical Exam BP 142/90 (BP Site: Left Arm) Pulse 68 Ht 182.9 cm (6') Wt 98.7 kg (217 lb 9.6 oz) SpO2 97% BMI 29.51 kg/m General appearance: Well appearing, alert, in no acute distress, well-hydrated, well nourished. Skin: Skin color, texture, turgor normal, no suspicious rashes or lesions Head: Normocephalic, no masses, lesions, tenderness or abnormalities Eyes: Anicteric sclera. Pupils are equally round and reactive to light. Extraocular movements are intact. Ears: External ears normal, canals clear Oropharynx: The patient has a mass in the center of his tongue which is protruding. It is around 1 cm in longitudinal diameter and seems overall. There is an area that has a different change in the skin. Lungs: Normal respiratory effort ASSESSMENT/PLAN: 1. Tongue lesion - ICD9: 529.8, ICD10: K14.8 Refer patient to oral surgery, lesion on the tongue is suspicious. - CONSULT TO DENTISTRY Genie Coto MD documented in this encounter [facility] 05-11-2024 Telephone encounter Note reports patient showed her last night, he has a lump on his tongue, approx size of marble. Reports it bleeds a lot but he is able to stop the bleed. Reports patient is at work today. Reports patient has an appt with ENT on Monday @ 3;45. Scheduled appt with pcp on . [facility] 05-11-2024 Miscellaneous Notes reports patient showed her last night, he has a lump on his tongue, approx size of marble. Reports it bleeds a lot but he is able to stop the bleed. Reports patient is at work today. Reports patient has an appt with ENT on Monday @ 3;45. Scheduled appt with pcp on . documented in this encounter [facility] 03-25-2024 Telephone encounter Note Patient MyChart message requesting the following refill Refill(s) Requested: Requested Prescriptions Pending Prescriptions Disp Refills atorvastatin (LIPITOR) 10 mg tablet 30 tablet 5 Sig: Take 1 tablet by mouth daily at bedtime. For cholesterol. ALLERGIES Allergen Reactions Lisinopril Cough (home) [phone] (work) [phone] (cell) Last Office Visit Date: 12/06/2023 Last Distance Health Visit: Visit date not found Future Appointment: 06/07/2024 The patients preferred pharmacy has been captured for this encounter? yes Request is for script(s) to be escript to pharmacy. Margoth Can LPN [facility] 03-25-2024 Miscellaneous Notes Patient MyChart message requesting the following refill Refill(s) Requested: Requested Prescriptions Pending Prescriptions Disp Refills atorvastatin (LIPITOR) 10 mg tablet 30 tablet 5 Sig: Take 1 tablet by mouth daily at bedtime. For cholesterol. ALLERGIES Allergen Reactions Lisinopril Cough (home) [phone] (work) [phone] (cell) Last Office Visit Date: 12/06/2023 Last Distance Health Visit: Visit date not found Future Appointment: 06/07/2024 The patients preferred pharmacy has been captured for this encounter? yes Request is for script(s) to be escript to pharmacy. Margoth Can LPN documented in this encounter [facility] 02-19-2024 History of Present illness Narrative Radiology Service Progress Note PATIENT NAME: Royal Garcia DATE OF SERVICE: February 19, 2024 TIME: 4:03 PM PATIENT IDENTITY VERIFICATION COMPLETED USING TWO (2) IDENTIFIERS: Name and Date of confirmed by patient verbally. FALL SCREENING: Has the patient had 2 falls in the last year or 1 fall with injury or currently using an Ambulatory Assistive Device (Walker, Cane, Wheelchair, Crutches, etc.)? No PATIENT GENDER DATA: Male PATIENT RELEVANT IMPLANT DATA REVIEWED: Yes PATIENT PRESENTS WITH AN IMPLANTABLE OR ATTACHED CORRECTIONS COUNSELOR: No RADIOLOGY DEPARTMENT: General X-ray: Exam(s) Completed: Upper Extremity X-Ray(s): Wrist, left PERIPHERAL IV DATA: Not applicable SIGNED BY: RT Asad(R) February 19, 2024 4:03 PM documented in this encounter [facility] 02-19-2024 Note HNO ID: [id number] Author: ZAKIA MARIE RT(R) Service: ? Author Type: Crime Lab Technician Type: Progress Notes Filed: 02/19/2024 16:13 Note Text: Radiology Service Progress Note PATIENT NAME: Royal Garcia DATE OF SERVICE: February 19, 2024 TIME: 4:03 PM PATIENT IDENTITY VERIFICATION COMPLETED USING TWO (2) IDENTIFIERS: Name and Date of confirmed by patient verbally. FALL SCREENING: Has the patient had 2 falls in the last year or 1 fall with injury or currently using an Ambulatory Assistive Device (Walker, Cane, Wheelchair, Crutches, etc.)? No PATIENT GENDER DATA: Male PATIENT RELEVANT IMPLANT DATA REVIEWED: Yes PATIENT PRESENTS WITH AN IMPLANTABLE OR ATTACHED CORRECTIONS COUNSELOR: No RADIOLOGY DEPARTMENT: General X-ray: Exam(s) Completed: Upper Extremity X-Ray(s): Wrist, left PERIPHERAL IV DATA: Not applicable SIGNED BY: RT Asad(Parish) February 19, 2024 4:03 PM [facility] 02-19-2024 Note HNO ID: [id number] Author: IGLESIA LINDSEY APRN.EXHIBITION ORGANISER Service: ? Author Type: Nurse Practitioner Type: Progress Notes Filed: 02/19/2024 16:35 Note Text: This note was created using NoteWriter. Subjective Royal Garcia is a 58 year old male. HPI This morning pt fell down about 13 steps. Denies any LOC. He notes increasing pain in the left wrist. Review of Systems Musculoskeletal: Positive for arthralgias. Neurological: Negative for dizziness, syncope, weakness, numbness and headaches. Objective BP 132/80 Pulse 78 Temp 37 ?C (98.6 ?F) Resp 16 Wt 98 kg (216 lb 0.8 oz) SpO2 99% BMI 29.30 kg/m? Physical Exam Vitals and nursing note reviewed. Constitutional: General: He is not in acute distress. Appearance: Normal appearance. He is not ill-appearing. HENT: Head: Normocephalic. Mouth/Throat: Mouth: Mucous membranes are moist. Eyes: Conjunctiva/sclera: Conjunctivae normal. Neck: Comments: No tenderness over the cervical spine. No pain with full range of motion of neck. Cardiovascular: Rate and Rhythm: Normal rate and regular rhythm. Pulmonary: Effort: Pulmonary effort is normal. Breath sounds: Normal breath sounds. Musculoskeletal: Cervical back: Normal range of motion. Comments: Diffuse tenderness across the left wrist with no obvious swelling or deformities noted. No tenderness throughout the rest of the left arm. Full range of motion of right arm. No clavicular tenderness bilaterally. Skin: General: Skin is warm and dry. Neurological: General: No focal deficit present. Mental Status: He is alert. Psychiatric: Mood and Affect: Mood normal. Behavior: Behavior normal. Assessment and Plan ASSESSMENT/PLAN: 1. Left wrist pain - ICD9: 719.43, ICD10: M25.532 X-ray of left wrist was ordered and pending read at the end of my shift. Patient will be treated according to x-ray results. -X-ray of the left wrist was nonspecific with findings as noted below. Patient was offered a brace here but patient will use an [id number] wrist brace for support and if symptoms are not improving in the next 5 to 7 days will follow-up with PCP. Small calcific density along the dorsal aspect of the distal radius which may reflect the sequela of age indeterminant trauma. Correlate with physical examination for possible point tenderness in this region. - XR WRIST INJURY 4V PA/LAT/OBL/SCAPH LEFT Iglesia Lindsey APRN.OCTAVIA [facility] 02-19-2024 History of Present illness Narrative This note was created using NoteWriter. Subjective Royal Garcia is a 58 year old male. HPI This morning pt fell down about 13 steps. Denies any LOC. He notes increasing pain in the left wrist. Review of Systems Musculoskeletal: Positive for arthralgias. Neurological: Negative for dizziness, syncope, weakness, numbness and headaches. Objective BP 132/80 Pulse 78 Temp 37 C (98.6 F) Resp 16 Wt 98 kg (216 lb 0.8 oz) SpO2 99% BMI 29.30 kg/m Physical Exam Vitals and nursing note reviewed. Constitutional: General: He is not in acute distress. Appearance: Normal appearance. He is not ill-appearing. HENT: Head: Normocephalic. Mouth/Throat: Mouth: Mucous membranes are moist. Eyes: Conjunctiva/sclera: Conjunctivae normal. Neck: Comments: No tenderness over the cervical spine. No pain with full range of motion of neck. Cardiovascular: Rate and Rhythm: Normal rate and regular rhythm. Pulmonary: Effort: Pulmonary effort is normal. Breath sounds: Normal breath sounds. Musculoskeletal: Cervical back: Normal range of motion. Comments: Diffuse tenderness across the left wrist with no obvious swelling or deformities noted. No tenderness throughout the rest of the left arm. Full range of motion of right arm. No clavicular tenderness bilaterally. Skin: General: Skin is warm and dry. Neurological: General: No focal deficit present. Mental Status: He is alert. Psychiatric: Mood and Affect: Mood normal. Behavior: Behavior normal. Assessment and Plan ASSESSMENT/PLAN: 1. Left wrist pain - ICD9: 719.43, ICD10: M25.532 X-ray of left wrist was ordered and pending read at the end of my shift. Patient will be treated according to x-ray results. -X-ray of the left wrist was nonspecific with findings as noted below. Patient was offered a brace here but patient will use an [id number] wrist brace for support and if symptoms are not improving in the next 5 to 7 days will follow-up with PCP. Small calcific density along the dorsal aspect of the distal radius which may reflect the sequela of age indeterminant trauma. Correlate with physical examination for possible point tenderness in this region. - XR WRIST INJURY 4V PA/LAT/OBL/SCAPH LEFT Iglesia RODDY Lindsey.EXHIBITION ORGANISER documented in this encounter [facility] 02-07-2024 Procedure note Associated Ord er(s): OXIMETRY WITH AMBULATION RESPIRATORY THERAPY OXIMETRY WITH AMBULATION Oximetry with Ambulation Test for This Encounter O2 Device O2 Adapter NC O2 Flow SpO2% HR Activity Ft Walked (ft) Time (min) Avg Speed (MPH) R/A 97 69 Resting R/A 93 89 Walking, usual pace 635 3 2.41 R/A 91 96 Walking, fastest pace 795 3 3.01 General Information Pulse Oximetry Site Total Time Spent Walking Assistance/O2 Supply Carrier R Index Finger 30 None NAME: ED Meraz PATIENT NAME: Royal Garcia DATE: February 07, 2024 TIME: 3:04 PM Comment: [facility] 02-07-2024 Procedure note Associated Ord er(s): OXIMETRY WITH AMBULATION RESPIRATORY THERAPY OXIMETRY WITH AMBULATION Oximetry with Ambulation Test for This Encounter O2 Device O2 Adapter NC O2 Flow SpO2% HR Activity Ft Walked (ft) Time (min) Avg Speed (MPH) R/A 97 69 Resting R/A 93 89 Walking, usual pace 635 3 2.41 R/A 91 96 Walking, fastest pace 795 3 3.01 General Information Pulse Oximetry Site Total Time Spent Walking Assistance/O2 Supply Carrier R Index Finger 30 None NAME: ED Meraz PATIENT NAME: Royal Garcia DATE: February 07, 2024 TIME: 3:04 PM Comment: documented in this encounter [facility] 02-07-2024 History of Present illness Narrative PULM FUNCTION: Provider: Sophy Stein PA-C Assisting Tech: Augie Lackey RPFT Oximetry - Ambulation: 1 documented in this encounter [facility] 02-07-2024 Nurse Note Intake information documented in the prior visit with ED Meraz today. [facility] 02-07-2024 Nurse Note Intake information documented in the prior visit with ED Meraz today. documented in this encounter [facility] 02-07-2024 History of Present illness Narrative PULM FUNCTION: Provider: Sheree Magallon MD Assisting Tech: Augie Lackey RPFT Spirometry: 1 DLCO: 1 LV - Box: 1 documented in this encounter [facility] 02-07-2024 History of Present illness Narrative Images from the original note were not included. Patient: Royal Garcia PCP: Genie Coto MD CC: follow up HPI: Royal Garcia 58 year old male former 66 pack year smoker, quitting in 2018 with PMH significant for psoriasis, HTN, h/o PE (thrombophilia work up negative), MELODY not using CPAP and ILD. Last office visit 07/31/2023. Today, patient reports daily cough, non-productive. No hemoptysis. No wheezing. Exertional dyspnea with climbing stairs and going up a ladder. No fevers, chills, or night sweats. No unintended weight loss. No lower extremity edema. No GERD/heartburn. No recent hospitalizations or ED visits or upper respiratory infections. 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 PAST MEDICAL HISTORY Diagnosis Date Arthritis Benign neoplasm of colon Benign neoplasm of rectum and anal canal Coronary artery calcification seen on CT scan 03/30/2023 Depression 04/02/2015 Diarrhea Insomnia Obstructive sleep apnea DME [employer] [place] Other psoriasis Primary hypertension 03/30/2023 Pulmonary embolism (HCC) Allergies: Lisinopril Cough DULoxetine (CYMBALTA) 60 mg capsule Take 1 capsule by mouth once daily. eszopiclone (LUNESTA) 2 mg Take 1 tablet by mouth at bedtime as needed (insomnia) for up to 90 days. Pramipexole 1.5 mg Tb24 TAKE 1 TABLET BY MOUTH EVERY DAY WITH DINNER busPIRone (BUSPAR) 10 mg tablet TAKE 1 TABLET BY MOUTH THREE TIMES A DAY trospium (SANCTURA) 20 mg tablet TAKE 1 TABLET BY MOUTH TWICE A DAY propranolol (INDERAL) 10 mg tablet Take 1 tablet by mouth two times a day. traZODone (DESYREL) 100 mg tablet Take 2 tablets by mouth daily at bedtime. gabapentin (NEURONTIN) 100 mg capsule Take 100 mg by mouth as needed. (Patient not taking: Reported on 02/05/2024) rivaroxaban (XARELTO) 20 mg tablet Take 20 mg by mouth once daily. rivaroxaban (XARELTO) 15 mg tablet Take 15 mg by mouth once daily. atorvastatin (LIPITOR) 10 mg tablet Take 1 tablet by mouth daily at bedtime. For cholesterol. aspirin, enteric coated (ECOTRIN LOW STRENGTH) 81 mg EC tablet Take 1 tablet by mouth once daily. multivit with minerals/lutein (MULTIVITAMIN 50 PLUS ORAL) Take by mouth. vitamin E mixed 1,000 unit cap Take 2,000 Units by mouth. ustekinumab (STELARA) 45 mg/0.5 mL sub-Q syringe Inject subcutaneously. Every 3 months. (Dr. Sanchez) Social History Tobacco Use Smoking status: Former Current packs/day: 0.00 Average packs/day: 2.0 packs/day for 33.2 years (66.4 ttl pk-yrs) Types: Cigarettes Start date: 1984 Quit date: 08/29/2017 Years since quittin.4 Smokeless tobacco: Never Vaping Use Vaping status: Never Used Substance Use Topics Alcohol use: Not Currently Alcohol/week: 2.6 standard drinks of alcohol Types: 2 Mixed Drinks per week Comment: 2 a week Drug use: No Family History Problem Relation Age of Onset Alzheimer's Disease Mother Diabetes Father Hypertension Father Cancer Father ? primary site. Blood Clots No Family History No DVT or PE. PAST SURGICAL HISTORY Procedure Laterality Date COLONOSCOPY 01/24/2023 repeat 5 years COLONOSCOPY FLX DX W/COLLJ SPEC WHEN PFRMD 01/20/2012 ` COLONOSCOPY FLX DX W/COLLJ SPEC WHEN PFRMD 03/27/2017 5 yrs repeat CYSTOURETHROSCOPY 05/21/2014 LAPAROSCOPIC APPENDECTOMY 09/06/2008 LIGJ DIVJ &/EXCJ VARICOSE VEIN CLUSTER 1 LEG 2002 Varicose Vein Surgery left leg NOSE SURGERY HX Bilateral done by PAST SURGICAL HISTORY OF 11/01/2010 Bone spur rotator cuff right shoulder. PAST SURGICAL HISTORY OF 2006 bone spur removed from right nares I reviewed the past medical history, family history, social history and surgical history with changes noted above and updated in EMR. IMMUNIZATIONS Immunization History Administered Date(s) Administered COVID-19 original vaccine, age 12+ yr, monovalent ([employer] - PURPLE TOP) 03/29/2021 COVID-19 original vaccine, full dose, monovalent (MODERNA) 06/25/2020 07/23/2020 influenza (IIV3) vaccine, age 6 mo - 64 yr, trivalent (AFLURIA, FLULAVAL, FLUVIRIN, FLUZONE) 02/05/2014 12/02/2019 influenza (IIV4) vaccine, age 6 mo - 64 yr, quadrivalent (AFLURIA, FLULAVAL, FLUZONE) 03/30/2015 01/22/2018 01/14/2021 12/20/2021 12/19/2022 influenza vaccine, unspecified formulation 02/19/2010 01/02/2012 01/12/2013 pneumococcal conjugate (PCV20) vaccine, 20 valent (PREVNAR 20) 12/06/2023 pneumococcal polysaccharide (PPV23) vaccine, 23 valent (PNEUMOVAX 23) 02/05/2014 02/12/2019 tetanus diphtheria pertussis (Tdap) vaccine, age 7+ yr (ADACEL, BOOSTRIX) 01/02/2012 tuberculin skin test (TST-PPD), purified protein derivative, intradermal 09/28/2009 09/08/2010 zoster (RZV) vaccine, recombinant (SHINGRIX) 11/01/2019 01/22/2020 ROS: All other systems reviewed as negative except for what is noted in HPI and review of systems. PHYSICAL EXAMINATION: BP (P) 114/66 Pulse 69 Resp 14 Ht 182.9 cm (6') Wt 97.1 kg (214 lb) SpO2 96% BMI 29.02 kg/m Gen: No acute distress. Cooperative with examination. HEENT: Normocephalic. Sclera, conjunctiva clear. Oral hygeine and dentition good. Resp: No stridor, accessory respiratory muscle use, supra-sternal or intercostal retractions. No wheezes or rhonchi. Crackles. CV: Regular rythm. Heart tones normal. Radial pulses normal. Ext: Warm and well perfused. No clubbing, cyanosis, edema. Skin: No rash, ecchymoses. Neuro: Mental status normal. Affect normal. No tremor. DATA: Laboratory and Imaging: Oximetry, 02/07/2024 Oximetry with Ambulation Test for This Encounter O2 Device O2 Adapter NC O2 Flow SpO2% HR Activity Ft Walked (ft) Time (min) Avg Speed (MPH) R/A 97 69 Resting R/A 93 89 Walking, usual pace 635 3 2.41 R/A 91 96 Walking, fastest pace 795 3 3.01 PFT, 02/07/2024 LDCT, 12/15/2023 IMPRESSION: LungRADS category: 2 LungRADS modifier: None LungRADS 0 reason: n/a Recommendations: Continue annual screening with LDCT in 12 months. Last XR Chest - Impression Only XR CHEST 2V FRONTAL/LAT Exam End: 04/19/2018 4:36 PM (Final result) Impression: IMPRESSION: Left heart margin is obscured with pleural reaction/atelectasis/infiltrate, in the lingular segment left upper lobe, similar to the previous study from 03/29/2018, not identified on the study prior to that in 2008. Clinical correlation, follow-up additional imaging if clinically needed. ... Latest Ref Rng 08/01/2023 Mago-1 Antibody, IgG 0 - 40 AU/mL 4 Mi-[address] Antibody Negative Negative [address]-12 Antibody Negative Negative P155/140 Antibody Negative Negative EJ Antibody Negative Negative SRP Antibody Negative Negative OJ Antibody Negative Negative SAE1 Antibody Negative Negative MDA5 Antibody Negative Negative NXP-2 Antibody Negative Negative TIF-1 gamma Antibody Negative Negative Polymyositis Interpretation See Note RICHI Negative Positive ! RICHI Titer 1:80 RICHI Pattern Nuclear homogeneous DNA Antibody <=200 IU/mL 29 DNA Antibody Qualitative Interpretation Negative Negative CCP Antibody IgG Qualitative Negative Negative CCP Antibody, IgG <20 Units <15 Sm Antibody Negative Negative Anti-Sm <1.0 AI <0.2 RUBBER PROCESS HAND Antibody QUAL Negative Negative Anti-RUBBER PROCESS HAND <1.0 AI <0.2 SSA Antibody Qual Negative Negative Anti-SSA <1.0 AI <0.2 Anti-SSB <1.0 AI <0.2 SSB Antibody Qual Negative Negative CENTROMERE AB QUAL Negative Negative Centromere Ab <1.0 AI <0.2 Scleroderma Ab Qual Negative Negative Scl-70 Abs, EIA <1.0 AI <0.2 MAGO 1 ANTIBODY QUAL Negative Negative Mago 1 Antibody <1.0 AI <0.2 Ribosomal RUBBER PROCESS HAND Qualitative Negative Negative Ribosomal RUBBER PROCESS HAND Ab <1.0 AI <0.2 Chromatin Ab Qual Negative Negative Chromatin Ab <1.0 AI <0.2 Rheumatoid Factor <16 IU/mL <10 RNA Polymerase III Ab 0 - 19 Units 6 ASSESSMENT/PLAN: 1. Pulmonary fibrosis (HCC) - ICD9: 515, ICD10: J84.10 (primary diagnosis) PFTs improved today when compared to PFTs in 2021. Based on oximetry today, patient is not requiring supplemental oxygen. Autoimmune serologies noted. RICHI elevated, otherwise negative. 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 Will continue to monitor PFTs at least yearly. 2. Former tobacco use - ICD9: V15.82, ICD10: Z87.891 Former cigarette smoker without sequelae of COPD Continue abstinence Patient enrolled in lung cancer screening Portions of this documentation were copied and pasted from previous office visit notes in order to provide a cohesive continuity of the history. The note has been reviewed and edited and updated as necessary. Sophy Stein PA-C documented in this encounter [facility] 02-05-2024 Fifi Jean APRN.EXHIBITION ORGANISER - 02/05/2024 8:16 AM EDT Lung nodule/s: all previously seen nodule/s have not changed in size or characteristic/resolved and there are no new nodules of concern. Please return in one year for the following 2 visits on the same day: Annual low-dose CT chest Lung cancer screening Provider visit. This recommendation is subject to change pending the final report from radiology. I will notify you of the final radiology report recommendations when available by Uni[employer] message, letter, or phone call. We will also notify your referring provider/PCP of the results and recommendations. If you didn t schedule this before you left the office or need to reschedule, you can call in to schedule it anytime: [facility] [phone] [facility] [phone] All other [facility] locations [phone] Feel free to reach out for any questions or concerns, Fifi Paul APRN.CNP Lung Cancer Screening [phone] documented in this encounter [facility] 02-05-2024 History of Present illness Narrative Images from the original note were not included. LUNG SCREENING ANNUAL VISIT PRIMARY CARE PHYSICIAN: Genie Coto MD PULMONARY PROVIDER: Dr. Kelsey Magallon Results will be communicated via letter or electronic record if applicable. Visit Delivery: In Person Patient Visit Type: established Current or Ex-smoker?Ex Exam Type: annual LDCT Number of Pack Years: 66 Current smoker (=0) or Number of Years since Quit: 6 The patient's smoking history is similar to prior year shared decision visit. The reason for the discrepancy is NA Chief Complaint: Established patient in lung cancer screening program here for annual follow-up. Impression / Recommendations Royal Garcia presents for annual lung cancer screening annual exam and nodule evaluation. Plan: Indeterminate pulmonary nodules: Previously identified nodules appear stable and no new nodules of concern were seen on the exam. Low dose CT Scan to be repeated in one year. Nature of the lung nodule(s) and the options for further evaluation discussed in detail with patient. Royal Garcia expressed understanding and is in agreement with plan. 2. Encounter for screening for malignant neoplasm of respiratory organs I have determined that the patient is eligible for continued low dose CT screening based on age, absence of signs or symptoms of lung cancer, smoking history and total pack years. The patient was counseled on the importance of adherence to annual LDCT lung cancer screening, impact of comorbidities and ability or willingness to undergo diagnosis and treatment. The patient understands and feels comfortable with it: Yes. 3. Nicotine Dependence The patient was counseled on the importance of maintaining cigarette smoking abstinence - The patient is committed to remaining abstinent from tobacco. 4. Pulmonary fibrosis Appears similar to previous scans. Patient follows with Dr. Magallon and has upcoming PFT testing. Patient does not feel any worsening of his symptoms. He does admit to some shortness of breath with exertional activities. I spent a total of 30 minutes on the date of the service which included preparing to see the patient, [id number] patient care, completing clinical documentation, performing a medically appropriate examination, counseling and educating the patient/family/caregiver, ordering medications, tests, or procedures, communicating with other HCPs (not separately reported), independently interpreting results (not separately reported), communicating results to the patient/family/caregiver, and care coordination (not separately reported). Fifi Paul APRN.[facility] February 05, 2024 8:03 AM History of Present Illness: Royal Garcia is a 58 year old male who is presenting today for annual lung cancer screening LDCT and nodule surveillance/management. Patient has multiple nodules found on previous lung cancer screening LDCT. Last LDCT was performed on 12/15/2023 and was LUNG RADS Category 2. Previous potentially significant incidental findings on imaging: None. Patient is a former smoker with a 66 pack year history. Patient quit smoking 6 years ago at age 52. Patient will continue to be eligible for lung cancer screening until age 67. The patient does not have any symptoms or signs of lung cancer. Patient denies SOB with their daily activity. SOB with some exertional activities, like climbing a ladder. No wheezing or dyspnea. Patient denies feeling of chest tightness/congestion in the chest. Patient does not have a new or concerning cough, and denies hemoptysis. Patient does not have a chronic daily cough. Denies regular or recent fevers/chills. Patient does not have any significant unintentional weight loss. Patient denies having any respiratory infections or COVID-19 in the past few months. Does not use any maintenance inhaler for COPD. Modified Medical Research [place] Dyspnea Scale (MMRC) I get short of breath when hurrying on level ground or walking up a slight hill 1 Last 12 Encounter Wt Readings: Date: Wt: 02/05/2024 98.1 kg (216 lb 3.2 oz) 12/06/2023 97.3 kg (214 lb 9.6 oz) 11/02/2023 99.1 kg (218 lb 6.4 oz) 10/18/2023 99.3 kg (219 lb) 08/23/2023 96.6 kg (213 lb) 07/31/2023 98.7 kg (217 lb 9.6 oz) 05/24/2023 97.1 kg (214 lb) 04/12/2023 98.9 kg (218 lb) 03/30/2023 99.7 kg (219 lb 12.8 oz) 02/06/2023 98.4 kg (217 lb) 01/02/2023 100.2 kg (221 lb) 12/19/2022 99.8 kg (220 lb) Social History Tobacco Use: Types: Cigarettes Past Medical History: PAST MEDICAL HISTORY Diagnosis Date Arthritis Benign neoplasm of colon Benign neoplasm of rectum and anal canal Coronary artery calcification seen on CT scan 03/30/2023 Depression 04/02/2015 Diarrhea Insomnia Obstructive sleep apnea DME [facility] [place] Other psoriasis Primary hypertension 03/30/2023 Pulmonary embolism (HCC) Family Hx: FAMILY HISTORY Problem Relation Age of Onset Alzheimer's Disease Mother Diabetes Father Hypertension Father Cancer Father ? primary site. Blood Clots No Family History No DVT or PE. Surgical Hx: PAST SURGICAL HISTORY Procedure Laterality Date COLONOSCOPY 01/24/2023 repeat 5 years COLONOSCOPY FLX DX W/COLLJ SPEC WHEN PFRMD 01/20/2012 ` COLONOSCOPY FLX DX W/COLLJ SPEC WHEN PFRMD 03/27/2017 5 yrs repeat CYSTOURETHROSCOPY 05/21/2014 LAPAROSCOPIC APPENDECTOMY 09/06/2008 LIGJ DIVJ &/EXCJ VARICOSE VEIN CLUSTER 1 LEG 2002 Varicose Vein Surgery left leg NOSE SURGERY HX Bilateral done by PAST SURGICAL HISTORY OF 11/01/2010 Bone spur rotator cuff right shoulder. PAST SURGICAL HISTORY OF 2006 bone spur removed from right nares Allergies: ALLERGIES Allergen Reactions Lisinopril Cough Review Of Systems: See HPI for ROS All of the remainder systems were reviewed and negative. PHYSICAL EXAMINATION: BP 108/69 Pulse 64 Wt 216 lb 3.2 oz (98.1kg) SpO2 95% General appearance: well appearing, in no acute distress, and alert Skin: skin color, texture, turgor normal, no rashes or lesions Neck: Supple, no adenopathy; thyroid symmetric, normal size Respiratory: lungs clear to auscultation no wheezing or rhonchi Cardiovascular: Negative. RRR without murmur, gallop, or rubs. No ectopy Musculoskeletal: Extremities normal. No deformities, edema, or skin discoloration. Neuro: Oriented X 3 Data Review I have visually reviewed imaging and testing below CT imaging done today was reviewed and analyzed independently and compared to prior CT chest imaging by practitioner. All previously noted lung nodules and pulmonary fibrotic/emphysema changes are stable. Imaging Last CT/CTA Chest/Lungs CT LUNG SCREEN WO IVCON Exam End: 12/15/2023 8:51 AM (Final result) Narrative: * * *Final Report* * * DATE OF EXAM: Dec 15 2023 8:51AM [facility] [id number] - CT LUNG SCREEN WO IVCON / PROCEDURE REASON: multiple diagnoses * * * * Physician Interpretation * * * * EXAMINATION: CHEST CT WITHOUT CONTRAST (LOW-DOSE CT LUNG CANCER SCREENING PROTOCOL) CLINICAL HISTORY: Lung cancer LDCT screening ? absence of signs or symptoms of lung cancer. Personal history of nicotine dependence. Subsequent (annual) Technique: Spiral CT acquisition of the chest from the thoracic inlet to the upper abdomen without contrast. MQ: [id number]_6 Patient characteristics: * [id number]-Smkrt: 1965; Age at exam: 58 years * Gender: Male * Lung Disease: Asymptomatic (no signs or symptoms of lung disease) * Number of Pack Years: 66 * Current smoker (=0) or Number of Years since Quit: 6 * Ordering provider and NPI: FIFI PAUL [id number] * Interpreting radiologist and NPI: Eric [id number] Exam acquisition parameters: * Exam Date: 12/15/2023 8:51 AM * Site: [facility] * * CT System Exchange Administrator: Siemens * CT System Model: Sensation * Tube Current-Time (mA-sec): 30 * Peak Voltage (kV): 120V * Scan Time (sec): 10.3 * Scan Volume (z-length, cm): -27.25 * Pitch: 0.75 * Slice Thickness (mm): 1.5 * CT Dose-Length Product: 90 mGy*cm * CT Dose Index: 2.30mGy * CT Dose Reduction Method: Automated exposure control(AEC) and iterative recon COMPARISON: Prior lung screen dated 12/02/2022 RESULT: Are nodules present? Yes, 1-5 nodules Lung nodule comments: 5 mm (upper lobe nodule (70) unchanged. 4 mm right fissural nodule (161) unchanged. Other findings: Moderate coronary calcifications. Several borderline mediastinal lymph nodes unchanged. Degenerative changes of the thoracic spine. Minimal endotracheal mucus secretions with otherwise patent central airways, bronchial thickening, lower lobe predominant bronchiectasis and subpleural reticulation presumably smoking-related interstitial lung disease. Minimal upper lobe emphysema. Impression: IMPRESSION: LungRADS category: 2 LungRADS modifier: None LungRADS 0 reason: n/a Recommendations: Continue annual screening with LDCT in 12 months. ======= Reference: [employer]. Lung CT Screening Reporting and Data System (Lung-RADS). Available at: http://www.acr.org/Quality-Safety/ Resources/LungRADS Foot Press Operator: DONALD Transcribe Date/Time: Dec 15 2023 9:14A Dictated by : LAMBERT QUINTANA MD This examination was interpreted and the report reviewed and electronically signed by: LAMBERT QUINTANA MD on Dec 15 2023 9:20AM EST Last CT Chest - Impression Only CT CHEST WO IVCON Exam End: 09/14/2021 11:31 AM (Final result) Impression: IMPRESSION: Grossly stable chronic interstitial lung changes again demonstrating a pattern consistent with pulmonary fibrosis. No interval developing pulmonary nodules or suspicious masses.. ... Last XR Chest - Impression Only XR CHEST 2V FRONTAL/LAT Exam End: 04/19/2018 4:36 PM (Final result) Impression: IMPRESSION: Left heart margin is obscured with pleural reaction/atelectasis/infiltrate, in the lingular segment left upper lobe, similar to the previous study from 03/29/2018, not identified on the study prior to that in 2008. Clinical correlation, follow-up additional imaging if clinically needed. ... Pulmonary Function Testing: SPIROMETRY - BASELINE AND POST DILATOR ([id number]) - ordered on 10/18/[address], [place] [address] Test Date: 2019-10-18 Pat Name: ROYAL GARCIA Department: Room: Gender: Male Crime Lab Technician: AUGIE Marshall : 1965 Requested By: Abdulaziz COTO Order Number: [id number] Reading MD: Royal Rivera Interpretive Statements All Lung Volume Repeatability criteria met. ATS/ERS acceptability and repeatability standards for spirometry met. 2 Puffs of albuterol (180mcg) delivered by MDI via Aerochamber HR pre = 78/min, HR post= 78/min. IMPRESSION: Spirometry shows no obstruction. The mildly reduced FVC suggests restriction. There is no significant bronchodilator response. The TLC is reduced indicating restriction. Electronically Signed On 10-18-2019 12:38:42 EDT by Royal Rivera Site: WO ID: [id number] Name: ROYAL GARCIA Cayla Visit Date: 10/18/2019 Second ID: [id number] Referring Doctor: Abdulaziz COTO Crime Lab Technician: AUGIE Marshall Age: 54 : 1965 Sex: Male Race: Height: 72.00 Inches Weight: 268.00 Lbs BSA: 2.41 Order IDs: [id number] Requested Test(s): Lung Volumes Spirometry - baselline and post dilator Post Test Comments: All Lung Volume Repeatability criteria met. ATS/ERS acceptability and repeatability standards for spirometry met. 2 Puffs of albuterol (180mcg) delivered by MDI via Aerochamber HRpre = 78/min, HRpost= 78/min. Review Status: Not Reviewed Pre-Bronch Post-Bronch Pred LLN ULN Actual %Pred Actual %Chng SPIROMETRY FVC (L) 5.20 4.03 6.39 3.55 68 3.53 FEV1 (L) 4.05 3.12 4.93 3.03 74 3.12 3 FEV1/FVC (%) 78 67 88 85 109 89 3 FEF 25% (L/sec) 8.65 6.06 11.24 9.57 110 9.03 -5 FEF 50% (L/sec) 5.36 3.15 7.57 5.63 105 6.43 14 FEF 75% (L/sec) 1.18 0.50 2.59 1.57 133 1.79 13 FEF 25-75% (L/sec) 3.51 1.82 5.75 4.24 120 4.79 13 FEF Max (L/sec) 10.07 7.62 12.53 9.89 98 9.55 -3 FIVC (L) 3.44 3.39 -1 FIF 50% (L/sec) 4.88 2.76 6.99 4.16 85 5.06 21 FIF Max (L/sec) 4.75 5.55 16 FET (sec) 7.24 6.39 -11 Back Extrap Vol (L) 0.15 0.16 9 Time To FEFmax (sec) 0.089 0.097 8 LUNG VOLUMES SVC (L) 5.15 3.72 72 IC (L) 3.55 2.55 71 ERV (L) 1.60 1.17 73 TGV (L) 3.83 2.39 5.26 2.55 66 RV (Pleth) (L) 2.23 1.48 2.98 1.38 61 TLC (Pleth) (L) 7.38 5.79 8.96 5.10 69 RV/TLC (Pleth) (%) 31 22 40 27 87 AIRWAYS RESISTANCE documented in this encounter [facility] 01-31-2024 Telephone encounter Note Prescription Refill Information The patient has been identified by name and date of : Yes Caregiver verified no other encounters exist for this prescription request: Yes Caregiver confirmed with patient/requestor that no other refills are due, in the near future, with this provider at this time: Yes The last office visit in the department: 12/06/23 Does the patient have a future office visit with this provider/department: Yes Requested Prescriptions Pending Prescriptions Disp Refills DULoxetine (CYMBALTA) 60 mg capsule 30 capsule 11 Sig: Take 1 capsule by mouth once daily. Gabby Valadez LPN January 31, 2024 3:35 PM [facility] 01-31-2024 Miscellaneous Notes Prescription Refill Information The patient has been identified by name and date of : Yes Caregiver verified no other encounters exist for this prescription request: Yes Caregiver confirmed with patient/requestor that no other refills are due, in the near future, with this provider at this time: Yes The last office visit in the department: 12/06/23 Does the patient have a future office visit with this provider/department: Yes Requested Prescriptions Pending Prescriptions Disp Refills DULoxetine (CYMBALTA) 60 mg capsule 30 capsule 11 Sig: Take 1 capsule by mouth once daily. Gabby Valadez LPN January 31, 2024 3:35 PM documented in this encounter [facility] 01-31-2024 Telephone encounter Note Opened in error [facility] 01-31-2024 Miscellaneous Notes Opened in error documented in this encounter [facility] 12-15-2023 History of Present illness Narrative Radiology Service Progress Note PATIENT NAME: Royal Garcia DATE OF SERVICE: December 15, 2023 TIME: 4:02 PM PATIENT IDENTITY VERIFICATION COMPLETED USING TWO (2) IDENTIFIERS: Name and Date of confirmed by patient verbally. FALL SCREENING: Has the patient had 2 falls in the last year or 1 fall with injury or currently using an Ambulatory Assistive Device (Walker, Cane, Wheelchair, Crutches, etc.)? No PATIENT GENDER DATA: Male PATIENT RELEVANT IMPLANT DATA REVIEWED: Yes PATIENT PRESENTS WITH AN IMPLANTABLE OR ATTACHED CORRECTIONS COUNSELOR: No RADIOLOGY DEPARTMENT: CT; Exam(s) Completed: Lung Screening PERIPHERAL IV DATA: Not applicable SIGNED BY: RT Liseth(R) December 15, 2023 4:02 PM documented in this encounter [facility] 12-07-2023 Telephone encounter Note Duplicate request for Eszopidione (Rodrigueesta) 2mg. Tawana Diaz LPN [facility] 12-07-2023 Miscellaneous Notes Duplicate request for Eszopidione (Lunesta) 2mg. Tawana Diaz LPN documented in this encounter [facility] 12-06-2023 Note Addended by: GENIE COTO on: 12/06/2023 05:51 PM Modules accepted: Orders [facility] 12-06-2023 Miscellaneous Notes Addended by: GENIE COTO on: 12/06/2023 05:51 PM Modules accepted: Orders documented in this encounter [facility] 12-06-2023 History of Present illness Narrative Reason for Visit Patient presents with: Recheck: 4 week, medication change Royal Garcia is a 58 year old male who presents here today for CPE. Health Maintenance Anxiety Screening Covid-19 Vaccine( season) JESUS Duarte is a very pleasant 58-year-old gentleman with a history of pulmonary embolism, CAD, primary hypertension, mixed hyperlipidemia, MELODY, LUTS, depression, BPH impotence, restless leg syndrome, neurogenic bladder insomnia. Restless legs: His restless legs are very severe at night. He cannot get to sleep quickly because he is very tired and on his feet all day but is soon as he gets to bed and after couple hours he is up has to get up from the bed because of the restlessness and to relate that he has to walk. This makes him extremely tired as he is not getting enough sleep. His ferritin was 155 months ago, iron and hemoglobin levels are normal. Denies having any back issues, he has been on Requip which did not help him and then been on gabapentin but more than 200 mg of gabapentin at night makes him very groggy in the day. He was tried on Mirapex and there is some office notes to say he did waiting all with that but here today he says he is miserable and it has not really worked very well. He is willing to go up on the dose and take it multiple times a day if needed. 12/06/2023: He has started on the Mirapex and he says that his restless legs are much better. He is able to sleep without having to wait. In fact in 5 minutes he is asleep. He feels rested when he wakes up. He does take trazodone 200 mg and occasionally he takes eszopiclone as needed. He uses around 7 pills in 90 days and would like to have this refilled. No problem-specific Assessment & Plan notes found for this encounter. PAST MEDICAL HISTORY No date: Arthritis No date: Benign neoplasm of colon No date: Benign neoplasm of rectum and anal canal 03/30/2023: Coronary artery calcification seen on CT scan 04/02/2015: Depression No date: Diarrhea No date: Insomnia No date: Obstructive sleep apnea Comment: DME [facility] [place] No date: Other psoriasis 03/30/2023: Primary hypertension No date: Pulmonary embolism (HCC) PAST SURGICAL HISTORY 01/24/2023: COLONOSCOPY Comment: repeat 5 years 01/20/2012: COLONOSCOPY FLX DX W/COLLJ SPEC WHEN PFRMD Comment: ` 03/27/2017: COLONOSCOPY FLX DX W/COLLJ SPEC WHEN PFRMD Comment: 5 yrs repeat 05/21/2014: CYSTOURETHROSCOPY 09/06/2008: LAPAROSCOPIC APPENDECTOMY 2002: LIGJ DIVJ &/EXCJ VARICOSE VEIN CLUSTER 1 LEG Comment: Varicose Vein Surgery left leg No date: NOSE SURGERY HX; Bilateral Comment: done by 11/01/2010: PAST SURGICAL HISTORY OF Comment: Bone spur rotator cuff right shoulder. 2006: PAST SURGICAL HISTORY OF Comment: bone spur removed from right nares FAMILY HISTORY Problem Relation Age of Onset Alzheimer's Disease Mother Diabetes Father Hypertension Father Cancer Father ? primary site. Blood Clots No Family History No DVT or PE. Social History Tobacco Use Smoking status: Former Current packs/day: 0.00 Average packs/day: 2.0 packs/day for 33.2 years (66.4 ttl pk-yrs) Types: Cigarettes Start date: 1984 Quit date: 08/29/2017 Years since quittin.2 Smokeless tobacco: Never Vaping Use Vaping status: Never Used Substance Use Topics Alcohol use: Not Currently Alcohol/week: 2.6 standard drinks of alcohol Types: 2 Mixed Drinks per week Comment: 2 a week Drug use: No Past medical history, appointments, medications, allergies reviewed. Pertinent Lab/Diagnostic Studies are reviewed and discussed today Current Outpatient Medications: Pramipexole 1.5 mg Tb24 busPIRone (BUSPAR) 10 mg tablet trospium (SANCTURA) 20 mg tablet propranolol (INDERAL) 10 mg tablet traZODone (DESYREL) 100 mg tablet gabapentin (NEURONTIN) 100 mg capsule rivaroxaban (XARELTO) 20 mg tablet atorvastatin (LIPITOR) 10 mg tablet aspirin, enteric coated (ECOTRIN LOW STRENGTH) 81 mg EC tablet DULoxetine (CYMBALTA) 60 mg capsule multivit with minerals/lutein (MULTIVITAMIN 50 PLUS ORAL) vitamin E mixed 1,000 unit cap ustekinumab (STELARA) 45 mg/0.5 mL sub-Q syringe rivaroxaban (XARELTO) 15 mg tablet Review of Systems CONSTITUTIONAL: No fevers, chills, nightsweats, unintended weight loss HEENT: Denies frequent or severe heaches, nasal congestion/sinus symptoms, problematic allergy problems. EYES: No diplopia or blurry vision. CARDIOVASCULAR: No chest pain, dyspnea, palpitations, orthopnea, PND, ankle edema. PULM: No dyspnea, unexplained cough. GI: No dysphagia/odynophagia, problematic reflux, constipation, diarrhea, changes in stool habits, hematochezia, melena. : No new urinary complaints, including dysuria, gross hematuria or pyuria. NEURO: No new balance problems, peripheral weakness/paresthesias or numbness of concern. MUSC-SKEL: No new joint pain, swelling, or erythema. PSY: No concerns regarding depression, anxiety or panic. INTEGUMENTARY: No new skin changes (rash, new or changing mole, new growth) Physical Exam BP 132/86 (BP Site: Left Arm) Pulse 81 Wt 97.3 kg (214 lb 9.6 oz) SpO2 96% BMI 27.54 kg/m General appearance: Well appearing, alert, in no acute distress, well-hydrated, well nourished. Skin: Skin color, texture, turgor normal, no suspicious rashes or lesions Head: Normocephalic, no masses, lesions, tenderness or abnormalities Eyes: Anicteric sclera. Pupils are equally round and reactive to light. Extraocular movements are intact. Ears: External ears normal, canals clear Nose/Sinuses: Nares normal, septum midline, mucosa normal, no drainage or sinus tenderness Back: Normal exam Lungs: Lungs clear to auscultation. No wheezing, rhonchi, rales Heart: RRR without murmur, gallop, or rubs. No ectopy ASSESSMENT/PLAN: 1. Restless legs - ICD9: 333.94, ICD10: G25.81 (primary diagnosis) He is doing very well with mirapex. 2. Insomnia, unspecified type - ICD9: 780.52, ICD10: G47.00 He would like to have some ezopiclone 3. Encounter for immunization - ICD9: V03.89, ICD10: Z23 - PNEUMOCOCCAL VACCINE, 20 VALENT (PREVNAR 20) 4. Encounter for screening for lung cancer - ICD9: V76.0, ICD10: Z12.2 - CONSULT LUNG CANCER SCREENING CLINIC Genie Coto MD documented in this encounter [facility] 11-27-2023 Telephone encounter Note Prescription Refill Information The patient has been identified by name and date of : Yes Caregiver verified no other encounters exist for this prescription request: Yes Caregiver confirmed with patient/requestor that no other refills are due, in the near future, with this provider at this time: Yes The last office visit in the department: 11/02/23 Does the patient have a future office visit with this provider/department: Yes Requested Prescriptions Pending Prescriptions Disp Refills Pramipexole 1.5 mg Tb24 [Pharmacy Med Name: PRAMIPEXOLE ER 1.5 MG TABLET] 90 tablet 1 Sig: TAKE 1 TABLET BY MOUTH EVERY DAY WITH DINNER busPIRone (BUSPAR) 10 mg tablet [Pharmacy Med Name: BUSPIRONE HCL 10 MG TABLET] 270 tablet 1 Sig: TAKE 1 TABLET BY MOUTH THREE TIMES A DAY Maeve Valenzuela MA November 27, 2023 9:25 AM [facility] 11-27-2023 Miscellaneous Notes Prescription Refill Information The patient has been identified by name and date of : Yes Caregiver verified no other encounters exist for this prescription request: Yes Caregiver confirmed with patient/requestor that no other refills are due, in the near future, with this provider at this time: Yes The last office visit in the department: 11/02/23 Does the patient have a future office visit with this provider/department: Yes Requested Prescriptions Pending Prescriptions Disp Refills Pramipexole 1.5 mg Tb24 [Pharmacy Med Name: PRAMIPEXOLE ER 1.5 MG TABLET] 90 tablet 1 Sig: TAKE 1 TABLET BY MOUTH EVERY DAY WITH DINNER busPIRone (BUSPAR) 10 mg tablet [Pharmacy Med Name: BUSPIRONE HCL 10 MG TABLET] 270 tablet 1 Sig: TAKE 1 TABLET BY MOUTH THREE TIMES A DAY Maeve Valenzuela MA November 27, 2023 9:25 AM documented in this encounter [facility] 11-14-2023 Telephone encounter Note Prescription Refill Information The patient has been identified by name and date of : Yes Caregiver verified no other encounters exist for this prescription request: Yes Caregiver confirmed with patient/requestor that no other refills are due, in the near future, with this provider at this time: Yes The last office visit in the department: 11/02/23 Does the patient have a future office visit with this provider/department: Yes Requested Prescriptions Pending Prescriptions Disp Refills trospium (SANCTURA) 20 mg tablet [Pharmacy Med Name: TROSPIUM CHLORIDE 20 MG TABLET] 180 tablet 1 Sig: TAKE 1 TABLET BY MOUTH TWICE A DAY Maeve Valenzuela MA November 14, 2023 12:45 PM [facility] 11-14-2023 Miscellaneous Notes Prescription Refill Information The patient has been identified by name and date of : Yes Caregiver verified no other encounters exist for this prescription request: Yes Caregiver confirmed with patient/requestor that no other refills are due, in the near future, with this provider at this time: Yes The last office visit in the department: 11/02/23 Does the patient have a future office visit with this provider/department: Yes Requested Prescriptions Pending Prescriptions Disp Refills trospium (SANCTURA) 20 mg tablet [Pharmacy Med Name: TROSPIUM CHLORIDE 20 MG TABLET] 180 tablet 1 Sig: TAKE 1 TABLET BY MOUTH TWICE A DAY Maeve Valenzuela MA November 14, 2023 12:45 PM documented in this encounter [facility] 11-02-2023 History of Present illness Narrative Reason for Visit Patient presents with: Physical Royal Cayla Garcia is a 58 year old male who presents here today for CPE. Health Maintenance Anxiety Screening Covid-19 Vaccine( season) JESUS Duarte is a very pleasant 58-year-old gentleman with a history of pulmonary embolism, CAD, primary hypertension, mixed hyperlipidemia, MELODY, LUTS, depression, BPH impotence, restless leg syndrome, neurogenic bladder insomnia. Restless legs: His restless legs are very severe at night. He cannot get to sleep quickly because he is very tired and on his feet all day but is soon as he gets to bed and after couple hours he is up has to get up from the bed because of the restlessness and to relate that he has to walk. This makes him extremely tired as he is not getting enough sleep. His ferritin was 155 months ago, iron and hemoglobin levels are normal. Denies having any back issues, he has been on Requip which did not help him and then been on gabapentin but more than 200 mg of gabapentin at night makes him very groggy in the day. He was tried on Mirapex and there is some office notes to say he did waiting all with that but here today he says he is miserable and it has not really worked very well. He is willing to go up on the dose and take it multiple times a day if needed. Anxiety and depression: He is very stressed with his 's illness at this point and is making him extremely anxious currently on BuSpar at 5 mg 3 times a day. He is also on Cymbalta. Tried multiple SSRIs in the past including Celexa and Lexapro. He says he feels like he is on the edge and all the Cymbalta works he is a little bit anxious and willing to go up on the BuSpar. Weight gain has not been a problem with him. Weight gain has not been a problem with him in fact he lost 42 pounds because he cut out his alcohol and he walks a lot. Pulmonary embolism: He continues to be on the Xarelto. Hyperlipidemia: He is on atorvastatin and has no concerns with it. Urinary incontinence: He used to be on mirabegron and that worked very well for him. Insurance is not covering him and trospium was started. He is doing fairly well on trospium no concerns. PE: He has pulmonary embolism and is on Xarelto. Doing well on the trospium, it was shifted from mirabegron due to insurance reasons. No problem-specific Assessment & Plan notes found for this encounter. PAST MEDICAL HISTORY Diagnosis Date Arthritis Benign neoplasm of colon Benign neoplasm of rectum and anal canal Coronary artery calcification seen on CT scan 03/30/2023 Depression 04/02/2015 Diarrhea Insomnia Obstructive sleep apnea DME [facility] [place] Other psoriasis Primary hypertension 03/30/2023 Pulmonary embolism (HCC) PAST SURGICAL HISTORY Procedure Laterality Date COLONOSCOPY 01/24/2023 repeat 5 years COLONOSCOPY FLX DX W/COLLJ SPEC WHEN PFRMD 01/20/2012 ` COLONOSCOPY FLX DX W/COLLJ SPEC WHEN PFRMD 03/27/2017 5 yrs repeat CYSTOURETHROSCOPY 05/21/2014 LAPAROSCOPIC APPENDECTOMY 09/06/2008 LIGJ DIVJ &/EXCJ VARICOSE VEIN CLUSTER 1 LEG 2002 Varicose Vein Surgery left leg NOSE SURGERY HX Bilateral done by PAST SURGICAL HISTORY OF 11/01/2010 Bone spur rotator cuff right shoulder. PAST SURGICAL HISTORY OF 2006 bone spur removed from right nares FAMILY HISTORY Problem Relation Age of Onset Alzheimer's Disease Mother Diabetes Father Hypertension Father Cancer Father ? primary site. Blood Clots No Family History No DVT or PE. Social History Tobacco Use Smoking status: Former Packs/day: 2.00 Years: 33.00 Additional pack years: 0.00 Total pack years: 66.00 Types: Cigarettes Start date: 1984 Quit date: 08/29/2017 Years since quittin.1 Smokeless tobacco: Never Vaping Use Vaping Use: Never used Substance Use Topics Alcohol use: Not Currently Alcohol/week: 2.6 standard drinks of alcohol Types: 2 Mixed Drinks per week Comment: 2 a week Drug use: No Past medical history, appointments, medications, allergies reviewed. Pertinent Lab/Diagnostic Studies are reviewed and discussed today Current Outpatient Medications: trospium (SANCTURA) 20 mg tablet busPIRone (BUSPAR) 5 mg tablet propranolol (INDERAL) 10 mg tablet traZODone (DESYREL) 100 mg tablet pramipexole (MIRAPEX) 0.5 mg tablet gabapentin (NEURONTIN) 100 mg capsule rivaroxaban (XARELTO) 20 mg tablet atorvastatin (LIPITOR) 10 mg tablet aspirin, enteric coated (ECOTRIN LOW STRENGTH) 81 mg EC tablet DULoxetine (CYMBALTA) 60 mg capsule multivit with minerals/lutein (MULTIVITAMIN 50 PLUS ORAL) vitamin E mixed 1,000 unit cap ustekinumab (STELARA) 45 mg/0.5 mL sub-Q syringe rivaroxaban (XARELTO) 15 mg tablet mirabegron (MYRBETRIQ) 25 mg Tb24 Review of Systems CONSTITUTIONAL: No fevers, chills, nightsweats, unintended weight loss HEENT: Denies frequent or severe heaches, nasal congestion/sinus symptoms, problematic allergy problems. EYES: No diplopia or blurry vision. CARDIOVASCULAR: No chest pain, dyspnea, palpitations, orthopnea, PND, ankle edema. PULM: No dyspnea, unexplained cough. GI: No dysphagia/odynophagia, problematic reflux, constipation, diarrhea, changes in stool habits, hematochezia, melena. : No new urinary complaints, including dysuria, gross hematuria or pyuria. NEURO: No new balance problems, peripheral weakness/paresthesias or numbness of concern. MUSC-SKEL: No new joint pain, swelling, or erythema. PSY: No concerns regarding depression, anxiety or panic. INTEGUMENTARY: No new skin changes (rash, new or changing mole, new growth) Physical Exam BP 128/84 (BP Site: Left Arm) Pulse 65 Ht 188 cm (6' 2.02) Wt 99.1 kg (218 lb 6.4 oz) SpO2 99% BMI 28.03 kg/m General appearance: Well appearing, alert, in no acute distress, well-hydrated, well nourished. Skin: Skin color, texture, turgor normal, no suspicious rashes or lesions Head: Normocephalic, no masses, lesions, tenderness or abnormalities Eyes: Anicteric sclera. Pupils are equally round and reactive to light. Extraocular movements are intact. Ears: External ears normal, canals clear Nose/Sinuses: Nares normal, septum midline, mucosa normal, no drainage or sinus tenderness Oropharynx: Lips, mucosa, and tongue normal, teeth and gums normal, oropharynx normal Neck: Supple, no adenopathy; thyroid symmetric, normal size, no bruits Back: Normal exam Lungs: Lungs clear to auscultation. No wheezing, rhonchi, rales Heart: RRR without murmur, gallop, or rubs. No ectopy Abdomen: Normal abdominal exam, Abdomen soft, non-tender. Bowel sounds normal. No masses, organomegaly Extremities: No deformities, edema, skin discoloration, clubbing or cyanosis. Good capillary refill. Musculoskeletal: No joint swelling, deformity, or tenderness Peripheral pulses: Normal Neuro: Gait normal. Reflexes normal and symmetric. Sensation grossly intact. ASSESSMENT/PLAN: 1. Annual physical exam - ICD9: V70.0, ICD10: Z00.00 (primary diagnosis) - Counseled on healthy diet and regular exercise 2. Acute saddle pulmonary embolism without acute cor pulmonale (HCC) - ICD9: 415.13, ICD10: I26.92 Continue Xarelto 3. Depression, unspecified depression type - ICD9: 311, ICD10: F32.A Continue with 4. Lower urinary tract symptoms (LUTS) - ICD9: 788.99, ICD10: R39.9 Continue the trospium 5. Mixed hyperlipidemia - ICD9: 272.2, ICD10: E78.2 Continue the statin, no side effects 6. MELODY (obstructive sleep apnea) - ICD9: 327.23, ICD10: G47.33 7. Primary hypertension - ICD9: 401.9, ICD10: I10 Well-controlled 8. Coronary artery calcification seen on CT scan - ICD9: 414.00, ICD10: I25.10 Risk factors are modified he is well-controlled with his blood pressure and on cholesterol medication, stop smoking and stop drinking Genie Coto MD documented in this encounter [facility] 10-18-2023 History of Present illness Narrative CC: Patient presents with: Recheck: Medication follow up HPI Royal Garcia is a 58 year old male who presents today for anxiety and RLS follow up. Buspar added and mirapex increased 6 weeks ago. Anxiety and depression: Much improved anxiety with starting buspar and feels depression is well controlled. Sleep: is described as normal Alcohol use: does not drink any alcohol Drug use: No Appetite: good Suicidal Thoughts: No suicidal ideation, intent or plan Sleeping well with RLS symptoms controlled on mirapex. OAB: Has been well controlled on myrbetriq for years but insurance no longer fully covers this and it is not affordable. Was on ditropan XL many years ago and detrol LA prior to the myrbetriq but patient unsure if those were effective. In looking at past visits, detrol LA was stopped by neruology due to memory concerns while on this but was also drinking alcohol at this time as well. Was recommended by neurology to switch to myrbetriq, vesicare, or trospium. REVIEW OF SYSTEMS See HPI PAST MEDICAL HISTORY Diagnosis Date Arthritis Benign neoplasm of colon Benign neoplasm of rectum and anal canal Coronary artery calcification seen on CT scan 03/30/2023 Depression 04/02/2015 Diarrhea Insomnia Obstructive sleep apnea DME [facility] Other psoriasis Primary hypertension 03/30/2023 Pulmonary embolism (HCC) PAST SURGICAL HISTORY Procedure Laterality Date COLONOSCOPY 01/24/2023 repeat 5 years COLONOSCOPY FLX DX W/COLLJ SPEC WHEN PFRMD 01/20/2012 ` COLONOSCOPY FLX DX W/COLLJ SPEC WHEN PFRMD 03/27/2017 5 yrs repeat CYSTOURETHROSCOPY 05/21/2014 LAPAROSCOPIC APPENDECTOMY 09/06/2008 LIGJ DIVJ &/EXCJ VARICOSE VEIN CLUSTER 1 LEG 2002 Varicose Vein Surgery left leg NOSE SURGERY HX Bilateral done by PAST SURGICAL HISTORY OF 11/01/2010 Bone spur rotator cuff right shoulder. PAST SURGICAL HISTORY OF 2006 bone spur removed from right nares ALLERGIES Lisinopril MEDICATIONS busPIRone (BUSPAR) 5 mg tablet TAKE 1 TABLET BY MOUTH THREE TIMES A DAY propranolol (INDERAL) 10 mg tablet Take 1 tablet by mouth two times a day. traZODone (DESYREL) 100 mg tablet Take 2 tablets by mouth daily at bedtime. pramipexole (MIRAPEX) 0.5 mg tablet Take 1 tablet by mouth daily at bedtime. gabapentin (NEURONTIN) 100 mg capsule Take 100 mg by mouth as needed. rivaroxaban (XARELTO) 20 mg tablet Take 20 mg by mouth once daily. rivaroxaban (XARELTO) 15 mg tablet Take 15 mg by mouth once daily. atorvastatin (LIPITOR) 10 mg tablet Take 1 tablet by mouth daily at bedtime. For cholesterol. mirabegron (MYRBETRIQ) 25 mg Tb24 Take 1 tablet by mouth once daily. aspirin, enteric coated (ECOTRIN LOW STRENGTH) 81 mg EC tablet Take 1 tablet by mouth once daily. DULoxetine (CYMBALTA) 60 mg capsule take 1 capsule by mouth every day multivit with minerals/lutein (MULTIVITAMIN 50 PLUS ORAL) Take by mouth. vitamin E mixed 1,000 unit cap Take 2,000 Units by mouth. ustekinumab (STELARA) 45 mg/0.5 mL sub-Q syringe Inject subcutaneously. Every 3 months. (Dr. Sanchez) FAMILY HISTORY Problem Relation Age of Onset Alzheimer's Disease Mother Diabetes Father Hypertension Father Cancer Father ? primary site. Blood Clots No Family History No DVT or PE. Social History Tobacco Use Smoking status: Former Packs/day: 2.00 Years: 33.00 Additional pack years: 0.00 Total pack years: 66.00 Types: Cigarettes Start date: 1984 Quit date: 08/29/2017 Years since quittin.1 Smokeless tobacco: Never Vaping Use Vaping Use: Never used Substance Use Topics Alcohol use: Not Currently Alcohol/week: 2.6 standard drinks of alcohol Types: 2 Mixed Drinks per week Comment: 2 a week Drug use: No PHYSICAL EXAM BP 116/78 Pulse 66 Resp 16 Wt 99.3 kg (219 lb) SpO2 97% BMI 29.70 kg/m Appearance: well dressed well groomed, cooperative, and pleasant Behavior: good eye contact Speech: normal and fluent and coherent Mood: happy Affect: appropriate Perceptions: none Thought process: goal directed Thought Content: normal Intelligence level: normal Insight: good Judgment: good ASSESSMENT/PLAN: 1. Anxiety and depression - ICD9: 300.00, 311, ICD10: F41.9, F32.A (primary diagnosis) Controlled well with current treatment - Reviewed concept of neurochemical imbalance wth depression/anxiety, treatment options and benefits of counseling in combination with medication. Also reviewed benefits of sleep hygeine, diet and exercise - Follow-up in 3 months or sooner as needed - Instructed patient to contact office or [id number] after-hours promptly should condition worsen or any new symptoms appear. - [facility] and after hours crisis line 2. RLS (restless legs syndrome), provisional - ICD9: 333.94, ICD10: G25.81 Improved and controlled with current treatment 3. OAB (overactive bladder) - ICD9: 596.51, ICD10: N32.81 Currently on myrbetriq without issue and well controlled. In need of more affordable option. Will try trospium and if not affordable, will try detrol LA again but memory needs monitored. - TROSPIUM 20 MG TABLET Prescription instructions reviewed with patient as applicable. Potential red flag symptoms discussed with the patient. Reviewed appropriate action plan to take if red flag symptoms occur. Patient agreeable to treatment plan Mayuri Dexter APRN.CNP documented in this encounter [facility] 09-19-2023 Telephone encounter Note Prescription Refill Information The patient has been identified by name and date of : Yes Caregiver verified no other encounters exist for this prescription request: Yes Caregiver confirmed with patient/requestor that no other refills are due, in the near future, with this provider at this time: Yes The last office visit in the department: 08/23/23 Does the patient have a future office visit with this provider/department: Yes Requested Prescriptions Pending Prescriptions Disp Refills busPIRone (BUSPAR) 5 mg tablet [Pharmacy Med Name: BUSPIRONE HCL 5 MG TABLET] 270 tablet 1 Sig: TAKE 1 TABLET BY MOUTH THREE TIMES A DAY Sherly Howell LPN September 19, 2023 10:29 AM [facility] 09-19-2023 Miscellaneous Notes Prescription Refill Information The patient has been identified by name and date of : Yes Caregiver verified no other encounters exist for this prescription request: Yes Caregiver confirmed with patient/requestor that no other refills are due, in the near future, with this provider at this time: Yes The last office visit in the department: 08/23/23 Does the patient have a future office visit with this provider/department: Yes Requested Prescriptions Pending Prescriptions Disp Refills busPIRone (BUSPAR) 5 mg tablet [Pharmacy Med Name: BUSPIRONE HCL 5 MG TABLET] 270 tablet 1 Sig: TAKE 1 TABLET BY MOUTH THREE TIMES A DAY Sherly Howell LPN September 19, 2023 10:29 AM documented in this encounter [facility] 08-23-2023 History of Present illness Narrative CC: Patient presents with: Recheck: 3 month follow up HPI Royal Garcia is a 58 year old male who presents today for routine follow up. HTN and HLD: Mr. Garcia indicates that he is feeling well and denies any symptoms referable to elevated blood pressure. Specifically denies headache, chest pain, palpitations, and peripheral edema. Patient denies any side effects of his medication(s) and is compliant with their regimen. He does not check BP's generally. 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 He watches his diet for sodium, low fat and low cholesterol most of the time. Follows cardiology and last seen this past March. Chronic shortness of breath with exertion is at baseline Last 3 Encounter BP Readings: Date: BP: 08/23/2023 130/82 07/31/2023 142/84 05/24/2023 132/84 RLS: some improvement with mirapex but not completely. Prediabetes: Diet controlled. Denies any increase in thirst hunger or urination. Anxiety and depression: Feels anxiety is uncontrolled with cymbalta Sleep: is described as normal with current treatment Alcohol use: drinks less than one drink a day Drug use: No Appetite: good Suicidal Thoughts: No suicidal or homicidal ideation, intent or plan Support: Comes from multiple sources including REVIEW OF SYSTEMS See HPI PAST MEDICAL HISTORY Diagnosis Date Arthritis Benign neoplasm of colon Benign neoplasm of rectum and anal canal Coronary artery calcification seen on CT scan 03/30/2023 Depression 04/02/2015 Diarrhea Insomnia Obstructive sleep apnea DME [facility] Other psoriasis Primary hypertension 03/30/2023 Pulmonary embolism (HCC) PAST SURGICAL HISTORY Procedure Laterality Date COLONOSCOPY 01/24/2023 repeat 5 years COLONOSCOPY FLX DX W/COLLJ SPEC WHEN PFRMD 01/20/2012 ` COLONOSCOPY FLX DX W/COLLJ SPEC WHEN PFRMD 03/27/2017 5 yrs repeat CYSTOURETHROSCOPY 05/21/2014 LAPAROSCOPIC APPENDECTOMY 09/06/2008 LIGJ DIVJ &/EXCJ VARICOSE VEIN CLUSTER 1 LEG 2002 Varicose Vein Surgery left leg NOSE SURGERY HX Bilateral done by PAST SURGICAL HISTORY OF 11/01/2010 Bone spur rotator cuff right shoulder. PAST SURGICAL HISTORY OF 2006 bone spur removed from right nares ALLERGIES Lisinopril MEDICATIONS gabapentin (NEURONTIN) 100 mg capsule Take 100 mg by mouth as needed. rivaroxaban (XARELTO) 20 mg tablet Take 20 mg by mouth once daily. rivaroxaban (XARELTO) 15 mg tablet Take 15 mg by mouth once daily. pramipexole (MIRAPEX) 0.25 mg tablet TAKE 1 TABLET BY MOUTH EVERYDAY AT BEDTIME atorvastatin (LIPITOR) 10 mg tablet Take 1 tablet by mouth daily at bedtime. For cholesterol. mirabegron (MYRBETRIQ) 25 mg Tb24 Take 1 tablet by mouth once daily. propranolol (INDERAL) 10 mg tablet Take 1 tablet by mouth two times a day. aspirin, enteric coated (ECOTRIN LOW STRENGTH) 81 mg EC tablet Take 1 tablet by mouth once daily. DULoxetine (CYMBALTA) 60 mg capsule take 1 capsule by mouth every day traZODone (DESYREL) 100 mg tablet Take 2 tablets by mouth daily at bedtime. multivit with minerals/lutein (MULTIVITAMIN 50 PLUS ORAL) Take by mouth. vitamin E mixed 1,000 unit cap Take 2,000 Units by mouth. ustekinumab (STELARA) 45 mg/0.5 mL sub-Q syringe Inject subcutaneously. Every 3 months. (Dr. Sanchez) FAMILY HISTORY Problem Relation Age of Onset Alzheimer's Disease Mother Diabetes Father Hypertension Father Cancer Father ? primary site. Blood Clots No Family History No DVT or PE. Social History Tobacco Use Smoking status: Former Packs/day: 2.00 Years: 33.00 Additional pack years: 0.00 Total pack years: 66.00 Types: Cigarettes Start date: 1984 Quit date: 08/29/2017 Years since quittin.9 Smokeless tobacco: Never Vaping Use Vaping Use: Never used Substance Use Topics Alcohol use: Not Currently Alcohol/week: 2.6 standard drinks of alcohol Types: 2 Mixed Drinks per week Comment: 2 a week Drug use: No PHYSICAL EXAM BP 130/82 Pulse 78 Resp 16 Wt 96.6 kg (213 lb) SpO2 97% BMI 28.89 kg/m General Appearance: well appearing, in no acute distress, alert Pysch: mood and affect broad and appropriate Skin: Skin color, texture, turgor normal for age; Eyes: conjunctiva pink and moist, no icterus, sclera white, non-injected Lungs: Lungs clear to auscultation. No wheezing, rhonchi, rales. Heart: RRR without murmur, gallop, or rubs. No ectopy Health maintenance reviewed with patient: BP Controlled (<130/80) Never done Covid-19 Vaccine(4 - 2022- season) due on 12/09/2022 DTaP,Tdap,Td Vaccine(2 - Td or Tdap) due on 11/17/2023 Hepatitis B Vaccine(1 of 3 - 19+ 3-dose series) due on 11/17/2023 Pneumococcal Vaccine(3 of 3 - PCV) due on 11/17/2023 Lung Cancer Screening due on 12/03/2023 LDL Cholesterol due on 01/03/2024 Annual PCP Team Chronic Disease Visit due on 05/24/2024 Diabetes Screening due on 08/13/2025 Prostate Cancer Screening Discussion due on 02/19/2027 Lipid Screening due on 01/03/2028 Colorectal Cancer Screening due on 01/25/2028 Influenza Vaccine Completed Hepatitis C Screening Completed HIV Screening Completed Shingrix Vaccine Completed DATA REVIEWED: No new labs ASSESSMENT/PLAN: 1. RLS (restless legs syndrome), provisional - ICD9: 333.94, ICD10: G25.81 (primary diagnosis) Improved but still present. Increasing mirapex 2. Primary hypertension - ICD9: 401.9, ICD10: I10 - Controlled - Continue current medications - Recommend home blood pressure monitoring, to bring results to next visit - Encouraged sodium restriction, DASH or Mediterranean diet - Recommend regular aerobic exercise - COMPREHENSIVE METABOLIC PANEL - COMPLETE BLOOD COUNT 3. Mixed hyperlipidemia - ICD9: 272.2, ICD10: E78.2 - Control undetermined, due for labs - Continue current medications - Counseled on healthy diet and regular exercise - Discussed need for and benefit of weight loss. BMI 28.89 kg/(m^2) - COMPREHENSIVE METABOLIC PANEL - LIPID PANEL BASIC 4. Prediabetes - ICD9: 790.29, ICD10: R73.03 - diet controlled at this time and asymptomatic - HEMOGLOBIN A1C 5. Anxiety and depression - ICD9: 300.00, 311, ICD10: F41.9, F32.A Reports Anxiety uncontrolled - adding buspar - Reviewed concept of neurochemical imbalance wth depression/anxiety, treatment options and benefits of counseling in combination with medication. Also reviewed benefits of sleep hygeine, diet and exercise - Follow-up in 6 weeks or sooner as needed - Instructed patient to contact office or [id number] after-hours promptly should condition worsen or any new symptoms appear. - [facility] and after hours crisis line Prescription instructions reviewed with patient as applicable. Potential red flag symptoms discussed with the patient. Reviewed appropriate action plan to take if red flag symptoms occur. Patient agreeable to treatment plan. Mayuri Dexter APRN.CNP documented in this encounter [facility] 07-31-2023 History of Present illness Narrative Images from the original note were not included. . [facility] [place] Note Patient name: Royal Garcia PCP: Genie Coto MD CC: Follow-up lung CT HPI: Royal Garcia 58 year old male former 66 pack year smoker, quitting in 2018 with PMH significant for psoriasis, HTN, h/o PE (thrombophilia work up negative), MELODY not using CPAP and ILD, previous patient of Dr. Rivera, new to me. Main symptoms consist of dry cough and dyspnea on exertion. He gets short of breath when climbing stairs or ladder. He notes more shortness of breath in the spring and the fall but denies any significant allergy symptoms. He has not heard any wheezing. He is not on any medications known to cause fibrotic lung disease. 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 No physical sequelae of autoimmune disorder. He does have psoriasis and possible mild psoriatic arthritis. DATA: PFT 2021: Review of pulmonary function test show no obstruction and moderate restriction Labs: No autoimmune serologies Imaging / Diagnostic Studies: DATE OF EXAM: Dec 02 2022 4:08PM [facility] 0562 - CT LUNG SCREEN WO IVCON / PROCEDURE REASON: multiple diagnoses EXAMINATION: CHEST CT WITHOUT CONTRAST (LOW-DOSE CT LUNG CANCER SCREENING PROTOCOL) CLINICAL HISTORY: Lung cancer LDCT screening ? absence of signs or symptoms of lung cancer. Personal history of nicotine dependence. Subsequent (annual) COMPARISON: Prior lung screen dated 09/14/2021 RESULT: Are nodules present? Yes, 1-5 nodules Lung nodule comments: 5 mm subpleural right upper lobe nodule (76) unchanged. 4 mm right fissural nodule (182) unchanged. Other findings: Moderate coronary calcifications. Degenerative changes of the thoracic spine. Bronchial thickening, mild upper lobe emphysema, lower lobe predominant subpleural cystic changes with reticulation and subpleural bands as well as mild septal thickening suggestive of mild fibrotic interstitial lung disease, possibly smoking-related. I personally reviewed images of his chest CT which shows peripheral reticular markings and areas of honeycombing not typical of UIP pattern. No obvious progression from CT 2019 PAST MEDICAL HISTORY Diagnosis Date Arthritis Benign neoplasm of colon Benign neoplasm of rectum and anal canal Coronary artery calcification seen on CT scan 03/30/2023 Depression 04/02/2015 Diarrhea Insomnia Obstructive sleep apnea DME [facility] [place] Other psoriasis Primary hypertension 03/30/2023 Pulmonary embolism (HCC) ALLERGIES Allergen Reactions Lisinopril Cough gabapentin (NEURONTIN) 100 mg capsule Take 100 mg by mouth as needed. rivaroxaban (XARELTO) 20 mg tablet Take 20 mg by mouth once daily. rivaroxaban (XARELTO) 15 mg tablet Take 15 mg by mouth once daily. eszopiclone (LUNESTA) 2 mg Take 1 tablet by mouth at bedtime as needed (insomnia) for up to 30 days. pramipexole (MIRAPEX) 0.25 mg tablet TAKE 1 TABLET BY MOUTH EVERYDAY AT BEDTIME atorvastatin (LIPITOR) 10 mg tablet Take 1 tablet by mouth daily at bedtime. For cholesterol. mirabegron (MYRBETRIQ) 25 mg Tb24 Take 1 tablet by mouth once daily. propranolol (INDERAL) 10 mg tablet Take 1 tablet by mouth two times a day. aspirin, enteric coated (ECOTRIN LOW STRENGTH) 81 mg EC tablet Take 1 tablet by mouth once daily. DULoxetine (CYMBALTA) 60 mg capsule take 1 capsule by mouth every day traZODone (DESYREL) 100 mg tablet Take 2 tablets by mouth daily at bedtime. multivit with minerals/lutein (MULTIVITAMIN 50 PLUS ORAL) Take by mouth. vitamin E mixed 1,000 unit cap Take 2,000 Units by mouth. ustekinumab (STELARA) 45 mg/0.5 mL sub-Q syringe Inject subcutaneously. Every 3 months. (Dr. Sanchez) Social History Tobacco Use Smoking status: Former Packs/day: 2.00 Years: 33.00 Additional pack years: 0.00 Total pack years: 66.00 Types: Cigarettes Start date: 1984 Quit date: 08/29/2017 Years since quittin.9 Smokeless tobacco: Never Vaping Use Vaping Use: Never used Substance Use Topics Alcohol use: Not Currently Alcohol/week: 2.6 standard drinks of alcohol Types: 2 Mixed Drinks per week Comment: 2 a week Drug use: No FAMILY HISTORY Problem Relation Age of Onset Alzheimer's Disease Mother Diabetes Father Hypertension Father Cancer Father ? primary site. Blood Clots No Family History No DVT or PE. PAST SURGICAL HISTORY Procedure Laterality Date COLONOSCOPY 01/24/2023 repeat 5 years COLONOSCOPY FLX DX W/COLLJ SPEC WHEN PFRMD 01/20/2012 ` COLONOSCOPY FLX DX W/COLLJ SPEC WHEN PFRMD 03/27/2017 5 yrs repeat CYSTOURETHROSCOPY 05/21/2014 LAPAROSCOPIC APPENDECTOMY 09/06/2008 LIGJ DIVJ &/EXCJ VARICOSE VEIN CLUSTER 1 LEG 2002 Varicose Vein Surgery left leg NOSE SURGERY HX Bilateral done by PAST SURGICAL HISTORY OF 11/01/2010 Bone spur rotator cuff right shoulder. PAST SURGICAL HISTORY OF 2006 bone spur removed from right nares PMH, Social history, family history and surgical history reviewed and updated in EMR REVIEW OF SYSTEMS: CONSTITUTIONAL: No fevers, chills, nightsweats, unintended weight loss HEENT: Denies nasal congestion/sinus symptoms, allergy problems. EYES: No dry eyes or pain CARDIOVASCULAR: No chest pain, palpitations, orthopnea. Occasional edema PULM: See HPI GI: No dysphagia/odynophagia, problematic reflux NEURO: No new balance problems, peripheral weakness/paresthesias or numbness of concern. MUSC-SKEL: Mild hand arthritis pain. No muscle pain or weakness INTEGUMENTARY: Psoriasis PHYSICAL EXAMINATION: BP 142/84 Pulse 74 Temp (Src) 97.9 (Temporal) Wt 217 lb 9.6 oz (98.7kg) SpO2 96% General Appearance: Age-appropriate male NAD. Skin: Skin color, texture, turgor normal, no suspicious rashes or lesions. Head: Normocephalic, no masses, lesions, tenderness or abnormalities. Eyes: Sclera, conjunctiva normal. Oropharynx: No oral lesions, no erythema. Neck: No JVD, no masses, no thyromegaly. Lungs: Not labored, normal to percussion, faint crackles left base, no wheezing. Heart: Regular rate and rhythm, no murmurs or gallops. Extremities: No edema or clubbing. Musculoskeletal: No joint deformities or effusions. Lymph Nodes: No cervical lymphadenopathy and No supraclavicular lymphadenopathy. Assessment/Plan: 1. Pulmonary fibrosis -Fibrotic lung disease could be occupational in nature but cannot exclude IPF -Autoimmune serologies -Updated pulmonary function testing -Ambulation oximetry 2. Former cigarette smoker -Former cigarette smoker without sequelae of COPD -Continue abstinence -Patient enrolled in lung cancer screening Sheree Magallon MD [facility] [place] documented in this encounter [facility] 07-03-2023 Miscellaneous Notes PDMP website checked and validated. All prescriptions have been APPROPRIATELY filled. No suspicious activity was identified. 07/03/2023 by Maeve Lugo PA-C Patient has been identified by name and date of : Yes, Provider Date Time Patient phones for refill(s): Requested Prescriptions Pending Prescriptions Disp Refills eszopiclone (LUNESTA) 2 mg 7 tablet 0 Sig: Take 1 tablet by mouth at bedtime as needed (insomnia) for up to 30 days. Date of last office visit in primary care: 05/24/2023 Date of next office visit in primary care: 08/23/2023 Please advise. Thank you. Brittnee Nguyen RN. documented in this encounter [facility] 06-19-2023 Miscellaneous Notes Patient has been identified by name and date of : No Patient phones for refill(s): Requested Prescriptions Pending Prescriptions Disp Refills pramipexole (MIRAPEX) 0.25 mg tablet [Pharmacy Med Name: PRAMIPEXOLE 0.25 MG TABLET] 90 tablet 1 Sig: TAKE 1 TABLET BY MOUTH EVERYDAY AT BEDTIME Date of last office visit in primary care: 05/24/2023 Date of next office visit in primary care: 08/23/2023 Please advise. Thank you. Sherly Howell LPN. documented in this encounter [facility] 06-12-2023 Miscellaneous Notes Patient has been identified by name and date of : No Patient phones for refill(s): Requested Prescriptions Pending Prescriptions Disp Refills atorvastatin (LIPITOR) 10 mg tablet 30 tablet 5 Sig: Take 1 tablet by mouth daily at bedtime. For cholesterol. Date of last office visit in primary care: 05/24/2023 Date of next office visit in primary care: 06/10/2023 Please advise. Thank you. Sherly Howell LPN. documented in this encounter [facility] 06-12-2023 Miscellaneous Notes Patient has been identified by name and date of : No Patient phones for refill(s): Requested Prescriptions Pending Prescriptions Disp Refills mirabegron (MYRBETRIQ) 25 mg Tb24 30 tablet 5 Sig: Take 1 tablet by mouth once daily. Date of last office visit in primary care: 05/24/2023 Date of next office visit in primary care: 08/23/2023 Please advise. Thank you. Sherly Howell LPN. documented in this encounter [facility] 05-24-2023 History of Present illness Narrative CC: Patient presents with: Recheck: Medication follow up HPI Royal Garcia is a 57 year old male who presents today for restless leg follow up. Was started on mirapex 6 weeks ago after gabapentin and ropinirole were unaffective. Isn't sure if this is helping as he is still tired in the morning and sometimes wakes up in the night. reports his legs are constantly moving. Has not gotten iron studies drawn yet. Does have severe sleep apnea as diagnosed in 2019 with obstructive and central apneas noted.. Does not wear cpap anymore as he has lost weight so symptoms improved. Last saw sleep medicine in 2019. REVIEW OF SYSTEMS General: no fevers, no chills, no night sweats, no recurrent infections, no change in appetite, no change in energy, and no significant changes in weight Respiratory: no cough, no wheezing, no shortness of breath, no hemoptysis Cardiovascular: no chest pain, no palpitations, and no swelling Neurologic: No headache, weakness, dizziness, memory loss, syncope. PAST MEDICAL HISTORY Diagnosis Date Arthritis Benign neoplasm of colon Benign neoplasm of rectum and anal canal Coronary artery calcification seen on CT scan 03/30/2023 Depression 04/02/2015 Diarrhea Insomnia Obstructive sleep apnea DME [facility] [place] Other psoriasis Primary hypertension 03/30/2023 Pulmonary embolism (HCC) PAST SURGICAL HISTORY Procedure Laterality Date COLONOSCOPY 01/24/2023 repeat 5 years COLONOSCOPY FLX DX W/COLLJ SPEC WHEN PFRMD 01/20/2012 ` COLONOSCOPY FLX DX W/COLLJ SPEC WHEN PFRMD 03/27/2017 5 yrs repeat CYSTOURETHROSCOPY 05/21/2014 LAPAROSCOPIC APPENDECTOMY 09/06/2008 LIGJ DIVJ &/EXCJ VARICOSE VEIN CLUSTER 1 LEG 2002 Varicose Vein Surgery left leg NOSE SURGERY HX Bilateral done by PAST SURGICAL HISTORY OF 11/01/2010 Bone spur rotator cuff right shoulder. PAST SURGICAL HISTORY OF 2006 bone spur removed from right nares ALLERGIES Lisinopril MEDICATIONS propranolol (INDERAL) 10 mg tablet Take 1 tablet by mouth two times a day. mirabegron (MYRBETRIQ) 25 mg Tb24 Take 1 tablet by mouth once daily. pramipexole (MIRAPEX) 0.125 mg tablet Take 1 tablet by mouth daily at bedtime. gabapentin (NEURONTIN) 100 mg capsule Take 1 capsule by mouth daily at bedtime for 180 days. aspirin, enteric coated (ECOTRIN LOW STRENGTH) 81 mg EC tablet Take 1 tablet by mouth once daily. DULoxetine (CYMBALTA) 60 mg capsule take 1 capsule by mouth every day atorvastatin (LIPITOR) 10 mg tablet Take 1 tablet by mouth daily at bedtime. For cholesterol. traZODone (DESYREL) 100 mg tablet Take 2 tablets by mouth daily at bedtime. multivit with minerals/lutein (MULTIVITAMIN 50 PLUS ORAL) Take by mouth. vitamin E mixed 1,000 unit cap Take 2,000 Units by mouth. ustekinumab (STELARA) 45 mg/0.5 mL sub-Q syringe Inject subcutaneously. Every 3 months. (Dr. Sanchez) FAMILY HISTORY Problem Relation Age of Onset Alzheimer's Disease Mother Diabetes Father Hypertension Father Cancer Father ? primary site. Blood Clots No Family History No DVT or PE. Social History Tobacco Use Smoking status: Former Packs/day: 2.00 Years: 33.00 Additional pack years: 0.00 Total pack years: 66.00 Types: Cigarettes Start date: 1984 Quit date: 08/29/2017 Years since quittin.7 Smokeless tobacco: Never Vaping Use Vaping Use: Never used Substance Use Topics Alcohol use: Not Currently Alcohol/week: 2.6 standard drinks of alcohol Types: 2 Mixed Drinks per week Comment: 2 a week Drug use: No PHYSICAL EXAM BP 132/84 Pulse (!) 56 Resp 16 Wt 97.1 kg (214 lb) SpO2 96% BMI 29.02 kg/m General Appearance: well appearing, in no acute distress, alert Pysch: mood and affect broad and appropriate Skin: Skin color, texture, turgor normal for age; Eyes: conjunctiva pink and moist, no icterus, sclera white, non-injected Lungs: Lungs clear to auscultation. No wheezing, rhonchi, rales. Heart: RRR without murmur, gallop, or rubs. No ectopy Health maintenance reviewed with patient: BP Controlled (<130/80) Never done Covid-19 Vaccine() due on 12/09/2022 DTaP,Tdap,Td Vaccine(2 - Td or Tdap) due on 11/17/2023 Hepatitis B Vaccine(1 of 3 - 3-dose series) due on 11/17/2023 Pneumococcal Vaccine(3 of 3 - PCV) due on 11/17/2023 Lung Cancer Screening due on 12/03/2023 LDL Cholesterol due on 01/03/2024 Annual PCP Team Chronic Disease Visit due on 04/12/2024 Diabetes Screening due on 08/13/2025 Prostate Cancer Screening Discussion due on 02/19/2027 Lipid Screening due on 01/03/2028 Colorectal Cancer Screening due on 01/25/2028 Influenza Vaccine Completed Hepatitis C Screening Completed HIV Screening Completed Shingrix Vaccine Completed DATA REVIEWED: No new labs ASSESSMENT/PLAN: 1. RLS (restless legs syndrome), provisional - ICD9: 333.94, ICD10: G25.81 (primary diagnosis) - increasing mirapex Get iron levels as ordered - POLYSOMNOGRAM (PSG) 2. MELODY (obstructive sleep apnea) - ICD9: 327.23, ICD10: G47.33 Needs reassessed so if needed, can be treated. - POLYSOMNOGRAM (PSG) 3. Other fatigue - ICD9: 780.79, ICD10: R53.83 As above - get iron levels drawn as previously ordered - POLYSOMNOGRAM (PSG) Prescription instructions reviewed with patient as applicable. Potential red flag symptoms discussed with the patient. Reviewed appropriate action plan to take if red flag symptoms occur. Patient agreeable to treatment plan. Mayuri Dexter APRN.OCTAVIA documented in this encounter [facility] 04-12-2023 History of Present illness Narrative CC: Patient presents with: Recheck: Medication follow up HPI Royal Garcia is a 57 year old male who presents today for restless leg Chronic RLS for years: Had gabapentin increased 2 months ago for increase in RLS without any improvement. Symptoms start in evening and then keep him up at night. Has tried ropinirole years ago without benefit. REVIEW OF SYSTEMS General: no fevers, no chills, no night sweats, no recurrent infections, no change in appetite, no change in energy, and no significant changes in weight Respiratory: no cough, no wheezing, no shortness of breath, no hemoptysis Cardiovascular: no chest pain, no chest pressure, no palpitations, and no swelling PAST MEDICAL HISTORY Diagnosis Date Arthritis Benign neoplasm of colon Benign neoplasm of rectum and anal canal Coronary artery calcification seen on CT scan 03/30/2023 Depression 04/02/2015 Diarrhea Insomnia Obstructive sleep apnea DME [facility] [place] Other psoriasis Primary hypertension 03/30/2023 Pulmonary embolism (HCC) PAST SURGICAL HISTORY Procedure Laterality Date COLONOSCOPY 01/24/2023 repeat 5 years COLONOSCOPY FLX DX W/COLLJ SPEC WHEN PFRMD 01/20/2012 ` COLONOSCOPY FLX DX W/COLLJ SPEC WHEN PFRMD 03/27/2017 5 yrs repeat CYSTOURETHROSCOPY 05/21/2014 LAPAROSCOPIC APPENDECTOMY 09/06/2008 LIGJ DIVJ &/EXCJ VARICOSE VEIN CLUSTER 1 LEG 2002 Varicose Vein Surgery left leg NOSE SURGERY HX Bilateral done by PAST SURGICAL HISTORY OF 11/01/2010 Bone spur rotator cuff right shoulder. PAST SURGICAL HISTORY OF 2006 bone spur removed from right nares ALLERGIES Lisinopril MEDICATIONS aspirin, enteric coated (ECOTRIN LOW STRENGTH) 81 mg EC tablet Take 1 tablet by mouth once daily. gabapentin (NEURONTIN) 300 mg capsule Take 1 capsule by mouth daily at bedtime for 180 days. DULoxetine (CYMBALTA) 60 mg capsule take 1 capsule by mouth every day atorvastatin (LIPITOR) 10 mg tablet Take 1 tablet by mouth daily at bedtime. For cholesterol. propranolol (INDERAL) 10 mg tablet Take 1 tablet by mouth twice daily. mirabegron (MYRBETRIQ) 25 mg Tb24 Take 1 tablet by mouth once daily. traZODone (DESYREL) 100 mg tablet Take 2 tablets by mouth daily at bedtime. multivit with minerals/lutein (MULTIVITAMIN 50 PLUS ORAL) Take by mouth. vitamin E mixed 1,000 unit cap Take 2,000 Units by mouth. ustekinumab (STELARA) 45 mg/0.5 mL sub-Q syringe Inject subcutaneously. Every 3 months. (Dr. Sanchez) FAMILY HISTORY Problem Relation Age of Onset Alzheimer's Disease Mother Diabetes Father Hypertension Father Cancer Father ? primary site. Blood Clots No Family History No DVT or PE. Social History Tobacco Use Smoking status: Former Packs/day: 2.00 Years: 33.00 Additional pack years: 0.00 Total pack years: 66.00 Types: Cigarettes Start date: 1984 Quit date: 08/29/2017 Years since quittin.6 Smokeless tobacco: Never Vaping Use Vaping Use: Never used Substance Use Topics Alcohol use: Not Currently Alcohol/week: 2.6 standard drinks of alcohol Types: 2 Mixed Drinks per week Comment: 2 a week Drug use: No PHYSICAL EXAM BP 132/76 Pulse 84 Resp 16 Wt 98.9 kg (218 lb) SpO2 96% BMI 29.57 kg/m General Appearance: well appearing, in no acute distress, alert Skin: Skin color, texture, turgor normal for age; Eyes: conjunctiva pink and moist, no icterus, sclera white, non-injected Extremities: No deformities, edema, skin discoloration, clubbing or cyanosis. Good capillary refill. Neurological: Gait normal. Sensation intact., speech normal, mental status intact, muscle tone normal, muscle strength normal Health maintenance reviewed with patient: BP Controlled (<130/80) Never done Covid-19 Vaccine( - season) due on 12/09/2022 DTaP,Tdap,Td Vaccine(2 - Td or Tdap) due on 11/17/2023 Hepatitis B Vaccine(1 of 3 - 3-dose series) due on 11/17/2023 Pneumococcal Vaccine(3 of 3 - PCV) due on 11/17/2023 Lung Cancer Screening due on 12/03/2023 LDL Cholesterol due on 01/03/2024 Annual PCP Team Chronic Disease Visit due on 02/07/2024 Diabetes Screening due on 08/13/2025 Prostate Cancer Screening Discussion due on 02/19/2027 Lipid Screening due on 01/03/2028 Colorectal Cancer Screening due on 01/25/2028 Influenza Vaccine Completed Hepatitis C Screening Completed HIV Screening Completed Shingrix Vaccine Completed DATA REVIEWED: No new labs ASSESSMENT/PLAN: 1. RLS (restless legs syndrome) - ICD9: 333.94, ICD10: G25.81 - uncontrolled - go back to gabapentin previous dose and starting mirapex. Goal is to wean off gabapentin if mirapex is effective - follow up in 4-6 weeks or earlier if needed - IRON + TIBC - FERRITIN BLD Prescription instructions reviewed with patient as applicable. Potential red flag symptoms discussed with the patient. Reviewed appropriate action plan to take if red flag symptoms occur. Patient agreeable to treatment plan. Mayuri Dexter APRN.CNP documented in this encounter [facility] 03-30-2023 Note HNO ID: [id number] Author: Sole Agarwal, DO Service: ? Author Type: Physician Type: Progress Notes Filed: 03/30/2023 12:36 PM Note Text: [facility] OUTPATIENT VISIT DATE March 30, 2023 PRIMARY CARE PHYSICIAN: Genie Coto [address] [place] [id number] HISTORY OF PRESENT ILLNESS: Mr. Garcia is a 57 year old male. The patient presents for evaluation treatment options of chest discomfort more importantly significant dyspnea occurring with exertion abating with rest. He was recently seen to have coronary calcification on a CT scan for lung cancer screening. Patient has had however prior CT scans of the chest showing coronary calcification several years ago. The patient denies orthopnea, paroxysmal nocturnal dyspnea, palpitations, near-syncope or syncope. He underwent stress echocardiography which demonstrated structurally normal heart and no apparent evidence of ischemia or infarction. The patient is lives at home with his . He has grown children and grandchildren. 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 He is a non-smoker having quit several years ago, social drinker. Outside activities including target shooting. Cardiac risk factors: Age, gender, hypertension, hyperlipidemia, previous tobacco abuse, known coronary artery calcification seen on CT scanning suggesting at least mild CAD Impression: 1. Dyspnea exertion 2. Chest discomfort 3. Coronary calcification seen on CT scanning suggest at least mild CAD 4. History hypertension 5. History hyperlipidemia 6. History obstructive sleep apnea 7. Abnormal CT scanning of the lung demonstrating fibrosis 8. Abnormal pulmonary function testing demonstrating restriction PLAN AND RECOMMENDATIONS: The patient does not have ischemia or infarction on recent stress testing. His symptoms have been present actually for years. Should be on a baby aspirin considering his coronary calcification. He is on plaque stabilization with Lipitor with excellent LDL numbers. Heart rate and blood pressure appear reasonably well-controlled. We have therefore made no other additions or changes and recommend no further cardiac testing at this time as we believe there may be a significant lung component. We have therefore taken the liberty of sending him for a pulmonary consult. Dietary and lifestyle modification was otherwise briefly emphasized. Will look forward to reevaluate him in 1 years time regardless. Should he continue to have symptoms and pulmonary workup is inconclusive, then he should schedule sooner follow-up to have further evaluation and consideration for invasive cardiac assessment. Vitals: BP 140/78 Pulse 61 Wt 99.7 kg (219 lb 12.8 oz) SpO2 98% BMI 29.81 kg/m? Physical Exam Vitals reviewed. Constitutional: General: He is not in acute distress. Appearance: Normal appearance. He is well-developed. He is not diaphoretic. HENT: Head: Normocephalic and atraumatic. Right Ear: External ear normal. Left Ear: External ear normal. Nose: Nose normal. Eyes: General: No scleral icterus. Right eye: No discharge. Left eye: No discharge. Pupils: Pupils are equal, round, and reactive to light. Neck: Thyroid: No thyromegaly. Vascular: No carotid bruit or JVD. Cardiovascular: Rate and Rhythm: Normal rate and regular rhythm. Heart sounds: No murmur heard. No friction rub. No gallop. Pulmonary: Effort: Pulmonary effort is normal. No respiratory distress. Breath sounds: Normal breath sounds. No wheezing or rales. Abdominal: General: Bowel sounds are normal. Palpations: Abdomen is soft. Musculoskeletal: General: Normal range of motion. Cervical back: Neck supple. Skin: General: Skin is warm and dry. Capillary Refill: Capillary refill takes less than 2 seconds. Coloration: Skin is not pale. Neurological: Mental Status: He is alert and oriented to person, place, and time. Cranial Nerves: No cranial nerve deficit. Psychiatric: Mood and Affect: Mood normal. Mood is not anxious or depressed. Behavior: Behavior normal. Thought Content: Thought content normal. Judgment: Judgment normal. Review of Systems Constitutional: Negative for activity change, appetite change, fatigue and unexpected weight change. HENT: Negative for ear pain and trouble swallowing. Eyes: Negative for pain and visual disturbance. Respiratory: Positive for shortness of breath. Negative for chest tightness. Cardiovascular: Negative for chest pain, palpitations and leg swelling. Gastrointestinal: Negative for abdominal pain and blood in stool. Endocrine: Negative for cold intolerance and heat intolerance. Genitourinary: Negative for dysuria, hematuria and scrotal swelling. Musculoskeletal: Negative for arthralgias and myalgias. Skin: Negative for pallor and rash. (more content not included)... [facility] 02-06-2023 History of Present illness Narrative CC: Patient presents with: Follow Up: 6 week follow up- discuss gabapentin HPI Royal Garcia is a 57 year old male who presents today for 6-week follow-up re: cymbalta. Initially started on 12/19/22, and was tolerating well at last visit with Mayuri Dexter CNP on 01/02 so he had it increased further to 60 mg once daily- so has now been on this dosage about 4 weeks. Mood is improved at this time. I'm not as edgy as I used to be. Falls asleep fast, but wakes up every 40 minutes to an hour. Patient is requesting more optimal treatment option for RLS. On Gabapentin 100 mg nightly - believes he has been on this for about 5 or 6 years. This does not seem to be helping sufficiently at this time. REVIEW OF SYSTEMS See HPI All other systems negative. PAST MEDICAL HISTORY Diagnosis Date Arthritis Benign neoplasm of colon Benign neoplasm of rectum and anal canal Depression 04/02/2015 Diarrhea Insomnia Obstructive sleep apnea DME [facility] [place] Other psoriasis Pulmonary embolism (HCC) PAST SURGICAL HISTORY Procedure Laterality Date COLONOSCOPY FLX DX W/COLLJ SPEC WHEN PFRMD 01/20/12 ` COLONOSCOPY FLX DX W/COLLJ SPEC WHEN PFRMD 03/27/2017 5 yrs repeat CYSTOURETHROSCOPY 05/21/2014 LAPAROSCOPIC APPENDECTOMY 09/06/2008 LIGJ DIVJ &/EXCJ VARICOSE VEIN CLUSTER 1 LEG 2002 Varicose Vein Surgery left leg NOSE SURGERY HX Bilateral done by PAST SURGICAL HISTORY OF 11/01/2010. Bone spur rotator cuff right shoulder. PAST SURGICAL HISTORY OF 2006 bone spur removed from right nares ALLERGIES Lisinopril MEDICATIONS DULoxetine (CYMBALTA) 60 mg capsule take 1 capsule by mouth every day atorvastatin (LIPITOR) 10 mg tablet Take 1 tablet by mouth daily at bedtime. For cholesterol. gabapentin (NEURONTIN) 100 mg capsule Take 1 capsule by mouth daily at bedtime for 180 days. propranolol (INDERAL) 10 mg tablet Take 1 tablet by mouth twice daily. mirabegron (MYRBETRIQ) 25 mg Tb24 Take 1 tablet by mouth once daily. traZODone (DESYREL) 100 mg tablet Take 2 tablets by mouth daily at bedtime. multivit with minerals/lutein (MULTIVITAMIN 50 PLUS ORAL) Take by mouth. vitamin E mixed 1,000 unit cap Take 2,000 Units by mouth. ustekinumab (STELARA) 45 mg/0.5 mL sub-Q syringe Inject subcutaneously. Every 3 months. (Dr. Sanchez) busPIRone (BUSPAR) 5 mg tablet TAKE 1 TABLET BY MOUTH TWICE A DAY FAMILY HISTORY Problem Relation Age of Onset Alzheimer's Disease Mother Diabetes Father Hypertension Father Cancer Father ? primary site. Blood Clots No Family History No DVT or PE. Social History Tobacco Use Smoking status: Former Packs/day: 2.00 Years: 33.00 Additional pack years: 0.00 Total pack years: 66.00 Types: Cigarettes Start date: 1984 Quit date: 08/29/2017 Years since quittin.4 Smokeless tobacco: Never Vaping Use Vaping Use: Never used Substance Use Topics Alcohol use: Not Currently Alcohol/week: 2.6 standard drinks of alcohol Types: 2 Mixed Drinks per week Comment: 2 a week Drug use: No PHYSICAL EXAM BP 132/62 (BP Site: Left Arm, BP Position: Sitting, BP Cuff Size: Large Adult) Pulse 75 Temp 36.4 C (97.6 F) Resp 12 Ht 182.9 cm (6') Wt 98.4 kg (217 lb) SpO2 96% BMI 29.43 kg/m General Appearance: well appearing, in no acute distress, alert Pysch: mood and affect broad and appropriate Skin: Skin color, texture, turgor normal for age; Lungs: Lungs clear to auscultation. No wheezing, rhonchi, rales. Heart: RRR without murmur, gallop, or rubs. No ectopy Abdomen: Normal abdominal exam Extremities: No gross deformities, significant edema, skin discoloration, clubbing or cyanosis. Neurological: Gait normal. No focal neurological deficits. Sensation grossly intact. ASSESSMENT/PLAN: 1. Anxiety and depression - ICD9: 300.00, 311, ICD10: F41.9, F32.A (primary diagnosis) Mood is improved on 60 mg Cymbalta, which she has now been on about 4 weeks. Continue current management-we will reassess in 4 weeks. 2. RLS (restless legs syndrome), provisional - ICD9: 333.94, ICD10: G25.81 Suboptimally controlled on 100 mg gabapentin. We will trial on higher dosage of gabapentin before switching to alternative agent altogether. Titrate up to 300 mg once nightly. Discussed medication indications, proper use, and potential adverse effects. All questions and concerns addressed to patient satisfaction. - GABAPENTIN 300 MG CAPSULE Follow-up 4 weeks RLS. Prescription instructions reviewed with patient as applicable. Potential red flag symptoms discussed with the patient. Reviewed appropriate action plan to take if red flag symptoms occur. Patient agreeable to treatment plan. Maeve Lugo PA-C documented in this encounter [facility] 01-29-2023 Miscellaneous Notes FOLLOW UP ENDOSCOPY - RESULTS AND RECOMMENDATIONS NAME: Royal Garcia [facility] NO.: [id number] : 1965 DATE: January 29, 2023 PRIMARY CARE PROVIDER: Genie Coto MD REFERRING PHYSICIAN: No ref. provider found Royal Garcia is a patient referred for endoscopy for rectal bleeding. I performed lower endoscopy on January 24, 2023. The patient was found to have: Lower Endoscopy: Impression: - Hemorrhoids found on perianal exam. - One 6 mm polyp at the splenic flexure, removed with a cold biopsy forceps. Resected and retrieved. - Diverticulosis in the sigmoid colon. - Internal hemorrhoids. Banded. - The examination was otherwise normal on direct and retroflexion views. Pathology demonstrated: FINAL DIAGNOSIS A. Colon, splenic flexure, polypectomy: - Tubular adenoma. IMPRESSION: small adenomatous polyp, rectal bleeding PLAN: INSTRUCTIONS FOLLOWING A POLYP FOUND AT COLONOSCOPY You were found to have an adenomatous colon polyp. I recommend you undergo repeat endoscopy in 5 years. If you note bleeding, change in bowel habits, or other suspicious colon related symptoms before that time, those symptoms should be evaluated as necessary. If you have any difficulties or concerns, you should contact our office immediately. Return for additional hemorrhoidal banding in office if needed The patient is instructed to follow-up with your primary care provider I have instructed my staff to forward the above information to the patient and to the appropriate providers documented in this encounter [facility] 01-24-2023 Nurse Note Patient arrived laying on left side. Patient does not appear to be in any pain at this time and denies such. Abdomen appears to be nondistended and soft to palpation. Patient encouraged to belch and pass gas as needed. documented in this encounter [facility] 01-24-2023 History and physical note UPDATED PROCEDURAL SEDATION HISTORY AND PHYSICAL EXAMINATION SERVICE DATE: 01/24/2023 SERVICE TIME: 10:46 AM PHYSICAL EXAM MUST BE COMPLETED ON ADMISSION PROCEDURE: Procedure Indications: The History and Physical (completed in the past 30 days) has been reviewed and the patient has been examined. The contents accurately reflect the patient's condition with the following additions or revisions since the H&P was completed. ASA Class: ASA Class:: Patient with mild systemic disease Examination indicates no changes. AIRWAY: Airway Visualization of Uvula: Yes Mouth opening greater than 2 fingerbreadths: Yes Neck Full Range of Motion: Yes LUNGS: Lungs clear to auscultation CARDIAC: Regular rhythm,Regular rate Provisional Diagnosis/Treatment Plan: rectal bleeding, possible hemorrhoidal banding - colonoscopy and poswsible hemorrhoidal banding SEDATION GOAL: Moderate This H&P can be found in the attached. SIGNATURE: Gigi Becerril MD PATIENT NAME: Royal Garcia DATE: January 24, 2023 TIME: 10:45 AM Source Note - Gigi Becerril MD - 01/24/2023 10:30 AM EDT Images from the original note were not included. HISTORY AND PHYSICAL Royal Garcia 1965 REFERRING PHYSICIAN: Mayuri Dexter APRN.CNP CHIEF COMPLAINT: Consult (colonoscopy) HPI: The patient is a 57 year old male referred for endoscopy. Royal notes the following GI complaints: Royal denies abdominal pain.. Royal denies diarrhea. Royal denies constipation. Royal denies a change in bowel habits. Royal denies melena. Royal notes occasional bright red blood per rectum. Royal he questions whether he has hemorrhoids. The patient notes no history of upper GI complaints. Royal has undergone prior endoscopy. He had colonoscopies in 2012 and 2017 which demonstrated hyperplastic polyps The patient is being seen by me today at the request of Dr. Genie Coto MD for my opinion and advice regarding rectal bleeding. 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 Bone spur rotator cuff right shoulder. PAST SURGICAL HISTORY OF 2006 bone spur removed from right nares CURRENT MEDICATIONS Current Outpatient Medications Medication Sig propranolol (INDERAL) 10 mg tablet Take 1 tablet by mouth twice daily. mirabegron (MYRBETRIQ) 25 mg Tb24 Take 1 tablet by mouth once daily. busPIRone (BUSPAR) 5 mg tablet Take 1 tablet by mouth twice daily. escitalopram oxalate (LEXAPRO) 20 mg tablet Take 1 tablet by mouth once daily. eszopiclone (LUNESTA) 2 mg TAKE 1 TABLET BY MOUTH AT BEDTIME NEEDED (INSOMNIA) FOR UP TO 90 DAYS. traZODone (DESYREL) 100 mg tablet Take 2 tablets by mouth daily at bedtime. gabapentin (NEURONTIN) 100 mg capsule Take 1 capsule by mouth daily at bedtime for 180 days. atorvastatin (LIPITOR) 10 mg tablet TAKE 1 TABLET BY MOUTH DAILY AT BEDTIME. FOR CHOLESTEROL multivit with minerals/lutein (MULTIVITAMIN 50 PLUS ORAL) Take by mouth. vitamin E mixed 1,000 unit cap Take 2,000 Units by mouth. ustekinumab (STELARA) 45 mg/0.5 mL sub-Q syringe Inject subcutaneously. Every 3 months. (Dr. Sanchez) No current facility-administered medications for this visit. ALLERGIES: Lisinopril PERSONAL HISTORY: SOCIAL HISTORY Social History Tobacco Use Smoking status: Former Packs/day: 2.00 Years: 33.00 Additional pack years: 0.00 Total pack years: 66.00 Types: Cigarettes Start date: 1984 Quit date: 08/29/2017 Years since quittin.2 Smokeless tobacco: Never Vaping Use Vaping Use: Never used Substance Use Topics Alcohol use: Yes Alcohol/week: 35.0 standard drinks of alcohol Types: 14 Cans of Beer (12oz) per week Comment: 3-4 beers/night 12 oz Drug use: No FAMILY HISTORY: FAMILY HISTORY FAMILY HISTORY Problem Relation Age of Onset Alzheimer's Disease Mother Diabetes Father Hypertension Father Cancer Father ? primary site. Blood Clots No Family History No DVT or PE. REVIEW OF SYMPTOMS: The review of systems data was entered by the nurse and reviewed by sc Nursing Notes: Aarti Brice RN 12/01/2022 7:45 AM Signed REVIEW OF SYSTEMS: General: The patient denies fatigue, denies weight loss, denies weight gain, denies feeling hot, and denies feelings of cold. Eyes: The patient denies glaucoma, denies eye injury/surgery, wears glasses or contacts. Ear/Nose/Throat: The patient denies allergies, denies hayfever, denies ear infections, and denies bloody noses. Cardiovascular: The patient denies chest pain, denies heart disease, NOTES high blood pressure,denies cardiac stent, denies prior heart attack, denies irregular heart beat, NOTES high cholesterol, denies poor circulation, denies heart failure, other cardiac issues, denies claudication, denies cold feet, denies peripheral arterial stent. Respiratory: The patient denies tuberculosis, denies pneumonia, denies frequent cough, NOTES pulmonary embolism, NOTES shortness of breath, and denies coughing up blood. Gastrointestinal: The patient denies difficulty swallowing, denies acid reflux, denies ulcers, denies vomiting, denies jaundice/hepatitis, denies gallbladder problems, denies black or tarry stools, denies hemorrhoids, NOTES bleeding from rectum, denies diverticulitis, denies constipation, NOTES diarrhea, denies loss of stool control, and denies hernias. Kidney/Bladder: The patient denies kidney stones, NOTES urine infections, and denies bloody urine. Skin: The patient denies a history of skin cancer, denies bleeding/changing moles, and NOTES a history of skin rash. Neurologic: The patient denies a history of epilepsy/convulsions, denies headaches, denies head/spinal injuries, and denies stroke/TIA. Psychiatric: The patient denies psychiatric medications, NOTES depression, and denies voices, denies substance abuse. Endocrine: The patient denies thyroid disorders, denies diabetes, and denies hormonal problems. Hematologic: The patient denies a history of bruising, denies bleeding, and denies anemia, NOTES blood clots. Infections: The patient denies a history of measles and mumps, denies rheumatic fever, and denies sexually transmitted diseases. Musculoskeletal: The patient denies back pain/injury, denies back problems, denies sciatica, denies knee/foot trouble, denies arthritis, or denies gout. When was patient's last Mammogram screening? N/A Last Colonoscopy: 2017 Aarti Brice RN PHYSICAL EXAMINATION: General: The patient is 57 year old male, well nourished, well hydrated in no acute distress. The patient is oriented to time, place, and person. VITALS: Blood pressure 126/84, pulse 67, temperature 36.2 C (97.2 F), height 182.9 cm (6'), weight 98.3 kg (216 lb 12.8 oz), SpO2 96 %. Body mass index is 29.4 kg/m . HEENT: Normal cephalic, ataumatic, pupils are equally round, sclera are anicteric, mucous membranes are moist, oropharynx is clear. Neck has no masses, asymmetry or lymphadenopathy. Thyroid is unremarkable. Respiratory: Clear to auscultation and percussion. Normal respiratory excursion and pattern. Cardiac: Examination is regular rate and rhythm. Abdominal exam: Soft, nontender, with no palpable masses. No hepatosplenomegaly. No palpable hernias. Rectal exam: exam deferred Extremities: no clubbing, cyanosis or edema. No adenopathy. Other: LABORATORY VALUES: As Noted RADIOLOGIC STUDIES: As Noted Assessment IMPRESSION: Rectal bleeding, questionable hemorrhoidal bleeding PLAN: I plan to perform lower endoscopy with possible hemorrhoidal banding. We discussed the risks and benefits of the planned endoscopy. I have informed the patient that complications can occur including failure to complete the endoscopy and perforation. The patient had the opportunity to ask questions concerning the planned endoscopy. My staff has also explained the procedure to the patient in understandable terms and has given the patient printed material concerning the procedure. The patient freely consents to surgery. I plan to use golytely bowel preparation for endoscopy Diagnoses: (K62.5) Rectal bleeding (primary encounter diagnosis) (Z12.11) Special screening for malignant neoplasms, colon My findings have been communicated to Dr. Genie Coto MD via shared medical record. This note will be forwarded to Dr. Genie Coto MD. Return to Clinic: The patient is instructed to follow-up with me after the testing has been completed. Gigi Becerril MD Images from the original note were not included. HISTORY AND PHYSICAL Royal Garcia 1965 REFERRING PHYSICIAN: Mayuri Dexter APRN.EXHIBITION ORGANISER CHIEF COMPLAINT: Consult (colonoscopy) HPI: The patient is a 57 year old male referred for endoscopy. Royal notes the following GI complaints: Royal denies abdominal pain.. Royal denies diarrhea. Royal denies constipation. Royal denies a change in bowel habits. Royal denies melena. Royal notes occasional bright red blood per rectum. Royal he questions whether he has hemorrhoids. The patient notes no history of upper GI complaints. Royal has undergone prior endoscopy. He had colonoscopies in 2011 and 2016 which demonstrated hyperplastic polyps The patient is being seen by me today at the request of Dr. Genie Coto MD for my opinion and advice regarding rectal bleeding. 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 Bone spur rotator cuff right shoulder. PAST SURGICAL HISTORY OF 2006 bone spur removed from right nares CURRENT MEDICATIONS Current Outpatient Medications Medication Sig propranolol (INDERAL) 10 mg tablet Take 1 tablet by mouth twice daily. mirabegron (MYRBETRIQ) 25 mg Tb24 Take 1 tablet by mouth once daily. busPIRone (BUSPAR) 5 mg tablet Take 1 tablet by mouth twice daily. escitalopram oxalate (LEXAPRO) 20 mg tablet Take 1 tablet by mouth once daily. eszopiclone (LUNESTA) 2 mg TAKE 1 TABLET BY MOUTH AT BEDTIME NEEDED (INSOMNIA) FOR UP TO 90 DAYS. traZODone (DESYREL) 100 mg tablet Take 2 tablets by mouth daily at bedtime. gabapentin (NEURONTIN) 100 mg capsule Take 1 capsule by mouth daily at bedtime for 180 days. atorvastatin (LIPITOR) 10 mg tablet TAKE 1 TABLET BY MOUTH DAILY AT BEDTIME. FOR CHOLESTEROL multivit with minerals/lutein (MULTIVITAMIN 50 PLUS ORAL) Take by mouth. vitamin E mixed 1,000 unit cap Take 2,000 Units by mouth. ustekinumab (STELARA) 45 mg/0.5 mL sub-Q syringe Inject subcutaneously. Every 3 months. (Dr. Sanchez) No current facility-administered medications for this visit. ALLERGIES: Lisinopril PERSONAL HISTORY: SOCIAL HISTORY Social History Tobacco Use Smoking status: Former Packs/day: 2.00 Years: 33.00 Additional pack years: 0.00 Total pack years: 66.00 Types: Cigarettes Start date: 1984 Quit date: 08/29/2017 Years since quittin.2 Smokeless tobacco: Never Vaping Use Vaping Use: Never used Substance Use Topics Alcohol use: Yes Alcohol/week: 35.0 standard drinks of alcohol Types: 14 Cans of Beer (12oz) per week Comment: 3-4 beers/night 12 oz Drug use: No FAMILY HISTORY: FAMILY HISTORY FAMILY HISTORY Problem Relation Age of Onset Alzheimer's Disease Mother Diabetes Father Hypertension Father Cancer Father ? primary site. Blood Clots No Family History No DVT or PE. REVIEW OF SYMPTOMS: The review of systems data was entered by the nurse and reviewed by sc Nursing Notes: Aarti Brice RN 12/01/2022 7:45 AM Signed REVIEW OF SYSTEMS: General: The patient denies fatigue, denies weight loss, denies weight gain, denies feeling hot, and denies feelings of cold. Eyes: The patient denies glaucoma, denies eye injury/surgery, wears glasses or contacts. Ear/Nose/Throat: The patient denies allergies, denies hayfever, denies ear infections, and denies bloody noses. Cardiovascular: The patient denies chest pain, denies heart disease, NOTES high blood pressure,denies cardiac stent, denies prior heart attack, denies irregular heart beat, NOTES high cholesterol, denies poor circulation, denies heart failure, other cardiac issues, denies claudication, denies cold feet, denies peripheral arterial stent. Respiratory: The patient denies tuberculosis, denies pneumonia, denies frequent cough, NOTES pulmonary embolism, NOTES shortness of breath, and denies coughing up blood. Gastrointestinal: The patient denies difficulty swallowing, denies acid reflux, denies ulcers, denies vomiting, denies jaundice/hepatitis, denies gallbladder problems, denies black or tarry stools, denies hemorrhoids, NOTES bleeding from rectum, denies diverticulitis, denies constipation, NOTES diarrhea, denies loss of stool control, and denies hernias. Kidney/Bladder: The patient denies kidney stones, NOTES urine infections, and denies bloody urine. Skin: The patient denies a history of skin cancer, denies bleeding/changing moles, and NOTES a history of skin rash. Neurologic: The patient denies a history of epilepsy/convulsions, denies headaches, denies head/spinal injuries, and denies stroke/TIA. Psychiatric: The patient denies psychiatric medications, NOTES depression, and denies voices, denies substance abuse. Endocrine: The patient denies thyroid disorders, denies diabetes, and denies hormonal problems. Hematologic: The patient denies a history of bruising, denies bleeding, and denies anemia, NOTES blood clots. Infections: The patient denies a history of measles and mumps, denies rheumatic fever, and denies sexually transmitted diseases. Musculoskeletal: The patient denies back pain/injury, denies back problems, denies sciatica, denies knee/foot trouble, denies arthritis, or denies gout. When was patient's last Mammogram screening? N/A Last Colonoscopy: 2017 Aarti Brice RN PHYSICAL EXAMINATION: General: The patient is 57 year old male, well nourished, well hydrated in no acute distress. The patient is oriented to time, place, and person. VITALS: Blood pressure 126/84, pulse 67, temperature 36.2 C (97.2 F), height 182.9 cm (6'), weight 98.3 kg (216 lb 12.8 oz), SpO2 96 %. Body mass index is 29.4 kg/m . HEENT: Normal cephalic, ataumatic, pupils are equally round, sclera are anicteric, mucous membranes are moist, oropharynx is clear. Neck has no masses, asymmetry or lymphadenopathy. Thyroid is unremarkable. Respiratory: Clear to auscultation and percussion. Normal respiratory excursion and pattern. Cardiac: Examination is regular rate and rhythm. Abdominal exam: Soft, nontender, with no palpable masses. No hepatosplenomegaly. No palpable hernias. Rectal exam: exam deferred Extremities: no clubbing, cyanosis or edema. No adenopathy. Other: LABORATORY VALUES: As Noted RADIOLOGIC STUDIES: As Noted Assessment IMPRESSION: Rectal bleeding, questionable hemorrhoidal bleeding PLAN: I plan to perform lower endoscopy with possible hemorrhoidal banding. We discussed the risks and benefits of the planned endoscopy. I have informed the patient that complications can occur including failure to complete the endoscopy and perforation. The patient had the opportunity to ask questions concerning the planned endoscopy. My staff has also explained the procedure to the patient in understandable terms and has given the patient printed material concerning the procedure. The patient freely consents to surgery. I plan to use golytely bowel preparation for endoscopy Diagnoses: (K62.5) Rectal bleeding (primary encounter diagnosis) (Z12.11) Special screening for malignant neoplasms, colon My findings have been communicated to Dr. Genie Coto MD via shared medical record. This note will be forwarded to Dr. Genie Coto MD. Return to Clinic: The patient is instructed to follow-up with me after the testing has been completed. Gigi Becerril MD documented in this encounter [facility] 01-02-2023 History of Present illness Narrative CC: Patient presents with: Recheck: Medication follow up HPI Royal Garcia is a 57 year old male who presents today for follow up on anxiety medication. Was started on duloxetine 2 weeks ago after discontinuing previous medications as he was getting more agitated with buspar, Has tried multiple other medications which have either not been helpful or caused side effects. Currently on duloxetine which was started 2 weeks ago by Maeve RUELAS. Feels he is tolerating well with no side effects. Has not been on long enough to see if it improves his symptoms Sleep: is described as normal. Takes trazadone nightly and has lunesta in case needed. Alcohol use: drinks less than one drink a day Drug use: No Appetite: good Stresses: Major stressor: ongoing work stress. Suicidal Thoughts: No suicidal ideation, intent or plan Support: Comes from multiple sources including Counseling: No RLS: Patient does not notice but states he is kicking all night while he is sleeping. Currently on gabapentin. Has been on other medications but unsure on how they helped as he has been on gabapentin for years. HTN and HLD: Mr. Garcia indicates that he is feeling well and denies any symptoms referable to elevated blood pressure. Specifically denies headache, chest pain, palpitations, dyspnea, and peripheral edema. Patient denies any side effects of his medication(s) and is compliant with their regimen. He does not check BP's generally. Royal walks a lot at work 5-7 days a week. He watches his diet for sodium, low fat and low cholesterol most of the time. Last 3 Encounter BP Readings: Date: BP: 01/02/2023 122/76 12/19/2022 116/70 12/01/2022 126/84 Urge incontinence with OAB: With the myrbetriq he has no further incontinence and gets up average on 1 time a night to urinate. At end of appointment wants to discuss Incidental finding of moderate calcifications of coronary arteries. Was found on CT of chest as ordered by pulmonology. History of PE in 2018, HTN, and HLD. Father with heart disease. Does report shortness of breath when climbing steps or a ladder. Sometimes is severe enough he has to stop. Will subside with rest. Denies chest pressure at first but then states slight pressure generalized to chest he thinks is from being short of breath. Denies any nausea, fatigue, sweating, palpitations, or dizziness. Does not smoke and quit in 2018. REVIEW OF SYSTEMS See HPI PAST MEDICAL HISTORY Diagnosis Date Benign neoplasm of colon Benign neoplasm of rectum and anal canal Depression 04/02/2015 Diarrhea Insomnia Obstructive sleep apnea DME [employer] [facility] Other psoriasis Pulmonary embolism (HCC) PAST SURGICAL HISTORY Procedure Laterality Date COLONOSCOPY FLX DX W/COLLJ SPEC WHEN PFRMD 01/20/12 ` COLONOSCOPY FLX DX W/COLLJ SPEC WHEN PFRMD 03/27/2017 5 yrs repeat CYSTOURETHROSCOPY 05/21/2014 LAPAROSCOPIC APPENDECTOMY 09/06/2008 LIGJ DIVJ &/EXCJ VARICOSE VEIN CLUSTER 1 LEG 2002 Varicose Vein Surgery left leg NOSE SURGERY HX Bilateral done by PAST SURGICAL HISTORY OF 11/01/2010. Bone spur rotator cuff right shoulder. PAST SURGICAL HISTORY OF 2006 bone spur removed from right nares ALLERGIES Lisinopril MEDICATIONS DULoxetine (CYMBALTA) 60 mg capsule Take 1 capsule by mouth once daily. eszopiclone (LUNESTA) 2 mg Take 1 tablet by mouth at bedtime as needed (insomnia) for up to 30 days. busPIRone (BUSPAR) 5 mg tablet TAKE 1 TABLET BY MOUTH TWICE A DAY propranolol (INDERAL) 10 mg tablet Take 1 tablet by mouth twice daily. mirabegron (MYRBETRIQ) 25 mg Tb24 Take 1 tablet by mouth once daily. traZODone (DESYREL) 100 mg tablet Take 2 tablets by mouth daily at bedtime. gabapentin (NEURONTIN) 100 mg capsule Take 1 capsule by mouth daily at bedtime for 180 days. atorvastatin (LIPITOR) 10 mg tablet TAKE 1 TABLET BY MOUTH DAILY AT BEDTIME. FOR CHOLESTEROL multivit with minerals/lutein (MULTIVITAMIN 50 PLUS ORAL) Take by mouth. vitamin E mixed 1,000 unit cap Take 2,000 Units by mouth. ustekinumab (STELARA) 45 mg/0.5 mL sub-Q syringe Inject subcutaneously. Every 3 months. (Dr. Sanchez) FAMILY HISTORY Problem Relation Age of Onset Alzheimer's Disease Mother Diabetes Father Hypertension Father Cancer Father ? primary site. Blood Clots No Family History No DVT or PE. Social History Tobacco Use Smoking status: Former Packs/day: 2.00 Years: 33.00 Additional pack years: 0.00 Total pack years: 66.00 Types: Cigarettes Start date: 1984 Quit date: 08/29/2017 Years since quittin.3 Smokeless tobacco: Never Vaping Use Vaping Use: Never used Substance Use Topics Alcohol use: Yes Alcohol/week: 35.0 standard drinks of alcohol Types: 14 Cans of Beer (12oz) per week Comment: 3-4 beers/night 12 oz Drug use: No PHYSICAL EXAM BP 122/76 Pulse 60 Resp 16 Wt 100.2 kg (221 lb) SpO2 97% BMI 29.97 kg/m General Appearance: well appearing, in no acute distress, alert Pysch: mood and affect broad and appropriate Skin: Skin color, texture, turgor normal for age; Eyes: conjunctiva pink and moist, no icterus, sclera white, non-injected Neck: Thyroid normal size and symmetric without palpable nodules, No bruits, Neck supple, No adenopathy Lymph nodes: No cervical lymphadenopathy and No supraclavicular lymphadenopathy Lungs: Lungs clear to auscultation. No wheezing, rhonchi, rales. Heart: RRR without murmur, gallop, or rubs. No ectopy Health maintenance reviewed with patient: Colorectal Cancer Screening due on 03/27/2022 DTaP,Tdap,Td Vaccine(2 - Td or Tdap) due on 11/17/2023 Hepatitis B Vaccine(1 of 3 - 3-dose series) due on 11/17/2023 Covid-19 Vaccine(4 - Mixed Product risk series) due on 11/17/2023 Pneumococcal Vaccine(3 - PCV) due on 11/17/2023 Lung Cancer Screening due on 12/03/2023 Annual PCP Team Chronic Disease Visit due on 12/20/2023 BP Controlled (<130/80) due on 12/20/2023 Diabetes Screening due on 08/13/2025 Lipid Screening due on 02/19/2027 Prostate Cancer Screening Discussion due on 02/19/2027 Influenza Vaccine Completed Hepatitis C Screening Completed HIV Screening Completed Shingrix Vaccine Completed DATA REVIEWED: No new labs awaiting lipids to be resulted EKG Interpretation: RHYTHM: Normal sinus rhythm at 48 beats per minute and Sinus bradycardia at 48 beats per minute. (Was in the 60s apically) AXIS: Normal axis INTERVALS: Normal SD interval QRS COMPLEX: Normal ST SEGMENT: Normal ST-T segments QT INTERVAL: Normal COMPARED WITH PRIOR: unchanged ASSESSMENT/PLAN: 1. Dyspnea on exertion - ICD9: 786.09, ICD10: R06.09 (primary diagnosis) - known CAD as found incidentally on CT of chest. EKG unconcerning, last ECHO was a year ago that was inconclusive of diastolic function, but no significant abnormalities found. Had a negative stress test last in 2018 - ECG COMPLETE - STRESS ECHO TREADMILL - PERFLUTREN LIPID MICROSPHERES 1.1 MG/ML INJECTION IN NS 10 ML - SODIUM CHLORIDE 0.9 % (FLUSH) INJECTION SYRINGE - CONSULT TO CARDIOLOGY 2. Chest pressure - ICD9: 786.59, ICD10: R07.89 As above - ECG COMPLETE - STRESS ECHO TREADMILL - PERFLUTREN LIPID MICROSPHERES 1.1 MG/ML INJECTION IN NS 10 ML - SODIUM CHLORIDE 0.9 % (FLUSH) INJECTION SYRINGE - CONSULT TO CARDIOLOGY 3. RLS (restless legs syndrome), provisional - ICD9: 333.94, ICD10: G25.81 Can discuss at follow up regarding increasing dose or making a med change - GABAPENTIN 100 MG CAPSULE 4. Atherosclerosis of coronary artery of [place] heart, unspecified vessel or lesion type, unspecified whether angina present - ICD9: 414.01, ICD10: I25.10 See #1 - STRESS ECHO TREADMILL - PERFLUTREN LIPID MICROSPHERES 1.1 MG/ML INJECTION IN NS 10 ML - SODIUM CHLORIDE 0.9 % (FLUSH) INJECTION SYRINGE - CONSULT TO CARDIOLOGY 5. Primary hypertension - ICD9: 401.9, ICD10: I10 - Controlled but my concern is if Apical is too low at home. During exam was in the 60s but EKG showed 48. Needs to monitor at home and contact if HR below 60 at home and bring readings to next appointment. - Continue current medications - Recommend home blood pressure monitoring, to bring results to next visit - Encouraged sodium restriction, DASH or Mediterranean diet - Recommend regular aerobic exercise 6. Dyslipidemia - ICD9: 272.4, ICD10: E78.5 - Control undetermined, due for labs - Continue current medications - Counseled on healthy diet and regular exercise - Discussed need for and benefit of weight loss. BMI 29.97 kg/(m^2) 7. Anxiety and depression - ICD9: 300.00, 311, ICD10: F41.9, F32.A - control unknown but tolerating new medication - Reviewed concept of neurochemical imbalance wth depression/anxiety, treatment options and benefits of counseling in combination with medication. Also reviewed benefits of sleep hygeine, diet and exercise - Follow-up in 4 weeks or sooner as needed - Instructed patient to contact office or [id number] after-hours promptly should condition worsen or any new symptoms appear. - [facility] [place] [facility] [place] [facility] and after hours crisis line 8. Urge incontinence - ICD9: 788.31, ICD10: N39.41 Controlled with current treatment. Prescription instructions reviewed with patient as applicable. Potential red flag symptoms discussed with the patient. Reviewed appropriate action plan to take if red flag symptoms occur. Patient agreeable to treatment plan. Mayuri Dexter APRN.CNP documented in this encounter [facility] 12-30-2022 Miscellaneous Notes PDMP website checked and validated. All prescriptions have been APPROPRIATELY filled. No suspicious activity was identified. 12/30/2022 by Maeve Lugo PA-C Patient has been identified by name and date of : No Patient phones for refill(s): Requested Prescriptions Pending Prescriptions Disp Refills eszopiclone (LUNESTA) 2 mg 7 tablet 0 Sig: Take 1 tablet by mouth at bedtime as needed (insomnia) for up to 90 days. Date of last office visit in primary care: 12/19/22 Last 2 Encounter Wt Readings: Date: Wt: 12/19/2022 99.8 kg (220 lb) 12/01/2022 98.3 kg (216 lb 12.8 oz) Previous labs/tests for medication: Not applicable Please advise. Thank you. Sherly Howell documented in this encounter [facility] 12-19-2022 Instructions Maeve Lugo PA-C - 12/19/2022 10:19 AM EDT Stop Lexapro today, then start the cymbalta in its place come tomorrow morning Stay on buspar 5 mg twice daily for about a week until you're tolerating the cymbalta change okay, then ok to discontinue the buspar immediately (no taper necessary) documented in this encounter [facility] 12-19-2022 History of Present illness Narrative CC: Patient presents with: Follow Up Immunizations: Flu vaccination HPI Royal Garcia is a 57 year old male who presents today to discuss alternative tx options for anxiety/depression. Started on Lexapro in August, then increased to 20 mg in October and doesn t seem to be helping. Had buspar low dose added at last visit in 11/30 and doesn't notice any difference. Previously, has been on sertraline, Effexor, and fluoxetine without any significant improvement in mood. Upon reviewing his record, pt has been on effexor, sertraline, fluoxetine, and wellbutrin previously without much relief. Has psoriatic arthritis in bilateral knees that is pretty bad. REVIEW OF SYSTEMS See HPI All other systems negative. 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 Bone spur rotator cuff right shoulder. PAST SURGICAL HISTORY OF 2006 bone spur removed from right nares ALLERGIES Lisinopril MEDICATIONS busPIRone (BUSPAR) 5 mg tablet TAKE 1 TABLET BY MOUTH TWICE A DAY propranolol (INDERAL) 10 mg tablet Take 1 tablet by mouth twice daily. mirabegron (MYRBETRIQ) 25 mg Tb24 Take 1 tablet by mouth once daily. escitalopram oxalate (LEXAPRO) 20 mg tablet Take 1 tablet by mouth once daily. eszopiclone (LUNESTA) 2 mg TAKE 1 TABLET BY MOUTH AT BEDTIME NEEDED (INSOMNIA) FOR UP TO 90 DAYS. traZODone (DESYREL) 100 mg tablet Take 2 tablets by mouth daily at bedtime. gabapentin (NEURONTIN) 100 mg capsule Take 1 capsule by mouth daily at bedtime for 180 days. atorvastatin (LIPITOR) 10 mg tablet TAKE 1 TABLET BY MOUTH DAILY AT BEDTIME. FOR CHOLESTEROL multivit with minerals/lutein (MULTIVITAMIN 50 PLUS ORAL) Take by mouth. vitamin E mixed 1,000 unit cap Take 2,000 Units by mouth. ustekinumab (STELARA) 45 mg/0.5 mL sub-Q syringe Inject subcutaneously. Every 3 months. (Dr. Sanchez) FAMILY HISTORY Problem Relation Age of Onset Alzheimer's Disease Mother Diabetes Father Hypertension Father Cancer Father ? primary site. Blood Clots No Family History No DVT or PE. Social History Tobacco Use Smoking status: Former Packs/day: 2.00 Years: 33.00 Additional pack years: 0.00 Total pack years: 66.00 Types: Cigarettes Start date: 1984 Quit date: 08/29/2017 Years since quittin.3 Smokeless tobacco: Never Vaping Use Vaping Use: Never used Substance Use Topics Alcohol use: Yes Alcohol/week: 35.0 standard drinks of alcohol Types: 14 Cans of Beer (12oz) per week Comment: 3-4 beers/night 12 oz Drug use: No PHYSICAL EXAM BP 116/70 (BP Site: Left Arm, BP Position: Sitting, BP Cuff Size: Large Adult) Pulse 60 Temp 36.5 C (97.7 F) (Temporal) Resp 12 Wt 99.8 kg (220 lb) BMI 29.84 kg/m General Appearance: well appearing, in no acute distress, alert Psych: mood and affect broad and appropriate Skin: Skin color, texture, turgor normal for age Lungs: Lungs clear to auscultation. No wheezing, rhonchi, rales. Heart: RRR without murmur, gallop, or rubs. Extremities: No gross deformities, significant edema, skin discoloration, clubbing or cyanosis. Neurological: Gait normal. No focal neurological deficits. Sensation grossly intact. ASSESSMENT/PLAN: 1. Anxiety and depression - ICD9: 300.00, 311, ICD10: F41.9, F32.A (primary diagnosis) Will discontinue the lexapro, and start cymbalta in its place in hopes of helping both anxiety/depression, as well as chronic pain in knees. Consider adding in wellbutrin if suboptimally controlled (was on in the past for smoking cessation). Discussed medication indications, proper use, and potential adverse effects. All questions and concerns addressed to patient satisfaction. 2. Need for influenza vaccination - ICD9: V04.81, ICD10: Z23 - INFLUENZA VACCINE, AGE 6 MO - 64 YR, QUADRIVALENT (AFLURIA, FLULAVAL, FLUZONE) Prescription instructions reviewed with patient as applicable. Potential red flag symptoms discussed with the patient. Reviewed appropriate action plan to take if red flag symptoms occur. Patient agreeable to treatment plan. Maeve Lugo PA-C documented in this encounter [facility] 12-13-2022 Miscellaneous Notes Patient has been identified by name and date of : No Patient phones for refill(s): Requested Prescriptions Pending Prescriptions Disp Refills busPIRone (BUSPAR) 5 mg tablet [Pharmacy Med Name: BUSPIRONE HCL 5 MG TABLET] 60 tablet 1 Sig: TAKE 1 TABLET BY MOUTH TWICE A DAY Date of last office visit in primary care: 11/16/22 Last 2 Encounter Wt Readings: Date: Wt: 12/01/2022 98.3 kg (216 lb 12.8 oz) 11/22/2022 97.1 kg (214 lb) Previous labs/tests for medication: Not applicable Please advise. Thank you. Sherly Howell LPN documented in this encounter [facility] 12-01-2022 History of Present illness Narrative HISTORY AND PHYSICAL Royal Garcia 1965 REFERRING PHYSICIAN: Mayuri Dexter APRN.EXHIBITION ORGANISER CHIEF COMPLAINT: Consult (colonoscopy) HPI: The patient is a 57 year old male referred for endoscopy. Royal notes the following GI complaints: Royal denies abdominal pain.. Royal denies diarrhea. Royal denies constipation. Royal denies a change in bowel habits. Royal denies melena. Royal notes occasional bright red blood per rectum. Royal he questions whether he has hemorrhoids. The patient notes no history of upper GI complaints. Royal has undergone prior endoscopy. He had colonoscopies in 2011 and 2016 which demonstrated hyperplastic polyps The patient is being seen by me today at the request of Dr. Genie Coto MD for my opinion and advice regarding rectal bleeding. 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 Bone spur rotator cuff right shoulder. PAST SURGICAL HISTORY OF 2006 bone spur removed from right nares Current Outpatient Medications Medication Sig propranolol (INDERAL) 10 mg tablet Take 1 tablet by mouth twice daily. mirabegron (MYRBETRIQ) 25 mg Tb24 Take 1 tablet by mouth once daily. busPIRone (BUSPAR) 5 mg tablet Take 1 tablet by mouth twice daily. escitalopram oxalate (LEXAPRO) 20 mg tablet Take 1 tablet by mouth once daily. eszopiclone (LUNESTA) 2 mg TAKE 1 TABLET BY MOUTH AT BEDTIME NEEDED (INSOMNIA) FOR UP TO 90 DAYS. traZODone (DESYREL) 100 mg tablet Take 2 tablets by mouth daily at bedtime. gabapentin (NEURONTIN) 100 mg capsule Take 1 capsule by mouth daily at bedtime for 180 days. atorvastatin (LIPITOR) 10 mg tablet TAKE 1 TABLET BY MOUTH DAILY AT BEDTIME. FOR CHOLESTEROL multivit with minerals/lutein (MULTIVITAMIN 50 PLUS ORAL) Take by mouth. vitamin E mixed 1,000 unit cap Take 2,000 Units by mouth. ustekinumab (STELARA) 45 mg/0.5 mL sub-Q syringe Inject subcutaneously. Every 3 months. (Dr. Sanchez) No current facility-administered medications for this visit. ALLERGIES: Lisinopril PERSONAL HISTORY: Social History Tobacco Use Smoking status: Former Packs/day: 2.00 Years: 33.00 Additional pack years: 0.00 Total pack years: 66.00 Types: Cigarettes Start date: 1984 Quit date: 08/29/2017 Years since quittin.2 Smokeless tobacco: Never Vaping Use Vaping Use: Never used Substance Use Topics Alcohol use: Yes Alcohol/week: 35.0 standard drinks of alcohol Types: 14 Cans of Beer (12oz) per week Comment: 3-4 beers/night 12 oz Drug use: No FAMILY HISTORY: FAMILY HISTORY Problem Relation Age of Onset Alzheimer's Disease Mother Diabetes Father Hypertension Father Cancer Father ? primary site. Blood Clots No Family History No DVT or PE. REVIEW OF SYMPTOMS: The review of systems data was entered by the nurse and reviewed by sc Nursing Notes: Aarti Brice RN 12/01/2022 7:45 AM Signed REVIEW OF SYSTEMS: General: The patient denies fatigue, denies weight loss, denies weight gain, denies feeling hot, and denies feelings of cold. Eyes: The patient denies glaucoma, denies eye injury/surgery, wears glasses or contacts. Ear/Nose/Throat: The patient denies allergies, denies hayfever, denies ear infections, and denies bloody noses. Cardiovascular: The patient denies chest pain, denies heart disease, NOTES high blood pressure,denies cardiac stent, denies prior heart attack, denies irregular heart beat, NOTES high cholesterol, denies poor circulation, denies heart failure, other cardiac issues, denies claudication, denies cold feet, denies peripheral arterial stent. Respiratory: The patient denies tuberculosis, denies pneumonia, denies frequent cough, NOTES pulmonary embolism, NOTES shortness of breath, and denies coughing up blood. Gastrointestinal: The patient denies difficulty swallowing, denies acid reflux, denies ulcers, denies vomiting, denies jaundice/hepatitis, denies gallbladder problems, denies black or tarry stools, denies hemorrhoids, NOTES bleeding from rectum, denies diverticulitis, denies constipation, NOTES diarrhea, denies loss of stool control, and denies hernias. Kidney/Bladder: The patient denies kidney stones, NOTES urine infections, and denies bloody urine. Skin: The patient denies a history of skin cancer, denies bleeding/changing moles, and NOTES a history of skin rash. Neurologic: The patient denies a history of epilepsy/convulsions, denies headaches, denies head/spinal injuries, and denies stroke/TIA. Psychiatric: The patient denies psychiatric medications, NOTES depression, and denies voices, denies substance abuse. Endocrine: The patient denies thyroid disorders, denies diabetes, and denies hormonal problems. Hematologic: The patient denies a history of bruising, denies bleeding, and denies anemia, NOTES blood clots. Infections: The patient denies a history of measles and mumps, denies rheumatic fever, and denies sexually transmitted diseases. Musculoskeletal: The patient denies back pain/injury, denies back problems, denies sciatica, denies knee/foot trouble, denies arthritis, or denies gout. When was patient's last Mammogram screening? N/A Last Colonoscopy: 2017 Aarti Brice RN PHYSICAL EXAMINATION: General: The patient is 57 year old male, well nourished, well hydrated in no acute distress. The patient is oriented to time, place, and person. VITALS: Blood pressure 126/84, pulse 67, temperature 36.2 C (97.2 F), height 182.9 cm (6'), weight 98.3 kg (216 lb 12.8 oz), SpO2 96 %. Body mass index is 29.4 kg/m . HEENT: Normal cephalic, ataumatic, pupils are equally round, sclera are anicteric, mucous membranes are moist, oropharynx is clear. Neck has no masses, asymmetry or lymphadenopathy. Thyroid is unremarkable. Respiratory: Clear to auscultation and percussion. Normal respiratory excursion and pattern. Cardiac: Examination is regular rate and rhythm. Abdominal exam: Soft, nontender, with no palpable masses. No hepatosplenomegaly. No palpable hernias. Rectal exam: exam deferred Extremities: no clubbing, cyanosis or edema. No adenopathy. Other: LABORATORY VALUES: As Noted RADIOLOGIC STUDIES: As Noted Assessment IMPRESSION: Rectal bleeding, questionable hemorrhoidal bleeding PLAN: I plan to perform lower endoscopy with possible hemorrhoidal banding. We discussed the risks and benefits of the planned endoscopy. I have informed the patient that complications can occur including failure to complete the endoscopy and perforation. The patient had the opportunity to ask questions concerning the planned endoscopy. My staff has also explained the procedure to the patient in understandable terms and has given the patient printed material concerning the procedure. The patient freely consents to surgery. I plan to use golytely bowel preparation for endoscopy Diagnoses: (K62.5) Rectal bleeding (primary encounter diagnosis) (Z12.11) Special screening for malignant neoplasms, colon My findings have been communicated to Dr. Genie Coto MD via shared medical record. This note will be forwarded to Dr. Genie Coto MD. Return to Clinic: The patient is instructed to follow-up with me after the testing has been completed. Gigi Becerril MD documented in this encounter [facility] 12-01-2022 Instructions Gigi Becerril MD - 12/01/2022 8:14 AM EDT Images from the original note were not included. Bowel Preparation Instructions for: Golytely, Nulytely, Trilyte or Colyte (polyethylene glycol 3350 and electrolytes) IF YOU DO NOT FOLLOW THESE DIRECTIONS, YOUR COLONOSCOPY WILL BE CANCELLED. [place] Instructions: Your bowel must be empty so that your doctor can clearly view your colon. Follow all of the instructions in this handout EXACTLY as they are written. Do NOT eat any solid food the ENTIRE day before your colonoscopy. Drink only clear liquids. Buy your bowel preparation at least 5 days before your colonoscopy. TRANSPORTATION on the Day of Your Exam A responsible person MUST be present with you at Check In prior to your colonoscopy and REMAIN in the endoscopy area until you are discharged. You are NOT ALLOWED to drive, take a taxi or bus, or leave the Endoscopy Center ALONE. If you do not have a responsible tram driver (family member or friend) with you to take you home, your exam cannot be done with sedation and will be cancelled. Please bring a list of all of your current medications, including any Over-the Counter medications with you. Medications If you take insulin, diabetic medications or blood thinners such as Coumadin (warfarin), Plavix (clopidogrel), Ticlid (ticlopidine hydrochloride), Agrylin (anagrelide), Xarelto (Rivaroxaban), Pradaxa (Dabigatran), Eliquis (Apixaban), and Effient (Prasugrel). You MUST call the doctors who orders those medicines for instructions on altering the dosage before your colonoscopy. All other medications should be taken the day of the exam with a sip of water including ASPIRIN. Five (5) Days Before Your Colonoscopy Do NOT take medicines that stop diarrhea - such as Imodium, Kaopectate, or Pepto Bismol. Do NOT take fiber supplements - such as Metamucil, Citrucel, or Perdiem. Do NOT take products that contain iron - such as multi-vitamins (the label lists what is in the products). Do NOT take Vitamin E. Buy the prescription bowel preparation solution at your local pharmacy or drugstore pharmacy. 03/2019 Bowel Preparation Instructions for: Golytely, Nulytely, Trilyte or Colyte (polyethylene glycol 3350 and electrolytes) Three (3) Days Before Your Colonoscopy Do NOT eat high-fiber foods - such as popcorn, beans, seeds (flax, sunflower, quinoa), multigrain bread, nuts, salad/vegetables, or fresh and dried fruit. One (1) Day Before Your Colonoscopy Only drink clear liquids the ENTIRE DAY before your colonoscopy. Do NOT eat any solid foods. Drink at least 8 ounces of clear liquids every hour after waking up. The clear liquids you can drink include: Clear Liquid (NO RED LIQUIDS) DO NOT DRINK Gatorade, Pedialyte or Powerade Clear broth or bouillon Coffee or tea (no milk or non-dairy creamer) Carbonated and non-carbonated soft drinks Vj-Aid or other fruit flavored drinks Strained fruit juices (no pulp) Jell-O, popsicles, hard candy Water Alcohol Milk or non-dairy creamers Noodles or vegetables in soup Juice with pulp Liquid you cannot see through Do not use tobacco/vaping products The bowel preparation solution will be consumed in two parts. Mix the solution the evening before your colonoscopy and refrigerate before drinking. You may add the flavor pack that came with the bowel preparation. Do NOT add ice, sugar or any other flavorings to the solution. Part 1 At 6:00 PM - Evening before your colonoscopy Drink an 8-oz glass of bowel preparation every 10 minutes for a total of 8 glasses. You may continue to drink clear liquids until midnight. Part 2 On the day of your colonoscopy you may drink clear liquids up to (three) 3 hours before your procedure. 4 04/11 hours before your colonoscopy Drink an 8-oz glass of bowel preparation every 10 minutes for a total of 8 glasses. Fifteen (15) minutes later, drink an 8-oz glass of clear liquids every 15 minutes for a total of 2 glasses. You may continue to drink clear liquids up to (three) 3 hours before your exam. 2 03/2019 documented in this encounter [facility] 12-01-2022 Nurse Note REVIEW OF SYSTEMS: General: The patient denies fatigue, denies weight loss, denies weight gain, denies feeling hot, and denies feelings of cold. Eyes: The patient denies glaucoma, denies eye injury/surgery, wears glasses or contacts. Ear/Nose/Throat: The patient denies allergies, denies hayfever, denies ear infections, and denies bloody noses. Cardiovascular: The patient denies chest pain, denies heart disease, NOTES high blood pressure,denies cardiac stent, denies prior heart attack, denies irregular heart beat, NOTES high cholesterol, denies poor circulation, denies heart failure, other cardiac issues, denies claudication, denies cold feet, denies peripheral arterial stent. Respiratory: The patient denies tuberculosis, denies pneumonia, denies frequent cough, NOTES pulmonary embolism, NOTES shortness of breath, and denies coughing up blood. Gastrointestinal: The patient denies difficulty swallowing, denies acid reflux, denies ulcers, denies vomiting, denies jaundice/hepatitis, denies gallbladder problems, denies black or tarry stools, denies hemorrhoids, NOTES bleeding from rectum, denies diverticulitis, denies constipation, NOTES diarrhea, denies loss of stool control, and denies hernias. Kidney/Bladder: The patient denies kidney stones, NOTES urine infections, and denies bloody urine. Skin: The patient denies a history of skin cancer, denies bleeding/changing moles, and NOTES a history of skin rash. Neurologic: The patient denies a history of epilepsy/convulsions, denies headaches, denies head/spinal injuries, and denies stroke/TIA. Psychiatric: The patient denies psychiatric medications, NOTES depression, and denies voices, denies substance abuse. Endocrine: The patient denies thyroid disorders, denies diabetes, and denies hormonal problems. Hematologic: The patient denies a history of bruising, denies bleeding, and denies anemia, NOTES blood clots. Infections: The patient denies a history of measles and mumps, denies rheumatic fever, and denies sexually transmitted diseases. Musculoskeletal: The patient denies back pain/injury, denies back problems, denies sciatica, denies knee/foot trouble, denies arthritis, or denies gout. When was patient's last Mammogram screening? N/A Last Colonoscopy: 2017 Aarti Brice RN documented in this encounter [facility] 11-22-2022 Instructions Fifi Paul APRN.EXHIBITION ORGANISER - 11/22/2022 8:[address] Lung Screen Results The CT scan that you will have done will show if you have any nodules (small spots) in your lungs that are suspicious for cancer. Around 90% of the patients who have this scan done are found to have at least one nodule. Most nodules are benign (not cancer) and of no harm to you at all. A specialist will make a scientific evaluation about whether or not a nodule is worrisome based on its size and shape. The radiologist who will read your scan will put it into one of four categories: LUNG-RADS Category Description Overall Probability of Malignancy Recommended Follow-Up 1 Negative No nodules and definitely benign (non-cancerous nodules) Essentially 0. 1 Year - Follow-up Low dose CT 2 Benign Appearance or Behavior Nodules with a very low likelihood of becoming cancer due to size or lack of growth Less than 1% 1 Year - Follow-up Low dose CT 3 Probably Benign Probably benign finding, short term follow-up recommended 1 to 2% 6 Months - Follow-up CT 4 A,B,or X Suspicious Findings for which additional diagnostic testing and/or biopsy is recommended Will be calculated based on nodule characteristics. Dependent on what is seen on the exam. [address], PET, Biopsy At times, we may see something outside of the lungs on the scan that could be a health concern. Below are some of the most common findings: S Clinically Significant or Potentially Clinically Significant Findings (non lung cancer) Referral or additional imaging/labs depending on result. Approximately 10% of people receive this result. Coronary Artery Calcifications (Moderate or Severe) - Referral to cardiology or PCP for further work-up and recommendations. Thyroid Nodule - TSH level and Thyroid Ultrasound dependent on size, referral to endocrinology. Adrenal Nodule - Blood work and referral to endocrinology. Others Lung Cancer Screening hotline: [phone] Lung Cancer Screening [phone] Billing Questions: or [email or web address] Lung Cancer Screening Team: Rosaline Richards CNP; Cheryl Santizo PA-C; Deana Valdes CNP; Ksenia Horton CNP, Vane Martins PA-C, Alba Clemens PA-C, Fifi Paul, EXHIBITION ORGANISER : [phone] documented in this encounter [facility] 11-22-2022 History of Present illness Narrative Images from the original note were not included. LUNG SCREENING VISIT PRIMARY CARE PHYSICIAN: Genie Coto MD PULMONARY PROVIDER: None used to see Dr. Rivera for pulmonary fibrosis Results will be communicated via letter or electronic record if applicable. Visit Delivery: In Person Patient Visit Type: New to Screening Current or Ex-smoker? ex smoker Exam Type: baseline LDCT Number of Pack Years: 66 Number of Years since Quit: 5 REQUESTER: The referring provider advised the patient to have screening. HISTORY OF PRESENT ILLNESS: Royal Garcia is a 57 year old Former smoker who presents for lung screening. Pt has diagnosis of psoriasis by dermatology. Has not seen rheumatology. Has joint pain that improves with Stelera injections. He has a history of pulmonary fibrosis, was seeing Dr. Rivera. He was told he did not need to have any further follow up on pulmonary fibrosis. We discussed this is a disease that is progressive and he can see pulmonology for this at any time if he wishes. For now he is doing well and symptoms are minimal he will defer. We also discussed that high resolution CT Chest is usually done for monitoring and we will be completing Low dose CT for screening. He states it is a good place to start. Respiratory symptoms include: SOB: Yes with more than 1 flight of stairs Upper airway congestion Chest tightness: No Coughing: No Hemoptysis: No Wheezing: No Fever/Chills: No Recent Respiratory Infection: Yes, 6-8 weeks ago had allergies/URI Unintentional weight loss: No, lost 55 lbs since 04/2021, quit drinking, exercising more and watching what he is eating Last 6 Encounter Wt Readings: Date: Wt: 11/22/2022 97.1 kg (214 lb) 11/16/2022 97.1 kg (214 lb) 08/10/2022 100.2 kg (221 lb) 04/28/2022 103.5 kg (228 lb 1.6 oz) 02/09/2022 103.9 kg (229 lb) 09/20/2021 109.3 kg (241 lb) ECOG PERFORMANCE STATUS: 0- Fully active, able to carry on all pre-disease performance w/o restriction. Modified Medical Research [place] Dyspnea Scale (MMRC) I only get breathless with strenous exercise 0 PAST MEDICAL HISTORY Diagnosis Date Benign neoplasm of colon Benign neoplasm of rectum and anal canal Depression 04/02/2015 Diarrhea Insomnia Obstructive sleep apnea DME [employer] [place] Other psoriasis Pulmonary embolism (HCC) PAST SURGICAL HISTORY Procedure Laterality Date COLONOSCOPY FLX DX W/COLLJ SPEC WHEN PFRMD 01/20/12 ` COLONOSCOPY FLX DX W/COLLJ SPEC WHEN PFRMD 03/27/2017 5 yrs repeat CYSTOURETHROSCOPY 05/21/2014 LAPAROSCOPIC APPENDECTOMY 09/06/2008 LIGJ DIVJ &/EXCJ VARICOSE VEIN CLUSTER 1 LEG 2002 Varicose Vein Surgery left leg NOSE SURGERY HX Bilateral done by PAST SURGICAL HISTORY OF 11/01/2010. Bone spur rotator cuff right shoulder. PAST SURGICAL HISTORY OF 2006 bone spur removed from right nares FAMILY HISTORY Problem Relation Age of Onset Alzheimer's Disease Mother Diabetes Father Hypertension Father Cancer Father ? primary site. Blood Clots No Family History No DVT or PE. propranolol (INDERAL) 10 mg tablet Take 1 tablet by mouth twice daily. mirabegron (MYRBETRIQ) 25 mg Tb24 Take 1 tablet by mouth once daily. busPIRone (BUSPAR) 5 mg tablet Take 1 tablet by mouth twice daily. escitalopram oxalate (LEXAPRO) 20 mg tablet Take 1 tablet by mouth once daily. eszopiclone (LUNESTA) 2 mg TAKE 1 TABLET BY MOUTH AT BEDTIME NEEDED (INSOMNIA) FOR UP TO 90 DAYS. traZODone (DESYREL) 100 mg tablet Take 2 tablets by mouth daily at bedtime. gabapentin (NEURONTIN) 100 mg capsule Take 1 capsule by mouth daily at bedtime for 180 days. atorvastatin (LIPITOR) 10 mg tablet TAKE 1 TABLET BY MOUTH DAILY AT BEDTIME. FOR CHOLESTEROL multivit with minerals/lutein (MULTIVITAMIN 50 PLUS ORAL) Take by mouth. vitamin E mixed 1,000 unit cap Take 2,000 Units by mouth. ustekinumab (STELARA) 45 mg/0.5 mL sub-Q syringe Inject subcutaneously. Every 3 months. (Dr. Sanchez) ALLERGIES Allergen Reactions Lisinopril Cough The medications and allergies were reviewed and reconciled for this patient and deemed current. Lung Cancer Risk Factors: 1.Tobacco Use: Start Age 19, Quit Age: 52, Average packs per day 2, Pack Years 66 2. Passive Smoke Exposure: Yes, as a Child 3. 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 Race: White 6. Education: Some College 7. BMI:Body mass index is 29.02 kg/m . Patient-entered Height: 6'0 Patient-entered Weight: 214 pounds 8. COPD: No 9. Pneumonia in the past 5 years: No 10. Is there a history of lung cancer in a first degree relative? No 11. Is there a history of lung cancer in a non-first degree relative? No 12. Is there a history of any other cancer in a first degree relative? Yes Health Maintenance Immunization History Administered Date(s) Administered COVID-19 original vaccine, age 12+ yr, monovalent ([employer] - PURPLE TOP) 03/29/2021 COVID-19 original vaccine, full dose, monovalent (MODERNA) 06/25/2020 07/23/2020 influenza (IIV3) vaccine, age 3+ yr, trivalent (AFLURIA, FLULAVAL, FLUVIRIN, FLUZONE) 02/05/2014 12/02/2019 influenza (IIV4) vaccine, age 6 mo - 64 yr, quadrivalent (AFLURIA, FLULAVAL, FLUZONE) 03/30/2015 01/22/2018 01/14/2021 12/20/2021 influenza vaccine, unspecified formulation 02/19/2010 01/02/2012 01/12/2013 pneumococcal (PPV23) vaccine, 23 valent (PNEUMOVAX 23) 02/05/2014 02/12/2019 tetanus diphtheria pertussis (Tdap) vaccine, age 7+ yr (ADACEL, BOOSTRIX) 01/02/2012 tuberculin skin test (TST-PPD), purified protein derivative, intradermal 09/28/2009 09/08/2010 zoster (RZV) vaccine, recombinant (SHINGRIX) 11/01/2019 01/22/2020 Colonoscopy: 03/27/2017 Mammogram: DATA REVIEW I have directly visualized the testing documented: 09/14/2021 CT chest Prior Imaging: Last CT/CTA Chest/Lungs CT CHEST WO IVCON Exam End: 09/14/2021 11:31 AM (Final result) Narrative: * * *Final Report* * * DATE OF EXAM: Sep 14 2021 11:31AM [facility] [id number] - CT CHEST WO IVCON / PROCEDURE REASON: Interstitial pulmonary disease (HCC) * * * * Physician Interpretation * * * * EXAMINATION: CHEST CT WITHOUT CONTRAST CLINICAL HISTORY: Interstitial pulmonary disease (HCC). Technique: Spiral CT acquisition of the chest from the thoracic inlet to the upper abdomen without contrast. MQ: [id number] CT Radiation dose: Integrated Dose-length product (DLP) for this visit = 451 mGy*cm CT Dose Reduction Employed: Automated exposure control(AEC) and iterative recon COMPARISON: Comparison is made to prior CT chest dated 10/10/2018. There are no prior CT chest examinations from 2019 available for comparison within the [facility] Imaging Archives or [employer]. RESULT: Limitations: None. Lines, tubes, and devices: None. Lung parenchyma and airways: The central airways remain patent. Again noted are bilateral chronic interstitial lung changes with scattered subpleural reticulation and areas of fibrotic scarring. Central, lingular and bibasilar mild traction bronchiectasis is again present. Scattered areas of subpleural honeycombing predominantly within the left upper lung, lingula and both lung bases. Findings consistent with pulmonary fibrosis and are not significantly changed from prior 2019 study. No suspicious pulmonary nodules or masses. Pleural space: No pleural effusion. No pleural thickening. Lower neck, lymph nodes, and mediastinum: The imaged thyroid gland remains normal. Shotty middle mediastinal and subcarinal lymph nodes are stable. No pathologic lymphadenopathy in the supraclavicular, axillary, mediastinal, or hilar regions by size criteria. Heart, pericardium, and thoracic vessels: The thoracic aorta and main pulmonary artery are normal in caliber. The cardiac chambers are normal in size. Coronary artery atherosclerotic calcifications are noted, although the study is not optimized for coronary assessment. No pericardial effusion or thickening. Bones/Soft Tissues: The bony structures are osteopenic with degenerative change. No acute or bony destructive process noted. Upper abdomen: No acute abnormality in the imaged upper abdomen. Stable fat laden left adrenal adenoma. Can Line Operator (topogram) images: No additional findings. Impression: IMPRESSION: Grossly stable chronic interstitial lung changes again demonstrating a pattern consistent with pulmonary fibrosis. No interval developing pulmonary nodules or suspicious masses.. Foot Press Operator: [facility] Transcribe Date/Time: Sep 14 2021 1:42P Dictated by : NICOLE DARLING MD This examination was interpreted and the report reviewed and electronically signed by: NICOLE DARLING MD on Sep 14 2021 2:08PM EST Last CT [facility] - Impression [facility] Exam End: 09/14/2021 11:31 AM (Final result) Impression: IMPRESSION: Grossly stable chronic interstitial lung changes again demonstrating a pattern consistent with pulmonary fibrosis. No interval developing pulmonary nodules or suspicious masses.. ... Last XR Chest - Impression Only XR CHEST 2V FRONTAL/LAT Exam End: 04/19/2018 4:36 PM (Final result) Impression: IMPRESSION: Left heart margin is obscured with pleural reaction/atelectasis/infiltrate, in the lingular segment left upper lobe, similar to the previous study from 03/29/2018, not identified on the study prior to that in 2008. Clinical correlation, follow-up additional imaging if clinically needed. ... Pulmonary Function Testing: SPIROMETRY - BASELINE AND POST DILATOR ([id number]) - ordered on 10/18/19 [facility] [address] [place] [address]., [place] [address] Test Date: 2019-10-18 Pat Name: ROYAL GARCIA Department: Room: Gender: Male Crime Lab Technician: AUGIE Marshall : 1965 Requested By: Abdulaziz COTO Order Number: [id number] Reading MD: Royal Rivera Interpretive Statements All Lung Volume Repeatability criteria met. ATS/ERS acceptability and repeatability standards for spirometry met. 2 Puffs of albuterol (180mcg) delivered by MDI via Aerochamber HR pre = 78/min, HR post= 78/min. IMPRESSION: Spirometry shows no obstruction. The mildly reduced FVC suggests restriction. There is no significant bronchodilator response. The TLC is reduced indicating restriction. Electronically Signed On 10-18-2019 12:38:42 EDT by Royal Rivera Site: WO ID: [id number] Name: ROYAL GARCIA Cayla Visit Date: 10/18/2019 Second ID: [id number] Referring Doctor: Abdulaziz COTO Crime Lab Technician: AUGIE Marshall Age: 54 : 1965 Sex: Male Race: Height: 72.00 Inches Weight: 268.00 Lbs BSA: 2.41 Order IDs: [id number] Requested Test(s): Lung Volumes Spirometry - baselline and post dilator Post Test Comments: All Lung Volume Repeatability criteria met. ATS/ERS acceptability and repeatability standards for spirometry met. 2 Puffs of albuterol (180mcg) delivered by MDI via Aerochamber HRpre = 78/min, HRpost= 78/min. Review Status: Not Reviewed Pre-Bronch Post-Bronch Pred LLN ULN Actual %Pred Actual %Chng SPIROMETRY FVC (L) 5.20 4.03 6.39 3.55 68 3.53 FEV1 (L) 4.05 3.12 4.93 3.03 74 3.12 3 FEV1/FVC (%) 78 67 88 85 109 89 3 FEF 25% (L/sec) 8.65 6.06 11.24 9.57 110 9.03 -5 FEF 50% (L/sec) 5.36 3.15 7.57 5.63 105 6.43 14 FEF 75% (L/sec) 1.18 0.50 2.59 1.57 133 1.79 13 FEF 25-75% (L/sec) 3.51 1.82 5.75 4.24 120 4.79 13 FEF Max (L/sec) 10.07 7.62 12.53 9.89 98 9.55 -3 FIVC (L) 3.44 3.39 -1 FIF 50% (L/sec) 4.88 2.76 6.99 4.16 85 5.06 21 FIF Max (L/sec) 4.75 5.55 16 FET (sec) 7.24 6.39 -11 Back Extrap Vol (L) 0.15 0.16 9 Time To FEFmax (sec) 0.089 0.097 8 LUNG VOLUMES SVC (L) 5.15 3.72 72 IC (L) 3.55 2.55 71 ERV (L) 1.60 1.17 73 TGV (L) 3.83 2.39 5.26 2.55 66 RV (Pleth) (L) 2.23 1.48 2.98 1.38 61 TLC (Pleth) (L) 7.38 5.79 8.96 5.10 69 RV/TLC (Pleth) (%) 31 22 40 27 87 AIRWAYS RESISTANCE PHYSICAL EXAM: BP 112/72 Pulse 71 Resp 15 Wt 97.1 kg (214 lb) SpO2 96% BMI 29.02 kg/m Deferred ASSESSMENT and RECOMMENDATIONS: 1. Screening for lung cancer: Six year risk for lung cancer: 1.99% [email or web address]://youu.be/[email or web address] I have determined that the patient is eligible for a low dose CT based on age, absence of signs or symptoms of lung cancer, and total pack years: Yes. The patient and I engaged in shared decision making, including the use of one or more decision aids, to include benefits, harms, follow-up diagnostic testing, over-diagnosis, false positive rate, and total radiation exposure. The patient understands and feels comfortable with it: Yes. The patient was counseled on the importance of adherence to annual LDCT lung cancer screening, impact of comorbidities and ability or willingness to undergo diagnosis and treatment. The patient understands and feels comfortable with it:Yes. 2. Former Nicotine dependence: The patient was counseled on the importance of maintaining cigarette smoking abstinence - The patient is committed to remaining abstinent from tobacco. Fifi Paul APRN.CNP NPI #: November 22, [id number] 8:24 AM documented in this encounter [facility] 11-21-2022 Miscellaneous Notes Pt called in and also needs refill on Myrbetriq. Patrizia Reyna LPN Patient has been identified by name and date of : Yes, Provider Dr. Coto Date 11/21/22 Time 5:03 pm Patient phones for refill(s): Requested Prescriptions Pending Prescriptions Disp Refills propranolol (INDERAL) 10 mg tablet 60 tablet 5 Sig: Take 1 tablet by mouth twice daily. mirabegron (MYRBETRIQ) 25 mg Tb24 30 tablet 5 Sig: Take 1 tablet by mouth once daily. Date of last office visit in primary care: 11/16/22 next apt 01/02/23 Last 2 Encounter Wt Readings: Date: Wt: 11/16/2022 97.1 kg (214 lb) 08/10/2022 100.2 kg (221 lb) Previous labs/tests for medication: Not applicable Please advise. Thank you. Patrizia Reyna LPN documented in this encounter [facility] 11-16-2022 Instructions Mayuri Dexter APRN.CNP - 11/16/2022 3:34 PM EDT Health Information For Patients and the Community How to Prepare for Your Colonoscopy Using Golytely, Nulytely, Trilyte or Colyte Preparations IMPORTANT - Please Read These Instructions at Least 2 Weeks Before Your Colonoscopy [place] Instructions: ?Your bowel must be empty so that your doctor can clearly view your colon. Follow all of the instructions in this handout EXACTLY as they are written. If you do NOT follow the directions for when to start drinking the bowel preparation (see next page), your colonoscopy WILL be cancelled. ?Do NOT eat any solid food the ENTIRE day before your colonoscopy. ?Buy your bowel preparation at least 5 days before your colonoscopy. ?Do NOT mix the solution until the day before your colonoscopy. Designated House Father on the Day of Your Exam A responsible family member or friend MUST come with you to your colonoscopy and REMAIN in the endoscopy area until you are discharged! You are NOT ALLOWED to drive, take a taxi or bus, or leave the Endoscopy Center ALONE. If you do not have a responsible tram driver (family member or friend) with you to take you home, your exam cannot be done with sedation and will be cancelled. Medications Some of the medicines you take may need to be stopped or adjusted before your colonoscopy. You MUST call the doctor who ordered any of the following medicines at least 2 weeks before your colonoscopy. ?Blood thinners -- such as Coumadin (warfarin), Plavix (clopidogrel), Ticlid (ticlopidine hydrochloride), Agrylin (anagrelide), Xarelto (Rivaroxaban), Pradaxa (Dabigatran), Eliquis (Apixaban), and Effient (Prasugrel). ?Insulin or diabetes pills. Please call the doctor that monitors your glucose levels. Your insulin dosage may need to be adjusted due to the diet restrictions required with this bowel preparation. (Please bring your diabetes medicines with you on the day of your procedure.) If you take aspirin, take it and ALL other medications prescribed by your doctor. On the day of your colonoscopy, take your medications with a sip of water. Revised 05/2016 1 Five (5) Days Before Your Colonoscopy ?Do NOT take medicines that stop diarrhea -- such as Imodium , Kaopectate , or Pepto Bismol . ?Do NOT take fiber supplements -- such as Metamucil , Citrucel , or Perdiem . ?Do NOT take products that contain iron -- such as multi-vitamins -- (the label lists what is in the products). ?Do NOT take vitamin E. Buy the prescription bowel preparation solution at your local pharmacy or drugstore pharmacy. Three (3) Days Before Your Colonoscopy Do NOT eat high-fiber foods -- such as popcorn, beans, seeds (flax, sunflower, quinoa), multigrain bread, nuts, salad/vegetables, or fresh and dried fruit. One (1) Day Before Your Colonoscopy Only drink clear liquids the ENTIRE DAY before your colonoscopy. Do NOT eat any solid foods. Drink at least 8 ounces of clear liquids every hour after waking up. The clear liquids you can drink include: ?water, apple, or white grape juice; broth; coffee or tea (without milk or creamer); clear carbonated beverages such as james elle or lemon-elem soda; Gatorade or other sports drinks (not red); Vj-Aid or other flavored drinks (not red). You may eat plain jello or other gelatins (not red) or popsicles (not red). Do NOT drink alcohol on the day before or the day of the procedure. 2 Revised 05/2016 When to Mix and Drink Your Bowel Prep Follow the instructions on the label. After mixing, place the solution in the refrigerator for a couple of hours before drinking. You may add the flavor packet that came with the bowel preparation. DO NOT add ice, sugar or any flavorings to the solution. Evening Before Your Colonoscopy ?Start drinking the bowel preparation at 6 PM the evening before your colonoscopy. Drink an 8-oz glass of bowel preparation every 10 minutes. You must finish drinking the solution by 9 PM the night before your scheduled procedure. ?You may continue to drink clear liquids only until midnight. Do NOT eat or drink ANYTHING after midnight the night before your procedure or your procedure may be cancelled. This is for your safety and will reduce the risk of having any food or liquid in your stomach move into your lungs (aspiration) during a procedure. If you take aspirin, take it and ALL other prescribed medicines with a sip of water on the day of your colonoscopy. Contact Information: If you are unable to keep your appointment or have any questions about the instructions, please call the facility where the procedure is being performed. Call between the hours of 8:00 AM and 5:00 PM. If you are calling after 5:00 PM, please call Nurse audio production manager at [phone]. [facility] [address] [place] [id number] Index # [id number] Revised 05/2016 3 Colonoscopy Procedure Overview Please Read Prior to the Procedure What is a Colonoscopy A colonoscopy is an outpatient procedure in which the inside of the large intestine (colon and rectum) is examined. A colonoscopy is commonly used to evaluate gastrointestinal symptoms, such as rectal and intestinal bleeding, abdominal pain, or changes in bowel habits. Colonoscopies are also performed in individuals without symptoms to check for colorectal polyps or cancer. A screening colonoscopy is recommended for anyone 50 years of age and older, and for anyone with parents, siblings or children with a history of colorectal cancer or polyps. What Happens Before a Colonoscopy To have a successful colonoscopy, your bowel must be empty so that your physician can clearly view the colon. To do this, it is very important to read and follow all of the instructions given to you at least 2 weeks BEFORE your exam. If your bowel is not empty, your colonoscopy will not be successful and may have to be repeated. If you feel nauseated or vomit while taking the bowel preparation, wait 30 minutes before drinking more fluid and start with small sips of solution. Some activity (such as walking) or a few soda crackers may help decrease the nausea you are feeling. If the nausea persists, please contact nurse application release manager at [phone]. You may experience skin irritation around the anus due to the passage of liquid stools. To prevent and treat skin irritation, you should: ?Apply Vaseline or Desitin ointment to the skin around the anus before drinking the bowel preparation medications. These products can be purchased at any drugstore. ?Wipe the skin after each bowel movement with disposable wet wipes instead of toilet paper. These are found in the toilet paper area of the store. ?Sit in a bathtub filled with warm water for 10 to 15 minutes after you finish passing a stool; after soaking, blot the skin dry with a soft cloth, apply Vaseline or Desitin ointment to the anal area, and place a cotton ball just outside your anus to absorb leaking fluid. What Happens During a Colonoscopy During a colonoscopy, an experienced physician uses a colonoscope (a long, flexible instrument about 1/2 inch in diameter) to view the lining of the colon. The colonoscope is inserted into the rectum and advanced through the large intestine. If necessary during a colonoscopy, small amounts of tissue can be removed for analysis (a biopsy) and polyps can be identified and entirely removed. In many cases, a colonoscopy allows accurate diagnosis and treatment of colorectal problems without the need for a major operation. Revised 05/2016 5 ?You are asked to wear a hospital gown and an IV will be started. ?You are given a pain reliever and a sedative intravenously (in your vein). You will feel relaxed and somewhat drowsy. ?You will lie on your left side, with your knees drawn up towards your chest. ?A small amount of air is used to expand the colon so the physician can see the colon ferguson. ?You may feel mild cramping during the procedure. Cramping can be reduced by taking slow, deep breaths. ?The colonoscope is slowly withdrawn while the lining of your bowel is carefully examined. ?The procedure lasts from 30 minutes to 1 hour. What Happens After a Colonoscopy ?You will stay in a recovery room for observation until you are ready for discharge. ?You may feel some cramping or a sensation of having gas, but this quickly passes. ?If sedation has been given, a responsible family member or friend must drive you home. ?Avoid alcohol, driving, and operating machinery for 24 hours following the procedure. ?Unless otherwise instructed, you may immediately return to your normal diet. We recommend you wait until the day after your procedure to resume normal activities. ?If polyps were removed or a biopsy was taken, the physician performing your colonoscopy will tell you when it is safe to resume taking your blood thinners. ?If a biopsy was taken or a polyp was removed, you may notice a little amount of rectal bleeding for 1 to 2 days after the procedure. If you have a large amount of rectal bleeding, high or persistent fevers, or severe abdominal pain within the next 2 weeks, please go to your local emergency room and call the physician who performed your exam. 6 Revised 05/2016 Copyright [id number] [facility]. All rights reserved. Revised 05/2016 documented in this encounter [facility] 11-16-2022 History of Present illness Narrative On gen sCC: Patient presents with: Recheck: 3 month follow up HPI Royal Garcia is a 57 year old male who presents today for routine follow up. HTN and HLD: Mr. Garcia indicates that he is feeling well and denies any symptoms referable to elevated blood pressure. Specifically denies headache, chest pain, palpitations, dyspnea, and peripheral edema. Patient denies any side effects of his medication(s) and is compliant with their regimen. He does not check BP's generally. Royal works out regularly 5-7 times per week with walking. He watches his diet for sodium, low fat and low cholesterol most of the time. Last 3 Encounter BP Readings: Date: BP: 11/16/2022 112/74 08/10/2022 126/68 04/28/2022 129/81 History of mainly Anxiety but past records do show some depression: Lexapro was added in August seemed to help at first but no further improvement with increased dose of 20mg he started 1 month ago.Also on trazadone 200mg before bed which is mainly for his insomnia Reports getting very irritated easily, has not injured anyone but just gets mad easily. Sleep: is described as normal with trazadone Alcohol use: history of alcohol abuse. Only has a few drinks 3 times a week and feels much better. Drug use: No Appetite: good Stresses: Major stressor: work Suicidal Thoughts: No suicidal ideation, intent or plan Firearms: NO in a locked cabinet Support: Comes from multiple sources including Counseling: No Personal mental health hx: anxiety and depression. Mood: The patient denies symptoms related to jennifer. Previously on Fluoxetine but did not feel like it improved. Well sonyarin in 2018 for quitting smoking, does not remember any side effects. Was on sertraline 10 years ago and does not remember if there was any side effects or improvement. REVIEW OF SYSTEMS General: no fevers, no chills, no night sweats, no recurrent infections, no change in appetite, no change in energy, and no significant changes in weight Respiratory: no cough, no wheezing, no shortness of breath, no hemoptysis Cardiovascular: no chest pain, no chest pressure, no palpitations, and no swelling Neurologic: No headache, weakness, numbness, tingling, dizziness, memory loss, syncope. CP PHQ9 11/16/2022 Little interest or pleasure 0 - Not at all Feeling down, depressed, hopeless 0 - Not at all Trouble falling or staying asleep, sleeping too much 0 - Not at all Feeling tired, having little energy 1 - Several days Poor appetite or overeating 0 - Not at all Feeling bad about yourself, failure or you have let yourself/family down 0 - Not at all Trouble concentrating on things 1 - Several days Moving or speaking so slowly, or fidgety or restless 0 - Not at all Thoughts that you would be better off , or of hurting yourself in some way 0 - Not at all How difficult have these problems made things Not difficult at all Interpretation of Total Score 1-4 Minimal depression CAROLE-7 ANXIETY SCALE 11/16/2022 FEELING NERVOUS,ANXIOUS,OR ON EDGE 1 Several days NOT BEING ABLE TO STOP OR CONTROL WORRYING 1 Several days WORRYING TOO MUCH ABOUT DIFFERENT THINGS 1 Several days TROUBLE RELAXING 1 Several days BEING SO RESTLESS THAT IT'S HARD TO SIT STILL 0 Not at all sure BEING EASILY ANNOYED OR IRRITABLE 3 Nearly every day FEELING AFRAID IF SOMETHING AWFUL MIGHT HAPPEN 0 Not at all sure GAD7 SCORE 9 IF YOU CHECKED OFF ANY PROBLEMS Somewhat difficult PAST MEDICAL HISTORY Diagnosis Date Benign neoplasm of colon Benign neoplasm of rectum and anal canal Depression 04/02/2015 Diarrhea Insomnia Obstructive sleep apnea DME [employer] Na[facility] Other psoriasis Pulmonary embolism (HCC) PAST SURGICAL HISTORY Procedure Laterality Date COLONOSCOPY FLX DX W/COLLJ SPEC WHEN PFRMD 01/20/12 ` COLONOSCOPY FLX DX W/COLLJ SPEC WHEN PFRMD 03/27/2017 5 yrs repeat CYSTOURETHROSCOPY 05/21/2014 LAPAROSCOPIC APPENDECTOMY 09/06/2008 LIGJ DIVJ &/EXCJ VARICOSE VEIN CLUSTER 1 LEG 2002 Varicose Vein Surgery left leg NOSE SURGERY HX Bilateral done by PAST SURGICAL HISTORY OF 11/01/2010. Bone spur rotator cuff right shoulder. PAST SURGICAL HISTORY OF 2006 bone spur removed from right nares ALLERGIES Lisinopril MEDICATIONS escitalopram oxalate (LEXAPRO) 20 mg tablet Take 1 tablet by mouth once daily. propranolol (INDERAL) 10 mg tablet Take 1 tablet by mouth twice daily. eszopiclone (LUNESTA) 2 mg TAKE 1 TABLET BY MOUTH AT BEDTIME NEEDED (INSOMNIA) FOR UP TO 90 DAYS. traZODone (DESYREL) 100 mg tablet Take 2 tablets by mouth daily at bedtime. gabapentin (NEURONTIN) 100 mg capsule Take 1 capsule by mouth daily at bedtime for 180 days. atorvastatin (LIPITOR) 10 mg tablet TAKE 1 TABLET BY MOUTH DAILY AT BEDTIME. FOR CHOLESTEROL multivit with minerals/lutein (MULTIVITAMIN 50 PLUS ORAL) Take by mouth. tolterodine ER (DETROL LA) 4 mg 24 hr capsule Take 1 capsule by mouth once daily. flunisolide (NASALIDE, NASAREL) 25 mcg (0.025 %) spry Use 2 Sprays in the nose twice daily. (Patient taking differently: Use 2 Sprays in the nose twice daily. Uses as needed) vitamin E mixed 1,000 unit cap Take 2,000 Units by mouth. ustekinumab (STELARA) 45 mg/0.5 mL sub-Q syringe Inject subcutaneously. Every 3 months. (Dr. Sanchez) FAMILY HISTORY Problem Relation Age of Onset Alzheimer's Disease Mother Diabetes Father Hypertension Father Cancer Father ? primary site. Blood Clots No Family History No DVT or PE. Social History Tobacco Use Smoking status: Former Packs/day: 0.80 Years: 33.00 Total pack years: 26.40 Types: Cigarettes Start date: 1984 Quit date: 08/29/2017 Years since quittin.2 Smokeless tobacco: Never Vaping Use Vaping Use: Never used Substance Use Topics Alcohol use: Yes Alcohol/week: 35.0 standard drinks of alcohol Types: 14 Cans of Beer (12oz) per week Comment: 3-4 beers/night 12 oz Drug use: No PHYSICAL EXAM BP 112/74 Pulse 60 Resp 16 Wt 97.1 kg (214 lb) BMI 29.02 kg/m Appearance: well dressed well groomed, cooperative, and pleasant Behavior: good eye contact Speech: normal and fluent and coherent Mood: happy and relaxed Affect: appropriate Perceptions: none Thought process: normal Thought Content: normal Intelligence level: normal Insight: good Judgment: good Skin: Skin color, texture, turgor normal for age; Eyes: conjunctiva pink and moist, no icterus, sclera white, non-injected Lungs: Lungs clear to auscultation. No wheezing, rhonchi, rales. Heart: RRR without murmur, gallop, or rubs. No ectopy Health maintenance reviewed with patient: HEPATITIS B(1 of 3 - 3-dose series) Never done PNEUMOCOCCAL(3 - PCV) due on 02/13/2020 SHINGRIX VACCINE(2 of 2) due on 03/18/2020 COVID-19 VACCINE(4 - Booster) due on 05/24/2021 DTAP,TDAP,TD(2 - Td or Tdap) due on 01/01/2022 COLORECTAL CANCER SCREENING due on 03/27/2022 LUNG CANCER SCREENING due on 09/14/2022 INFLUENZA(1) due on 12/09/2022 DIABETES SCREEN due on 08/13/2025 LIPID SCREEN due on 02/19/2027 PROSTATE CANCER SCREENING DISCUSSION due on 02/19/2027 HEPATITIS C SCREENING Completed HIV SCREENING Completed DATA REVIEWED: No new labs ASSESSMENT/PLAN: 1. Primary hypertension - ICD9: 401.9, ICD10: I10 (primary diagnosis) - Controlled - Continue current medications - Recommend home blood pressure monitoring, to bring results to next visit - Encouraged sodium restriction, DASH or Mediterranean diet - Recommend regular aerobic exercise 2. Dyslipidemia - ICD9: 272.4, ICD10: E78.5 - Controlled - Continue current medications - Counseled on healthy diet and regular exercise - Discussed need for and benefit of weight loss. BMI 29.02 kg/(m^2) 3. Anxiety and depression - ICD9: 300.00, 311, ICD10: F41.9, F32.A Anxiety uncontrolled, very mild depression symptoms - continuing lexapro and adding buspar at low dose - discussed concerns with his ease to anger and having a firearm in the house. Patient denies ever harming himself or anyone else. States he has had the firearm for a very long time without issue and is safely locked up. Will call immediately for any increase in irritation or other symptoms. - Reviewed concept of neurochemical imbalance wth depression/anxiety, treatment options and benefits of counseling in combination with medication. Also reviewed benefits of sleep hygeine, diet and exercise - Follow-up in 6 weeks or sooner as needed - Instructed patient to contact office or [id number] after-hours promptly should condition worsen or any new symptoms appear. - [facility] and after hours crisis line 4. Encounter for screening for lung cancer - ICD9: V76.0, ICD10: Z12.2 - CONSULT LUNG CANCER SCREENING CLINIC 5. Special screening for malignant neoplasms, colon - ICD9: V76.51, ICD10: Z12.11 - COLONOSCOPY SCREENING - PEG 3350 240 GRAM-ELECTROLYTES 22.72 GRAM-6.72 G-5.84 G POWDR FOR SOLN - CONSULT TO GENERAL SURGERY Prescription instructions reviewed with patient as applicable. Potential red flag symptoms discussed with the patient. Reviewed appropriate action plan to take if red flag symptoms occur. Patient agreeable to treatment plan. Mayuri Dexter APRN.[facility] OPEN ACCESS QUESTIONNAIRE 1. Are you currently having any new or unusual stomach/gastrointestinal issues at this time such as constipation, diarrhea, abdominal pain, rectal bleeding etc?No 2. Do you have any difficulty swallowing? No 3. Do you have any implanted devices such as a defibrillator, pacemaker, cardiac stents or deep brain stimulator? No 4. Do you take any Blood thinners such as Coumadin, Plavix, Xarelto, Eliquis, Brilinta or any other blood thinner? No 5. Do you have any new or past cardiac (heart) or pulmonary (lung) issues? Yes / history of PE after quitting smoking less than 5 years ago, HTN and HLD 6. Do you currently use any oxygen? No 7. Have you been hospitalized in the past 6 weeks? No 8. Have you had difficulty with anesthesia previously re: Difficult intubation? No Other difficulty or allergic reaction to anesthesia other than post op N/V? No 9. Are you on dialysis? No 10. Do you have any bleeding disorders such as hemophilia or Factor 5? No 11. Are you an Insulin Dependent Diabetic? No IF ANY OF THE TOP ELEVEN QUESTIONS ARE ANSWERED YES PLEASE SCHEDULE THE PATIENT FOR A CONSULT. advised 12. Is the patient's BMI 40 or greater? No:Body mass index is 29.02 kg/m .. 13. Do you take any narcotics or anti-Anxiety medications? No 14. Do you use any illegal or recreational drugs including marijuana? No 15. Any alcohol use: YES: What type of alcohol, how much and how often do you drink? : history of alcohol abuse but now has only a few drinks 3 times a week. 16. Have you been diagnosed with chronic liver disease such as hepatitis or cirrhosis? No 17. Do you have a seizure disorder? No 18. Do you have ulcerative colitis or Crohn's disease? No 19. Are you or could you be ? NA 20. Any other important health information we should be made aware of prior to your colonoscopy? Has history of MELODY and refuses CPAP machine To be completed by LIP: Did patient have MAC anesthesia with a previous endoscopy procedure? No Patient appropriate for Open Access Colonoscopy: No: NOT appropriate for Open Access Procedure Checklist: Prior to closing the encounter: Complete questionnaire: Yes Confirm Prep order has been Ordered/Pended: Yes. Patient's procedure could be delayed if not given the script for the prep. Please ensure the prep is escripted to pharmacy or printed. Instructions for the prep will print upon filing or pending this smartset. Please send all open access questionnaires to [facility] Pool #[id number] documented in this encounter [facility] 11-14-2022 Miscellaneous Notes Patient does not have enough to fill his pill container for the week. Patient has been identified by name and date of : Yes, Provider Dr. Coto Date 11/14/22 Time 0955 Lexapro script pt requested through [employer]. phones for refill(s) on Propranolol. Requested Prescriptions Pending Prescriptions Disp Refills escitalopram oxalate (LEXAPRO) 20 mg tablet 30 tablet 3 Sig: Take 1 tablet by mouth once daily. propranolol (INDERAL) 10 mg tablet 60 tablet 3 Sig: Take 1 tablet by mouth twice daily. Date of last office visit in primary care: 08/10/22 Next OV 11/16/22 with Mayuri Dexter Last 2 Encounter Wt Readings: Date: Wt: 08/10/2022 100.2 kg (221 lb) 04/28/2022 103.5 kg (228 lb 1.6 oz) Previous labs/tests for medication: Blood Pressure: BUN (mg/dL) Date Value 08/13/2022 16 07/10/2020 13 Sodium (mmol/L) Date Value 08/13/2022 142 07/10/2020 139 Last 1 Encounter BP Readings: Date: BP: 08/10/2022 126/68 Liver Function: ALT (U/L) Date Value 08/13/2022 16 07/10/2020 48 AST (U/L) Date Value 08/13/2022 22 07/10/2020 32 Please advise. Thank you. Anne Cooley RN documented in this encounter [facility] 10-14-2022 Miscellaneous Notes TC back to pts who verbalized understanding and has no further questions at this time. RICARDO Adams Patient's request for medication is as follows Requested Prescriptions Signed Prescriptions Disp Refills escitalopram oxalate (LEXAPRO) 20 mg tablet 30 tablet 2 Sig: Take 1 tablet by mouth once daily. Authorizing Provider: OSCAR CORTÉS Dose increased. Oscar Cortés MD Pt's Bell called for a refill today for Lexapro. Then called back & stated lexapro is not effective, states pt has 'anxiety & his temper is bad'. is asking for something stronger. Please advise. Bell Gonzalez LPN documented in this encounter [facility] 10-13-2022 Miscellaneous Notes Patient has been identified by name and date of : Yes, Patient phones for refill(s): Requested Prescriptions Pending Prescriptions Disp Refills eszopiclone (LUNESTA) 2 mg [Pharmacy Med Name: ESZOPICLONE 2 MG TABLET] 7 tablet Sig: TAKE 1 TABLET BY MOUTH AT BEDTIME NEEDED (INSOMNIA) FOR UP TO 90 DAYS. Date of last office visit in primary care: 08/10/2022 3 month follow-up: 11/16/2022 Last 2 Encounter Wt Readings: Date: Wt: 08/10/2022 100.2 kg (221 lb) 04/28/2022 103.5 kg (228 lb 1.6 oz) Previous labs/tests for medication: Not applicable Please advise. Thank you. Tawana Diaz LPN documented in this encounter [facility] 08-01-2022 Miscellaneous Notes Patient has been identified by name and date of : No Patient phones for refill(s): Requested Prescriptions Pending Prescriptions Disp Refills gabapentin (NEURONTIN) 100 mg capsule 30 capsule 5 Sig: Take 1 capsule by mouth daily at bedtime for 180 days. Date of last office visit in primary care: 02/09/22 Last 2 Encounter Wt Readings: Date: Wt: 04/28/2022 103.5 kg (228 lb 1.6 oz) 02/09/2022 103.9 kg (229 lb) Previous labs/tests for medication: Not applicable Please advise. Thank you. Sherly Rojas LPN documented in this encounter [facility] 07-20-2022 Miscellaneous Notes Patient has been identified by name and date of : No Patient phones for refill(s): Requested Prescriptions Pending Prescriptions Disp Refills atorvastatin (LIPITOR) 10 mg tablet [Pharmacy Med Name: ATORVASTATIN 10 MG TABLET] 30 tablet 5 Sig: TAKE 1 TABLET BY MOUTH DAILY AT BEDTIME. FOR CHOLESTEROL Date of last office visit in primary care: 02/09/22 Last 2 Encounter Wt Readings: Date: Wt: 04/28/2022 103.5 kg (228 lb 1.6 oz) 02/09/2022 103.9 kg (229 lb) Previous labs/tests for medication: Cholesterol: HDL Cholesterol (mg/dL) Date Value 02/19/2022 47 07/10/2020 42 LDL Cholesterol (mg/dL) Date Value 02/19/2022 88 07/10/2020 118 ALT (U/L) Date Value 10/09/2021 21 07/10/2020 48 Non HDL Cholesterol (mg/dL) Date Value 02/19/2022 98 07/10/2020 136 Please advise. Thank you. Sherly Rojas LPN documented in this encounter [facility] 05-03-2022 Miscellaneous Notes Phoned patient 's to verify the instructions with the new meds and to D/c the detrol and the losartan. patient's Bell verbalized understanding. Sherly Rojas LPN I sent propranolol to [facility] pharmacy. I also sent Myrbetriq previously to the same pharmacy. I The need to stop the losartan and the oxybutynin obviously and takes 2 medications. Regards, Genie Coto MD Patient's notified of the new med and patient's does want to have the propranolol phone into pharmacy as well. Please review and advise. Sherly Rojas LPN Well, The doctor referred to by patients , noted that patient did not want treatment for his essential tremor at this point but if he does then he needs to consider stopping the losartan and taking propranolol I will send the mrbetriq to the pharmacy if the medication is working on him. Regards, Genie Coto MD Patient's , Bell, called to see if Dr. Coto had replied to this message yet. Said patient stopped the Detrol LA, so she started giving him some of her Myrbetriq 50 mg instead. Also said he stopped drinking alcohol. Please advise at [phone]. Patient was seen by Dr. Gold and he made some recommendations regarding changes on 2 of patient medications. Detrol LA and Losartan. Patient is asking if PCP saw those changes and agrees with them. If PCP agrees patient would like updated orders sent to the pharmacy. Please advise. documented in this encounter [facility] 04-28-2022 Instructions Freedom Yi MD - 04/28/2022 8:47 AM EST It was a pleasure to see you today. We addressed the following diagnoses: Tremors of nervous system Amnestic mci (mild cognitive impairment with memory loss) (primary encounter diagnosis) My recommendations are as follows: 04/28/2022 Visit: essential tremor - No treatment now unless symptoms become bothersome. Then I would suggest Inderal 10 mg three times daily and may increase to 20 mg three times daily. Cognitive Impairment - Talk to your PCP about alternatives to Detrol which will make memory worse. I would suggest Vesicare, trospium, or Mybertriq. I will refer to [facility] for Further evaluation. Return if symptoms worsen or fail to improve. If there are any concerns before your next visit, please call or you can send a message through [employer]. You can also now schedule and select appointments through [employer]. Freedom Yi MD documented in this encounter [facility] 04-28-2022 History of Present illness Narrative [facility] - NEW PATIENT EVALUATION Referring Provider: Genie Coto [address] [facility] [id number] Primary Care Provider: Genie Coto MD [address] [facility] [id number] Dear Genie Coto: Thank you for referring Mr. Garcia to our clinic today. As you know he is a 56 year old left-handed male who is seen in consultation for evaluation of tremor with action since 2020. He is seen with his . Subjective HISTORY OF PRESENT ILLNESS: Initial HPI He has had Restless Legs Syndrome for about 8 years and noticed tremor in his hands in the last 2 years when he holds something or reaches for something. He was drinking a lot for years. He has been drinking 5-6 glasses of Whisky daily and stopped 8 days ago. He feels that he was withdrawing some Monday into Monday and then has been better. He has never been in AA. He is also worried about memory loss and Alzheimer's. This runs in his family. He forgets people's names including some family (not close family members), people he works with etc. He doesn't get lots. He has lost 38 lbs in the last year trying to loose weight. He walks a lot at work. 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 He is not sure if alcohol has effected his tremor. He denies asthma, kidney stones or diabetes. He has some problems due to his tremor, like it is hard to poor orange juice. Movement Disorders Medications Schedule - as of the start of the visit: Medications None Questionnaires In addition, the following areas that may be affected by abnormal involuntary movements were evaluated: Daily activities Difficulties with eatin (none) Difficulties in dressin (none) Difficulties with hygiene activities: 0 (none) Difficulties with handwritin (none) Difficulties with doing hobbies and other activities: Yes (slight) Difficulties turning in bed: 0 (none) Difficulties getting out of bed, car or chair: 0 (none) Tremors/Gait/Balance Shaking or tremors: Yes (mild) Walking and balance problems: 0 (none) Number of falls in the Last Month: 0 Gait freezin (none) Autonomic/Pain Lightheadeness on standing: Yes (slight) Urinary problems: Yes (moderate) Constipation problems: 0 (none) Pain and other sensations: Yes (slight) Speech/Swallowing Speech problems: Yes (mild) Droolin (none) Chewing and swallowing problems: 0 (none) Sleep/Fatigue Sleep problems: Yes (mild) Daytime sleepiness: Yes (slight) Fatigue: Yes (slight) Mood/Behavior Depression: PHQ-9 Score: 9 usually representing mild (5-9) depression. Anxiety: CAROLE-7 Total Score: 6 usually representing mild (5-9) anxiety. Finally, the following table shows the patient's overall global physical and mental health using the PROMIS scale: PROMIS-10 Flowsheet Row Office Visit from 04/28/2022 in Neurology Office Visit from 09/20/2021 in Pulmonary Medicine Global Physical Health T Score 39.8 39.8 Global Mental Health T Score 36.3 48.3 0-10 Standard Pain Scale 4 4 *PROMIS-10 scoring scale: mean = 50, over 50 is above average, under 50 is below average In addition, the following non-motor symptoms and palliative concerns were evaluated: Sleep/Fatigue: REM sleep behavior disorder: Yes May occasionaly talk in sleep Restless Legs Syndrome: Yes Kicks in sleep. Legs get antsy day and night. Moves them alot when sitting at night. Leg swelling: Impaired sense of smell: No Just with COVID but it came back Cognition: Cognitive impairment: yes MoCA Cognitive assessment: 18 Hallucinations and delusions: yes He had a few months that it looked like the machinery was running at work when it wasnt. Apathy: yes Impulse control disorder: No Palliative Concerns: Caregiver burden: Spiritual concerns: No Advanced directives on file: No Palliative services: No Therapy and Exercise: Last PT Date: Last OT Date: Last ST Date: Exercises Regularly: No ALLERGIES Allergen Reactions Lisinopril Cough Current Outpatient Medications Medication Sig multivit with minerals/lutein (MULTIVITAMIN 50 PLUS ORAL) Take by mouth. FLUoxetine (PROZAC) 10 mg capsule TAKE 1 CAPSULE BY MOUTH ONCE DAILY eszopiclone (LUNESTA) 2 mg Take 1 tablet by mouth at bedtime as needed (insomnia) for up to 90 days. gabapentin (NEURONTIN) 100 mg capsule Take 1 capsule by mouth daily at bedtime for 180 days. losartan (COZAAR) 50 mg tablet TAKE 1 TABLET BY MOUTH EVERY DAY atorvastatin (LIPITOR) 10 mg tablet TAKE 1 TABLET BY MOUTH DAILY AT BEDTIME. FOR CHOLESTEROL tolterodine ER (DETROL LA) 4 mg 24 hr capsule Take 1 capsule by mouth once daily. traZODone (DESYREL) 100 mg tablet CURRENTLY TAKING 2 TABLETS AT BEDTIME DAILY BUT MAY INCREASE UP TO 3 TABLETS AT BEDTIME FOR INSOMNIA flunisolide (NASALIDE, NASAREL) 25 mcg (0.025 %) spry Use 2 Sprays in the nose twice daily. (Patient taking differently: Use 2 Sprays in the nose twice daily. Uses as needed) vitamin E mixed 1,000 unit cap Take 2,000 Units by mouth. ustekinumab (STELARA) 45 mg/0.5 mL sub-Q syringe Inject subcutaneously. Every 3 months. (Dr. Sanchez) CPAP Autobipap EPAP min 9, PS 4-8, IPAP max 20 cm H2O, Heat Humidity, suitable mask, [employer] supplies, opt Chinstrap, G47.33. Current Facility-Administered Medications Medication Dose Route Frequency perflutren lipid microspheres 1.3 mL in NaCl (PF) 0.9% 10 mL injection (DEFINITY) INTRAVENOUS DIRECTED PRN sodium chloride 0.9 % (flush) 10 mL (BD POSIFLUSH) 10 mL INTRAVENOUS DIRECTED PRN Past Medical and Surgical History: has a past medical history of Benign neoplasm of colon, Benign neoplasm of rectum and anal canal, Depression (04/02/2015), Diarrhea, Insomnia, Obstructive sleep apnea, Other psoriasis, and Pulmonary embolism (HCC). He has no past medical history of Atrial fibrillation (HCC), Cancer (HCC), Chronic obstructive pulmonary disease (COPD) (HCC), Chronic renal insufficiency, Congestive heart failure (HCC), Coronary artery disease, Diabetes (HCC), Epilepsy (HCC), Hypertension, Hypothyroidism, Steroid long-term use, Stroke (HCC), or Substance abuse (HCC). has a past surgical history that includes ligj divj &/excj varicose vein cluster 1 leg (2001); laparoscopic appendectomy (09/06/2008); past surgical history of (11/01/2010.); past surgical history of (2006); colonoscopy flx dx w/collj spec when pfrmd (01/20/12); cystourethroscopy (05/21/2014); nose surgery hx (Bilateral); and colonoscopy flx dx w/collj spec when pfrmd (03/27/2017). Social History Tobacco Use Smoking status: Former Packs/day: 0.80 Years: 33.00 Pack years: 26.40 Types: Cigarettes Start date: 1984 Quit date: 08/29/2017 Years since quittin.6 Smokeless tobacco: Never Vaping Use Vaping Use: Never used Substance Use Topics Alcohol use: Yes Alcohol/week: 35.0 standard drinks Types: 14 Cans of Beer (12oz) per week Comment: 3-4 beers/night 12 oz Drug use: No Family History: family history includes Alzheimer's Disease in his mother; Cancer in his father; Diabetes in his father; Hypertension in his father. Objective Vital Signs: BP 129/81 (BP Site: Left Arm, BP Position: Sitting, BP Cuff Size: Large Adult) Pulse (!) 55 Ht 182.9 cm (6') Wt 103.5 kg (228 lb 1.6 oz) SpO2 98% BMI 30.94 kg/m Orthostatic Vitals: None for this encounter Weight: 103.5 kg (228 lb 1.6 oz) Height: 182.9 cm (6') No LMP for male patient. Body mass index is 30.94 kg/m . General Neurological Examination: Neurological Exam Mental Status Awake, alert and oriented to person, place and time. Recent and remote memory are intact. Speech is normal. Language is fluent with no aphasia. Cranial Nerves CN II-XII grossly intact, except as otherwise noted. Motor Normal muscle bulk throughout. Normal muscle tone. The following abnormal movements were seen: Strength is 5/5 throughout all four extremities. There is no tremor at rest. Dexterity and tone are normal. He has no postural tremor. He has mild bilateral kinetic intention tremor. Sensory Light touch is normal in upper and lower extremities. Reflexes Right Left Brachioradialis 2+ 2+ Biceps 2+ 2+ Patellar 2+ 2+ Achilles 2+ 2+ Plantar Downgoing Downgoing Coordination Qqhvui-de-bphu, rapid alternating movements and rzjh-uz-jyjo normal bilaterally without dysmetria. Gait Casual gait is normal including stance, stride, and arm swing. Pertinent Studies TSH Date Value Ref Range Status 10/18/2019 0.685 0.270 - 4.200 * Final Vitamin B12 Date Value Ref Range Status 02/19/2022 979 232 - 1,245 pg* Final Assessment and Plan: Assessment Mr. Garcia is a left-handed 56 year old year old male with probable mild essential tremor with bilateral hand tremor, as well as some significant memory loss in the setting of recent and chronic alcohol abuse. The following are the current problems noted and addressed during this visit: Tremors of nervous system Amnestic mci (mild cognitive impairment with memory loss) (primary encounter diagnosis) Plan 04/28/2022 Visit: essential tremor - No treatment now unless symptoms become bothersome. Then I would suggest Inderal 10 mg three times daily and may increase to 20 mg three times daily. Cognitive Impairment - Talk to your PCP about alternatives to Detrol which will make memory worse. I would suggest Vesicare, trospium, or Mybertriq. I will refer to [facility]le for Further evaluation. Medical Decision Making: Problems: Moderate: 1+ chronic illnesses with change and 2+ stable chronic illnesses Data: Unique test result(s) reviewed: 2 Risk: Low: Low risk from testing/treatment Medical Decision Making Level: 3 - Low Thank you for allowing me to be part of the clinical care of this patient! I look forward to continued participation in the patient s care with you. Please do not hesitate to call with any questions. Sincerely, Freedom Yi MD documented in this encounter [facility] 02-28-2022 Miscellaneous Notes Patient has been identified by name and date of : Yes Patient phones for refill(s): Requested Prescriptions Pending Prescriptions Disp Refills FLUoxetine (PROZAC) 10 mg capsule [Pharmacy Med Name: FLUOXETINE HCL 10 MG CAPSULE] 30 capsule 5 Sig: TAKE 1 CAPSULE BY MOUTH ONCE DAILY Date of last office visit in primary care: 02/09/2022 Last 2 Encounter Wt Readings: Date: Wt: 02/09/2022 103.9 kg (229 lb) 09/20/2021 109.3 kg (241 lb) Previous labs/tests for medication: Not applicable Please advise. Thank you. Sherly Rojas LPN documented in this encounter [facility] 02-14-2022 Miscellaneous Notes PDMP website checked and validated. All prescriptions have been APPROPRIATELY filled. No suspicious activity was identified. 02/14/2022 by Mayuri Dexter APRN.OCTAVIA Patient has been identified by name and date of : Yes Patient phones for refill(s): Requested Prescriptions Pending Prescriptions Disp Refills eszopiclone (LUNESTA) 2 mg 20 tablet 1 Sig: Take 1 tablet by mouth at bedtime as needed (insomnia) for up to 90 days. Date of last office visit in primary care: 02/09/2022 6 month follow-up: 08/10/2022 Last 2 Encounter Wt Readings: Date: Wt: 02/09/2022 103.9 kg (229 lb) 09/20/2021 109.3 kg (241 lb) Previous labs/tests for medication: Not applicable Please advise. Thank you. Tawana Diaz LPN Patient has been identified by name and date of : Yes Last office visit in this department: 02/09/2022 RX INSTRUCTIONS: Patient aware RX will be sent to pharmacy. No need to notify patient. States doesn't take it all the time. Patient phones requesting refills as follows: Requested Prescriptions Pending Prescriptions Disp Refills eszopiclone (LUNESTA) 2 mg 20 tablet 1 Sig: Take 1 tablet by mouth at bedtime as needed (insomnia) for up to 90 days. Please review and advise. Sophy Garcia documented in this encounter [facility] 02-09-2022 History of Present illness Narrative Reason for Visit Patient presents with: Recheck Royal Garcia is a 56 year old male who presents here today for Above Complaints.. Health Maintenance HEPATITIS B(1 of 3 - 3-dose series) HIV SCREENING PNEUMOCOCCAL(3 - PCV) SHINGRIX VACCINE(2 of 2) PROSTATE CANCER SCREENING DISCUSSION COVID-19 VACCINE(4 - Booster) DTAP,TDAP,TD(2 - Td or Tdap) HPI bp is high today, from work stress it seems. Does not check bp at home. Eating more vegetables and fruits and gets 10,000 steps a day, lost around 35 pounds since 2019, but more work stress. He cut out sugar. Goal is to cut down medication but not able today and Tiny, is a little disappointed. LVH: has a stage I dysfunction, we need to recheck his echo. Pulm fibrosis: Been to see Dr Rivera who noted on his visit in October on 09/[address] chest do NOT demonstrate fibrosis to be progressing. Current 08/2021 and prior Pulmonary Function Testing show little change in lung volume. Current 6 minute walk showed no defect in oxygen diffusion/exchange, and only mild decrease in walk distance. On gabapentin for restless legs and he is doing well with it. Insomnia: on trazodone and lunesta, he is about the same with sleeping. He takes 1 pill occasionally. He sleeps and then wakes up , we discussed that it could be effect of alcohol Tremors- he noticed a tremor in the hands for a year now, when he stresses he does it more, He drinks around 2 glasses a night , around 2/3 shots with cranberry juice every night- vodka. Cpap: he just cannot use the sleep machine, he has tried several times and he cannot tolerate it. On prozac for anxiety and depression and he is doing well with it. Sees Dr. Sanchez for his psoriasis and is on Stelara takes medications regularly. HPL: Reviewed test results with patient , takes medications regularly , does not report side effects. Conscious to avoid red meats, full fat dairy and its by products. Exercising 3 to 5 times a week. No problem-specific Assessment & Plan notes found for this encounter. 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 Bone spur rotator cuff right shoulder. PAST SURGICAL HISTORY OF 2006 bone spur removed from right nares FAMILY HISTORY Problem Relation Age of Onset Alzheimer's Disease Mother Diabetes Father Hypertension Father Cancer Father ? primary site. Blood Clots No Family History No DVT or PE. Social History Tobacco Use Smoking status: Former Packs/day: 0.80 Years: 33.00 Pack years: 26.40 Types: Cigarettes Start date: 1984 Quit date: 08/29/2017 Years since quittin.4 Smokeless tobacco: Never Vaping Use Vaping Use: Never used Substance Use Topics Alcohol use: Yes Alcohol/week: 35.0 standard drinks Types: 14 Cans of Beer (12oz) per week Comment: 3-4 beers/night 12 oz Drug use: No Past medical history, appointments, medications, allergies reviewed. Pertinent Lab/Diagnostic Studies are reviewed and discussed today Current Outpatient Medications: gabapentin (NEURONTIN) 100 mg capsule losartan (COZAAR) 50 mg tablet atorvastatin (LIPITOR) 10 mg tablet tolterodine ER (DETROL LA) 4 mg 24 hr capsule FLUoxetine (PROZAC) 10 mg capsule traZODone (DESYREL) 100 mg tablet flunisolide (NASALIDE, NASAREL) 25 mcg (0.025 %) spry Blood Pressure Monitor (BLOOD PRESSURE KIT) CPAP COMPOUNDED PRESCRIPTION >Compression Knee Highs 30-40 mm vitamin E mixed 1,000 unit cap Ustekinumab (STELARA) 45 mg/0.5 mL syrg Current Facility-Administered Medications: perflutren lipid microspheres 1.3 mL in NaCl (PF) 0.9% 10 mL injection (DEFINITY) sodium chloride 0.9 % (flush) 10 mL (BD POSIFLUSH) Review of Systems CONSTITUTIONAL: No fevers, chills night sweats, unintended weight loss CARDIOVASCULAR: No chest pain, dyspnea, palpitations, orthopnea, PND, ankle edema. PULM: No dyspnea, unexplained cough. GI: No dysphagia/odynophagia, problematic reflux, constipation, diarrhea, changes in stool habits, hematochezia, melena. : No new urinary complaints, including dysuria, gross hematuria or pyuria. NEURO: No new balance problems, peripheral weakness/paresthesias or numbness of concern. Physical Exam BP 122/62 (BP Site: Left Arm, BP Position: Sitting, BP Cuff Size: Large Adult) Pulse 65 Temp 36.6 C (97.8 F) Resp 12 Ht 182.9 cm (6') Wt 103.9 kg (229 lb) SpO2 97% BMI 31.06 kg/m General appearance: Well appearing, alert, in no acute distress, well nourished. Skin: Skin color, texture, turgor normal, no suspicious rashes or lesions Head: Normocephalic, no masses, lesions, tenderness or abnormalities Eyes: Anicteric sclera. Pupils are equally round and reactive to light. Extraocular movements are intact. Lungs: Lungs clear to auscultation. No wheezing, rhonchi, rales Heart: RRR without murmur, gallop, or rubs. Cerebellar test: his finger nose, test was normal, no diadochokinesis. ASSESSMENT/PLAN: 1. Dyslipidemia - ICD9: 272.4, ICD10: E78.5 (primary diagnosis) Will recheck labs. - GLUCOSE FASTING BLD - LIPID PANEL BASIC 2. Fatty liver - ICD9: 571.8, ICD10: K76.0 We will have to check cmp 3. Screening for HIV (human immunodeficiency virus) - ICD9: V73.89, ICD10: Z11.4 - HIV 1 2 COMBO(AG/AB),WITH REFLEX TO DIFFERENTIATION 4. Prostate cancer screening - ICD9: V76.44, ICD10: Z12.5 - Counseled on healthy diet and regular exercise - PSA/PROSTSPECAG SCRN 5. Thiamine deficiency - ICD9: 265.1, ICD10: E51.9 - VITAMIN B12 BLOOD 6. Vitamin B1 deficiency - ICD9: 265.1, ICD10: E51.9 - VITAMIN B1 (THIAMINE), WHOLE BLOOD Genie Coto MD documented in this encounter [facility] 01-28-2022 Miscellaneous Notes Patient has been identified by name and date of : Yes Spouse phones for refill(s): Requested Prescriptions Pending Prescriptions Disp Refills gabapentin (NEURONTIN) 100 mg capsule 30 capsule 5 Sig: Take 1 capsule by mouth daily at bedtime for 180 days. Date of last office visit in primary care: 07/13/2021, has appt 02/09/2022 Last 2 Encounter Wt Readings: Date: Wt: 09/20/2021 109.3 kg (241 lb) 09/17/2021 108.9 kg (240 lb) Previous labs/tests for medication: Not applicable Please advise. Thank you. Nicole Mckinnon LPN documented in this encounter [facility] 09-28-2021 Miscellaneous Notes Patient has been identified by name and date of : Yes Patient phones for refill(s): Pending Prescriptions Disp Refills TOLTERODINE ER 4 MG CAPSULE,EXTENDED RELEASE 24 HR 30 capsule 5 Sig: Take 1 capsule by mouth once daily. EMETERIO: No Date of last office visit in primary care: 07/13/21 next apt 10/13/21 Last 2 Encounter Wt Readings: Date: Wt: 09/20/2021 109.3 kg (241 lb) 09/17/2021 108.9 kg (240 lb) Previous labs/tests for medication: Not applicable Please advise. Thank you. Patrizia Reyna LPN documented in this encounter [facility] 09-20-2021 Instructions Royal Rivera MD - 09/20/2021 5:05 PM EDT Current 09/[address] chest do NOT demonstrate fibrosis to be progressing. Current 08/2021 and prior Pulmonary Function Testing show little change in lung volume. Current 6 minute walk showed no defect in oxygen diffusion/exchange, and only mild decrease in walk distance. Current Hgb and metabolic panel show no evidence of anemia or acid base disorder to account for exertional shortness of breath. Current echocardiogram shows no evidence of right or left heart failure or pulmonary hypertension to cause shortness of breath. 2019 cardiac stress test showed no evidence of ischemic coronary artery disease. Thus far, evidence suggests exertional shortness of breath is due to weight and conditioning, and stable mild pulmonary fibrosis that has not progressed since 2019. - Ongoing attention to weight loss is prudent. Re-assess symptoms, lung function and 6 minute walk in 1 year, sooner if symptoms progress more rapidly. I am retiring from the staff of [facility] and the practice of Medicine on October 07, 2021, after 41 years of service to my patients. It has been my privilege to provide you with Pulmonary consultation and care for the time we have known each other. Please feel confident that my colleagues are well equipped to provide ongoing care in the future: Naif Magallon MD and Sophy Stein PA-C. Royal Rivera MD, [facility] [address] [place] [address] P: [phone] F: [phone] documented in this encounter [facility] 09-20-2021 History of Present illness Narrative [facility] [place], 09/20/2021: Name: Royal Garcia : 1965 The patient is here today with his spouse, who attends the entire visit, exam and discussion. INTERVAL HISTORY: No change in interval history compared to the most recent visit of 09/09/2021. PHYSICAL EXAMINATION: BP 114/76 (BP Site: Right Arm, BP Position: Sitting, BP Cuff Size: Regular Adult) Pulse 74 Resp 14 Ht 182.9 cm (6') Wt 109.3 kg (241 lb) SpO2 95% BMI 32.69 kg/m Gen: No acute distress. Cooperative with examination. No change from most recent examination recorded in the medical record. DATA REVIEW: CT chest 09/14/2021 CT chest 10/10/2018 6 minute walk 09/17/2021 Spirometry, lung volumes 08/16/2021 Spirometry 10/18/2019 Echocardiogram 09/13/2021 NM myocardial perfusion stress test, [facility], 06/21/2018 CBC 07/12/2021 CMP 07/12/2021 MEDICAL DECISION MAKING: Current 09/[address] chest do NOT demonstrate fibrosis to be progressing. Current 08/2021 and prior Pulmonary Function Testing show little change in lung volume. Current 6 minute walk showed no defect in oxygen diffusion/exchange, and only mild decrease in walk distance. Current Hgb and metabolic panel show no evidence of anemia or acid base disorder to account for exertional shortness of breath. Current echocardiogram shows no evidence of right or left heart failure or pulmonary hypertension to cause shortness of breath. 2019 cardiac stress test showed no evidence of ischemic coronary artery disease. Thus far, evidence suggests exertional shortness of breath is due to weight and conditioning, and stable mild pulmonary fibrosis that has not progressed since 2019. - Ongoing attention to weight loss is prudent. Re-assess symptoms, lung function and 6 minute walk in 1 year, sooner if symptoms progress more rapidly. I again reminded the patient and his spouse that I am retiring from the staff of [facility] and the practice of Medicine on October 07, 2021, after 41 years of service to my patients. It has been my privilege to provide him with Pulmonary consultation and care for the time we have known each other. Please feel confident that my colleagues are well equipped to provide ongoing care in the future: Naif Magallon MD and Sophy Stein PA-C. Royal Rivera MD, [facility] [address] [place] [address] P: [phone] F: [phone] [email or web address] documented in this encounter [facility] 09-17-2021 History of Present illness Narrative PULM FUNCTION SMARTBLOCK: Provider: Royal Rivera MD Assisting Tech: ED Meraz 6 MW: 1 System: [id number] documented in this encounter [facility] 09-13-2021 History of Present illness Narrative 24 ga angio started to RAC. Good blood return. Flushed easily with NSS. Dressing applied. Definity (Lot # [id number] exp 03/10/2022 ) mixed per protocol. 2 cc administered throughout procedure. 8 cc discarded. Pt tolerated procedure well. No C/o's, Hep lock D/c'd and dressing applied. Patient discharged ambulatory with [facility]. Maeve Gonzales RN documented in this encounter [facility] 09-10-2021 History of Present illness Narrative [facility] [place], 09/09/2021: Name: Royal Garcia : 1965 The patient is here today with his spouse, who attends the entire visit, exam and discussion. INTERVAL HISTORY: Dr. Coto thought I should see you about my recent breathing tests. The patient notices exertional dyspnea when lifting and carrying, especially climbing a flight of stairs. This does not appear to have progressed since his last visit when he had the same complaints. This dyspnea is not positional, and does not change seasonally or with environmental temperature/humidity extremes. There is occasional nonproductive cough, specifically no purulent sputum or hemoptysis. There is no pleuritic chest pain. There is no wheezing. He has not missed social, family, or work activities because of symptoms. ROS: No mental status changes. No eye pain, redness, or change in vision. No recurrent sinus infections. No palpitations, lower extremity edema, orthopnea, paroxysmal nocturnal dyspnea, angina, syncope. No dysphagia, emesis, melena. No hematuria. No skin rash or pruritus. Problem list, PMH, PSH, FAMH, SOCH: Reviewed with patient today, and updated accordingly. There has been no change in his home or work environments. Immunizations reviewed today. Allergies reviewed and updated, and medications reconciled today. PHYSICAL EXAMINATION: BP 136/77 (BP Site: Right Arm, BP Position: Sitting, BP Cuff Size: Regular Adult) Pulse 71 Wt 109.3 kg (241 lb) SpO2 95% BMI 32.69 kg/m Gen: No acute distress. Cooperative with examination. Appears fit and well. ENT: Sclerae clear. Nares clear. Oral hygeine/dentition good. Pharynx clear. No halitosis. Resp: No stridor, accessory respiratory muscle use, supra-sternal retractions. A-P diameter normal. No crackles, wheezes, pleural rubs. CV: Regular rythm. Heart tones normal. No carotid bruit. Radial pulses normal. Abd: Midline diastases recti. Not distended. Normal bowel sounds. MSK: No dorsal kyphos, no thoracolumbar scoliosis. No joint deformities of the elbows, wrists, hands, fingers. Ext: Warm and well perfused. No clubbing, cyanosis, edema, sclerodactyly, Raynaud's. Skin: Color normal. Texture normal. No rash, eczema, telangiectasia, ecchymoses. Lymph: No adenopathy in neck, supra-clavicular fossae. Endo: No goiter, exophthalmos, onycholysis. Neuro: Mental status normal. Affect normal. Muscle strength normal and symmetrical. Gait and balance are normal. No tremor. DATA REVIEW: Spirometry and lung volumes: 08/16/2021, 10/18/2019. CT chest: 10/10/2018. MEDICAL DECISION MAKING: Exertional dyspnea remains similar to the patient's complaint recorded at his last evaluation. Previous spirometry demonstrated mild reduction in vital capacity and total lung capacity, without evidence of obstructive ventilatory impairment. His symptoms have not led him to miss work or social commitments. He has no history of, or physical findings suggestive of, connective tissue disease. He has not been treated with cancer chemotherapy, methotrexate, amiodarone, nitrofurantoin, or other agents associated with drug-induced lung disease. His previous CT chest demonstrated subpleural reticular changes without honeycombing, adenopathy or pleural disease. On current spirometry, there has been a small but noted progressive decline in both vital capacity and total lung capacity. Current investigation will begin with a repeat CT of chest to evaluate for any progressive reticular/interstitial abnormality. -Further recommendations will follow that result. -I did discuss the potential need for bronchoscopic or surgical lung biopsy depending upon CT results. I addressed the questions of the patient and spouse, and they expressed understanding and acceptance of my answers. Royal Rivera MD, [facility] [address] [place], [place] [id number] P: [phone] F: [phone] [email or web address] documented in this encounter [facility] 09-09-2021 Instructions Royal Rivera MD - 09/09/2021 4:28 PM EDT Patient agreed to receive AVS and Instructions via [employer] message. Royal Rivera MD, [facility] documented in this encounter [facility] 08-30-2021 Miscellaneous Notes Patient has been identified by name and date of : Yes Patient phones for refill(s): Pending Prescriptions Disp Refills FLUOXETINE 10 MG CAPSULE 30 capsule 5 Sig: Take 1 capsule by mouth once daily. EMETERIO: No Date of last office visit in primary care: 07/13/21 Last 2 Encounter Wt Readings: Date: Wt: 08/16/2021 109.3 kg (241 lb) 07/13/2021 112.5 kg (248 lb) Previous labs/tests for medication: Not applicable Please advise. Thank you. Senait Min Ma Patient has been identified by name and date of : Yes Pending Prescriptions Disp Refills FLUOXETINE 10 MG CAPSULE 30 capsule 5 Sig: Take 1 capsule by mouth once daily. EMETERIO: No RX INSTRUCTIONS: Patient aware RX will be sent to pharmacy. No need to notify patient. Misa Montelongo documented in this encounter [facility] 08-18-2021 Miscellaneous Notes Patient notified . Sherly Rojas LPN All results are not completed. I reviewed Dr. Coto's note and these were ordered for checking lung function related to his pulmonary fibrosis. Also, stated in note that was concerned his symptoms were worse even though patient denied this. Thank you Mayuri Dexter APRN.CNP Patient had lung volumes and spirometry testing done 08/16. Is patient referring to labs completed on 07/12? If so these were to evaluate blood counts, liver/kidney function, electrolytes, cholesterol, and blood sugar control. Is there something else that was completed? Thank you Mayuri Dexter APRN.CNP Spouse is calling for the patient as patient did not understand the testing he had completed yesterday and they are calling back to ask questions and get results of that testing. documented in this encounter [facility] 08-16-2021 History of Present illness Narrative PULM FUNCTION SMARTBLOCK: Provider: Genie Coto MD Assisting Tech: Augie Lackey RRT Spirometry w/BD: 1 LV - Box: 1 System: [id number] documented in this encounter [facility] 07-14-2021 Miscellaneous Notes Patient's Bell notified of rx sent to pharmacy and instructions. Sherly Rojas LPN Please let him know atorvastatin has been ordered and should take one tablet before bed. We will recheck lab work in 3 months Thank you Mayuri Dexter APRN.OCTAVIA The 10-year ASCVD risk score (Glendy DC Jr., et al., 2013) is: 7.9% Values used to calculate the score: Age: 56 years Sex: Male Is Non- : No Diabetic: No Tobacco smoker: No Systolic Blood Pressure: 138 mmHg Is BP treated: Yes HDL Cholesterol: 47 mg/dL Total Cholesterol: 186 mg/dL Patient is willing to start a low dose statin at recommended. [facility]. Please review and advise. Sherly Rojas LPN Please let patient know that cholesterol levels are elevated and it is recommended to start a statin type medication to reduce risk of heart attack and stroke. Is he agreeable to me prescribing a low dose statin? Also diet should be rich in fruits, vegetables, lean meats and healthy fats/oils. Avoid processed foods, trans fats, vegetable oils and simple sugars. Watch portion sizes. Aerobic exercise for at least 20 minutes, 3-5 days a week. Hgba1c is still in prediabetic range and the exercise and healthy diet will help improve this as well. Thank you Mayuri Dexter APRN.OCTAVIA documented in this encounter [facility] 07-13-2021 Miscellaneous Notes Patient has been identified by name and date of : Yes Pharmacy phones for refill(s): Pending Prescriptions Disp Refills LOSARTAN 50 MG TABLET 30 tablet 5 Sig: TAKE 1 TABLET BY MOUTH EVERY DAY EMETERIO: Yes Date of last office visit in primary care: 06/14/21 next apt 07/13/21 Last 2 Encounter Wt Readings: Date: Wt: 06/14/2021 111.1 kg (245 lb) 01/15/2021 118.4 kg (261 lb) Previous labs/tests for medication: Blood Pressure: BUN (mg/dL) Date Value 07/12/2021 14 07/10/2020 13 Sodium (mmol/L) Date Value 07/12/2021 141 07/10/2020 139 Last 1 Encounter BP Readings: Date: BP: 06/14/2021 120/84 Please advise. Thank you. Patrizia Reyna LPN documented in this encounter [facility] 06-14-2021 History of Present illness Narrative Radiology Service Progress Note PATIENT NAME: Royal Garcia DATE OF SERVICE: June 14, 2021 TIME: 2:18 PM PATIENT IDENTITY VERIFICATION COMPLETED USING TWO (2) IDENTIFIERS: Name and Date of confirmed by patient verbally. FALL SCREENING: Has the patient had 2 falls in the last year or 1 fall with injury or currently using an Ambulatory Assistive Device (Walker, Cane, Wheelchair, Crutches, etc.)? No PATIENT GENDER DATA: Male PATIENT RELEVANT IMPLANT DATA REVIEWED: Yes RADIOLOGY DEPARTMENT: General X-ray: Exam(s) Completed: Spine X-Ray(s): Lumbar AP / LAT / L5-S1 Pelvis X-Ray: Pelvis with Hip Left PERIPHERAL IV DATA: Not applicable SIGNED BY: RT Sera(R) June 14, 2021 2:18 PM documented in this encounter [facility] 10-25-2017 History of Past i llness Narrative Problem Noted Date Resolved Date Iron deficiency concern 10/25/2017 01/24/20 18 Acute appendicitis without mention of peritoniti s 09/10/2008 01/01/2009 Tobacco use disorder 05/01/2018 Overview: Quit 12/25/08, resumed and currently smoking around a pack or 2 a day. Last Assessment & Plan: He still smokes and does not want to quit or even slow down. documented as of this encounter (statuses as of 07/14/2021) [facility] History of Past illness Narrative* Problem Noted Date Resolved Date Iron deficiency concern 10/25/2017 01/24/20 18 Acute appendicitis without mention of peritoniti s 09/10/2008 01/01/2009 Tobacco use disorder 05/01/2018 Overview: Quit 12/25/08, resumed and currently smoking around a pack or 2 a day. Last Assessment & Plan: He still smokes and does not want to quit or even slow down. documented as of this encounter (statuses as of 07/14/2021) [facility] History of Past illness Narrative* Problem Noted Date Resolved Date Iron deficiency concern 10/25/2017 01/24/20 18 Acute appendicitis without mention of peritoniti s 09/10/2008 01/01/2009 Tobacco use disorder 05/01/2018 Overview: Quit 12/25/08, resumed and currently smoking around a pack or 2 a day. Last Assessment & Plan: He still smokes and does not want to quit or even slow down. documented as of this encounter (statuses as of 08/16/2021) [facility] History of Past illness Narrative* Problem Noted Date Resolved Date Iron deficiency concern 10/25/2017 01/24/20 18 Acute appendicitis without mention of peritoniti s 09/10/2008 01/01/2009 Tobacco use disorder 05/01/2018 Overview: Quit 12/25/08, resumed and currently smoking around a pack or 2 a day. Last Assessment & Plan: He still smokes and does not want to quit or even slow down. documented as of this encounter (statuses as of 08/18/2021) [facility] History of Past illness Narrative* Problem Noted Date Resolved Date Iron deficiency concern 10/25/2017 01/24/20 18 Acute appendicitis without mention of peritoniti s 09/10/2008 01/01/2009 Tobacco use disorder 05/01/2018 Overview: Quit 12/25/08, resumed and currently smoking around a pack or 2 a day. Last Assessment & Plan: He still smokes and does not want to quit or even slow down. documented as of this encounter (statuses as of 08/30/2021) [facility] History of Past illness Narrative* Problem Noted Date Resolved Date Iron deficiency concern 10/25/2017 01/24/20 18 Acute appendicitis without mention of peritoniti s 09/10/2008 01/01/2009 Tobacco use disorder 05/01/2018 Overview: Quit 12/25/08, resumed and currently smoking around a pack or 2 a day. Last Assessment & Plan: He still smokes and does not want to quit or even slow down. documented as of this encounter (statuses as of 09/10/2021) [facility] History of Past illness Narrative* Problem Noted Date Resolved Date Iron deficiency concern 10/25/2017 01/24/20 18 Acute appendicitis without mention of peritoniti s 09/10/2008 01/01/2009 Tobacco use disorder 05/01/2018 Overview: Quit 12/25/08, resumed and currently smoking around a pack or 2 a day. Last Assessment & Plan: He still smokes and does not want to quit or even slow down. documented as of this encounter (statuses as of 09/13/2021) [facility] History of Past illness Narrative* Problem Noted Date Resolved Date Iron deficiency concern 10/25/2017 01/24/20 18 Acute appendicitis without mention of peritoniti s 09/10/2008 01/01/2009 Tobacco use disorder 05/01/2018 Overview: Quit 12/25/08, resumed and currently smoking around a pack or 2 a day. Last Assessment & Plan: He still smokes and does not want to quit or even slow down. documented as of this encounter (statuses as of 09/17/2021) [facility] History of Past illness Narrative* Problem Noted Date Resolved Date Iron deficiency concern 10/25/2017 01/24/20 18 Acute appendicitis without mention of peritoniti s 09/10/2008 01/01/2009 Tobacco use disorder 05/01/2018 Overview: Quit 12/25/08, resumed and currently smoking around a pack or 2 a day. Last Assessment & Plan: He still smokes and does not want to quit or even slow down. documented as of this encounter (statuses as of 09/20/2021) [facility] History of Past illness Narrative* Problem Noted Date Resolved Date Iron deficiency concern 10/25/2017 01/24/20 18 Acute appendicitis without mention of peritoniti s 09/10/2008 01/01/2009 Tobacco use disorder 05/01/2018 Overview: Quit 12/25/08, resumed and currently smoking around a pack or 2 a day. Last Assessment & Plan: He still smokes and does not want to quit or even slow down. documented as of this encounter (statuses as of 09/30/2021) [facility] History of Past illness Narrative* Problem Noted Date Resolved Date Iron deficiency concern 10/25/2017 01/24/20 18 Acute appendicitis without mention of peritoniti s 09/10/2008 01/01/2009 Tobacco use disorder 05/01/2018 Overview: Quit 12/25/08, resumed and currently smoking around a pack or 2 a day. Last Assessment & Plan: He still smokes and does not want to quit or even slow down. documented as of this encounter (statuses as of 01/28/2022) [facility] History of Past illness Narrative* Problem Noted Date Resolved Date Iron deficiency concern 10/25/2017 01/24/20 18 Acute appendicitis without mention of peritoniti s 09/10/2008 01/01/2009 Tobacco use disorder 05/01/2018 Overview: Quit 12/25/08, resumed and currently smoking around a pack or 2 a day. Last Assessment & Plan: He still smokes and does not want to quit or even slow down. documented as of this encounter (statuses as of 02/10/2022) [facility] History of Past illness Narrative* Problem Noted Date Resolved Date Iron deficiency concern 10/25/2017 01/24/20 18 Acute appendicitis without mention of peritoniti s 09/10/2008 01/01/2009 Tobacco use disorder 05/01/2018 Overview: Quit 12/25/08, resumed and currently smoking around a pack or 2 a day. Last Assessment & Plan: He still smokes and does not want to quit or even slow down. documented as of this encounter (statuses as of 02/14/2022) [facility] History of Past illness Narrative* Problem Noted Date Resolved Date Iron deficiency concern 10/25/2017 01/24/20 18 Acute appendicitis without mention of peritoniti s 09/10/2008 01/01/2009 Tobacco use disorder 05/01/2018 Overview: Quit 12/25/08, resumed and currently smoking around a pack or 2 a day. Last Assessment & Plan: He still smokes and does not want to quit or even slow down. documented as of this encounter (statuses as of 03/02/2022) [facility] History of Past illness Narrative* Problem Noted Date Resolved Date Iron deficiency concern 10/25/2017 01/24/20 18 Acute appendicitis without mention of peritoniti s 09/10/2008 01/01/2009 Tobacco use disorder 05/01/2018 Overview: Quit 12/25/08, resumed and currently smoking around a pack or 2 a day. Last Assessment & Plan: He still smokes and does not want to quit or even slow down. documented as of this encounter (statuses as of 04/28/2022) [facility] History of Past illness Narrative* Problem Noted Date Resolved Date Iron deficiency concern 10/25/2017 01/24/20 18 Acute appendicitis without mention of peritoniti s 09/10/2008 01/01/2009 Tobacco use disorder 05/01/2018 Overview: Quit 12/25/08, resumed and currently smoking around a pack or 2 a day. Last Assessment & Plan: He still smokes and does not want to quit or even slow down. documented as of this encounter (statuses as of 05/04/2022) [facility] History of Past illness Narrative* Problem Noted Date Resolved Date Iron deficiency concern 10/25/2017 01/24/20 18 Acute appendicitis without mention of peritoniti s 09/10/2008 01/01/2009 Tobacco use disorder 05/01/2018 Overview: Quit 12/25/08, resumed and currently smoking around a pack or 2 a day. Last Assessment & Plan: He still smokes and does not want to quit or even slow down. documented as of this encounter (statuses as of 05/31/2022) [facility] History of Past illness Narrative* Problem Noted Date Resolved Date Iron deficiency concern 10/25/2017 01/24/20 18 Acute appendicitis without mention of peritoniti s 09/10/2008 01/01/2009 Tobacco use disorder 05/01/2018 Overview: Quit 12/25/08, resumed and currently smoking around a pack or 2 a day. Last Assessment & Plan: He still smokes and does not want to quit or even slow down. documented as of this encounter (statuses as of 07/21/2022) [facility] History of Past illness Narrative* Problem Noted Date Resolved Date Iron deficiency concern 10/25/2017 01/24/20 18 Acute appendicitis without mention of peritoniti s 09/10/2008 01/01/2009 Tobacco use disorder 05/01/2018 Overview: Quit 12/25/08, resumed and currently smoking around a pack or 2 a day. Last Assessment & Plan: He still smokes and does not want to quit or even slow down. documented as of this encounter (statuses as of 08/02/2022) [facility] History of Past illness Narrative* Problem Noted Date Resolved Date Iron deficiency concern 10/25/2017 01/24/20 18 Acute appendicitis without mention of peritoniti s 09/10/2008 01/01/2009 Tobacco use disorder 05/01/2018 Overview: Quit 12/25/08, resumed and currently smoking around a pack or 2 a day. Last Assessment & Plan: He still smokes and does not want to quit or even slow down. documented as of this encounter (statuses as of 08/03/2022) [facility] History of Past illness Narrative* Problem Noted Date Resolved Date Iron deficiency concern 10/25/2017 01/24/20 18 Acute appendicitis without mention of peritoniti s 09/10/2008 01/01/2009 Tobacco use disorder 05/01/2018 Overview: Quit 12/25/08, resumed and currently smoking around a pack or 2 a day. Last Assessment & Plan: He still smokes and does not want to quit or even slow down. documented as of this encounter (statuses as of 09/08/2022) [facility] History of Past illness Narrative* Problem Noted Date Resolved Date Iron deficiency concern 10/25/2017 01/24/20 Depression, major, single episode, mild 01/13/20 16 10/13/2022 Diarrhea 01/20/2012 10/13/2022 Acute appendicitis without mention of peritoniti s 09/10/2008 01/01/2009 Tobacco use disorder 05/01/2018 Overview: Quit 12/25/08, resumed and currently smoking around a pack or 2 a day. Last Assessment & Plan: He still smokes and does not want to quit or even slow down. documented as of this encounter (statuses as of 10/14/2022) [facility] History of Past illness Narrative* Problem Noted Date Diagnosed Date Resolved Date Iron deficiency concern 10/25/201701/08 Depression, major, single episode, mild 01/13/2016 10/13/2022 Diarrhea 01/20/2012 10/13/2022 Acute appendicitis without m ention of peritonitis 09/10/2008 01/01/2009 Tobacco use disorder 019 Overview: Quit 12/25/08, resumed and currently smoking around a pack or 2 a day. Last Assessment & Plan: He still smokes and does not want to quit or even slow down. documented as of this encounter (statuses as of 10/15/2022) [facility] History of Past illness Narrative* Problem Noted Date Diagnosed Date Resolved Date Iron deficiency concern 10/25/201701/08 Depression, major, single episode, mild 01/13/2016 10/13/2022 Diarrhea 01/20/2012 10/13/2022 Acute appendicitis without m ention of peritonitis 09/10/2008 01/01/2009 Tobacco use disorder 019 Overview: Quit 12/25/08, resumed and currently smoking around a pack or 2 a day. Last Assessment & Plan: He still smokes and does not want to quit or even slow down. documented as of this encounter (statuses as of 11/14/2022) [facility] History of Past illness Narrative* Problem Noted Date Diagnosed Date Resolved Date Iron deficiency concern 10/25/201701/08 Depression, major, single episode, mild 01/13/2016 10/13/2022 Diarrhea 01/20/2012 10/13/2022 Acute appendicitis without m ention of peritonitis 09/10/2008 01/01/2009 Tobacco use disorder 019 Overview: Quit 12/25/08, resumed and currently smoking around a pack or 2 a day. Last Assessment & Plan: He still smokes and does not want to quit or even slow down. documented as of this encounter (statuses as of 11/17/2022) [facility] History of Past illness Narrative* Problem Noted Date Diagnosed Date Resolved Date Iron deficiency concern 10/25/201701/08 Depression, major, single episode, mild 01/13/2016 10/13/2022 Diarrhea 01/20/2012 10/13/2022 Acute appendicitis without m ention of peritonitis 09/10/2008 01/01/2009 Tobacco use disorder 019 Overview: Quit 12/25/08, resumed and currently smoking around a pack or 2 a day. Last Assessment & Plan: He still smokes and does not want to quit or even slow down. documented as of this encounter (statuses as of 11/22/2022) [facility] History of Past illness Narrative* Problem Noted Date Diagnosed Date Resolved Date Iron deficiency concern 10/25/201701/08 Depression, major, single episode, mild 01/13/2016 10/13/2022 Diarrhea 01/20/2012 10/13/2022 Acute appendicitis without m ention of peritonitis 09/10/2008 01/01/2009 Tobacco use disorder 019 Overview: Quit 12/25/08, resumed and currently smoking around a pack or 2 a day. Last Assessment & Plan: He still smokes and does not want to quit or even slow down. documented as of this encounter (statuses as of 11/23/2022) [facility] History of Past illness Narrative* Problem Noted Date Diagnosed Date Resolved Date Iron deficiency concern 10/25/201701/08 Depression, major, single episode, mild 01/13/2016 10/13/2022 Diarrhea 01/20/2012 10/13/2022 Acute appendicitis without m ention of peritonitis 09/10/2008 01/01/2009 Tobacco use disorder 019 Overview: Quit 12/25/08, resumed and currently smoking around a pack or 2 a day. Last Assessment & Plan: He still smokes and does not want to quit or even slow down. documented as of this encounter (statuses as of 12/01/2022) [facility] History of Past illness Narrative* Problem Noted Date Diagnosed Date Resolved Date Iron deficiency concern 10/25/201701/08 Depression, major, single episode, mild 01/13/2016 10/13/2022 Diarrhea 01/20/2012 10/13/2022 Acute appendicitis without m ention of peritonitis 09/10/2008 01/01/2009 Tobacco use disorder 019 Overview: Quit 12/25/08, resumed and currently smoking around a pack or 2 a day. Last Assessment & Plan: He still smokes and does not want to quit or even slow down. documented as of this encounter (statuses as of 12/06/2022) [facility] History of Past illness Narrative* Problem Noted Date Diagnosed Date Resolved Date Iron deficiency concern 10/25/201701/08 Depression, major, single episode, mild 01/13/2016 10/13/2022 Diarrhea 01/20/2012 10/13/2022 Acute appendicitis without m ention of peritonitis 09/10/2008 01/01/2009 Tobacco use disorder 019 Overview: Quit 12/25/08, resumed and currently smoking around a pack or 2 a day. Last Assessment & Plan: He still smokes and does not want to quit or even slow down. documented as of this encounter (statuses as of 12/14/2022) [facility] History of Past illness Narrative* Problem Noted Date Diagnosed Date Resolved Date Iron deficiency concern 10/25/201701/08 Depression, major, single episode, mild 01/13/2016 10/13/2022 Diarrhea 01/20/2012 10/13/2022 Acute appendicitis without m ention of peritonitis 09/10/2008 01/01/2009 Tobacco use disorder 019 Overview: Quit 12/25/08, resumed and currently smoking around a pack or 2 a day. Last Assessment & Plan: He still smokes and does not want to quit or even slow down. documented as of this encounter (statuses as of 12/19/2022) [facility] History of Past illness Narrative* Problem Noted Date Diagnosed Date Resolved Date Iron deficiency concern 10/25/201701/08 Depression, major, single episode, mild 01/13/2016 10/13/2022 Diarrhea 01/20/2012 10/13/2022 Acute appendicitis without m ention of peritonitis 09/10/2008 01/01/2009 Tobacco use disorder 019 Overview: Quit 12/25/08, resumed and currently smoking around a pack or 2 a day. Last Assessment & Plan: He still smokes and does not want to quit or even slow down. documented as of this encounter (statuses as of 12/23/2022) [address]2018 History of Past illness Narrative* Problem Noted Date Diagnosed Date Resolved Date Iron deficiency concern 10/25/201701/08 Depression, major, single episode, mild 01/13/2016 10/13/2022 Diarrhea 01/20/2012 10/13/2022 Acute appendicitis without m ention of peritonitis 09/10/2008 01/01/2009 Tobacco use disorder 019 Overview: Quit 12/25/08, resumed and currently smoking around a pack or 2 a day. Last Assessment & Plan: He still smokes and does not want to quit or even slow down. documented as of this encounter (statuses as of 12/31/2022) [facility] History of Past illness Narrative* Problem Noted Date Diagnosed Date Resolved Date Iron deficiency concern 10/25/201701/08 Depression, major, single episode, mild 01/13/2016 10/13/2022 Diarrhea 01/20/2012 10/13/2022 Acute appendicitis without m ention of peritonitis 09/10/2008 01/01/2009 Tobacco use disorder 019 Overview: Quit 12/25/08, resumed and currently smoking around a pack or 2 a day. Last Assessment & Plan: He still smokes and does not want to quit or even slow down. documented as of this encounter (statuses as of 01/03/2023) [facility] History of Past illness Narrative* Problem Noted Date Diagnosed Date Resolved Date Iron deficiency concern 10/25/201701/08 Depression, major, single episode, mild 01/13/2016 10/13/2022 Diarrhea 01/20/2012 10/13/2022 Acute appendicitis without m ention of peritonitis 09/10/2008 01/01/2009 Tobacco use disorder 019 Overview: Quit 12/25/08, resumed and currently smoking around a pack or 2 a day. Last Assessment & Plan: He still smokes and does not want to quit or even slow down. documented as of this encounter (statuses as of 01/18/2023) [facility] History of Past illness Narrative* Problem Noted Date Diagnosed Date Resolved Date Iron deficiency concern 10/25/201701/08 Depression, major, single episode, mild 01/13/2016 10/13/2022 Diarrhea 01/20/2012 10/13/2022 Acute appendicitis without m ention of peritonitis 09/10/2008 01/01/2009 Tobacco use disorder 019 Overview: Quit 12/25/08, resumed and currently smoking around a pack or 2 a day. Last Assessment & Plan: He still smokes and does not want to quit or even slow down. documented as of this encounter (statuses as of 01/30/2023) [facility] History of Past illness Narrative* Problem Noted Date Diagnosed Date Resolved Date Iron deficiency concern 10/25/201701/08 Depression, major, single episode, mild 01/13/2016 10/13/2022 Diarrhea 01/20/2012 10/13/2022 Acute appendicitis without m ention of peritonitis 09/10/2008 01/01/2009 Tobacco use disorder 019 Overview: Quit 12/25/08, resumed and currently smoking around a pack or 2 a day. Last Assessment & Plan: He still smokes and does not want to quit or even slow down. documented as of this encounter (statuses as of 02/07/2023) [facility] History of Past illness Narrative* Problem Noted Date Diagnosed Date Resolved Date Iron deficiency concern 10/25/201701/08 Depression, major, single episode, mild 01/13/2016 10/13/2022 Diarrhea 01/20/2012 10/13/2022 Acute appendicitis without m ention of peritonitis 09/10/2008 01/01/2009 Tobacco use disorder 019 Overview: Quit 12/25/08, resumed and currently smoking around a pack or 2 a day. Last Assessment & Plan: He still smokes and does not want to quit or even slow down. documented as of this encounter (statuses as of 02/12/2023) [facility]2018 History of Past illness Narrative* Problem Noted Date Diagnosed Date Resolved Date Iron deficiency concern 10/25/201701/08 Depression, major, single episode, mild 01/13/2016 10/13/2022 Diarrhea 01/20/2012 10/13/2022 Acute appendicitis without m ention of peritonitis 09/10/2008 01/01/2009 Tobacco use disorder 019 Overview: Quit 12/25/08, resumed and currently smoking around a pack or 2 a day. Last Assessment & Plan: He still smokes and does not want to quit or even slow down. documented as of this encounter (statuses as of 04/16/2023) [facility]2018 History of Past illness Narrative* Problem Noted Date Diagnosed Date Resolved Date Iron deficiency concern 10/25/201701/08 Depression, major, single episode, mild 01/13/2016 10/13/2022 Diarrhea 01/20/2012 10/13/2022 Acute appendicitis without m ention of peritonitis 09/10/2008 01/01/2009 Tobacco use disorder 019 Overview: Quit 12/25/08, resumed and currently smoking around a pack or 2 a day. Last Assessment & Plan: He still smokes and does not want to quit or even slow down. documented as of this encounter (statuses as of 05/24/2023) [facility] History of Past illness Narrative* Problem Noted Date Diagnosed Date Resolved Date Iron deficiency concern 10/25/201701/08 Depression, major, single episode, mild 01/13/2016 10/13/2022 Diarrhea 01/20/2012 10/13/2022 Acute appendicitis without m ention of peritonitis 09/10/2008 01/01/2009 Tobacco use disorder 019 Overview: Quit 12/25/08, resumed and currently smoking around a pack or 2 a day. Last Assessment & Plan: He still smokes and does not want to quit or even slow down. documented as of this encounter (statuses as of 06/12/2023) [facility] History of Past illness Narrative* Problem Noted Date Diagnosed Date Resolved Date Iron deficiency concern 10/25/201701/08 Depression, major, single episode, mild 01/13/2016 10/13/2022 Diarrhea 01/20/2012 10/13/2022 Acute appendicitis without m ention of peritonitis 09/10/2008 01/01/2009 Tobacco use disorder 019 Overview: Quit 12/25/08, resumed and currently smoking around a pack or 2 a day. Last Assessment & Plan: He still smokes and does not want to quit or even slow down. documented as of this encounter (statuses as of 06/19/2023) [facility] History of Past illness Narrative* Problem Noted Date Diagnosed Date Resolved Date Iron deficiency concern 10/25/201701/08 Depression, major, single episode, mild 01/13/2016 10/13/2022 Diarrhea 01/20/2012 10/13/2022 Acute appendicitis without m ention of peritonitis 09/10/2008 01/01/2009 Tobacco use disorder 019 Overview: Quit 12/25/08, resumed and currently smoking around a pack or 2 a day. Last Assessment & Plan: He still smokes and does not want to quit or even slow down. documented as of this encounter (statuses as of 07/03/2023) [facility] Hyperlipidemia, mixed- Primary Mixed hyperlipidemia [facility] Diagnosis Pulmonary fibrosis (HCC) Postinflammatory pulmonary fibrosis [facility] Diagnosis Pulmonary fibrosis (HCC) Postinflammatory pulmonary fibrosis [facility] Diagnosis Pulmonary fibrosis (HCC)- Primary Postinflammatory pulmonary fibrosis Interstitial pulmonary disease (HCC) Postinflammatory pulmonary fibrosis [facility] Diagnosis Left ventricular failure (HCC) Left heart failure [facility] Diagnosis Pulmonary fibrosis (HCC)- Primary Postinflammatory pulmonary fibrosis SOB (shortness of breath) Shortness of breath Mild obesity Obesity, unspecified [facility] Diagnosis RLS (restless legs syndrome), provisional Restless legs syndrome (RLS) Saddle embolus of pulmonary artery without acute cor pulmonale, unspecified chronicity (HCC) documented [facility] Diagnosis Dyslipidemia- Primary Other and unspecified hyperlipidemia Fatty liver Other chronic nonalcoholic liver disease Screening for HIV (human immunodeficiency virus) Special screening examination for other specified viral diseases Prostate cancer screening Special screening for malignant neoplasm of prostate Thiamine deficiency Other and unspecified manifestations of thiamine deficiency Vitamin B1 deficiency Other and unspecified manifestations of thiamine deficiency Regular alcohol consumption Other problems related to lifestyle Tremors of nervous system Abnormal involuntary movements [facility] Diagnosis Insomnia, unspecified type [facility] Diagnosis 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 Mild cognitive impairment, so stated Tremors of nervous system Abnormal involuntary movements [facility] Diagnosis RLS (restless legs syndrome), provisional Restless legs syndrome (RLS) Saddle embolus of pulmonary artery without acute cor pulmonale, unspecified chronicity (HCC) [facility] Diagnosis RLS (restless legs syndrome), provisional Restless legs syndrome (RLS) Saddle embolus of pulmonary artery without acute cor pulmonale, unspecified chronicity (HCC) [facility]* Diagnosis Depression, unspecified depression type- Primary documented [facility] Diagnosis Insomnia, unspecified type [facility] Diagnosis Depression, unspecified depression type [facility] Diagnosis Primary hypertension- Primary Unspecified essential hypertension Dyslipidemia Other and unspecified hyperlipidemia Anxiety and depression Dysthymic disorder Encounter for screening for lung cancer Special screening for malignant neoplasms, colon [facility] Encounter for screening for lung cancer- Primary Former tobacco use Personal history of tobacco use, presenting hazards to health [facility] Diagnosis Rectal bleeding- Primary Hemorrhage of rectum and anus Special screening for malignant neoplasms, colon [facility] Diagnosis Encounter for screening for lung cancer- Primary Former tobacco use Personal history of tobacco use, presenting hazards to health [facility] Diagnosis Anxiety and depression- Primary Dysthymic disorder Need for influenza vaccination Need for prophylactic vaccination and inoculation against influenza [facility] Diagnosis Primary hypertension Unspecified essential hypertension [facility] Diagnosis Insomnia, unspecified type [facility] Diagnosis Dyspnea on exertion- Primary Other dyspnea and respiratory abnormality Chest pressure Other chest pain RLS (restless legs syndrome), provisional Restless legs syndrome (RLS) Atherosclerosis of coronary artery of [place] heart, unspecified vessel or lesion type, unspecified whether angina present Primary hypertension Unspecified essential hypertension Dyslipidemia Other and unspecified hyperlipidemia Anxiety and depression Dysthymic disorder Urge incontinence [facility] Diagnosis Anxiety and depression- Primary Dysthymic disorder RLS (restless legs syndrome), provisional Restless legs syndrome (RLS) [facility] Diagnosis Benign neoplasm of colon, unspecified part of colon- Primary Special screening for malignant neoplasms, colon Rectal bleeding Hemorrhage of rectum and anus [facility]* Diagnosis RLS (restless legs syndrome)- Primary Restless legs syndrome (RLS) [facility]* Diagnosis RLS (restless legs syndrome), provisional- Primary Restless legs syndrome (RLS) MELODY (obstructive sleep apnea) Obstructive sleep apnea (adult) (pediatric) Other fatigue [facility]* Diagnosis Pulmonary fibrosis (HCC)- Primary Postinflammatory pulmonary fibrosis Former cigarette smoker Personal history of tobacco use, presenting hazards to health [facility] Diagnosis Primary hypertension Unspecified essential hypertension Medication management Encounter for long-term (current) use of other medications [facility] Diagnosis RLS (restless legs syndrome), provisional- Primary Restless legs syndrome (RLS) Primary hypertension Unspecified essential hypertension Mixed hyperlipidemia Prediabetes Other abnormal glucose Anxiety and depression Dysthymic disorder [facility] Diagnosis Anxiety and depression- Primary Dysthymic disorder RLS (restless legs syndrome), provisional Restless legs syndrome (RLS) OAB (overactive bladder) Hypertonicity of bladder [facility] this [facility]* Diagnosis Annual physical exam- Primary Routine general medical examination at a [facility] care facility Acute saddle pulmonary embolism without acute cor pulmonale (HCC) Depression, unspecified depression type Lower urinary tract symptoms (LUTS) Other symptoms involving urinary system Mixed hyperlipidemia MELODY (obstructive sleep apnea) Obstructive sleep apnea (adult) (pediatric) Primary hypertension Unspecified essential hypertension Coronary artery calcification seen on CT scan RLS (restless legs syndrome), provisional Restless legs syndrome (RLS) documented [facility]* Diagnosis OAB (overactive bladder) Hypertonicity of bladder [facility]* Diagnosis Pain, joint, multiple sites- Primary Pain in joint, multiple sites 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 Fatigue Other malaise and fatigue Psoriasis with arthropathy (HCC) Psoriatic arthropathy Nasal sinus congestion Other diseases of nasal cavity and sinuses Obstructive sleep apnea syndrome- Primary Obstructive sleep apnea (adult) (pediatric) Psoriasis with arthropathy (HCC) Psoriatic arthropathy Urethral stricture, unspecified stricture type Tobacco use disorder Acute pansinusitis, recurrence not specified Primary insomnia Persistent disorder of initiating or maintaining sleep Recurrent major depressive disorder, in partial remission ([facility]) MELODY (obstructive sleep apnea) Obstructive sleep apnea (adult) (pediatric) Benign colon polyp- Primary Benign neoplasm of colon Tobacco use disorder Urethral stricture, unspecified stricture type MELODY (obstructive sleep apnea) Obstructive sleep apnea (adult) (pediatric) Special screening for malignant neoplasms, colon Erectile dysfunction, unspecified erectile dysfunction type Restless legs- Primary Restless legs syndrome (RLS) Insomnia, unspecified type Encounter for immunization Need for other specified prophylactic vaccination against single bacterial disease Encounter for screening for lung cancer documented [facility]* Diagnosis Pain, joint, multiple sites- Primary Pain in joint, multiple sites 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 Fatigue Other malaise and fatigue Psoriasis with arthropathy (HCC) Psoriatic arthropathy Nasal sinus congestion Other diseases of nasal cavity and sinuses Obstructive sleep apnea syndrome- Primary Obstructive sleep apnea (adult) (pediatric) Psoriasis with arthropathy (HCC) Psoriatic arthropathy Urethral stricture, unspecified stricture type Tobacco use disorder Acute pansinusitis, recurrence not specified Primary insomnia Persistent disorder of initiating or maintaining sleep Recurrent major depressive disorder, in partial remission (HCC) MELODY (obstructive sleep apnea) Obstructive sleep apnea (adult) (pediatric) Benign colon polyp- Primary Benign neoplasm of colon Tobacco use disorder Urethral stricture, unspecified stricture type MELODY (obstructive sleep apnea) Obstructive sleep apnea (adult) (pediatric) Special screening for malignant neoplasms, colon Erectile dysfunction, unspecified erectile dysfunction type Insomnia, unspecified type documented in this encounter [facility]* Diagnosis Pain, joint, multiple sites- Primary Pain in joint, multiple sites 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 Fatigue Other malaise and fatigue Psoriasis with arthropathy (HCC) Psoriatic arthropathy Nasal sinus congestion Other diseases of nasal cavity and sinuses Obstructive sleep apnea syndrome- Primary Obstructive sleep apnea (adult) (pediatric) Psoriasis with arthropathy (HCC) Psoriatic arthropathy Urethral stricture, unspecified stricture type Tobacco use disorder Acute pansinusitis, recurrence not specified Primary insomnia Persistent disorder of initiating or maintaining sleep Recurrent major depressive disorder, in partial remission (HCC) MELODY (obstructive sleep apnea) Obstructive sleep apnea (adult) (pediatric) Benign colon polyp- Primary Benign neoplasm of colon Tobacco use disorder Urethral stricture, unspecified stricture type MELODY (obstructive sleep apnea) Obstructive sleep apnea (adult) (pediatric) Special screening for malignant neoplasms, colon Erectile dysfunction, unspecified erectile dysfunction type Encounter for screening for lung cancer Former tobacco use Personal history of tobacco use, presenting hazards to health [facility]* Diagnosis Pain, joint, multiple sites- Primary Pain in joint, multiple sites 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 Fatigue Other malaise and fatigue Psoriasis with arthropathy (HCC) Psoriatic arthropathy Nasal sinus congestion Other diseases of nasal cavity and sinuses Obstructive sleep apnea syndrome- Primary Obstructive sleep apnea (adult) (pediatric) Psoriasis with arthropathy (HCC) Psoriatic arthropathy Urethral stricture, unspecified stricture type Tobacco use disorder Acute pansinusitis, recurrence not specified Primary insomnia Persistent disorder of initiating or maintaining sleep Recurrent major depressive disorder, in partial remission (HCC) MELODY (obstructive sleep apnea) Obstructive sleep apnea (adult) (pediatric) Benign colon polyp- Primary Benign neoplasm of colon Tobacco use disorder Urethral stricture, unspecified stricture type MELODY (obstructive sleep apnea) Obstructive sleep apnea (adult) (pediatric) Special screening for malignant neoplasms, colon Erectile dysfunction, unspecified erectile dysfunction type Acute hip pain, left Acute bilateral low back pain, unspecified whether sciatica present documented in this encounter [facility] note* Diagnosis Pain, joint, multiple sites- Primary Pain in joint, multiple sites 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 Fatigue Other malaise and fatigue Psoriasis with arthropathy (HCC) Psoriatic arthropathy Nasal sinus congestion Other diseases of nasal cavity and sinuses Obstructive sleep apnea syndrome- Primary Obstructive sleep apnea (adult) (pediatric) Psoriasis with arthropathy (HCC) Psoriatic arthropathy Urethral stricture, unspecified stricture type Tobacco use disorder Acute pansinusitis, recurrence not specified Primary insomnia Persistent disorder of initiating or maintaining sleep Recurrent major depressive disorder, in partial remission (HCC) MELODY (obstructive sleep apnea) Obstructive sleep apnea (adult) (pediatric) Benign colon polyp- Primary Benign neoplasm of colon Tobacco use disorder Urethral stricture, unspecified stricture type MELODY (obstructive sleep apnea) Obstructive sleep apnea (adult) (pediatric) Special screening for malignant neoplasms, colon Erectile dysfunction, unspecified erectile dysfunction type Need for influenza vaccination Need for prophylactic vaccination and inoculation against influenza Anxiety and depression Dysthymic disorder documented in this encounter [facility] note* Diagnosis Pain, joint, multiple sites- Primary Pain in joint, multiple sites 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 Fatigue Other malaise and fatigue Psoriasis with arthropathy (HCC) Psoriatic arthropathy Nasal sinus congestion Other diseases of nasal cavity and sinuses Obstructive sleep apnea syndrome- Primary Obstructive sleep apnea (adult) (pediatric) Psoriasis with arthropathy (HCC) Psoriatic arthropathy Urethral stricture, unspecified stricture type Tobacco use disorder Acute pansinusitis, recurrence not specified Primary insomnia Persistent disorder of initiating or maintaining sleep Recurrent major depressive disorder, in partial remission (HCC) MELODY (obstructive sleep apnea) Obstructive sleep apnea (adult) (pediatric) Benign colon polyp- Primary Benign neoplasm of colon Tobacco use disorder Urethral stricture, unspecified stricture type MELODY (obstructive sleep apnea) Obstructive sleep apnea (adult) (pediatric) Special screening for malignant neoplasms, colon Erectile dysfunction, unspecified erectile dysfunction type Multiple lung nodules- Primary Other nonspecific abnormal finding of lung field Encounter for screening for lung cancer Former cigarette smoker Personal history of tobacco use, presenting hazards to health Pulmonary fibrosis (HCC) Postinflammatory pulmonary fibrosis [facility] Diagnosis Pain, joint, multiple sites- Primary Pain in joint, multiple sites 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 Fatigue Other malaise and fatigue Psoriasis with arthropathy (HCC) Psoriatic arthropathy Nasal sinus congestion Other diseases of nasal cavity and sinuses Obstructive sleep apnea syndrome- Primary Obstructive sleep apnea (adult) (pediatric) Psoriasis with arthropathy (HCC) Psoriatic arthropathy Urethral stricture, unspecified stricture type Tobacco use disorder Acute pansinusitis, recurrence not specified Primary insomnia Persistent disorder of initiating or maintaining sleep Recurrent major depressive disorder, in partial remission (HCC) MELODY (obstructive sleep apnea) Obstructive sleep apnea (adult) (pediatric) Benign colon polyp- Primary Benign neoplasm of colon Tobacco use disorder Urethral stricture, unspecified stricture type MELODY (obstructive sleep apnea) Obstructive sleep apnea (adult) (pediatric) Special screening for malignant neoplasms, colon Erectile dysfunction, unspecified erectile dysfunction type Pulmonary fibrosis (HCC) Postinflammatory pulmonary fibrosis [facility] Diagnosis Pain, joint, multiple sites- Primary Pain in joint, multiple sites 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 Fatigue Other malaise and fatigue Psoriasis with arthropathy (HCC) Psoriatic arthropathy Nasal sinus congestion Other diseases of nasal cavity and sinuses Obstructive sleep apnea syndrome- Primary Obstructive sleep apnea (adult) (pediatric) Psoriasis with arthropathy (HCC) Psoriatic arthropathy Urethral stricture, unspecified stricture type Tobacco use disorder Acute pansinusitis, recurrence not specified Primary insomnia Persistent disorder of initiating or maintaining sleep Recurrent major depressive disorder, in partial remission (HCC) MELODY (obstructive sleep apnea) Obstructive sleep apnea (adult) (pediatric) Benign colon polyp- Primary Benign neoplasm of colon Tobacco use disorder Urethral stricture, unspecified stricture type MELODY (obstructive sleep apnea) Obstructive sleep apnea (adult) (pediatric) Special screening for malignant neoplasms, colon Erectile dysfunction, unspecified erectile dysfunction type Pulmonary fibrosis (HCC)- Primary Postinflammatory pulmonary fibrosis Former tobacco use Personal history of tobacco use, presenting hazards to health Pulmonary fibrosis (HCC) Postinflammatory pulmonary fibrosis [facility] Diagnosis Pain, joint, multiple sites- Primary Pain in joint, multiple sites 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 Fatigue Other malaise and fatigue Psoriasis with arthropathy (HCC) Psoriatic arthropathy Nasal sinus congestion Other diseases of nasal cavity and sinuses Obstructive sleep apnea syndrome- Primary Obstructive sleep apnea (adult) (pediatric) Psoriasis with arthropathy (HCC) Psoriatic arthropathy Urethral stricture, unspecified stricture type Tobacco use disorder Acute pansinusitis, recurrence not specified Primary insomnia Persistent disorder of initiating or maintaining sleep Recurrent major depressive disorder, in partial remission (HCC) MELODY (obstructive sleep apnea) Obstructive sleep apnea (adult) (pediatric) Benign colon polyp- Primary Benign neoplasm of colon Tobacco use disorder Urethral stricture, unspecified stricture type MELODY (obstructive sleep apnea) Obstructive sleep apnea (adult) (pediatric) Special screening for malignant neoplasms, colon Erectile dysfunction, unspecified erectile dysfunction type Left wrist pain- Primary Pain in joint, forearm Left wrist pain Pain in joint, forearm [facility] Diagnosis Pain, joint, multiple sites- Primary Pain in joint, multiple sites 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 Fatigue Other malaise and fatigue Psoriasis with arthropathy (HCC) Psoriatic arthropathy Nasal sinus congestion Other diseases of nasal cavity and sinuses Obstructive sleep apnea syndrome- Primary Obstructive sleep apnea (adult) (pediatric) Psoriasis with arthropathy (HCC) Psoriatic arthropathy Urethral stricture, unspecified stricture type Tobacco use disorder Acute pansinusitis, recurrence not specified Primary insomnia Persistent disorder of initiating or maintaining sleep Recurrent major depressive disorder, in partial remission (HCC) MELODY (obstructive sleep apnea) Obstructive sleep apnea (adult) (pediatric) Benign colon polyp- Primary Benign neoplasm of colon Tobacco use disorder Urethral stricture, unspecified stricture type MELODY (obstructive sleep apnea) Obstructive sleep apnea (adult) (pediatric) Special screening for malignant neoplasms, colon Erectile dysfunction, unspecified erectile dysfunction type Left wrist pain Pain in joint, forearm [facility] Diagnosis Pain, joint, multiple sites- Primary Pain in joint, multiple sites 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 Fatigue Other malaise and fatigue Psoriasis with arthropathy (HCC) Psoriatic arthropathy Nasal sinus congestion Other diseases of nasal cavity and sinuses Obstructive sleep apnea syndrome- Primary Obstructive sleep apnea (adult) (pediatric) Psoriasis with arthropathy (HCC) Psoriatic arthropathy Urethral stricture, unspecified stricture type Tobacco use disorder Acute pansinusitis, recurrence not specified Primary insomnia Persistent disorder of initiating or maintaining sleep Recurrent major depressive disorder, in partial remission (HCC) MELODY (obstructive sleep apnea) Obstructive sleep apnea (adult) (pediatric) Benign colon polyp- Primary Benign neoplasm of colon Tobacco use disorder Urethral stricture, unspecified stricture type MELODY (obstructive sleep apnea) Obstructive sleep apnea (adult) (pediatric) Special screening for malignant neoplasms, colon Erectile dysfunction, unspecified erectile dysfunction type Tongue lesion- Primary Other specified conditions of the tongue documented in this encounter [facility] note* Diagnosis Pain, joint, multiple sites- Primary Pain in joint, multiple sites 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 Fatigue Other malaise and fatigue Psoriasis with arthropathy (HCC) Psoriatic arthropathy Nasal sinus congestion Other diseases of nasal cavity and sinuses Obstructive sleep apnea syndrome- Primary Obstructive sleep apnea (adult) (pediatric) Psoriasis with arthropathy (HCC) Psoriatic arthropathy Urethral stricture, unspecified stricture type Tobacco use disorder Acute pansinusitis, recurrence not specified Primary insomnia Persistent disorder of initiating or maintaining sleep Recurrent major depressive disorder, in partial remission (HCC) MELODY (obstructive sleep apnea) Obstructive sleep apnea (adult) (pediatric) Benign colon polyp- Primary Benign neoplasm of colon Tobacco use disorder Urethral stricture, unspecified stricture type MELODY (obstructive sleep apnea) Obstructive sleep apnea (adult) (pediatric) Special screening for malignant neoplasms, colon Erectile dysfunction, unspecified erectile dysfunction type Insomnia, unspecified type documented in this encounter [facility] note* Diagnosis Pain, joint, multiple sites- Primary Pain in joint, multiple sites 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 Fatigue Other malaise and fatigue Psoriasis with arthropathy (HCC) Psoriatic arthropathy Nasal sinus congestion Other diseases of nasal cavity and sinuses Obstructive sleep apnea syndrome- Primary Obstructive sleep apnea (adult) (pediatric) Psoriasis with arthropathy (HCC) Psoriatic arthropathy Urethral stricture, unspecified stricture type Tobacco use disorder Acute pansinusitis, recurrence not specified Primary insomnia Persistent disorder of initiating or maintaining sleep Recurrent major depressive disorder, in partial remission (HCC) MELODY (obstructive sleep apnea) Obstructive sleep apnea (adult) (pediatric) Benign colon polyp- Primary Benign neoplasm of colon Tobacco use disorder Urethral stricture, unspecified stricture type MELODY (obstructive sleep apnea) Obstructive sleep apnea (adult) (pediatric) Special screening for malignant neoplasms, colon Erectile dysfunction, unspecified erectile dysfunction type Primary hypertension Unspecified essential hypertension Medication management Encounter for long-term (current) use of other medications documented in this encounter [facility] note* Diagnosis Pain, joint, multiple sites- Primary Pain in joint, multiple sites 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 Fatigue Other malaise and fatigue Psoriasis with arthropathy (HCC) Psoriatic arthropathy Nasal sinus congestion Other diseases of nasal cavity and sinuses Obstructive sleep apnea syndrome- Primary Obstructive sleep apnea (adult) (pediatric) Psoriasis with arthropathy (HCC) Psoriatic arthropathy Urethral stricture, unspecified stricture type Tobacco use disorder Acute pansinusitis, recurrence not specified Primary insomnia Persistent disorder of initiating or maintaining sleep Recurrent major depressive disorder, in partial remission MELODY (obstructive sleep apnea) Obstructive sleep apnea (adult) (pediatric) Benign colon polyp- Primary Benign neoplasm of colon Tobacco use disorder Urethral stricture, unspecified stricture type MELODY (obstructive sleep apnea) Obstructive sleep apnea (adult) (pediatric) Special screening for malignant neoplasms, colon Erectile dysfunction, unspecified erectile dysfunction type ILD (interstitial lung disease) ([facility])- Primary Postinflammatory pulmonary fibrosis Former cigarette smoker Personal history of tobacco use, presenting hazards to health documented in this encounter [facility] note* Diagnosis Pain, joint, multiple sites- Primary Pain in joint, multiple sites 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 Fatigue Other malaise and fatigue Psoriasis with arthropathy (HCC) Psoriatic arthropathy Nasal sinus congestion Other diseases of nasal cavity and sinuses Obstructive sleep apnea syndrome- Primary Obstructive sleep apnea (adult) (pediatric) Psoriasis with arthropathy (HCC) Psoriatic arthropathy Urethral stricture, unspecified stricture type Tobacco use disorder Acute pansinusitis, recurrence not specified Primary insomnia Persistent disorder of initiating or maintaining sleep Recurrent major depressive disorder, in partial remission MELODY (obstructive sleep apnea) Obstructive sleep apnea (adult) (pediatric) Benign colon polyp- Primary Benign neoplasm of colon Tobacco use disorder Urethral stricture, unspecified stricture type MELODY (obstructive sleep apnea) Obstructive sleep apnea (adult) (pediatric) Special screening for malignant neoplasms, colon Erectile dysfunction, unspecified erectile dysfunction type Tongue lesion- Primary Other specified conditions of the tongue MELODY (obstructive sleep apnea) Obstructive sleep apnea (adult) (pediatric) Primary insomnia Persistent disorder of initiating or maintaining sleep OAB (overactive bladder) Hypertonicity of bladder Encounter for screening examination for other mental health and behavioral disorders Primary hypertension Unspecified essential hypertension Lower urinary tract symptoms (LUTS) Other symptoms involving urinary system Viral infection Unspecified viral infection, in conditions classified elsewhere and of unspecified site Pulmonary fibrosis ([facility]) Postinflammatory pulmonary fibrosis [facility] Diagnosis Pain, joint, multiple sites- Primary Pain in joint, multiple sites 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 Fatigue Other malaise and fatigue Psoriasis with arthropathy (HCC) Psoriatic arthropathy Nasal sinus congestion Other diseases of nasal cavity and sinuses Obstructive sleep apnea syndrome- Primary Obstructive sleep apnea (adult) (pediatric) Psoriasis with arthropathy (HCC) Psoriatic arthropathy Urethral stricture, unspecified stricture type Tobacco use disorder Acute pansinusitis, recurrence not specified Primary insomnia Persistent disorder of initiating or maintaining sleep Recurrent major depressive disorder, in partial remission MELODY (obstructive sleep apnea) Obstructive sleep apnea (adult) (pediatric) Benign colon polyp- Primary Benign neoplasm of colon Tobacco use disorder Urethral stricture, unspecified stricture type MELODY (obstructive sleep apnea) Obstructive sleep apnea (adult) (pediatric) Special screening for malignant neoplasms, colon Erectile dysfunction, unspecified erectile dysfunction type Multiple lung nodules- Primary Other nonspecific abnormal finding of lung field Encounter for screening for lung cancer Former tobacco use Personal history of tobacco use, presenting hazards to health [facility] Diagnosis Pain, joint, multiple sites- Primary Pain in joint, multiple sites 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 Fatigue Other malaise and fatigue Psoriasis with arthropathy (HCC) Psoriatic arthropathy Nasal sinus congestion Other diseases of nasal cavity and sinuses Obstructive sleep apnea syndrome- Primary Obstructive sleep apnea (adult) (pediatric) Psoriasis with arthropathy (HCC) Psoriatic arthropathy Urethral stricture, unspecified stricture type Tobacco use disorder Acute pansinusitis, recurrence not specified Primary insomnia Persistent disorder of initiating or maintaining sleep Recurrent major depressive disorder, in partial remission MELODY (obstructive sleep apnea) Obstructive sleep apnea (adult) (pediatric) Benign colon polyp- Primary Benign neoplasm of colon Tobacco use disorder Urethral stricture, unspecified stricture type MELODY (obstructive sleep apnea) Obstructive sleep apnea (adult) (pediatric) Special screening for malignant neoplasms, colon Erectile dysfunction, unspecified erectile dysfunction type Encounter for screening for lung cancer Former cigarette smoker Personal history of tobacco use, presenting hazards to health documented [facility] this [facility]* Diagnosis Pain, joint, multiple sites- Primary Pain in joint, multiple sites 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 Fatigue Other malaise and fatigue Psoriasis with arthropathy (HCC) Psoriatic arthropathy Nasal sinus congestion Other diseases of nasal cavity and sinuses Obstructive sleep apnea syndrome- Primary Obstructive sleep apnea (adult) (pediatric) Psoriasis with arthropathy (HCC) Psoriatic arthropathy Urethral stricture, unspecified stricture type Tobacco use disorder Acute pansinusitis, recurrence not specified Primary insomnia Persistent disorder of initiating or maintaining sleep Recurrent major depressive disorder, in partial remission MELODY (obstructive sleep apnea) Obstructive sleep apnea (adult) (pediatric) Benign colon polyp- Primary Benign neoplasm of colon Tobacco use disorder Urethral stricture, unspecified stricture type MELODY (obstructive sleep apnea) Obstructive sleep apnea (adult) (pediatric) Special screening for malignant neoplasms, colon Erectile dysfunction, unspecified erectile dysfunction type Dysphagia, unspecified type- Primary documented in this encounter [facility] for referral (narrative)* Outpatient Procedure (Routine) - Pending Review Specialty Diagnoses / Procedures Referred By Edvin kong Referred To [facility] [place] Diagnoses Pulmonary fibrosis (HCC) Procedures LUNG DIFFUSION CAPACITY (DLCO) DIFFUSING CAPACITY Royal Rivera MD [address] [place] [address] [place] [address] Referral ID Status Reason Start Date Expiration Date Visits Requested Visits Authorized [id number] Pending Review Auto-Generat ed Referral 09/20/2022 10/20/2022 1 1 * Outpatient Procedure (Routine) - Pending Review Specialty Diagnoses / Procedures Referred By Edvin kong Referred To [facility] [place] Diagnoses Pulmonary fibrosis (HCC) Procedures SIX MINUTE WALK CARDIOPULMONARY EXERCISE STRESS Royal Rivera MD [address] [place] [address] [address] Referral ID Status Reason Start Date Expiration Date Visits Requested Visits Authorized [id number] Pending Review Auto-Generat ed Referral 09/20/2022 10/20/2022 1 1 * Outpatient Procedure (Routine) - Pending Review Specialty Diagnoses / Procedures Referred By Edvin t Referred To [facility] [place] Diagnoses Pulmonary fibrosis (HCC) Procedures SPIROMETRY BASELINE ONLY SPMTRY W/VC EXPIRATORY GAYATHRI W/WO MXML VOL VNTJ Royal Rivera MD [address] [place] [address] [facility] [place] [address] [place] [address] Referral ID Status Reason Start Date Expiration Date Visits Requested Visits Authorized [id number] Pending Review Auto-Generat ed Referral 09/20/2022 10/20/2022 1 1 [facility] for referral (narrative)* Outpatient Procedure (Routine) - Authorized Specialty Diagnoses / Procedures Referred By Edvin kong Referred To [facility] Diagnoses Special screening for malignant neoplasms, colon Rectal bleeding Procedures COLONOSCOPY SCREENING COLONOSCOPY FLX DX W/COLLJ SPEC WHEN Gigi Cevallos MD [address] [place] [address] [facility] [place] [address] Referral ID Status Reason Start Date Expiration Date Visits Requested Visits Authorized [id number] Authorized Auto-Generat ed Referral 12/01/2022 12/02/2023 1 1 T [facility] for referral (narrative)* Outpatient Procedure (Routine) - Closed Specialty Diagnoses / Procedures Referred By Edvin kong Referred To Contact [facility] [place] Diagnoses Special screening for malignant neoplasms, colon Rectal bleeding Procedures COLONOSCOPY SCREENING COLONOSCOPY FLX DX W/COLLJ SPEC WHEN Gigi Cevallos MD [address] [place] [address] [address] Referral ID Status Reason Start Date Expiration Date V isits Requested Visits Authorized [id number] Closed Auto-Generate d Referral 12/01/2022 12/02/2023 1 1 T [facility] for referral (narrative)* Outpatient Procedure (Routine) - Pending Review Specialty Diagnoses / Procedures Referred By Contac t Referred To [facility] Diagnoses Pulmonary fibrosis (HCC) Procedures OXIMETRY WITH AMBULATION NONINVASIVE EAR/PULSE OXIMETRY MULTIPLE DETER Sheree Magallon MD [address] [place] [address] [address] Referral ID Status Reason Start Date Expiration Date Visits Requested Visits Authorized [id number] Pending Review Auto-Generat ed Referral 07/31/2023 08/29/2024 1 1 * Outpatient Procedure (Routine) - Authorized Specialty Diagnoses / Procedures Referred By Contac t Referred To [facility] Diagnoses Pulmonary fibrosis (HCC) Procedures LUNG DIFFUSION CAPACITY (DLCO) DIFFUSING CAPACITY Sheree Magallon MD [address] [place] [address] [address] Referral ID Status Reason Start Date Expiration Date Visits Requested Visits Authorized [id number] Authorized Auto-Generat ed Referral 07/31/2023 08/29/2024 1 1 * Outpatient Procedure (Routine) - Pending Review Specialty Diagnoses / Procedures Referred By Contac t Referred To [facility] Diagnoses Pulmonary fibrosis (HCC) Procedures LUNG VOLUMES Sheree Magallon MD [address] [place] [address] [address] Referral ID Status Reason Start Date Expiration Date Visits Requested Visits Authorized [id number] Pending Review Auto-Generat ed Referral 07/31/2023 08/29/2024 1 1 * Outpatient Procedure (Routine) - Authorized Specialty Diagnoses / Procedures Referred By Contac t Referred To [facility] Diagnoses Pulmonary fibrosis (HCC) Procedures SPIROMETRY WITH DILATOR IF OBSTRUCTED BRNCDILAT RSPSE SPMTRY PRE&POST-BRNCDILAT Sheree Park MD [address] [place] [address] [facility] [place] [address] [place] [address] Referral ID Status Reason Start Date Expiration Date Visits Requested Visits Authorized [id number] Authorized Auto-Generat ed Referral 07/31/2023 08/29/2024 1 1 [facility] for referral (narrative)* Diagnostic Procedure Only (Routine) - Closed Specialty Diagnoses / Procedures Referred By Contac t Referred To Contact [facility] IMAG[facility] Diagnoses Acute bilateral low back pain, unspecified whether sciatica present Procedures XR LUMBAR GENERAL 3V AP/LAT/L5-S1 RADEX SPINE LUMBOSACRAL 2/3 VIEWS Cass Herrera APRN.EXHIBITION ORGANISER [address] [place] [address] [place] [address] Referral ID Status Reason Start Date Expiration Date V isits Requested Visits Authorized [id number] Closed Auto-Generate d Referral 06/14/2021 07/14/2022 1 1 * Diagnostic Procedure Only (Routine) - Closed Specialty Diagnoses / Procedures Referred By Contac t Referred To Contact XR IMAGING Diagnoses Acute hip pain, left Procedures XR HIP GENERAL 3V PELV/AP/LAT LEFT RADEX HIP UNILATERAL WITH PELVIS 2-3 VIEWS Cass Herrera APRN.EXHIBITION ORGANISER [address] [place] [address] [place] [address] Referral ID Status Reason Start Date Expiration Date V isits Requested Visits Authorized [id number] Closed Auto-Generate d Referral 06/14/2021 07/14/2022 1 1 [facility] for referral (narrative)* Outpatient Procedure (Routine) - Closed Specialty Diagnoses / Procedures Referred By Contac t Referred To [facility] Diagnoses Pulmonary fibrosis (HCC) Procedures OXIMETRY WITH AMBULATION NONINVASIVE EAR/PULSE OXIMETRY Sophy Van PA-C [address] [place] [address] [facility] [place] [address] [place] [address] Referral ID Status Reason Start Date Expiration Date V isits Requested Visits Authorized [id number] Closed Auto-Generate d Referral 02/07/2024 03/08/2025 1 1 [facility] for referral (narrative)* Diagnostic Procedure Only (Urgent) - Closed Specialty Diagnoses / Procedures Referred By Contac t Referred To Contact XR IMAGING Diagnoses Left wrist pain Procedures XR WRIST INJURY 4V PA/LAT/OBL/SCAPH LEFT RADEX WRIST COMPLETE MINIMUM 3 VIEWS Iglesia Lindsey APRN.EXHIBITION ORGANISER [address] [place] [address] [place] [address] Referral ID Status Reason Start Date Expiration Date V isits Requested Visits Authorized [id number] Closed Auto-Generate d Referral 02/19/2024 03/20/2025 1 1 [facility] for referral (narrative)* Diagnostic Procedure Only (Urgent) - Closed Specialty Diagnoses / Procedures Referred By Contac t Referred To Contact XR IMAGING Diagnoses Left wrist pain Procedures XR WRIST INJURY 4V PA/LAT/OBL/SCAPH LEFT RADEX WRIST COMPLETE MINIMUM 3 VIEWS Iglesia Lindsey CAR SEAT COVERER.EXHIBITION ORGANISER [address] [place] [address] [place] [address] Referral ID Status Reason Start Date Expiration Date V isits Requested Visits Authorized [id number] Closed Auto-Generate d Referral 02/19/2024 03/20/2025 1 1 [facility] for visit Narrative* Outpatient Procedure (Routine) - Closed Specialty Diagnoses / Procedures Referred By Contac t Referred To Contact [facility] [place] Diagnoses Left ventricular failure (HCC) Procedures ECHO ECHO TTHRC R-T 2D W/WOM-MODE COMPL SPEC&COLR D Genie Coto MD [address] [place] [address] Formerly [facility] [address] [address] Referral ID Status Reason Start Date Expiration Date V isits Requested Visits Authorized [id number] Closed Auto-Generate d Referral 07/13/2021 07/13/2022 1 1 [facility] for visit Narrative* Outpatient Procedure (Routine) - Closed Specialty Diagnoses / Procedures Referred By Contac t Referred To Contact [facility] Diagnoses Special screening for malignant neoplasms, colon Rectal bleeding Procedures COLONOSCOPY SCREENING COLONOSCOPY FLX DX W/COLLJ SPEC WHEN Gigi Cevallos MD [address] [facility] [address] [facility] Disease [place] [id number] Referral ID Status Reason Start Date Expiration Date V isits Requested Visits Authorized [id number] Closed Auto-Generate d Referral 12/01/2022 12/02/2023 1 1 [facility] for visit Narrative* Diagnostic Procedure Only (Routine) - Closed Specialty Diagnoses / Procedures Referred By Contac t Referred To Contact XR IMAGING Diagnoses Acute bilateral low back pain, unspecified whether sciatica present Procedures XR LUMBAR GENERAL 3V AP/LAT/L5-S1 RADEX SPINE LUMBOSACRAL 2/3 VIEWS Cass Herrera, CAR SEAT COVERER.EXHIBITION ORGANISER [address] [place] [id number] [place] [address] Referral ID Status Reason Start Date Expiration Date V isits Requested Visits Authorized [id number] Closed Auto-Generate d Referral 06/14/2021 07/14/2022 1 1 [facility] for visit Narrative* Diagnostic Procedure Only (Urgent) - Closed Specialty Diagnoses / Procedures Referred By Contac t Referred To Contact XR IMAGING Diagnoses Left wrist pain Procedures XR WRIST INJURY 4V PA/LAT/OBL/SCAPH LEFT RADEX WRIST COMPLETE MINIMUM 3 VIEWS [place], Iglesia, CAR SEAT COVERER.EXHIBITION ORGANISER [address] [place] [address] Xr Imaging [facility] Referral ID Status Reason Start Date Expiration Date V isits Requested Visits Authorized [id number] Closed Auto-Generate d Referral 02/19/2024 03/20/2025 1 1 [facility] Summary Purpose Family History No Family History Records FoundNo Family History Records FoundNo Family History Records Found Advance Directives No Advanced Directives Records FoundDocuments on File Type Date Recorded 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 Advance Directive(s) Advance Directive(s) 03/27/2017 11:47 AM Documents on File Type Date Recorded 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 Advance Directive(s) Advance Directive(s) 03/27/2017 11:47 AM Reason for Referral Specialty Diagnoses / Procedures Referred By Contac t Referred To Contact CT IMAGING Diagnoses Interstitial pulmonary disease (HCC) Procedures CT CHEST WO IVCON DIAGNOSTIC COMPUTED TOMOGRAPHY THORAX W/O CNTRST Royal Rivera MD [address] [place] [address] Ct [facility] Referral ID Status Reason Start Date Expiration Date Visits Requested Visits Authorized [id number] Authorized Auto-Generat ed Referral 09/09/2021 10/24/2021 1 1 Specialty Diagnoses / Procedures Referred By Contac t Referred To Contact Neurology Diagnoses Tremors of nervous system Procedures CONSULT TO NEUROLOGY OFFICE/OUTPATIENT [facility] 60-74 MINUTES Genie Coto MD [address] [place] [address] Referral ID Status Reason Start Date Expiration Date Visits Requested Visits Authorized [id number] Authorized PCP Requested Referral 02/09/2022 02/09/2023 1 1 Specialty Diagnoses / Procedures Referred By Contac t Referred To Contact Neurology Diagnoses Amnestic MCI (mild cognitive impairment with memory loss) Procedures CONSULT TO NEUROLOGY OFFICE/OUTPATIENT [facility] 60-74 MINUTES Freedom Yi MD [address] [place] [address] Referral ID Status Reason Start Date Expiration Date Visits Requested Visits Authorized [id number] Authorized PCP Requested Referral 04/28/2022 04/28/2023 1 1 Specialty Diagnoses / Procedures Referred By Contac t Referred To Contact General Surgery Diagnoses Screening for colon cancer Special screening for malignant neoplasms, colon Procedures CONSULT TO GENERAL SURGERY OFFICE/OUTPATIENT [facility] 60-74 MINUTES Mayuri Dexter APRN.EXHIBITION ORGANISER [address] [place] [address] Referral ID Status Reason Start Date Expiration Date Visits Requested Visits Authorized [id number] Authorized PCP Requested Referral 11/16/2022 11/16/2023 1 1 Specialty Diagnoses / Procedures Referred By Contac t Referred To Contact Diagnoses Encounter for screening for lung cancer Procedures CONSULT LUNG CANCER SCREENING CLINIC Mayuri Dexter APRN.EXHIBITION ORGANISER [address] [place] [address] Referral ID Status Reason Start Date Expiration Date Visits Requested Visits Authorized [id number] Ref Not Required PCP Requested Referral 11/16/2022 02/14/2023 1 1 Specialty Diagnoses / Procedures Referred By Contac t Referred To Contact [facility] Diagnoses Special screening for malignant neoplasms, colon Procedures COLONOSCOPY SCREENING COLONOSCOPY FLX DX W/COLLJ SPEC WHEN PFRMD Mayuri Dexter APRN.EXHIBITION ORGANISER [address] [place] [address] [facility] [address] [place] [address] Referral ID Status Reason Start Date Expiration Date Visits Requested Visits Authorized [id number] Authorized Auto-Generat ed Referral 11/16/2022 11/17/2023 1 1 Specialty Diagnoses / Procedures Referred By Contac t Referred To Contact CT IMAGING Diagnoses Encounter for screening for lung cancer Former tobacco use Procedures CT LUNG SCREEN WO IVCON COMPUTED TOMOGRAPHY THORAX LW DOSE LNG CA SCR Abdulaziz- Fifi Paul, CAR SEAT COVERER.EXHIBITION ORGANISER [address] [place] [address] Ct Imaging Referral ID Status Reason Start Date Expiration Date Visits Requested Visits Authorized [id number] Authorized Auto-Generat ed Referral 11/22/2022 01/05/2023 1 1 Specialty Diagnoses / Procedures Referred By Contac t Referred To Contact CT IMAGING Diagnoses Encounter for screening for lung cancer Former tobacco use Procedures CT LUNG SCREEN WO IVCON COMPUTED TOMOGRAPHY THORAX LW DOSE LNG CA SCR Abdulaziz- Fifi Paul, CAR SEAT COVERER.EXHIBITION ORGANISER [address] [place] [id number] [facility] [place] [address] Referral ID Status Reason Start Date Expiration Date Visits Requested Visits Authorized [id number] Pending Review Auto-Generat ed Referral 12/06/2022 01/05/2024 1 1 Specialty Diagnoses / Procedures Referred By Contac t Referred To Contact Cardiology Diagnoses Dyspnea on exertion Chest pressure Atherosclerosis of coronary artery of [place] heart, unspecified vessel or lesion type, unspecified whether angina present Procedures CONSULT TO CARDIOLOGY OFFICE/OUTPATIENT NEW HIGH MDM 60-74 MINUTES Mayuri Dexter APRN.EXHIBITION ORGANISER [address] [place] [address] Referral ID Status Reason Start Date Expiration Date Visits Requested Visits Authorized [id number] Authorized PCP Requested Referral 01/02/2023 01/02/2024 1 1 Specialty Diagnoses / Procedures Referred By Contac t Referred [facility] Diagnoses Dyspnea on exertion Chest pressure Atherosclerosis of coronary artery of [place] heart, unspecified vessel or lesion type, unspecified whether angina present Procedures STRESS ECHO TREADMILL ECHO TTHRC R-T 2D W/WO M-MODE COMPLETE REST&ST Mayuri Dexter, CAR SEAT COVERER.EXHIBITION ORGANISER [address] [place] [phone] [facility] [address] [place], [place] [id number] Referral ID Status Reason Start Date Expiration Date Visits Requested Visits Authorized [id number] Authorized Auto-Generat ed Referral 01/02/2023 01/02/2024 1 1 Specialty Diagnoses / Procedures Referred By Contac t Referred To Contact [facility] Diagnoses Dyspnea on exertion Chest pressure Procedures ECG COMPLETE ECG ROUTINE ECG W/LEAST 12 LDS W/I&R Mayuri Dexter CAR SEAT COVERER.EXHIBITION ORGANISER [address] [place] [phone] [facility] [address] [place], [place] [id number] Referral ID Status Reason Start Date Expiration Date Visits Requested Visits Authorized [id number] Pending Review Auto-Generat ed Referral 01/02/2023 01/02/2024 1 1 Referral ID Status Reason Start Date Expiration Date V isits Requested Visits Authorized [id number] Closed Auto-Generate d Referral 12/06/2022 01/05/2024 1 1 Specialty Diagnoses / Procedures Referred By Contac t Referred To Contact CT IMAGING Diagnoses Encounter for screening for lung cancer Former cigarette smoker Procedures CT LUNG SCREEN WO IVCON COMPUTED TOMOGRAPHY THORAX LW DOSE LNG CA SCR Abdulaziz- Fifi Paul, CAR SEAT COVERER.EXHIBITION ORGANISER [address] [place] [address] Ct [facility] [place] [address] Referral ID Status Reason Start Date Expiration Date Visits Requested Visits Authorized [id number] Authorized Auto-Generat ed Referral 12/09/2024 03/06/2025 1 1 Specialty Diagnoses / Procedures Referred By Contac t Referred To Contact Dentistry Diagnoses Tongue lesion Procedures CONSULT TO DENTISTRY OFFICE/OUTPATIENT NEW HIGH MDM 60 MINUTES Genie Coto MD [address] [place] [address] Referral ID Status Reason Start Date Expiration Date Visits Requested Visits Authorized [id number] New Request PCP Requested Referral 05/14/2024 05/14/2025 1 1 Medications Administered Section Inactive Administered Medications - up to 3 most recent administrations Medication Order MAR Action Action Date Dose Rate Site diphenhydrAMINE 12.5-50 mg injection (BENADRYL) 12.5-50 mg, INTRAVENOUS, DIRECTED, Starting on Mon01/24/23 at 1100, Until Mon01/24/23 at 1459, DOSING DIRECTED BY PHYSICIAN FOR PROCEDURAL SEDATION ONLY, Intraprocedure Given 01/24/2023 11:00 AM EDT 50 mg fentaNYL 50 mcg/mL 25-100 mcg injection (SUBLIMAZE) 25-100 mcg, INTRAVENOUS, DIRECTED, Starting on Mon01/24/23 at 1100, Until Mon01/24/23 at 1459, DOSING DIRECTED BY PHYSICIAN FOR PROCEDURAL SEDATION ONLY, Intraprocedure Given by LIP 01/24/2023 10:57 AM EDT 50 mcg Given by LIP 01/24/2023 10:55 AM EDT 50 mcg lactated ringers iv infusion 30 mL/hr, INTRAVENOUS, CONTINUOUS, Starting on Mon01/24/23 at 1030, Until Mon01/24/23 at 1126, Preprocedure New Bag/Syringe/Bottle 01/24/2023 10:35 AM EDT 30 mL/hr 30 mL/hr midazolam 1-5 mg injection (VERSED) 1-5 mg, INTRAVENOUS, DIRECTED, Starting on Mon01/24/23 at 1100, Until Mon01/24/23 at 1459, DOSING DIRECTED BY PHYSICIAN FOR PROCEDURAL SEDATION ONLY, Intraprocedure Given by LIP 01/24/2023 10:58 AM EDT 2 mg Given by LIP 01/24/2023 10:55 AM EDT 3 mg Additional Source Comments (unrecognized sect ion and content) No Status Records FoundNo Status Records FoundNo Status Records Found INFORMATION SOURCE (unrecogn ized section and content) DATE CREATED AUTHOR 05/28/[address] [facility] DATE CREATED AUTHOR AUTHOR'S ORGANIZ ATION 03/31/2023 [facility] DATE CREATED AUTHOR AUTHOR'S ORGANIZ ATION 02/15/2025 [facility] Source Comments (unrecognize d section and content) In the event this informatio n is protected by the Federal Confidentiality of Alcohol and Drug Abuse Patient Records regulations: The Federal rules restrict any use of the information to criminally investigate or prosecute any alcohol or drug abuse patient.[facility] the event this information is protected by the Federal Confidentiality of Alcohol and Drug Abuse Patient Records regulations: The Federal rules restrict any use of the information to criminally investigate or prosecute any alcohol or drug abuse patient.[facility] the event this information is protected by the Federal Confidentiality of Alcohol and Drug Abuse Patient Records regulations: The Federal rules restrict any use of the information to criminally investigate or prosecute any alcohol or drug abuse patient.[facility] the event this information is protected by the Federal Confidentiality of Alcohol and Drug Abuse Patient Records regulations: The Federal rules restrict any use of the information to criminally investigate or prosecute any alcohol or drug abuse patient.[facility] the event this information is protected by the Federal Confidentiality of Alcohol and Drug Abuse Patient Records regulations: The Federal rules restrict any use of the information to criminally investigate or prosecute any alcohol or drug abuse patient.[facility] the event this information is protected by the Federal Confidentiality of Alcohol and Drug Abuse Patient Records regulations: The Federal rules restrict any use of the information to criminally investigate or prosecute any alcohol or drug abuse patient.[facility] the event this information is protected by the Federal Confidentiality of Alcohol and Drug Abuse Patient Records regulations: The Federal rules restrict any use of the information to criminally investigate or prosecute any alcohol or drug abuse patient.[facility] the event this information is protected by the Federal Confidentiality of Alcohol and Drug Abuse Patient Records regulations: The Federal rules restrict any use of the information to criminally investigate or prosecute any alcohol or drug abuse patient.[facility] the event this information is protected by the Federal Confidentiality of Alcohol and Drug Abuse Patient Records regulations: The Federal rules restrict any use of the information to criminally investigate or prosecute any alcohol or drug abuse patient.[facility] the event this information is protected by the Federal Confidentiality of Alcohol and Drug Abuse Patient Records regulations: The Federal rules restrict any use of the information to criminally investigate or prosecute any alcohol or drug abuse patient.[facility] the event this information is protected by the Federal Confidentiality of Alcohol and Drug Abuse Patient Records regulations: The Federal rules restrict any use of the information to criminally investigate or prosecute any alcohol or drug abuse patient.[facility] the event this information is protected by the Federal Confidentiality of Alcohol and Drug Abuse Patient Records regulations: The Federal rules restrict any use of the information to criminally investigate or prosecute any alcohol or drug abuse patient.[facility] the event this information is protected by the Federal Confidentiality of Alcohol and Drug Abuse Patient Records regulations: The Federal rules restrict any use of the information to criminally investigate or prosecute any alcohol or drug abuse patient.[facility]In the event this information is protected by the Federal Confidentiality of Alcohol and Drug Abuse Patient Records regulations: The Federal rules restrict any use of the information to criminally investigate or prosecute any alcohol or drug abuse patient.[facility]In the event this information is protected by the Federal Confidentiality of Alcohol and Drug Abuse Patient Records regulations: The Federal rules restrict any use of the information to criminally investigate or prosecute any alcohol or drug abuse patient.[facility]In the event this information is protected by the Federal Confidentiality of Alcohol and Drug Abuse Patient Records regulations: The Federal rules restrict any use of the information to criminally investigate or prosecute any alcohol or drug abuse patient.[facility]In the event this information is protected by the Federal Confidentiality of Alcohol and Drug Abuse Patient Records regulations: The Federal rules restrict any use of the information to criminally investigate or prosecute any alcohol or drug abuse patient.[facility] HospitalIn the event this information is protected by the Federal Confidentiality of Alcohol and Drug Abuse Patient Records regulations: The Federal rules restrict any use of the information to criminally investigate or prosecute any alcohol or drug abuse patient.[facility] HospitalIn the event this information is protected by the Federal Confidentiality of Alcohol and Drug Abuse Patient Records regulations: The Federal rules restrict any use of the information to criminally investigate or prosecute any alcohol or drug abuse patient.[facility] HospitalIn the event this information is protected by the Federal Confidentiality of Alcohol and Drug Abuse Patient Records regulations: The Federal rules restrict any use of the information to criminally investigate or prosecute any alcohol or drug abuse patient.[facility] HospitalIn the event this information is protected by the Federal Confidentiality of Alcohol and Drug Abuse Patient Records regulations: The Federal rules restrict any use of the information to criminally investigate or prosecute any alcohol or drug abuse patient.[facility] HospitalIn the event this information is protected by the Federal Confidentiality of Alcohol and Drug Abuse Patient Records regulations: The Federal rules restrict any use of the information to criminally investigate or prosecute any alcohol or drug abuse patient.[facility] HospitalIn the event this information is protected by the Federal Confidentiality of Alcohol and Drug Abuse Patient Records regulations: The Federal rules restrict any use of the information to criminally investigate or prosecute any alcohol or drug abuse patient.[facility] HospitalIn the event this information is protected by the Federal Confidentiality of Alcohol and Drug Abuse Patient Records regulations: The Federal rules restrict any use of the information to criminally investigate or prosecute any alcohol or drug abuse patient.[facility] HospitalIn the event this information is protected by the Federal Confidentiality of Alcohol and Drug Abuse Patient Records regulations: The Federal rules restrict any use of the information to criminally investigate or prosecute any alcohol or drug abuse patient.[facility] HospitalIn the event this information is protected by the Federal Confidentiality of Alcohol and Drug Abuse Patient Records regulations: The Federal rules restrict any use of the information to criminally investigate or prosecute any alcohol or drug abuse patient.[facility] HospitalIn the event this information is protected by the Federal Confidentiality of Alcohol and Drug Abuse Patient Records regulations: The Federal rules restrict any use of the information to criminally investigate or prosecute any alcohol or drug abuse patient.[facility] HospitalIn the event this information is protected by the Federal Confidentiality of Alcohol and Drug Abuse Patient Records regulations: The Federal rules restrict any use of the information to criminally investigate or prosecute any alcohol or drug abuse patient.[facility] HospitalIn the event this information is protected by the Federal Confidentiality of Alcohol and Drug Abuse Patient Records regulations: The Federal rules restrict any use of the information to criminally investigate or prosecute any alcohol or drug abuse patient.[facility] HospitalIn the event this information is protected by the Federal Confidentiality of Alcohol and Drug Abuse Patient Records regulations: The Federal rules restrict any use of the information to criminally investigate or prosecute any alcohol or drug abuse patient.[facility] HospitalIn the event this information is protected by the Federal Confidentiality of Alcohol and Drug Abuse Patient Records regulations: The Federal rules restrict any use of the information to criminally investigate or prosecute any alcohol or drug abuse patient.[facility] HospitalIn the event this information is protected by the Federal Confidentiality of Alcohol and Drug Abuse Patient Records regulations: The Federal rules restrict any use of the information to criminally investigate or prosecute any alcohol or drug abuse patient.[facility] HospitalIn the event this information is protected by the Federal Confidentiality of Alcohol and Drug Abuse Patient Records regulations: The Federal rules restrict any use of the information to criminally investigate or prosecute any alcohol or drug abuse patient.[facility] HospitalIn the event this information is protected by the Federal Confidentiality of Alcohol and Drug Abuse Patient Records regulations: The Federal rules restrict any use of the information to criminally investigate or prosecute any alcohol or drug abuse patient.[facility] HospitalIn the event this information is protected by the Federal Confidentiality of Alcohol and Drug Abuse Patient Records regulations: The Federal rules restrict any use of the information to criminally investigate or prosecute any alcohol or drug abuse patient.[facility] HospitalIn the event this information is protected by the Federal Confidentiality of Alcohol and Drug Abuse Patient Records regulations: The Federal rules restrict any use of the information to criminally investigate or prosecute any alcohol or drug abuse patient.[facility] HospitalIn the event this information is protected by the Federal Confidentiality of Alcohol and Drug Abuse Patient Records regulations: The Federal rules restrict any use of the information to criminally investigate or prosecute any alcohol or drug abuse patient.[facility] HospitalIn the event this information is protected by the Federal Confidentiality of Alcohol and Drug Abuse Patient Records regulations: The Federal rules restrict any use of the information to criminally investigate or prosecute any alcohol or drug abuse patient.[facility] HospitalIn the event this information is protected by the Federal Confidentiality of Alcohol and Drug Abuse Patient Records regulations: The Federal rules restrict any use of the information to criminally investigate or prosecute any alcohol or drug abuse patient.[facility] HospitalIn the event this information is protected by the Federal Confidentiality of Alcohol and Drug Abuse Patient Records regulations: The Federal rules restrict any use of the information to criminally investigate or prosecute any alcohol or drug abuse patient.[facility] HospitalIn the event this information is protected by the Federal Confidentiality of Alcohol and Drug Abuse Patient Records regulations: The Federal rules restrict any use of the information to criminally investigate or prosecute any alcohol or drug abuse patient.[facility] HospitalIn the event this information is protected by the Federal Confidentiality of Alcohol and Drug Abuse Patient Records regulations: The Federal rules restrict any use of the information to criminally investigate or prosecute any alcohol or drug abuse patient.[facility] HospitalIn the event this information is protected by the Federal Confidentiality of Alcohol and Drug Abuse Patient Records regulations: The Federal rules restrict any use of the information to criminally investigate or prosecute any alcohol or drug abuse patient.[facility] HospitalIn the event this information is protected by the Federal Confidentiality of Alcohol and Drug Abuse Patient Records regulations: The Federal rules restrict any use of the information to criminally investigate or prosecute any alcohol or drug abuse patient.[facility] HospitalIn the event this information is protected by the Federal Confidentiality of Alcohol and Drug Abuse Patient Records regulations: The Federal rules restrict any use of the information to criminally investigate or prosecute any alcohol or drug abuse patient.[facility] HospitalIn the event this information is protected by the Federal Confidentiality of Alcohol and Drug Abuse Patient Records regulations: The Federal rules restrict any use of the information to criminally investigate or prosecute any alcohol or drug abuse patient.[facility] HospitalIn the event this information is protected by the Federal Confidentiality of Alcohol and Drug Abuse Patient Records regulations: The Federal rules restrict any use of the information to criminally investigate or prosecute any alcohol or drug abuse patient.[facility] HospitalIn the event this information is protected by the Federal Confidentiality of Alcohol and Drug Abuse Patient Records regulations: The Federal rules restrict any use of the information to criminally investigate or prosecute any alcohol or drug abuse patient.[facility] HospitalIn the event this information is protected by the Federal Confidentiality of Alcohol and Drug Abuse Patient Records regulations: The Federal rules restrict any use of the information to criminally investigate or prosecute any alcohol or drug abuse patient.[facility] HospitalIn the event this information is protected by the Federal Confidentiality of Alcohol and Drug Abuse Patient Records regulations: The Federal rules restrict any use of the information to criminally investigate or prosecute any alcohol or drug abuse patient.[facility] HospitalIn the event this information is protected by the Federal Confidentiality of Alcohol and Drug Abuse Patient Records regulations: The Federal rules restrict any use of the information to criminally investigate or prosecute any alcohol or drug abuse patient.[facility] HospitalIn the event this information is protected by the Federal Confidentiality of Alcohol and Drug Abuse Patient Records regulations: The Federal rules restrict any use of the information to criminally investigate or prosecute any alcohol or drug abuse patient.[facility] HospitalIn the event this information is protected by the Federal Confidentiality of Alcohol and Drug Abuse Patient Records regulations: The Federal rules restrict any use of the information to criminally investigate or prosecute any alcohol or drug abuse patient.[facility] HospitalIn the event this information is protected by the Federal Confidentiality of Alcohol and Drug Abuse Patient Records regulations: The Federal rules restrict any use of the information to criminally investigate or prosecute any alcohol or drug abuse patient.[facility] HospitalIn the event this information is protected by the Federal Confidentiality of Alcohol and Drug Abuse Patient Records regulations: The Federal rules restrict any use of the information to criminally investigate or prosecute any alcohol or drug abuse patient.[facility] HospitalIn the event this information is protected by the Federal Confidentiality of Alcohol and Drug Abuse Patient Records regulations: The Federal rules restrict any use of the information to criminally investigate or prosecute any alcohol or drug abuse patient.[facility] HospitalIn the event this information is protected by the Federal Confidentiality of Alcohol and Drug Abuse Patient Records regulations: The Federal rules restrict any use of the information to criminally investigate or prosecute any alcohol or drug abuse patient.[facility] HospitalIn the event this information is protected by the Federal Confidentiality of Alcohol and Drug Abuse Patient Records regulations: The Federal rules restrict any use of the information to criminally investigate or prosecute any alcohol or drug abuse patient.[facility] HospitalIn the event this information is protected by the Federal Confidentiality of Alcohol and Drug Abuse Patient Records regulations: The Federal rules restrict any use of the information to criminally investigate or prosecute any alcohol or drug abuse patient.[facility] HospitalIn the event this information is protected by the Federal Confidentiality of Alcohol and Drug Abuse Patient Records regulations: The Federal rules restrict any use of the information to criminally investigate or prosecute any alcohol or drug abuse patient.[facility] HospitalIn the event this information is protected by the Federal Confidentiality of Alcohol and Drug Abuse Patient Records regulations: The Federal rules restrict any use of the information to criminally investigate or prosecute any alcohol or drug abuse patient.[facility] HospitalIn the event this information is protected by the Federal Confidentiality of Alcohol and Drug Abuse Patient Records regulations: The Federal rules restrict any use of the information to criminally investigate or prosecute any alcohol or drug abuse patient.[facility] HospitalIn the event this information is protected by the Federal Confidentiality of Alcohol and Drug Abuse Patient Records regulations: The Federal rules restrict any use of the information to criminally investigate or prosecute any alcohol or drug abuse patient.[facility] HospitalIn the event this information is protected by the Federal Confidentiality of Alcohol and Drug Abuse Patient Records regulations: The Federal rules restrict any use of the information to criminally investigate or prosecute any alcohol or drug abuse patient.[facility] HospitalIn the event this information is protected by the Federal Confidentiality of Alcohol and Drug Abuse Patient Records regulations: The Federal rules restrict any use of the information to criminally investigate or prosecute any alcohol or drug abuse patient.[facility] HospitalIn the event this information is protected by the Federal Confidentiality of Alcohol and Drug Abuse Patient Records regulations: The Federal rules restrict any use of the information to criminally investigate or prosecute any alcohol or drug abuse patient.[facility] HospitalIn the event this information is protected by the Federal Confidentiality of Alcohol and Drug Abuse Patient Records regulations: The Federal rules restrict any use of the information to criminally investigate or prosecute any alcohol or drug abuse patient.[facility] HospitalIn the event this information is protected by the Federal Confidentiality of Alcohol and Drug Abuse Patient Records regulations: The Federal rules restrict any use of the information to criminally investigate or prosecute any alcohol or drug abuse patient.[facility] HospitalIn the event this information is protected by the Federal Confidentiality of Alcohol and Drug Abuse Patient Records regulations: The Federal rules restrict any use of the information to criminally investigate or prosecute any alcohol or drug abuse patient.[facility] HospitalIn the event this information is protected by the Federal Confidentiality of Alcohol and Drug Abuse Patient Records regulations: The Federal rules restrict any use of the information to criminally investigate or prosecute any alcohol or drug abuse patient.[facility] HospitalIn the event this information is protected by the Federal Confidentiality of Alcohol and Drug Abuse Patient Records regulations: The Federal rules restrict any use of the information to criminally investigate or prosecute any alcohol or drug abuse patient.[facility] HospitalIn the event this information is protected by the Federal Confidentiality of Alcohol and Drug Abuse Patient Records regulations: The Federal rules restrict any use of the information to criminally investigate or prosecute any alcohol or drug abuse patient.[facility] HospitalIn the event this information is protected by the Federal Confidentiality of Alcohol and Drug Abuse Patient Records regulations: The Federal rules restrict any use of the information to criminally investigate or prosecute any alcohol or drug abuse patient.[facility] HospitalIn the event this information is protected by the Federal Confidentiality of Alcohol and Drug Abuse Patient Records regulations: The Federal rules restrict any use of the information to criminally investigate or prosecute any alcohol or drug abuse patient.[facility] HospitalIn the event this information is protected by the Federal Confidentiality of Alcohol and Drug Abuse Patient Records regulations: The Federal rules restrict any use of the information to criminally investigate or prosecute any alcohol or drug abuse patient.[facility] HospitalIn the event this information is protected by the Federal Confidentiality of Alcohol and Drug Abuse Patient Records regulations: The Federal rules restrict any use of the information to criminally investigate or prosecute any alcohol or drug abuse patient.[facility] HospitalIn the event this information is protected by the Federal Confidentiality of Alcohol and Drug Abuse Patient Records regulations: The Federal rules restrict any use of the information to criminally investigate or prosecute any alcohol or drug abuse patient.[facility] HospitalIn the event this information is protected by the Federal Confidentiality of Alcohol and Drug Abuse Patient Records regulations: The Federal rules restrict any use of the information to criminally investigate or prosecute any alcohol or drug abuse patient.[facility] HospitalIn the event this information is protected by the Federal Confidentiality of Alcohol and Drug Abuse Patient Records regulations: The Federal rules restrict any use of the information to criminally investigate or prosecute any alcohol or drug abuse patient.[facility] HospitalIn the event this information is protected by the Federal Confidentiality of Alcohol and Drug Abuse Patient Records regulations: The Federal rules restrict any use of the information to criminally investigate or prosecute any alcohol or drug abuse patient.[facility] HospitalIn the event this information is protected by the Federal Confidentiality of Alcohol and Drug Abuse Patient Records regulations: The Federal rules restrict any use of the information to criminally investigate or prosecute any alcohol or drug abuse patient.[facility] HospitalIn the event this information is protected by the Federal Confidentiality of Alcohol and Drug Abuse Patient Records regulations: The Federal rules restrict any use of the information to criminally investigate or prosecute any alcohol or drug abuse patient.[facility] Reason for Visit (unrecogniz ed section and content) Reason Comments Refill Request Reason Comments Results Reason Comments Spirometry Specialty Diagnoses / Procedures Referred By Contac t Referred To Contact [facility] Diagnoses Pulmonary fibrosis (HCC) Procedures SPIROMETRY - BASELINE AND POST DILATOR BRNCDILAT RSPSE SPMTRY PRE&POST-BRNCDILAT ADMN Genie Coto MD [address] [place] [address] [address] Referral ID Status Reason Start Date Expiration Date V isits Requested Visits Authorized [id number] Closed Auto-Generate d Referral 07/13/2021 08/12/2022 1 1 Specialty Diagnoses / Procedures Referred By Contac t Referred To Contact [facility] [place] Diagnoses Pulmonary fibrosis (HCC) Procedures LUNG VOLUMES PLETHYSMOGRAPHY LUNG VOLUMES W/WO AIRWAY RESIST Genie Coto MD [address] [place], [place] [id number] Respiratory [address] [address] Referral ID Status Reason Start Date Expiration Date V isits Requested Visits Authorized [id number] Closed Auto-Generate d Referral 07/31/2021 04/09/2022 1 1 Reason Comments Patient Question Reason Onset Date Comments Refill Request 08/30/2021 Reason Comments Established Patient Specialty Diagnoses / Procedures Referred By Contac t Referred To Contact [facility] [place] Diagnoses Pulmonary fibrosis (HCC) Procedures SIX MINUTE WALK CARDIOPULMONARY EXERCISE STRESS Royal Rivera MD [address] [place] [address] [address] Referral ID Status Reason Start Date Expiration Date V isits Requested Visits Authorized [id number] Closed Auto-Generate d Referral 09/20/2021 10/15/2022 1 1 Reason Comments Follow Up Reason Onset Date Comments Refill Request 09/28/2021 Reason Onset Date Comments Refill Request 01/28/2022 Reason Comments Recheck Reason Comments New Patient Tremor Specialty Diagnoses / Procedures Referred By Contac t Referred To Contact Neurology Diagnoses Tremors of nervous system Procedures CONSULT TO NEUROLOGY OFFICE/OUTPATIENT NEW HIGH MDM 60-74 MINUTES Genie Coto MD [facility] [place] [address] Referral ID Status Reason Start Date Expiration Date V isits Requested Visits Authorized [id number] Closed PCP Requested Referral 02/09/2022 02/09/2023 1 1 Reason Comments Medication Problem Reason Onset Date Comments Refill Request 05/30/2022 Reason Onset Date Comments Refill Request 07/31/2022 Reason Onset Date Comments Refill Request 09/05/2022 Reason Comments medication not effective Reason Onset Date Comments Refill Request 11/13/2022 Reason Comments Recheck 3 month follow up Reason Onset Date Comments Refill Request 11/21/2022 Reason Comments New Patient LCS Specialty Diagnoses / Procedures Referred By Contac t Referred To Contact Diagnoses Encounter for screening for lung cancer Procedures CONSULT LUNG CANCER SCREENING CLINIC Mayuri Dexter APRN.EXHIBITION ORGANISER [address] [place] [address] Referral ID Status Reason Start Date Expiration Date Visits Requested Visits Authorized [id number] Ref Not Required PCP Requested Referral 11/16/2022 02/14/2023 1 1 Reason Comments Consult colonoscopy Specialty Diagnoses / Procedures Referred By Contac t Referred To Contact General Surgery Diagnoses Screening for colon cancer Special screening for malignant neoplasms, colon Procedures CONSULT TO GENERAL SURGERY OFFICE/OUTPATIENT NEW HIGH MDM 60-74 MINUTES Mayuri Dexter APRN.EXHIBITION ORGANISER [address] [place] [address] Referral ID Status Reason Start Date Expiration Date V isits Requested Visits Authorized [id number] Closed PCP Requested Referral 11/16/2022 11/16/2023 1 1 Reason Onset Date Comments Follow Up Immunizations 12/19/2022 Flu vaccination Reason Onset Date Comments Refill Request 12/29/2022 Reason Comments Recheck Medication follow up Reason Comments Follow Up 6 week follow up- di scuss gabapentin Reason Comments Recheck Medication follow up Reason Comments Recheck Medication follow up Reason Onset Date Comments Refill Request 06/09/2023 Reason Onset Date Comments Refill Request 06/10/2023 Reason Comments Med Change Request Reason Onset Date Comments Refill Request 06/26/2023 Reason Comments Consult Lung CT Reason Comments Recheck 3 month follow up Reason Comments Physical Reason Comments Recheck 4 week, medication c hange Reason Onset Date Comments Refill Request 12/07/[address] Specialty Diagnoses / Procedures Referred By Contac t Referred To Contact CT IMAGING Diagnoses Encounter for screening for lung cancer Former tobacco use Procedures CT LUNG SCREEN WO IVCON COMPUTED TOMOGRAPHY THORAX LW DOSE LNG CA SCR Abdulaziz- Fifi Paul, CAR SEAT COVERER.EXHIBITION ORGANISER [address] [place] [id number] Imaging [facility] Referral ID Status Reason Start Date Expiration Date V isits Requested Visits Authorized [id number] Closed Auto-Generate d Referral 12/06/2022 01/05/2024 1 1 Reason Onset Date Comments Refill Request 01/31/2024 Reason Comments Consult Specialty Diagnoses / Procedures Referred By Contac t Referred To [facility] Diagnoses Pulmonary fibrosis (HCC) Procedures SPIROMETRY WITH DILATOR IF OBSTRUCTED BRNCDILAT RSPSE SPMTRY PRE&POST-BRNCDILAT ADMN Sheree Magallon MD [address] [place] [address] [place] [id number] Referral ID Status Reason Start Date Expiration Date V isits Requested Visits Authorized [id number] Closed Auto-Generate d Referral 07/31/2023 08/29/2024 1 1 Specialty Diagnoses / Procedures Referred By Contac t Referred To [facility] Diagnoses Pulmonary fibrosis (HCC) Procedures OXIMETRY WITH AMBULATION NONINVASIVE EAR/PULSE OXIMETRY MULTIPLE DETER Sheree Magallon MD [address] [place] [address] [address] Referral ID Status Reason Start Date Expiration Date V isits Requested Visits Authorized [id number] Closed Auto-Generate d Referral 07/31/2023 08/29/2024 1 1 Specialty Diagnoses / Procedures Referred By Contac t Referred To [facility] Diagnoses Pulmonary fibrosis (HCC) Procedures LUNG DIFFUSION CAPACITY (DLCO) DIFFUSING CAPACITY Sheree Magallon MD [address] [place] [address] [address] Referral ID Status Reason Start Date Expiration Date V isits Requested Visits Authorized [id number] Closed Auto-Generate d Referral 07/31/2023 08/29/2024 1 1 Specialty Diagnoses / Procedures Referred By Contac t Referred To [facility] Diagnoses Pulmonary fibrosis (HCC) Procedures OXIMETRY WITH AMBULATION NONINVASIVE EAR/PULSE OXIMETRY MULTIPLE DETER Sophy Stein PA-C [address] [place] [address] [facility] [place] [address] [place] [address] Referral ID Status Reason Start Date Expiration Date V isits Requested Visits Authorized [id number] Closed Auto-Generate d Referral 02/07/2024 03/08/2025 1 1 Reason Comments Established Patient 6 month follow up [place] Specialty Diagnoses / Procedures Referred By Contac t Referred To Contact Pulmonary and Critical Care Medicine / PULMONARY MEDICINE Diagnoses Encounter for follow-up examination after completed treatment for conditions other than malignant neoplasm 6 MTH F/U Procedures OFFICE/OUTPATIENT ESTABLISHED SF MDM 10 MIN OFFICE/OUTPATIENT ESTABLISHED LOW MDM 20 MIN OFFICE/OUTPATIENT ESTABLISHED MOD MDM 30 MIN OFFICE/OUTPATIENT ESTABLISHED HIGH MDM 40 MIN RI EST PULM GENERAL Sheree Magallon MD [address] [place] [address] Sophy Stein PA-C [address] [place] [address] Referral ID Status Reason Start Date Expiration Date V isits Requested Visits Authorized [id number] Authorized 02/05/2024 04/09/2024 99 99 Reason Comments Wrist/forearm Injury left wrist pain aft er falling down steps x this am Reason Onset Date Comments Refill Request 03/24/2024 Reason Comments Lump on tongue Reason Comments Recheck Lump on tongue for a bout a couple weeks Reason Onset Date Comments Refill Request 06/05/2024 Reason Comments Appointment Reason Onset Date Comments Refill Request 08/08/2024 Reason Comments Established Patient pulmonary fibrosis Pulmonary Fibrosis Reason Comments F/U 6 Month Reason Onset Date Comments Refill Request 12/05/2024 Reason Comments Established Patient LCS Specialty Diagnoses / Procedures Referred By Contac t Referred To Contact CT IMAGING Diagnoses Encounter for screening for lung cancer Former cigarette smoker Procedures CT LUNG SCREEN WO IVCON COMPUTED TOMOGRAPHY THORAX LW DOSE LNG CA SCR Abdulaziz- Fifi Paul, RODDY.EXHIBITION ORGANISER [address] [place] [address] Phone: tel: fax: [facility] IMAGING [facility] Referral ID Status Reason Start Date Expiration Date V isits Requested Visits Authorized [id number] Closed Auto-Generate d Referral 02/05/2024 04/09/2025 3 3 Care Teams (unrecognized sec tion and content) Dimensional Inspector Relationship Specialty Start Date End Date Genie Coto MD [address] [facility] [place] [address] PCP - General Internal Medicine 12/15/15 Dimensional Inspector Relationship Specialty Start Date End Date Genie Coto MD [address] [facility] [place] [address] PCP - General Internal Medicine 12/15/15 Dimensional Inspector Relationship Specialty Start Date End Date Genie Coto MD [address] [facility] [place] [address] PCP - General Internal Medicine 12/15/15 Dimensional Inspector Relationship Specialty Start Date End Date Genie Coto MD [address] [facility] [place] [address] PCP - General Internal Medicine 12/15/15 Dimensional Inspector Relationship Specialty Start Date End Date Genie Coto MD [address] [facility] [place] [address] PCP - General Internal Medicine 12/15/15 Dimensional Inspector Relationship Specialty Start Date End Date Genie Coto MD [address] [facility] [place] [address] PCP - General Internal Medicine 12/15/15 Dimensional Inspector Relationship Specialty Start Date End Date Genie Coto MD [address] [facility] [place] [address] PCP - General Internal Medicine 12/15/15 Dimensional Inspector Relationship Specialty Start Date End Date Genie Coto MD [address] [facility] [place] [address] PCP - General Internal Medicine 12/15/15 Dimensional Inspector Relationship Specialty Start Date End Date Genie Coto MD [address] [place] [address] PCP - General Internal Medicine 12/15/15 Dimensional Inspector Relationship Specialty Start Date End Date Genie Coto MD [address] [place] [address] PCP - General Internal Medicine 12/15/15 Dimensional Inspector Relationship Specialty Start Date End Date Genie Coto MD [address] [place] [address] PCP - General Internal Medicine 12/15/15 Dimensional Inspector Relationship Specialty Start Date End Date Genie Coto MD [address] [place] [address] PCP - General Internal Medicine 12/15/15 Dimensional Inspector Relationship Specialty Start Date End Date Genie Coto MD [address] [place] [address] PCP - General Internal Medicine 12/15/15 Dimensional Inspector Relationship Specialty Start Date End Date Genie Coto MD [address] [place] [address] PCP - General Internal Medicine 12/15/15 Dimensional Inspector Relationship Specialty Start Date End Date Genie Coto MD [address] [place] [address] PCP - General Internal Medicine 12/15/15 Dimensional Inspector Relationship Specialty Start Date End Date Genie Coto MD [address] [place] [address] PCP - General Internal Medicine 12/15/15 Dimensional Inspector Relationship Specialty Start Date End Date Genie Coto MD [address] [place] [address] PCP - General Internal Medicine 12/15/15 Dimensional Inspector Relationship Specialty Start Date End Date Genie Coto MD [address] [place] [address] PCP - General Internal Medicine 12/15/15 Dimensional Inspector Relationship Specialty Start Date End Date Genie Coto MD [address] [place] [address] PCP - General Internal Medicine 12/15/15 Dimensional Inspector Relationship Specialty Start Date End Date Genie Coto MD [address] [place] [address] PCP - General Internal Medicine 12/15/15 Dimensional Inspector Relationship Specialty Start Date End Date Genie Coto MD [address] [place] [address] PCP - General Internal Medicine 12/15/15 Dimensional Inspector Relationship Specialty Start Date End Date Genie Coto MD [address] [place] [address] PCP - General Internal Medicine 12/15/15 Dimensional Inspector Relationship Specialty Start Date End Date Genie Coto MD [address] [place] [address] PCP - General Internal Medicine 12/15/15 Dimensional Inspector Relationship Specialty Start Date End Date Genie Coto MD [address] [place] [address] PCP - General Internal Medicine 12/15/15 Dimensional Inspector Relationship Specialty Start Date End Date Genie Coto MD [address] [facility] [place] [address] PCP - General Internal Medicine 12/15/15 Dimensional Inspector Relationship Specialty Start Date End Date Genie Coto MD [address] [facility] [address] PCP - General Internal Medicine 12/15/15 Dimensional Inspector Relationship Specialty Start Date End Date Genie Coto MD [address] [facility] [place] [address] PCP - General Internal Medicine 12/15/15 Dimensional Inspector Relationship Specialty Start Date End Date Genie Coto MD [address] [facility] [place] [address] PCP - General Internal Medicine 12/15/15 Dimensional Inspector Relationship Specialty Start Date End Date Genie Coto MD [address] [facility] [place] [address] PCP - General Internal Medicine 12/15/15 Dimensional Inspector Relationship Specialty Start Date End Date Genie Coto MD [address] [facility] [place] [address] PCP - General Internal Medicine 12/15/15 Dimensional Inspector Relationship Specialty Start Date End Date Genie Coto MD [address] [facility] [place] [address] PCP - General Internal Medicine 12/15/15 Dimensional Inspector Relationship Specialty Start Date End Date Genie Coto MD [address] [facility] [place] [address] PCP - General Internal Medicine 12/15/15 Dimensional Inspector Relationship Specialty Start Date End Date Genie Coto MD [address] [facility] [place] [address] PCP - General Internal Medicine 12/15/15 Dimensional Inspector Relationship Specialty Start Date End Date Genie Coto MD [address] [facility] [place] [address] PCP - General Internal Medicine 12/15/15 Dimensional Inspector Relationship Specialty Start Date End Date Genie Coto MD [address] [facility] [place] [address] PCP - General Internal Medicine 12/15/15 Dimensional Inspector Relationship Specialty Start Date End Date Genie Coto MD [address] [facility] [place] [address] PCP - General Internal Medicine 12/15/15 Dimensional Inspector Relationship Specialty Start Date End Date Genie Coto MD [address] [facility] [place] [address] PCP - General Internal Medicine 12/15/15 Dimensional Inspector Relationship Specialty Start Date End Date Genie Coto MD [address] [facility] [place] [address] PCP - General Internal Medicine 12/15/15 Dimensional Inspector Relationship Specialty Start Date End Date Genie Coto MD [address] [facility] [place] [address] PCP - General Internal Medicine 12/15/15 Dimensional Inspector Relationship Specialty Start Date End Date Genie Coto MD [address] [facility] [place] [address] PCP - General Internal Medicine 12/15/15 Dimensional Inspector Relationship Specialty Start Date End Date Genie Coto MD [address] [place] [address] PCP - General Internal Medicine 12/15/15 Dimensional Inspector Relationship Specialty Start Date End Date Genie Coto MD [address] [place] [address] PCP - General Internal Medicine 12/15/15 Dimensional Inspector Relationship Specialty Start Date End Date Genie Coto MD [address] [place] [address] PCP - General Internal Medicine 12/15/15 Dimensional Inspector Relationship Specialty Start Date End Date Genie Coto MD [address] [place] [address] PCP - General Internal Medicine 12/15/15 Dimensional Inspector Relationship Specialty Start Date End Date Genie Coto MD [address] [place] [address] PCP - General Internal Medicine 12/15/15 Dimensional Inspector Relationship Specialty Start Date End Date Genie Coto MD [address] [place] [address] PCP - General Internal Medicine 12/15/15 Dimensional Inspector Relationship Specialty Start Date End Date Genie Coto MD [address] [place] [address] PCP - General Internal Medicine 12/15/15 Dimensional Inspector Relationship Specialty Start Date End Date Genie Coto MD [address] [place] [address] PCP - General Internal Medicine 12/15/15 Maeve Lugo PA-C [address] [place] [address] Guitar Repairer Family Medicine 03/17/24 Mayuri Dexter APRN.EXHIBITION ORGANISER [address] [place] [address] Guitar Repairer Internal Medicine 03/17/24 Sangita Green PA-C [address] [place] [address] [facility]/24 Dimensional Inspector Relationship Specialty Start Date End Date Genie Coto MD [address] [place] [address] PCP - General Internal Medicine 12/15/15 Maeve Lugo PA-C [address] [place] [address] [facility] [place] 03/17/24 Mayuri Dexter, RODDY.EXHIBITION ORGANISER [address] [place] [address] Guitar Repairer Internal Medicine 03/17/24 Sangita Green PA-C [address] [facility] [place] [address] Guitar Repairer Family Medicine 03/17/24 Dimensional Inspector Relationship Specialty Start Date End Date Genie Coto MD [address] [place] [address] PCP - General Internal Medicine 12/15/15 Maeve Lugo PA-C [address] [place] [address] Guitar Repairer Family Medicine 03/17/24 Mayuri Dexter APRN.EXHIBITION ORGANISER [address] [place] [address] Guitar Repairer Internal Medicine 03/17/24 Sangita Green PA-C [address] [place] [address] Guitar Repairer Family Medicine 03/17/24 Dimensional Inspector Relationship Specialty Start Date End Date Genie Coto MD [address] [place] [address] PCP - General Internal Medicine 12/15/15 Maeve Lugo PA-C [address] [place] [address] Guitar Repairer Family Medicine 03/17/24 Mayuri Dexter APRN.EXHIBITION ORGANISER [address] [place] [address] Guitar Repairer Internal Medicine 03/17/24 Sangita Green PA-C [address] [place] [address] [facility] [place] [facility] Dimensional Inspector Relationship Specialty Start Date End Date Genie Coto MD [address] [place] [address] PCP - General Internal Medicine 12/15/15 Maeve Lugo PA-C [address] [place] [address] [facility] Family Medicine 03/17/24 Mayuri Dexter APRN.EXHIBITION ORGANISER [address] [facility] [place] [address] [facility] Internal Medicine 03/17/24 Sangita Green PA-C [address] [facility] [place] [address] [facility] 03/17/24 Dimensional Inspector Relationship Specialty Start Date End Date Genie Coto MD [address] [facility] [place] [address] PCP - General Internal Medicine 12/15/15 Mayuri Dexter APRN.EXHIBITION ORGANISER [address] [facility] [place] [address] [facility] Internal Medicine 03/17/24 Dimensional Inspector Relationship Specialty Start Date End Date Genie Coto MD [address] [facility] [place] [address] PCP - General Internal Medicine 12/15/15 Mayuri Dexter APRN.EXHIBITION ORGANISER [address] [place] [address] Guitar Repairer Internal Medicine 03/17/24 Dimensional Inspector Relationship Specialty Start Date End Date Genie Coto MD [address] [facility] [place] [address] PCP - General Internal Medicine 12/15/15 Mayuri Dexter APRN.EXHIBITION ORGANISER [address] [facility] [place] [address] [facility] Internal Medicine 03/17/24 Dimensional Inspector Relationship Specialty Start Date End Date Genie Coto MD [address] [place] [address] PCP - General Internal Medicine 12/15/15 Mayuri Dexter APRN.EXHIBITION ORGANISER [address] [place] [address] Guitar Repairer Internal Medicine 03/17/24 Dimensional Inspector Relationship Specialty Start Date End Date Genie Coto MD [address] [place] [address] PCP - General Internal Medicine 12/15/15 Mayuri Dexter APRN.EXHIBITION ORGANISER [address] [place] [address] Guitar Repairer Internal Medicine 03/17/24 Dimensional Inspector Relationship Specialty Start Date End Date Genie Ctoo MD [address] [place] [address] PCP - General Internal Medicine 12/15/15 Mayuri Dexter APRN.EXHIBITION ORGANISER [address] [place] [address] Guitar Repairer Internal Medicine 03/17/24 Dimensional Inspector Relationship Specialty Start Date End Date Genie Coto MD [address] [place] [address] PCP - General Internal Medicine 12/15/15 Mayuri Dexter APRN.EXHIBITION ORGANISER [address] [place] [address] Guitar Repairer Internal Medicine 03/17/24 Dimensional Inspector Relationship Specialty Start Date End Date Genie Coto MD [address] [place] [address] PCP - General Internal Medicine 12/15/15 Mayuri Dexter APRN.EXHIBITION ORGANISER [address] [place] [address] Guitar Repairer Internal Medicine 03/17/24 Dimensional Inspector Relationship Specialty Start Date End Date Genie Coto MD [address] [place] [address] PCP - General Internal Medicine 12/15/15 Mayuri Dexter APRN.EXHIBITION ORGANISER [address] [place] [address] Guitar Repairer Internal Medicine 03/17/24 FOR RECORDS PERTAINING TO PATIENTS WHO ARE OR HAVE BEEN ENROLLED IN A CHEMICAL DEPENDENCY/SUBSTANCEABUSE PROGRAM, SOME INFORMATION MAY BE OMITTED. This clinical summary was aggregated from multiple sources. Caution should be exercised in using it in the provision of clinical care. This summary normalizes information from multiple sources, and as a consequence, information in this document may materially change the coding, format and clinical context of patient data. In addition, data may be omitted in some cases. CLINICAL DECISIONS SHOULD BE BASED ON THE PRIMARY CLINICAL RECORDS. [facility] [employer] [facility]. provides no warranty or guarantee of the accuracy or completeness of information in this document.
--- NOTE | 2025-03-31 07:14 | PCM.PRE.AN2 ---
ASA Classification* ASA Classification ASA Classification: 2 Assessment & Plan Anesthesia* Anesthesia Assessment Anesthesia Assessment: Discussed sedation and/or anesthesia options, risks, benefits, and alternatives with patient/parents/legal guardian/POA. Questions invited. The patient/parents/legal guardian/POA seems to understand and agrees to proceed with anesthesia plan. Reviewed the physical assessment, medical history, allergy history and patient home medications list prior to surgery/procedure/anesthetic and documented any changes. Performed airway and anesthesia risk assessments. Anesthesia Type Anesthesia Type: MAC Anesthesia Focused Assessment* Airway Assessment Mouth opens: >3 cm Mallampati Score: II Labs Anesthesia Preop lab: CBC WBC, (4.4-11.0) 7.4 K/mm3 03/24/21, 15:25 RBC, (4.6-6.2) 4.77 M/mm3 03/24/21, 15:25 Hgb, (13.0-16.5) 15.1 g/dL 03/24/21, 15:25 Hct, (40-54) 43.4 % 03/24/21, 15:25 Plt Count, (150-450) 174 K/mm3 03/24/21, 15:25 CHEMISTRY Potassium, (3.5-5.1) 3.8 mmol/L 03/24/21, 15:25 Sodium, (136-145) 138 mmol/L 03/24/21, 15:25 Magnesium, (1.6-2.6) 2.1 mg/dL 06/21/18, 00:30 Phosphorus, (2.5-4.9) 3.8 mg/dL 06/21/18, 00:30 BUN, (7-18) 15 mg/dL 03/24/21, 15:25 Creatinine, (0.70-1.30) 1.08 mg/dL 03/24/21, 15:25 Glucose, (74-106) 83 mg/dL 03/24/21, 15:25 COAG PT, (11.7-14.9) 14.2 SECONDS 06/21/18, 03:28 Pre-Assessment Diagnosis/Proposed Procedure Planned Operative Procedure(s): COLONOSCOPY, EGD Anesthesia History Anesthesia History - clinical services consultant: Anesthesia History - clinical services consultant Hx Hospitalization No 03/28/25 08:09 Any Problems With Anesthesia No 03/28/25 08:09 Cholinesterase deficiency No 03/28/25 08:09 You/Your Family Experience No 03/28/25 08:09 fever (hyperthermia) with Relationship Recent Exposure to Contagious No 08/18/16 06:15 Disease Does patient have nerve No 03/28/25 08:09 stimulator Patient instructed to have device shut off --Does patient have Pacemaker or ICD? When Was Last Pacemaker Check QUESTION #4 FULL TEXT: You/Your Family Experience fever (hyperthermia) with Anesthesia Last Oral Intake Last Oral intake: Last Oral Intake NPO since Meds taken in AM with sips of water? Meds patient instructed to take am of surgery PONV PONV - clinical services consultant: PONV - clinical services consultant Female No 03/28/25 08:09 HX of Motion Sickness No 03/28/25 08:09 HX of N/V After Surgery No 03/28/25 08:09 Non-Smoker Yes 03/28/25 08:09 Duration of Surgery greater No 03/28/25 08:09 than 60 minutes Number of Risk Factors 1 03/28/25 08:09 PONV Score Low Risk 03/28/25 08:09 Height & Weight Height & Weight: Anesthesia: Height & Weight Height 6 in 03/24/21 15:15 Respiratory Assessment Respiratory Assessment - clinical services consultant: Respiratory Tract Infection Hx - clinical services consultant Hx Respiratory Tract Infection No 03/28/25 08:09 STOP Sleep Apnea STOP Sleep Apnea - clinical services consultant: STOP Sleep Apnea - clinical services consultant Hx Hypertension Yes 03/28/25 08:09 Hx Sleep Apnea Yes: NONE SINCE WT LOSS OF 03/28/25 08:09 60LBS CPAP No 03/28/25 08:09 BIPAP No 03/28/25 08:09 Do you snore loudly (louder than talking or can be heard Do you often feel tired/ fatigued/ sleepy during daytime? Has anyone observed you stop breathing during sleep? STOP Results Positive 03/28/25 08:09 QUESTION #5 FULL TEXT : Do you snore loudly (louder than talking or can be heard through closed doors)? Tobacco Use History Tobacco Use History - clinical services consultant: Tobacco Use History - clinical services consultant Tobacco Use Smoking Status Former smoker 03/28/25 08:09 Hx Tobacco Use No: quit august 29, 2017 03/28/25 08:09 Years Smoking Packs Smoked per Day Smoking Cessation Date was Yes - quit smoking within 15 03/28/25 08:09 within the last 15 years years Hx Smoking Cessation Date Hx Smoking Cessation Counseling Hematologic Medial History Hematologic Hx - clinical services consultant: Hematologic Medical Hx - extruder Hx of Blood Transfusion No 03/28/25 08:09 Hx of Transfusion in last 3 No 03/28/25 08:09 Months Date of Last Transfusion (if within last 3 months) Ever experience any problems No 03/28/25 08:09 with transfusion(s)? Specify any problems Hx of Preganancy in last 3 N/A 03/28/25 08:09 Months Nurse Filling Out Transfusion MGRIFFITH 03/28/25 08:09 & Questions: Date: 03/28/25 03/28/25 08:09 Time: 08:12 03/28/25 08:09 Patient unable to answer at this time (ie. confused, unrespo /Reproduction History /Reproductive History - clinical services consultant: /Reproductive Hx- clinical services consultant Hx Now No 03/28/25 08:09 Gestational Age (in weeks): EDC: Hx Hx Para Hx Section SAB No 03/28/25 08:09 Does the father of the baby or his family experience fever w Father of the baby Malignant Hypertension history comment Active Medications Active Medications: Current Medications Generic Name Dose Route Start Last Admin Trade Name Freq PRN Reason Stop Dose Admin Lactated Ringer's 1,000 mls @ 15 mls/hr 03/31/25 07:15 IV .Q48H LAY PFSH Medical History Wears hearing aid Wears glasses Cancer Anxiety Bladder disease History of sleep apnea Former smoker Shortness of breath on exertion History of echocardiogram History of stress test History of pulmonary embolism Diarrhea Coronary artery calcification Arthritis Pulmonary nodules Dysphagia Home Medications ?Medication ?Instructions ?Recorded ?Last Taken ?Type trazodone 100 mg tablet 200 mg PO QHS sleep 05/23/16 06/20/18 21:00 History albuterol sulfate 90 mcg/actuation 2 puff inhalation Q6H PRN 01/10/25 Unknown History aerosol inhaler (Ventolin HFA) bronchospasm duloxetine 60 mg capsule,delayed 60 mg PO QDAY 01/10/25 Unknown History release pramipexole 1.5 mg tablet 1.5 mg PO QHS RLS 01/10/25 Unknown History propranolol 10 mg tablet 10 mg PO BID BP 01/10/25 Unknown History buspirone 10 mg tablet 10 mg PO BID 03/03/25 Unknown History trospium 20 mg tablet 20 mg PO BID OAB 03/03/25 Unknown History aspirin 81 mg chewable tablet 1 tab PO DAILY 03/28/25 Unknown History vitamin E 670 mg (1,000 unit) 1,340 mg PO DAILY 03/28/25 Unknown History capsule Allergy/AdvReac Type Severity Reaction Status Date / Time lisinopril AdvReac Mild Other Verified 03/28/25 08:03 Family History Mother Alzheimers disease Father Diabetes Hypertension Cancer thyroid Surgical History History of vein stripping History of colonoscopy History of right shoulder surgery History of appendectomy Social History Smoking Status: Former smoker Review of Systems (Anesthesia) ROS Narrative System reviewed and no additional complaints, except as documented.
[2025-03-31] MEDS: Lactated Ringers 1,000 ML 15 ML IV (07:28)
--- NOTE | 2025-03-31 08:00 | COLBX_PTH ---
PATIENT: ROYAL GARCIA LOC: EN U#:[id number] AGE/SX: 59/M ROOM: RE03/31/[address]: Dr. Alfred August DO : 1965 BED: DIS: 03/31/2025 SPEC #: [id number] RECD: 03/31/25 09:42 STATUS: RICK REVincenzo #: [id number] MAYLIN: 03/31/25 08:[address]: Alfred August DEPT: SURGICAL PATHOLOGY RECD BY: Gabino Miles ENTERED: 03/31/25 10:36 SP TYPE: COLON BX OTHR DR: Dr. Shirley Hayward MD Tissues: A - Esophagus, NOS B - Gastric mucous membrane C - Duodenum, NOS D - Sigmoid colon biopsy E - Rectum, NOS Procedures: Surgery Specimen Level IV HEADER OPERATION: Colonoscopy, EGD with dilation PRE-OP DIAGNOSIS: Dysphagia and history of adenomatous polyps TISSUE SUBMITTED: A. distal esophagus, B. Gastric body, C. Duodenum, D. Sigmoid polyp, E. Rectum MICROSCOPIC DIAGNOSIS A. Esophagus, distal, biopsy: - Squamous mucosa with reactive changes. - Columnar mucosa negative for goblet cell metaplasia. B. Stomach, body, biopsy: - Oxyntic mucosa with features of reactive gastropathy. - Negative for Helicobacter-like organisms (H&E). C. Small intestine, duodenum, biopsy: - Normal villous architecture with Fariba gland hyperplasia. - Negative for increased intraepithelial lymphocytes. D. Colon, sigmoid, polyp, biopsy: - Hyperplastic polyp. E. Rectum, biopsy: - Mucosal prolapse with focal hyperplastic crypt change. MICROSCOPIC DESCRIPTION Slides are reviewed. GROSS DESCRIPTION A. Received is one container labeled with the patient name and designated distal esophagus. The specimen consists of three irregular fragments of cadet tissue that measure 0.3 x 0.5 cm. The specimen is totally submitted in one cassette. B. Received is one container labeled with the patient name and designated Gastric body. The specimen consists of two irregular fragments of cadet tissue that measure 0.4 x 0.7cm. The specimen is totally submitted in one cassette. C. Received is one container labeled with the patient name and designated Duodenum. The specimen consists of multiple irregular fragments of cadet tissue that in aggregate measure 1.0 x 0.3 x 0.1 cm. The specimen is totally submitted in one cassette. D. Received is one container labeled with the patient name and designated Sigmoid polyp. The specimen consists of one irregular fragment of cadet tissue that measures 0.5 x 0.4 x 0.2 cm. The specimen is totally submitted in one cassette. E. Received is one container labeled with the patient name and designated Rectum. The specimen consists of one irregular fragment of cadet tissue that measures 0.4cm. The specimen is totally submitted in one cassette. MA 03/31/2025 CPT:13682y9
--- NOTE | 2025-03-31 08:12 | PCM.HP.STD ---
HPI - General General Date of Admission: 03/31/25 Date of Service: 03/31/25 Chief Complaint: Dysphagia and history of adenomatous polyps HPI Narrative Chief Complaint: Personal history of adenomatous polyps and esophageal dysphagia He presents for discussion of screening and proactive health measures. He reports undergoing colonoscopy about every five years; polyps are found each time but have been benign. Has never had an upper endoscopy. Notes intermittent difficulty swallowing. He denies diabetes and states blood pressure is good; takes a low-dose blood pressure medication to keep it controlled. Denies history of low blood counts or anemia. Reports intermittent trouble urinating. Unsure whether a prostate-specific antigen (PSA) test has been performed previously. Recently had routine liver tests. History notable for blood clots that went through the heart and lungs approximately six months after quitting smoking in 2018; cause unknown. History of blood clots passing through heart and lungs (approx. 6 months after quitting smoking in 2018); etiology unknown - [Hypertension treated with low-dose medication despite reporting good blood pressure - Denies diabetes - Denies anemia - Denies liver issues; recent liver tests done routinely ] [facility] Medical History Wears hearing aid Wears glasses Cancer Anxiety Bladder disease History of sleep apnea Former smoker Shortness of breath on exertion History of echocardiogram History of stress test History of pulmonary embolism Diarrhea Coronary artery calcification Arthritis Pulmonary nodules Dysphagia Home Medications ?Medication ?Instructions ?Recorded ?Last Taken ?Type trazodone 100 mg tablet 200 mg PO QHS sleep 05/23/16 06/20/18 21:00 History albuterol sulfate 90 mcg/actuation 2 puff inhalation Q6H PRN 01/10/25 Unknown History aerosol inhaler (Ventolin HFA) bronchospasm duloxetine 60 mg capsule,delayed 60 mg PO QDAY 01/10/25 Unknown History release pramipexole 1.5 mg tablet 1.5 mg PO QHS RLS 01/10/25 Unknown History propranolol 10 mg tablet 10 mg PO BID BP 01/10/25 Unknown History buspirone 10 mg tablet 10 mg PO BID 03/03/25 Unknown History trospium 20 mg tablet 20 mg PO BID OAB 03/03/25 Unknown History aspirin 81 mg chewable tablet 1 tab PO DAILY 03/28/25 Unknown History vitamin E 670 mg (1,000 unit) 1,340 mg PO DAILY 03/28/25 Unknown History capsule Allergy/AdvReac Type Severity Reaction Status Date / Time lisinopril AdvReac Mild Other Verified 03/31/25 07:19 Family History Mother Alzheimers disease Father Diabetes Hypertension Cancer thyroid Surgical History History of vein stripping History of colonoscopy History of right shoulder surgery History of appendectomy Social History Smoking Status: Former smoker ROS Constitutional Constitutional: Denies fatigue, fever(s), poor appetite, weight gain or weight loss Gastrointestinal Gastrointestinal: Denies belching, bloating, change in bowel habits, change in stool character, chewing difficulty, coffee ground emesis, constipation, cramping, diarrhea, dyspepsia, dysphagia, early satiety, excessive flatus, fecal incontinence, heartburn, hematemesis, hematochezia, hemorrhoids, loose stools, melena, nausea, odynophagia, rectal bleeding, tenesmus, vomiting or weight changes Patient's Goals Of Care . What would you like to achieve or improve as a result of your hospital stay?: nnone Vital Signs Vital Signs Vital Signs: 03/31/25 07:20 03/31/25 07:20 03/31/25 07:20 Temperature 97.2 F L Temperature Source Temporal Pulse Rate 74 Respiratory Rate 16 Respiratory Pattern Normal Blood Pressure 124/88 H Blood Pressure Mean 100 Blood Pressure Source Monitor Blood Pressure Position Sitting Blood Pressure Location Right Arm Baseline BP 124/88 Pulse Ox 99 Oxygen Delivery Method Room Air Weight Weight: 209 lb 7.026 oz Body Mass Index (BMI) 28.4 Physical Exam Const alert, oriented x3, no apparent distress and healthy appearing General Appearance: cooperative GI normal to inspection, nondistended, normoactive bowel sounds, soft to palpation, non-tender and non-distended Percussion: normal to percussion Rectal Exam: deferred Assessment & Plan Assessment/Plan (1) Personal history of colonic polyps: (2) Dysphagia: PLAN: Assessment and Plan Assessment and Plan (1) Dysphagia: Status: Acute (2) Personal history of colonic polyps: Status: Acute Plan: Intermittent dysphagia : Reports occasional difficulty swallowing; has never had an upper endoscopy. - Suggest upper endoscopy to evaluate the esophagus and stomach (stated as taking about five minutes). History of blood clots involving heart and lungs : Patient reports blood clots passed through heart and lungs about six months after quitting smoking in 2018; cause unknown. Benign colonic polyps (history) : Undergoes colonoscopy approximately every five years; polyps found each time have been benign. - Suggest continuation of colonoscopy while evaluating the gastrointestinal tract, including the colon. [Unclear] Hypertension : States good blood pressure; on low-dose medication to keep blood pressure controlled. Follow-up : Plans discussed to proceed with evaluations. - Proceed to schedule endoscopic evaluations (upper endoscopy and colonoscopy).
--- NOTE | 2025-03-31 09:02 | OP.EGD_ITS ---
Patient Name: Subhash Stewart Procedure Date: 03/31/2025 8:18 AM Date of : 1965 Age: 59 Procedure: Upper GI endoscopy Indications: Epigastric abdominal pain, Dysphagia Providers: Alfred August DO Medicines: Monitored Anesthesia Care Patient Profile: This is a 59 year old male. Refer to note in patient chart for documentation of history and physical. Patient has symptoms of dysphagia with solids. Complications: No immediate complications. Procedure: Pre-Anesthesia Assessment: - Prior to the procedure, a History and Physical was performed, and patient medications and allergies were reviewed. The patient is competent. The risks and benefits of the procedure and the sedation options and risks were discussed with the patient. All questions were answered and informed consent was obtained. Patient identification and proposed procedure were verified by the physician. Mental Status Examination: alert and oriented. Airway Examination: normal oropharyngeal airway and neck mobility. Respiratory Examination: clear to auscultation. CV Examination: normal. Prophylactic Antibiotics: The patient does not require prophylactic antibiotics. Prior Anticoagulants: The patient has taken no anticoagulant or antiplatelet agents. ASA Grade Assessment: II - A patient with mild systemic disease. After reviewing the risks and benefits, the patient was deemed in satisfactory condition to undergo the procedure. The anesthesia plan was to use monitored anesthesia care (MAC). Immediately prior to administration of medications, the patient was re-assessed for adequacy to receive sedatives. The heart rate, respiratory rate, oxygen saturations, blood pressure, adequacy of pulmonary ventilation, and response to care were monitored throughout the procedure. The physical status of the patient was re-assessed after the procedure. After obtaining informed consent, the endoscope was passed under direct vision. Throughout the procedure, the patient's blood pressure, pulse, and oxygen saturations were monitored continuously. The Colonoscope was introduced through the mouth, and advanced to the third part of the duodenum. Small bowel enteroscopy was deemed necessary. The upper GI endoscopy was accomplished without difficulty. The patient tolerated the procedure well. Scope In: 8:25:22 AM Scope Out: 8:33:29 AM Total Procedure Duration Time 0 hours 8 minutes 7 seconds Findings: The Z-line was irregular and was found 40 cm from the incisors. A guidewire was placed and the scope was withdrawn. Dilation was performed with a Savary dilator with no resistance at 60 Fr. The dilation site was examined and showed moderate mucosal disruption. Estimated blood loss was minimal. Patchy mildly erythematous mucosa without bleeding was found in the gastric body. Biopsies were taken with a cold forceps for Helicobacter pylori testing. Verification of patient identification for the specimen was done. Estimated blood loss was minimal. Patchy mild inflammation characterized by congestion (edema) and erythema was found in the entire duodenum. Biopsies were taken with a cold forceps for histology. Verification of patient identification for the specimen was done. Estimated blood loss was minimal. Abnormal motility was noted in the esophagus. The cricopharyngeus was abnormal. There is a decrease in motility of the esophageal body. The distal esophagus/lower esophageal sphincter is spastic, but gives up passage to the endoscope. Secondary peristaltic waves are noted. Impression: - Z-line irregular, 40 cm from the incisors. Dilated. - Erythematous mucosa in the gastric body. Biopsied. - Duodenitis. Biopsied. Recommendation: - Discharge patient to home. - Resume previous diet. - Continue present medications. - Await pathology results. Procedure Code(s): --- Professional --- 57744, Esophagogastroduodenoscopy, flexible, transoral; with insertion of guide wire followed by passage of dilator(s) through esophagus over guide wire 42909, 59,51, Small intestinal endoscopy, enteroscopy beyond second portion of duodenum, not including ileum; with biopsy, single or multiple CPT copyright 2021 [employer]. All rights reserved. The codes documented in this report are preliminary and upon tool chaser review may be revised to meet current compliance requirements. Alfred August DO 03/31/2025 9:02:19 AM This report has been signed electronically. Number of Addenda: 0 Note Initiated On: 03/31/2025 8:18 AM
--- NOTE | 2025-03-31 09:02 | PCM.POST.ANE ---
Anesthesia: Postop Eval I Current Vital Signs Temperature: 97.8 F Pulse Rate: 67 Blood Pressure: 88/68 Respiratory Rate: 16 Pulse Ox: 95 Oxygen Delivery Method: Room Air Assessment Airway patent: Yes Spontaneous unlabored respirations: Yes Mental status: Asleep nausea: No Vomiting: No Anesthesia Complication: No Fluid Hydration Crystalloid volume administer (ml): 900 Total IV fluid infused: 900 Progress Note Anesthesia document: Postop Eval 1 completed: Yes
--- NOTE | 2025-03-31 09:03 | OP.PROVAT_ITS ---
03/31/2025 Shirley Hayward [address] [place] [address] Re : Upper GI endoscopy procedure for Subhash Stewart Dear Dr. Hayward This procedure was performed on Monday, March 31, 2025. My impressions and recommendations are as follows: Impressions : - Z-line irregular, 40 cm from the incisors. Dilated. - Erythematous mucosa in the gastric body. Biopsied. - Duodenitis. Biopsied. Recommendations : - Discharge patient to home. - Resume previous diet. - Continue present medications. - Await pathology results. My findings are described in the full procedure note, which is enclosed. If I can be of further assistance, please feel free to contact me at . Sincerely, Alfred August, 03/31/2025 9:02:19 AM This report has been signed electronically.
--- NOTE | 2025-03-31 09:05 | OP.COLON_ITS ---
Patient Name: Subhash Stewart Procedure Date: 03/31/2025 8:33 AM Date of : 1965 Age: 59 Procedure: Colonoscopy Indications: Screening for colorectal malignant neoplasm Providers: Alfred August DO Medicines: Monitored Anesthesia Care Patient Profile: This is a 59 year old male. Refer to note in patient chart for documentation of history and physical. Patient has symptoms of dysphagia with solids. Last Colonoscopy: several years ago. Complications: No immediate complications. Procedure: Pre-Anesthesia Assessment: - Prior to the procedure, a History and Physical was performed, and patient medications and allergies were reviewed. The patient is competent. The risks and benefits of the procedure and the sedation options and risks were discussed with the patient. All questions were answered and informed consent was obtained. Patient identification and proposed procedure were verified by the physician. Mental Status Examination: alert and oriented. Airway Examination: normal oropharyngeal airway and neck mobility. Respiratory Examination: clear to auscultation. CV Examination: normal. Prophylactic Antibiotics: The patient does not require prophylactic antibiotics. Prior Anticoagulants: The patient has taken no anticoagulant or antiplatelet agents. ASA Grade Assessment: II - A patient with mild systemic disease. After reviewing the risks and benefits, the patient was deemed in satisfactory condition to undergo the procedure. The anesthesia plan was to use monitored anesthesia care (MAC). Immediately prior to administration of medications, the patient was re-assessed for adequacy to receive sedatives. The heart rate, respiratory rate, oxygen saturations, blood pressure, adequacy of pulmonary ventilation, and response to care were monitored throughout the procedure. The physical status of the patient was re-assessed after the procedure. After I obtained informed consent, the scope was passed under direct vision. Throughout the procedure, the patient's blood pressure, pulse, and oxygen saturations were monitored continuously. The Colonoscope was introduced through the anus and advanced to the cecum, identified by appendiceal orifice and ileocecal valve. The colonoscopy was performed without difficulty. The patient tolerated the procedure well. The quality of the bowel preparation was adequate. The ileocecal valve, appendiceal orifice, and rectum were photographed. Scope In: 8:34:22 AM Scope Withdrawal Time 0 hours 13 minutes 37 seconds Scope Out: 8:50:37 AM Total Procedure Duration Time 0 hours 16 minutes 15 seconds Findings: The perianal and digital rectal examinations were normal. A few small-mouthed diverticula were found in the recto-sigmoid colon and sigmoid colon. A 9 mm polyp was found in the sigmoid colon. The polyp was sessile. The polyp was removed with a hot snare. Resection and retrieval were complete. Verification of patient identification for the specimen was done. Estimated blood loss was minimal. A 5 mm polyp was found in the rectum. The polyp was sessile. The polyp was removed with a jumbo cold forceps. Resection and retrieval were complete. Verification of patient identification for the specimen was done. Estimated blood loss was minimal. Impression: - Diverticulosis in the recto-sigmoid colon and in the sigmoid colon. - One 9 mm polyp in the sigmoid colon, removed with a hot snare. Resected and retrieved. - One 5 mm polyp in the rectum, removed with a jumbo cold forceps. Resected and retrieved. Recommendation: - Repeat colonoscopy in 5 years for surveillance. - Continue present medications. Procedure Code(s): --- Professional --- 57917, Colonoscopy, flexible; with removal of tumor(s), polyp(s), or other lesion(s) by snare technique 65760, 59, Colonoscopy, flexible; with biopsy, single or multiple CPT copyright 2021 [employer]. All rights reserved. The codes documented in this report are preliminary and upon medical record coder review may be revised to meet current compliance requirements. Alfred August DO 03/31/2025 9:05:09 AM This report has been signed electronically. Number of Addenda: 0 Note Initiated On: 03/31/2025 8:33 AM
--- NOTE | 2025-03-31 09:06 | OP.PROVAT_ITS ---
03/31/2025 Shirley Hayward [address] [place] [address] Re : Colonoscopy procedure for Subhash Stewart Dear Dr. Hayward This procedure was performed on Monday, March 31, 2025. My impressions and recommendations are as follows: Impressions : - Diverticulosis in the recto-sigmoid colon and in the sigmoid colon. - One 9 mm polyp in the sigmoid colon, removed with a hot snare. Resected and retrieved. - One 5 mm polyp in the rectum, removed with a jumbo cold forceps. Resected and retrieved. Recommendations : - Repeat colonoscopy in 5 years for surveillance. - Continue present medications. My findings are described in the full procedure note, which is enclosed. If I can be of further assistance, please feel free to contact me at . Sincerely, Alfred August, 03/31/2025 9:05:09 AM This report has been signed electronically.
--- NOTE | 2025-03-31 09:38 | PCM.POSTANE2 ---
Anesthesia Postop Eval I Sum Postop Eval Completion status Anesthesia document: Postop Eval 1 completed: Yes Anesthesia Postop Eval I Summary Anesthesia Postop Eval I Summary: Anesthesia Postop Eval I: Assessment Summary Airway patent Yes 03/31/25 09:03 [email or web address] Spontaneous unlabored Yes 03/31/25 09:03 [email or web address] respirations Mental status Asleep 03/31/25 09:03 [email or web address] nausea No 03/31/25 09:03 [email or web address] Vomiting No 03/31/25 09:03 [email or web address] Anesthesia Postop Eval I: Fluid Summary Crystalloid volume administer 900 03/31/25 09:03 [email or web address] (ml) Colloids volume administered ( ml) Blood Product volume administered (ml) Total IV fluid infused 900 03/31/25 09:03 [email or web address] Anesthesia Postop Eval I: Summary Notes Anesthesia Complication No 03/31/25 09:03 [email or web address] Anesthesia Complication Comment: Post-operative progress note Anesthesia: Postop Eval II Evaluation Mental status: Awake Pain Level: 0 nausea: No Vomiting: No
== END 2025-03-31 09:41 | disposition home or self-care (01) ==
LOC: EN 07:04 → AC 07:04
PROVIDERS: PCP Internal Medicine; Referring Provider Internal Medicine; Visit Provider Internal Medicine Gastroenterology
PROC: 0DJD8ZZ Inspection of Lower Intestinal Tract, Via Natural or Artificial Opening Endoscopic (ICD-10-PCS; CPT 45378; principal; 2025-03-31 07:55)
DX: Z12.11 Encounter for screening for malignant neoplasm of colon (principal); Z86.0101 Personal history of adenomatous and serrated colon polyps; Z87.891 Personal history of nicotine dependence; K57.30 Diverticulosis of large intestine without perforation or abscess without bleeding; I10 Essential (primary) hypertension; K29.80 Duodenitis without bleeding; I25.10 Atherosclerotic heart disease of native coronary artery without angina pectoris; Z86.711 Personal history of pulmonary embolism; Z79.82 Long term (current) use of aspirin; K22.4 Dyskinesia of esophagus; K63.5 Polyp of colon
CPT/HCPCS: 45385; 45380; 44361; 88305; C1769; J2405